=== PATIENT | female | born 1970 | race Caucasian/White ===

== ENCOUNTER → 2018-02-11 09:40 | Outpatient (CLI) | payer MEDICAID, SELFPAY | PROVIDERS: PCP Nurse Practitioner Family; Visit Provider Nurse Practitioner Family | DX: J44.9 Chronic obstructive pulmonary disease, unspecified (principal) | CPT/HCPCS: 94060; 94640 ==

== ENCOUNTER → 2018-02-18 10:41 | Outpatient (CLI) | payer MEDICAID, SELFPAY ==
[2018-02-18 12:19] LABS: Basophils % 0.2 % (0.1-2.0); Eosinophils # 0.1 K/mm3 (0.0-0.4); Eosinophils % 1.6 % (0.1-12.0); Hematocrit 46.5 % (37.0-47.0); Hemoglobin 14.4 g/dL (12.2-16.2); Lymphocytes # 1.7 K/mm3 (0.7-4.5); Mean Corpuscular Hemoglobin 31.1 pg (27.0-31.2); Mean Corpuscular Volume 100.5 fl (81-99); Mean Platelet Volume 8.5 fl (7.4-10.4); Monocytes # 0.3 K/mm3 (0.1-1.0); Neutrophils # 3.6 K/mm3 (1.8-7.8); Platelet Count 234 K/mm3 (142-424); Red Blood Count 4.63 M/mm3 (4.20-5.40); Red Cell Distribution Width 13.6 % (11.5-17.5); White Blood Count 5.8 K/mm3 (4.8-10.8)
[2018-02-18 12:47] LABS: Alanine Aminotransferase 22 U/L (12-78); Albumin Level 3.8 gm/dL (3.4-5.0); Albumin/Globulin Ratio 1.3 (1.1-1.8); Alkaline Phosphatase 54 U/L (46-116); Anion Gap 8.4 mEq/L (5-15); Aspartate Amino Transferase 14 U/L (15-37); Bilirubin,Total 0.2 mg/dL (0.2-1.0); Blood Urea Nitrogen 8 mg/dL (7-18); Calcium 8.8 mg/dL (8.5-10.1); Carbon Dioxide 30 mmol/L (21.0-32.0); Chloride 104 mmol/L (98-107); Chol/HDL Ratio 2.8 (1-3.5); Cholesterol 173 mg/dL (140-200); Creatinine,Serum 0.59 mg/dL (0.55-1.02); Estimated Glomerular Filt Rate 109 ml/min (>60); GFR (African American) 132 ML/MIN (>60); Globulin 2.9 gm/dl (1.3-3.2); Glucose 89 mg/dL (74-106); HDL Cholesterol 61 mg/dL (29-89); LDL Cholesterol 100 mg/dL (0-130); Potassium 4.4 mmoL/L (3.5-5.1); Sodium 138 mmol/L (136-145); T4 (Thyroxine) 7.1 ug/dl (4.7-13.3); Thyroid Stimulating Hormone 1.08 uIU/ml (0.358-3.740); Total Protein,Serum 6.7 gm/dL (6.4-8.2); Triglycerides 60 mg/dL (30-200); VLDL Cholesterol 12 mg/dL (0-40)
[2018-02-19 08:19] LABS: Hep A Ab, IgM Negative (Negative); Hepatitis B Core Antibody IgM Negative (Negative); Hepatitis B Surface Antigen Negative (Negative)
[2018-02-19 14:02] LABS: Hepatitis C Antibody <0.1 s/co ratio (0.0-0.9)
== END ==
PROVIDERS: Nurse Practitioner Family; PCP Emergency Medicine; Visit Provider Internal Medicine
DX: R94.31 Abnormal electrocardiogram [ECG] [EKG] (principal); R06.09 Other forms of dyspnea; F17.200 Nicotine dependence, unspecified, uncomplicated; F41.9 Anxiety disorder, unspecified; I10 Essential (primary) hypertension; I20.9 Angina pectoris, unspecified; I27.20 Pulmonary hypertension, unspecified; J44.9 Chronic obstructive pulmonary disease, unspecified; R53.83 Other fatigue; Z82.49 Family history of ischemic heart disease and other diseases of the circulatory system; E55.9 Vitamin D deficiency, unspecified
CPT/HCPCS: 80053; 80061; 80074; 82652; 84436; 84443; 85025; 93306

== ENCOUNTER → 2018-03-09 15:38 | Outpatient (CLI) | payer MEDICAID, SELFPAY ==
--- NOTE | 2018-03-09 15:43 | XR_ITS ---
XR chest 2V HISTORY: Chest pain, smoker ITS.REASON: dyspnea ORDERING PHYSICIAN: Clemente Collins MD PATIENT AGE: 48 years COMPARISON: None FINDINGS: The cardiomediastinal silhouette and pulmonary vascularity are within normal limits. There is hyperinflation with attenuation of the peripheral pulmonary vessels suggesting small airway disease. There is a healing fracture of the left third rib posteriorly. No lobar consolidation or collapse is evident. There is mild thoracic scoliosis convex right. IMPRESSION: No acute finding. Hyperinflation suggesting small airway disease/COPD
== END ==
PROVIDERS: PCP Emergency Medicine; Visit Provider Internal Medicine
DX: R06.00 Dyspnea, unspecified (principal); I20.9 Angina pectoris, unspecified; I73.9 Peripheral vascular disease, unspecified; R42 Dizziness and giddiness; R55 Syncope and collapse; R94.31 Abnormal electrocardiogram [ECG] [EKG]; F17.200 Nicotine dependence, unspecified, uncomplicated; Z82.49 Family history of ischemic heart disease and other diseases of the circulatory system
CPT/HCPCS: 71046

== ENCOUNTER → 2018-04-08 09:32 | Outpatient (CLI) | payer MEDICAID, SELFPAY ==
--- NOTE | 2018-04-08 09:34 | MM_ITS ---
MM Dig mamm BI DX w/CAD, US breast RT complete INDICATION: Palpable abnormality in the upper outer right breast ORDERING PHYSICIAN: Lisset Tamayo PATIENT AGE: 48 years COMPARISON: None TECHNIQUE: Standard images performed of both breasts along with spot compression views and spot compression mag views the right breast as well as right breast ultrasound FINDINGS: There is very dense fibroglandular tissue which decreases the of mammography. There is a 3.3 x 2.3 cm lobulated mass in the upper outer aspect of the right breast. This corresponds to the palpable abnormality. There is a 3.8 x 3.6 x 1 cm complex cystic mass noted in this area on ultrasound. Numerous small cystic areas are present within this lesion with some blood flow noted peripherally. This does demonstrate enhanced through transmission of sound. In addition, there is a cluster of mildly suspicious calcifications in the upper outer aspect of the right breast at the 10:00 region. Biopsy of both of these these areas is recommended. Asymmetric density is noted in the medial aspect of the right breast. This is only identified on the cc view with no sonographic correlate. Follow-up is suggested. Left breast has an unremarkable appearance. IMPRESSION: Palpable abnormality corresponds to a nearly 4 cm complex cystic lesion. Biopsy is suggested and can be performed with sonographic guidance. Suspicious cluster of calcifications in the upper outer right breast for which stereotactic biopsy is recommended. There is also an asymmetric density in the medial aspect of the right breast which will need follow up mammogram in 6 months BI-RADS Category: 4 Suspicious Abnormality-Biopsy Considered all RECOMMENDED FOLLOW-UP: BIO - BIOPSY RECOMMENDED (A letter has been sent to the patient regarding results of the study.)
== END ==
PROVIDERS: PCP Nurse Practitioner Family; Visit Provider Nurse Practitioner Family
DX: N63.10 Unspecified lump in the right breast, unspecified quadrant (principal); R92.8 Other abnormal and inconclusive findings on diagnostic imaging of breast
CPT/HCPCS: 76641; 77066

== ENCOUNTER → 2018-04-22 12:04 | Outpatient (CLI) | payer MEDICAID, SELFPAY | PROVIDERS: PCP Nurse Practitioner Family; Visit Provider Internal Medicine | DX: J44.9 Chronic obstructive pulmonary disease, unspecified (principal); I10 Essential (primary) hypertension; R53.83 Other fatigue; F17.200 Nicotine dependence, unspecified, uncomplicated | CPT/HCPCS: 94060; 94640; 94726; 94729 ==

== ENCOUNTER → 2018-04-27 11:05 | Outpatient (CLI) | payer MEDICAID, SELFPAY | PROVIDERS: PCP Nurse Practitioner Family; Visit Provider Urology | DX: Z98.890 Other specified postprocedural states (principal); M25.531 Pain in right wrist | CPT/HCPCS: 93931 ==

== ENCOUNTER → 2018-05-04 09:02 | Outpatient (CLI) | payer MEDICAID, SELFPAY ==
--- NOTE | 2018-05-04 09:02 | US_ITS ---
US Biopsy Breast, FNA w and local anesthesia with 1% lidocaine and deeper anesthesia CLINICAL INDICATION: Abnormal right breast ultrasound showed a complex cystic lesion at 10:00 ITS.REASON: complex cysts of left breast ORDERING PHYSICIAN: Lisset Tamayo PATIENT AGE: 48 years COMPARISON: 02/05/2019 TECHNIQUE: Timeout procedure performed. Oral sedation obtained with 1 mg alprazolam and 5 mg Lortab. Following obtaining informed consent under aseptic conditions and sonographic guidance with a 25-gauge needle into this complex cystic lesion at 10:00. Clear fluid was aspirated. Following this, core biopsy was obtained with a 18-gauge Philipp-Cut needle. The cystic lesion was somewhat aspirated during the exam and collapse somewhat. The patient tolerated the procedure well without evidence of immediate complication. Cytology: Benign ductal groups and macro bulges within a mucinous background Pathology: Dense fibrous stroma line by benign ductal epithelium suggestive of cyst wall. Negative for carcinoma IMPRESSION: Successful sonographic guided fine needle aspiration and core biopsy of cystic lesion of the right breast showing benign findings. Please see the stereotactic biopsy report for further recommendation.
--- NOTE | 2018-05-04 09:02 | MM_ITS ---
MM stereotactic loc RT, MM clip placement RT ORDERING PHYSICIAN: Lisset Tamayo PATIENT AGE: 48 years Comparison: 04/08/2018 PROCEDURE: INDICATION: Suspicious calcifications within the upper aspect of the right breast Sedation was utilized with 1 mg of Xanax and 5 mg Lortab. The patient was placed on the stereotactic table and the abnormality in the upper aspect of the right breast was localized in the most appropriate projection. Timeout procedure was performed. The breast was prepped in the routine manner, with sterile prep and the overlying skin anesthetized. A 3 to 4 mm skin incision was performed and the 9 gauge SoftGeneticsus vacuum-assisted core biopsy needle was advanced to the region of the calcification. Pre- and post fire images were obtained. After adequate positioning relative to the calcifications was ensured, multiple biopsies were obtained in the region of the calcifications specifically. The core biopsies obtained were sent for specimen mammography. After the calcifications were indeed identified on the specimen mammogram, the procedure was terminated. SPECIMEN RADIOGRAPH: The mammographically evident calcifications from the prior study are currently evident within the Boom dish and within the specimens obtained during mammotome procedure. This is considered an adequate specimen and the procedure was terminated. The patient tolerated the procedure well without complications. Specimen was sent to the lab for pathology. A tiny titanium nonferromagnetic MicroMark was positioned through the mammotome needle into the biopsy site. Pathology: Specimen is labeled as 10:00 outer quadrant calcifications. Compatible with benign mucocele-like lesion with microcalcifications. Negative for atypia or carcinoma excisional biopsy recommended by the pathologist. IMPRESSION: Successful stereotactic directed biopsy of the calcifications in the deep upper outer right breast without evidence of immediate complication. Pathology is remarkable for mucocele-like lesion with calcifications. EXCISIONAL BIOPSY IS RECOMMENDED. Right BREAST MAMMOGRAM: Compared to the prior study, the previously noted calcification have been removed. A small MicroMark clip was inserted into the region of the calcifications within the upper outer quadrant.. There is evidence of soft tissue changes in the region of the biopsy with soft tissue gas and edema. IMPRESSION: 1. Adequate placement of the MicroMark clip postbiopsy. 2. Postbiopsy changes within the right breast. RECOMMENDATIONS: Excisional Biopsy Of The Right Breast Lesion With The Hookwire Guidance
== END ==
PROVIDERS: PCP Nurse Practitioner Family; Visit Provider Nurse Practitioner Family
DX: N63.11 Unspecified lump in the right breast, upper outer quadrant
CPT/HCPCS: 10005; 19081; 77065

== ENCOUNTER → 2018-05-24 10:29 | Outpatient (CLI) | payer MEDICAID, SELFPAY ==
[2018-05-24 11:15] LABS: Basophils % 0.5 % (0.1-2.0); Eosinophils # 0.2 K/mm3 (0.0-0.4); Eosinophils % 1.8 % (0.1-12.0); Hematocrit 44.8 % (37.0-47.0); Hemoglobin 14.3 g/dL (12.2-16.2); Lymphocytes # 2.4 K/mm3 (0.7-4.5); Lymphocytes % 30.1 % (10-50); Mean Corpuscular Hemoglobin 31.4 pg (27.0-31.2); Mean Corpuscular Volume 98.2 fl (81-99); Mean Platelet Volume 8.4 fl (7.4-10.4); Monocytes # 0.4 K/mm3 (0.1-1.0); Monocytes % 5.4 % (1.7-9.3); Neutrophils # 5.1 K/mm3 (1.8-7.8); Neutrophils % 62.3 % (37.0-80.0); Platelet Count 298 K/mm3 (142-424); Red Blood Count 4.56 M/mm3 (4.20-5.40); Red Cell Distribution Width 13.1 % (11.5-17.5); White Blood Count 8.2 K/mm3 (4.8-10.8)
[2018-05-24 12:46] LABS: Anion Gap 11.7 mEq/L (5-15); Blood Urea Nitrogen 8 mg/dL (7-18); Calcium 9.4 mg/dL (8.5-10.1); Carbon Dioxide 29 mmol/L (21.0-32.0); Chloride 103 mmol/L (98-107); Creatinine,Serum 0.64 mg/dL (0.55-1.02); Estimated Glomerular Filt Rate 99 ml/min (>60); GFR (African American) 120 ML/MIN (>60); Glucose 87 mg/dL (74-106); Potassium 3.7 mmoL/L (3.5-5.1); Sodium 140 mmol/L (136-145)
== END ==
PROVIDERS: Visit Provider Surgery
DX: Z01.818 Encounter for other preprocedural examination (principal); N63.10 Unspecified lump in the right breast, unspecified quadrant
CPT/HCPCS: 36415; 80048; 85025

== ENCOUNTER → 2018-09-20 17:53 | Outpatient (CLI) | payer MEDICAID, SELFPAY | PROVIDERS: Visit Provider Nurse Practitioner Family | DX: R10.9 Unspecified abdominal pain (principal) | CPT/HCPCS: 87086 ==

== ENCOUNTER → 2019-01-10 14:59 | Outpatient (CLI) | payer MEDICAID, SELFPAY ==
--- NOTE | 2019-01-10 15:07 | XR_ITS ---
PROCEDURE: XR CHEST 2V CLINICAL HISTORY: cough Cough, COPD, smoker COMPARISON: CXR2V XR chest 2V from 03/09/2018 FINDINGS: The cardiomediastinal silhouette and pulmonary vascularity are within normal limits. Hyperinflation with attenuation of the peripheral pulmonary vessels consistent with COPD. No lobar consolidation or collapse. There are surgical clips along the right chest wall. There is mild upper thoracic curvature convex right a No acute bony abnormalities. IMPRESSION: COPD. No change with no acute finding Dictated by: Vinayak Jerez MD 01/10/2019 15:48 Electronically signed by Vinayak Jerez MD in [place] 01/10/2019 15:48
[2019-01-10 15:43] LABS: Basophils % 0.6 % (0.1-2.0); Eosinophils # 0.1 K/mm3 (0.0-0.4); Eosinophils % 1.1 % (0.1-12.0); Hematocrit 54.9 % (37.0-47.0); Hemoglobin 16.9 g/dL (12.2-16.2); Lymphocytes # 2.1 K/mm3 (0.7-4.5); Lymphocytes % 28.1 % (10-50); Mean Corpuscular HGB Conc 30.8 g/dL (31.8-35.4); Mean Corpuscular Volume 100.5 fl (81-99); Mean Platelet Volume 8.8 fl (7.4-10.4); Monocytes # 0.4 K/mm3 (0.1-1.0); Monocytes % 4.8 % (1.7-9.3); Neutrophils # 4.8 K/mm3 (1.8-7.8); Neutrophils % 65.4 % (37.0-80.0); Platelet Count 301 K/mm3 (142-424); Red Blood Count 5.46 M/mm3 (4.20-5.40); Red Cell Distribution Width 13.1 % (11.5-17.5); White Blood Count 7.4 K/mm3 (4.8-10.8)
[2019-01-10 16:31] LABS: Erythrocyte Sedimentation Rate 3 mm/hr (0-20)
[2019-01-10 17:21] LABS: Alanine Aminotransferase 29 U/L (12-78); Albumin Level 4.1 gm/dL (3.4-5.0); Albumin/Globulin Ratio 1.4 (1.1-1.8); Alkaline Phosphatase 74 U/L (46-116); Anion Gap 11.7 mEq/L (5-15); Aspartate Amino Transferase 19 U/L (15-37); Bilirubin,Total 0.4 mg/dL (0.2-1.0); Blood Urea Nitrogen 9 mg/dL (7-18); Calcium 9.1 mg/dL (8.5-10.1); Carbon Dioxide 28 mmol/L (21.0-32.0); Chloride 101 mmol/L (98-107); Cholesterol 173 mg/dL (140-200); Creatinine,Serum 0.71 mg/dL (0.55-1.02); Estimated Glomerular Filt Rate 88 ml/min (>60); Free T4 (Free Thyroxine) 1.09 ng/dl (0.76-1.46); GFR (African American) 107 ML/MIN (>60); Glucose 88 mg/dL (74-106); HDL Cholesterol 58 mg/dL (29-89); LDL Cholesterol 103 mg/dL (0-130); Potassium 3.7 mmoL/L (3.5-5.1); Sodium 137 mmol/L (136-145); Thyroid Stimulating Hormone 1.87 uIU/ml (0.358-3.740); Total Protein,Serum 7.1 gm/dL (6.4-8.2); Triglycerides 60 mg/dL (30-200); VLDL Cholesterol 12 mg/dL (0-40)
[2019-01-10 17:24] LABS: C-Reactive Protein < 0.2 mg/dL (0.0-0.9)
== END ==
PROVIDERS: PCP Emergency Medicine; Visit Provider Nurse Practitioner Family
DX: J44.9 Chronic obstructive pulmonary disease, unspecified (principal); R05 Cough; E55.9 Vitamin D deficiency, unspecified; R53.83 Other fatigue
CPT/HCPCS: 36415; 71046; 80053; 80061; 82652; 84439; 84443; 85025; 85651; 86140

== ENCOUNTER → 2019-01-11 10:00 | Outpatient (CLI) | payer MEDICAID, SELFPAY | PROVIDERS: PCP Emergency Medicine; Visit Provider Urology | DX: R55 Syncope and collapse (principal) | CPT/HCPCS: 93270 ==

== ENCOUNTER → 2019-01-23 08:27 | Outpatient (CLI) | payer MEDICAID, SELFPAY ==
[2019-01-23 08:30] LABS: MANUAL DIFFERENTIAL MANUAL DIFFERENTIAL (MANUAL DIFF)
[2019-01-23 08:56] LABS: Basophils % 0.5 % (0.1-2.0); Eosinophils # 0.1 K/mm3 (0.0-0.4); Eosinophils % 1.5 % (0.1-12.0); Hematocrit 51.8 % (37.0-47.0); Hemoglobin 15.9 g/dL (12.2-16.2); Lymphocytes % 27.6 % (10-50); Mean Corpuscular HGB Conc 30.7 g/dL (31.8-35.4); Mean Corpuscular Hemoglobin 31.6 pg (27.0-31.2); Mean Corpuscular Volume 102.9 fl (81-99); Monocytes # 0.5 K/mm3 (0.1-1.0); Monocytes % 6.5 % (1.7-9.3); Neutrophils # 4.6 K/mm3 (1.8-7.8); Neutrophils % 63.9 % (37.0-80.0); Platelet Count 261 K/mm3 (142-424); Red Blood Count 5.03 M/mm3 (4.20-5.40); Red Cell Distribution Width 13.1 % (11.5-17.5); White Blood Count 7.1 K/mm3 (4.8-10.8)
[2019-01-23 14:14] LABS: Eosinophils % 2 % (0-3); Lymphocytes % 29 % (10-50); Monocytes % 5 % (2-9); Neutrophils % 64 % (42-76); Platelet Estimate Normal; RBC Morphology Normal; Total Cells Counted 100
[2019-01-27 17:25] LABS: Folate 5.3 ng/mL (>3.0); Vitamin B12 372 pg/mL (232-1245)
== END ==
PROVIDERS: Physician Assistant; Visit Provider Nurse Practitioner Family
DX: D58.2 Other hemoglobinopathies (principal); R71.8 Other abnormality of red blood cells
CPT/HCPCS: 36415; 82607; 82746; 85007; 85014; 85018; 85048; 85049

== ENCOUNTER → 2019-03-02 14:15 | Outpatient (CLI) | payer MEDICAID, SELFPAY ==
--- NOTE | 2019-03-02 14:15 | CT_ITS ---
PROCEDURE: CT CHEST WO CON CLINICAL INDICATION: chest pain Shortness of air, smoker COMPARISON: ABDPELW CT abdomen pelvis w con from 09/20/2018 TECHNIQUE: Axial images obtained with sagittal and coronal reformats. All CT scans at the facility use one or more dose reduction, viz: automated exposure control, ma/kV adjustment per patient size (including targeted exams where dose is matched to indication, i.e. head), or iterative reconstruction technique. FINDINGS: Changes of COPD. Mild paraseptal emphysema. No mediastinal or hilar mass or adenopathy. Minimal pericardial thickening anteriorly with minimal coronary artery calcifications suspected. 3 mm noncalcified nodule left upper lobe image number 25 mild fibrotic changes in the lung bases. There is some minimal ground-glass opacity in the right upper lobe anteriorly nonspecific. Upper abdominal images show a 1.5 cm cyst in the left hepatic lobe. No acute bony findings. There is mild thoracic scoliosis convex right with degenerative changes of the thoracic spine. IMPRESSION: 1. No acute finding. 2. COPD with 3 mm noncalcified nodule left upper lobe and small ground-glass opacity right upper lobe nonspecific Dictated by: Vinayak Jerez MD 03/03/2019 09:39 Electronically signed by Vinayak Jerez MD in [place] 03/03/2019 09:39
== END ==
PROVIDERS: PCP Emergency Medicine; Visit Provider Nurse Practitioner Family
DX: I20.9 Angina pectoris, unspecified (principal); R06.00 Dyspnea, unspecified; R55 Syncope and collapse; F17.200 Nicotine dependence, unspecified, uncomplicated; I73.9 Peripheral vascular disease, unspecified
CPT/HCPCS: 71250

== ENCOUNTER 2019-03-09 06:28 | Day surgery (SDC) | payer MEDICAID, SELFPAY ==
[2019-03-08 09:23] VITALS: BMI 17.7
[2019-03-09] VITALS (8 sets, daily range): BP systolic 86–144; BP diastolic 55–95; PULSE 66–79; RESP 16–18; TEMP 36.7–37.3; O2SAT 98–99
--- NOTE | 2019-03-09 07:30 | HMH.ANESCL ---
[facility] Anesthesia Checklist - Patient Identification Patient Identification: Arm Band, Verbal (Name & ) - Structural Data Admitted From: Home Planned Operative Procedure/s: Colonoscopy Consent for Planned Operative Procedure(s) Verified: Yes Verified Documents: Surgical Consent, History and Physical - NPO Status Verified Time NPO: 00:00 - Chart Verification Results Verified: CBC, BMP - Additional verifications Anesthesia Reactions: No Hx Blood Transfusions: No Blood Transfusion Reaction: No - Airway Assessment C-Spine Mobility Assessed: Yes TMJ Mobility Assessed: Yes Dentition: Edentulous - Neurological Assessment Level of Consciousness: Awake, Alert, Appropriate, Follows Commands Hx Seizures: No Numbness or tingling in extremities: No - Anesthesia Plan Anesthesia Risk discussed: Yes Anesthesia Plan: Verified ASA Class: III Anesthesia Type: MAC [facility] History I have reviewed the patient's past medical history: Yes Medical History: Reports:: Anxiety, Chronic Obstructive Pulmonary Disease (COPD), Depression, Gastroesophageal Reflux Disease(GERD), Hypertension Denies:: Cancer, Diabetes Mellitus Type 1, Diabetes Mellitus Type 2, Internal Pacemaker, MRSA, Seizures *Have you ever received a pneumonia vaccine?: Yes *Have you received a flu vaccine this season?: No Other Medical History: Denies: Blood Transfusion Reaction, Hypothyroidism Comment:: angina Anesthesia experience/problems:: no complications Laterality Cases: Bilateral: Arthroscopy Knee, Tonsillectomy Other Surgeries: Yes: Cardiac Catheterization, Cholecystectomy, Colonoscopy, Hysterectomy-Total, Other. No: Pacemaker Amputation: No Fractures: Yes - *Social History Educational Level: Completed [employer] Smoking Status: Current every day smoker Tobacco Type: cigarettes # Packs/Day (cigarettes): 2 Alcohol Intake: never Substance Use Type: denies use *Occupational Status:: disabled Housing: house Household Members: significant other *Travel in the last 8 weeks: None - Psychiatric History Pschychiatric History:: Reports:: Anxiety Denies:: Depression Family Hx:: Cancer, Diabetes, Heart Attack, Hyperlipidemia, Hypertension, Stroke, Thyroid Disorder
--- NOTE | 2019-03-09 08:01 | P.PCN_ITS ---
- Procedure: Date: 03/09/19 Procedure Performed:: Colonoscopy with polypectomy Indications:: History of colon polyps Performing Provider:: Pastor Michaels MD Referring Provider:: . Sedation:: Monitored anesthesia care Procedure:: After informed consent was obtained the patient was taken to the endoscopy suite. Sedation ensued after the patient was transferred to the left lateral de cubitus position. Pulse, blood pressure, and oxygen saturation were monitored throughout the procedure. Digital rectal exam revealed no significant abnormality. The colonoscope was placed in position. The entire colon was evaluated. The colonoscope was carefully removed and the patient was transferred to recovery in stable condition. Please see findings and specimens below for detail. Findings:: Bowel preparation moderate Significant spasticity and lack of relaxation Hemorrhoidal cushions with no thrombosis or active bleeding Polyps (see specimens) Specimens:: Periappendiceal polyp Polyp at 60 cm 8 mm sessile polyp at 25 cm (snare) Polyp at 10 cm Recommendations:: Timing of repeat colonoscopy is pending pathology but will likely be between 2-3 years secondary to moderate bowel preparation, spasticity/lack of relaxation, and history of significant polyps. Complications:: No immediate Estimated blood obtained (mL): 1
--- NOTE | 2019-03-09 11:26 | P.PN_ITS ---
[facility] Anesthesia Record Part II Discharge Time: 08:40 Destination: Home PACU nurse assessment reviewed?: Yes Patient Condition:: Good Anesthesia Complications:: None Swallowing reflex intact?: Yes Cyanosis?: No Blood Pressure: 142/89 Pulse Rate: 79 Temperature: 98.0 F Mental Status: Alert & Oriented Pain level:: 0 Nausea and/or vomitting:: None Intake, IV Amount: 0
== END 2019-03-09 08:40 | disposition home or self-care (01) ==
PROVIDERS: PCP Emergency Medicine; Visit Provider Surgery
PROC: 0DJD8ZZ Inspection of Lower Intestinal Tract, Via Natural or Artificial Opening Endoscopic (ICD-10-PCS; CPT 45385; principal; 2019-03-09 07:30)
DX: Z12.11 Encounter for screening for malignant neoplasm of colon (principal); K63.5 Polyp of colon; Z86.010 Personal history of colon polyps
CPT/HCPCS: 45385; 45380; J2704

== ENCOUNTER → 2019-08-23 13:45 | Outpatient (CLI) | payer MEDICAID, SELFPAY ==
--- NOTE | 2019-08-23 13:45 | MM_ITS ---
PROCEDURE: MM DIG MAMM BI DX W/CAD Digital Breast Tomosynthesis Included CLINICAL INDICATION: mass There is no personal or family history of breast cancer. There has been a previous lumpectomy or biopsy right breast with benign findings. COMPARISON: CLIPRT MM clip placement RT from 05/04/2018 STRT MM stereotactic loc RT from 05/04/2018 SURSPRT MM surgical specimen RT from 06/03/2018 NLRT MM needle loc RT from 06/03/2018 US BREAST RT COMPLETE from 08/23/2019 TECHNIQUE: Standard CC and MLO images and 3D Tomosynthesis was obtained. R2 CAD reviewed. FINDINGS: There is a diffusely dense and heterogenic parenchymal pattern bilaterally. Very minimal post biopsy scarring seen upper outer quadrant right breast. Edgar images are most helpful in this type of dense breast parenchyma. There is benign-appearing calcification left breast. There are surgical clips near the biopsy site right breast. Apparently no previous images of the left breast are available for review. There does appear to be some tubular opacities in the subareolar region left breast suggesting possible ductal hyperplasia. There is no definite suspicious lesion in either breast and no suspicious microcalcifications. IMPRESSION: Diffusely dense and heterogenic parenchymal pattern with minimal post lumpectomy scarring outer quadrant right breast BI-RAD Category: 2 Benign Finding(s) FOLLOW-UP: 1YR 1 Year Follow-up (A letter has been sent to the patient regarding results of the study.) Dictated by: Dr. Mauricio Navarro MD 09/01/2019 08:[address] Mauricio Navarro MD in [place] 09/01/2019 08:33
--- NOTE | 2019-08-23 13:45 | US_ITS ---
PROCEDURE: US BREAST RT COMPLETE CLINICAL INDICATION: mass COMPARISON: BXORG US Biopsy Breast from 05/04/2018 MM DIG MAMM BI DX W/CAD from 08/23/2019 FINDINGS: There is somewhat diffuse heterogenic echogenicity. Is a hypoechoic oval lesion at the 4 o'clock position near the nipple measuring 0.4 x 0.3 by 0.6 cm. There are few internal echoes but there is slight acoustic enhancement. This likely represents a complex cyst. There is another small oblong hypoechoic lesion at the 5 o'clock position near the nipple measuring 0.7 x 0.2 by 0.5 cm and this likely is a small cyst. There is a stable somewhat oblong area of decreased echogenicity with suggestion of internal septations and this probably represents normal fat showing through areas of fibrocystic change. There is no suspicious solid lesion. IMPRESSION: Fibrocystic changes, no suspicious cystic or solid lesion identified and recommend the patient continue with yearly screening mammography. Dictated by: Dr. Mauricio Navarro MD 09/01/2019 11:[address] Mauricio Navarro MD in [place] 09/01/2019 11:51
== END ==
PROVIDERS: PCP Emergency Medicine; Visit Provider Surgery
DX: N63.41 Unspecified lump in right breast, subareolar (principal)
CPT/HCPCS: 76641; 77062; 77066; G0279

== ENCOUNTER 2019-11-15 11:35 | Emergency (ER) | payer MEDICAID, SELFPAY ==
[2019-11-15 11:43] VITALS: BP 168/90; PULSE 66; RESP 20; TEMP 36.9; O2SAT 99; BMI 18.1
--- NOTE | 2019-11-15 11:58 | XR_ITS ---
PROCEDURE: XR CHEST 2V CLINICAL HISTORY: SOB Shortness of breath, COPD, emphysema, smoker COMPARISON: CR CXR2V XR chest 2V from 03/09/2018 CR XR CHEST 2V from 01/10/[address] CHEST WO CON from 03/02/2019 CR XR CHEST 2V from 04/24/2019 FINDINGS: The cardiomediastinal silhouette and pulmonary vascularity are within normal limits. COPD. Mild pectus deformity. Surgical clips overlie the right mid chest laterally in the chest wall area. There is an old left 3rd rib fracture. IMPRESSION: COPD. No change with no acute finding Dictated by: Vinayak Jerez MD 11/15/2019 13:40 Vinayak Jerez MD in [place] 11/15/2019 13:40
[2019-11-15 12:07] VITALS: BP 168/90; PULSE 66; RESP 19; TEMP 36.9; O2SAT 99
--- NOTE | 2019-11-15 12:56 | HMH.EDUTC ---
[facility] [place] Clinical Impression: COPD exacerbation, Pleurisy COPD (chronic obstructive pulmonary disease) Qualifiers: COPD type: emphysema Emphysema type: unspecified Qualified Code(s): J43.9 - Emphysema, unspecified Disposition: Home, Self-Care Condition on Discharge: Good Instructions: Chronic Obstructive Pulmonary Disease, How to Quit Tobacco Products Additional Instructions: Drink plenty of fluids. Take tylenol or ibuprofen for pain or fever. Take the medications as directed. Follow up with your regular doctor. GO TO THE ER FOR ANY WORSENING SYMPTOMS Don't start the oral steroids until tomorrow, since you had the shot here today. The cough medication (promethazine dm) will make you drowsy, so don't drive or operate heavy machinery after taking it. Prescriptions: Promethazine/Dextromethorphan [Promethazine-Dm Syrup] 5 ml PO Q6HP PRN #180 syrup PRN Reason: Cough Transmission Status: Received by [id number] methylPREDNISolone [Medrol] 4 mg PO DIRECTED 6 Days #21 tab.ds.pk Transmission Status: Received by [id number] Azithromycin [Z-Yousuf 250mg Tab*] 250 mg PO UD DOSE PK #6 tab Transmission Status: Received by [id number] Referrals: Taz Hunter MD [Primary Care Provider] - Time of Disposition: 13:09 Medical Decision Making - Medical Records Medical records reviewed: No: I reviewed the patient's medical records. - Edd Inquiry Pt receiving controlled substance: No Vital Signs: 11/15/19 11:43 11/15/19 12:07 Temperature 98.4 F 98.4 F Temperature Source Oral Pulse Rate 66 Pulse Rate [Left] 66 Respiratory Rate 20 19 Blood Pressure 168/90 H Blood Pressure [Right Arm] 168/90 H Blood Pressure Mean [Right Arm] 116 Blood Pressure Source [Right Arm] Automatic Cuff Blood Pressure Position [Right Arm] Sitting 02 Sat by Pulse Oximetry 99 Oxygen Delivery Method Room Air Orders (Tests/Meds): ED MEDICATIONS Discontinued Medications Generic Name Dose Route Start Last Admin Trade Name Freq PRN Reason Stop Dose Admin Ceftriaxone Sodium 1 gm 11/15/19 13:05 11/15/19 13:56 Rocephin 1gm Vial IM 11/15/19 13:06 1 gm ONCE ONE Administration Protocol Lidocaine HCl 0 ml 11/15/19 13:05 11/15/19 13:56 Lidocaine 1% 10ml Mdv IM 11/15/19 13:06 2.1 ml ONCE ONE Administration Methylprednisolone Sodium Succinate 125 mg 11/15/19 13:05 11/15/19 13:56 Solu-Medrol 125mg/2ml Vial IM 11/15/19 13:06 125 mg ONCE ONE Administration [facility] [place] - General Stated complaint: WANTS LUNG XRAY Time Seen by Provider: 11/15/19 11:45 Mode of Arrival: Ambulatory Source of Information: Patient Limitations: No Limitations Description of Symptoms (Recalled from Triage Doc. by RN): Pt requesting chest xray HEENT Symptoms (Recalled from RN notes): No Resp Symptoms (Recalled from RN notes): Yes Skin Symptoms (Recalled from RN notes): No MS Symptoms (Recalled from RN notes): No Functional Status (Recalled from RN notes): stable - History of Present Illness Provider Complaint: She states that over the past 4 days, she has began having right lower rib pain with deep breathing. She has a history of copd and she has had pleurisy in the past. She states that she thinks that it is pleurisy, but she wants to make sure she doesn't have pneumonia. She has had a worsening productive cough with yellowish sputum. She has had no fever or chills. She has a long cigarette smoking history. She has been diagnsed with COPD in the past. - Related Data Home Medications Medication Instructions Recorded Confirmed Amlodipine Besylate [Amlodipine 5 mg PO DAILY 03/09/19 09/06/19 5mg tab] Aspirin [Low Dose Aspirin EC] 81 mg PO DAILY 03/09/19 09/06/19 Isosorbide Mononitrate [Imdur 60mg 60 mg PO DAILY 03/09/19 09/06/19 ER tablet] Umeclidinium Brm/Vilanterol Tr 1 inh INHALATION Q24H 03/09/19 09/06/19 [Anoro Ellipta] bisoproloL fu
[2019-11-15 14:31] VITALS: BMI 18.1
== END 2019-11-15 14:35 | disposition home or self-care (01) ==
PROVIDERS: Emergency Provider Nurse Practitioner Family; PCP Emergency Medicine
DX: J44.1 Chronic obstructive pulmonary disease with (acute) exacerbation (principal); R09.1 Pleurisy; J43.9 Emphysema, unspecified; K21.9 Gastro-esophageal reflux disease without esophagitis; I10 Essential (primary) hypertension; E03.9 Hypothyroidism, unspecified; Z90.49 Acquired absence of other specified parts of digestive tract; Z90.710 Acquired absence of both cervix and uterus
CPT/HCPCS: 71046; 96372; 99202

== ENCOUNTER → 2020-05-28 17:35 | Outpatient (CLI) | payer MEDICAID, SELFPAY ==
[2020-05-28 18:07] LABS: Basophils % 0.4 % (0.1-2.0); Eosinophils # 0.1 K/mm3 (0.0-0.4); Eosinophils % 0.8 % (0.1-12.0); Hemoglobin 15.3 g/dL (12.2-16.2); Lymphocytes # 1.9 K/mm3 (0.7-4.5); Lymphocytes % 24.3 % (10-50); Mean Corpuscular HGB Conc 31.8 g/dL (31.8-35.4); Mean Corpuscular Hemoglobin 31.4 pg (27.0-31.2); Mean Corpuscular Volume 98.7 fl (81-99); Mean Platelet Volume 8.7 fl (7.4-10.4); Monocytes # 0.5 K/mm3 (0.1-1.0); Neutrophils # 5.3 K/mm3 (1.8-7.8); Neutrophils % 68.5 % (37.0-80.0); Platelet Count 258 K/mm3 (142-424); Red Blood Count 4.86 M/mm3 (4.20-5.40); Red Cell Distribution Width 13.5 % (11.5-17.5); White Blood Count 7.8 K/mm3 (4.8-10.8)
[2020-05-28 18:19] LABS: Alanine Aminotransferase 18 U/L (12-78); Albumin Level 4.8 g/dl (3.5-5.0); Albumin/Globulin Ratio 1.9 (1.1-1.8); Alkaline Phosphatase 69 U/L (38-126); Anion Gap 10.4 mEq/L (5-15); Aspartate Amino Transferase 36 U/L (14-36); Bilirubin,Total 0.3 mg/dl (0.2-1.3); Blood Urea Nitrogen 9 mg/dl (7-17); Calcium 10.2 mg/dl (8.4-10.2); Carbon Dioxide 30 mmol/L (22.0-30.0); Chloride 102 mmol/L (98-107); Chol/HDL Ratio 3.2 (1-3.5); Cholesterol 194 mg/dl (140-200); Estimated Glomerular Filt Rate 106 ml/min (>60); GFR (African American) 129 ML/MIN (>60); Globulin 2.5 g/dL (1.3-3.2); Glucose 53 mg/dl (74-100); HDL Cholesterol 60 mg/dl (40-60); Potassium 4.4 mmoL/L (3.5-5.1); Sodium 138 mmol/L (136-145); Total Protein,Serum 7.3 g/dl (6.3-8.2); Triglycerides 148 mg/dl (30-150); VLDL Cholesterol 30 mg/dL (0-40)
[2020-05-28 18:35] LABS: Direct LDL Cholesterol 100.67 mg/dL (100-129)
[2020-05-28 18:36] LABS: 25-OH Vitamin D, Total 28.2 ng/mL (30-100); Free T4 (Free Thyroxine) 1.03 ng/dl (0.78-2.19)
[2020-05-28 18:38] LABS: Erythrocyte Sedimentation Rate 5 mm/hr (0-20)
[2020-05-28 18:50] LABS: Thyroid Stimulating Hormone 1.92 uIU/mL (0.465-4.68)
== END ==
PROVIDERS: Visit Provider Emergency Medicine
DX: R06.02 Shortness of breath (principal); R53.83 Other fatigue; E55.9 Vitamin D deficiency, unspecified
CPT/HCPCS: 80053; 80061; 82306; 84439; 84443; 85025; 85651

== ENCOUNTER → 2020-06-11 13:01 | Outpatient (CLI) | payer MEDICAID, SELFPAY ==
--- NOTE | 2020-06-11 13:05 | XR_ITS ---
PROCEDURE: XR CHEST 2V CLINICAL HISTORY: shortness of air COMPARISON: CR XR CHEST 2V from 01/10/[address] CHEST WO CON from 03/02/2019 CR XR CHEST 2V from 04/24/2019 CR XR CHEST 2V from 11/15/2019 FINDINGS: The cardiomediastinal silhouette and pulmonary vascularity are within normal limits. COPD changes. Hyperinflation with mildly prominent anterior clear space. Surgical clips noted overlying the right breast laterally . Mild midthoracic curvature convex right. IMPRESSION: No acute findings. Dictated by: Vinayak Jerez MD 06/11/2020 14:33 Vinayak Jerez MD in [place] 06/11/2020 14:33
== END ==
PROVIDERS: PCP Emergency Medicine; Visit Provider Emergency Medicine
DX: R06.02 Shortness of breath (principal)
CPT/HCPCS: 71046

== ENCOUNTER → 2020-08-26 07:34 | Outpatient (CLI) | payer MEDICAID, SELFPAY ==
--- NOTE | 2020-08-26 07:35 | US_ITS ---
PROCEDURE: US BREAST RT COMPLETE CLINICAL INDICATION: Lump COMPARISON: US US BREAST RT COMPLETE from 08/23/2019 MG MM DIG SCREENING MAMM BI W/CAD from 08/26/2020 FINDINGS: Multiple cystic lesions are once again noted including a 5 x 5 x 2 mm cystic area at 4 o'clock, 6 x 7 x 2 mm cystic area at 4 o'clock near the nipple, 6 x 6 x 2 mm cyst at 6 o'clock near the nipple, complex cluster of cysts or complicated cyst at 10 o'clock outer at 2.5 x 0.4 x 1.5 cm. Small nodes are present in the axilla. IMPRESSION: Benign appearing cystic changes of the right breast which appear stable. Please see mammogram report from the same day for BI-RADS category. Dictated by: Vinayak Jerez MD 09/04/2020 09:48 Vinayak Jerez MD in [place] 09/04/2020 09:48
--- NOTE | 2020-08-26 07:35 | MM_ITS ---
PROCEDURE INFORMATION: Exam: US Right Breast, Complete MG Screening 3D Mammography Exam date and time: 08/26/2020 7:35 AM Age: 50 years old Clinical indication: Encounter for screening mammogram for malignant neoplasm of breast; Positive family history of breast cancer: Aunt. Follow-up for probable cystic change in the right breast TECHNIQUE: Imaging protocol: Complete ultrasound of all four quadrants of the Right breast and the retroareolar regions, including ultrasound of the axillae when performed. Screening tomosynthesis and 2D mammography including computer-aided detection (CAD) when performed. COMPARISON: 1. MG MM DIG MAMM BI DX W/CAD 08/23/2019 2:06 PM 2. MG SURSPRT MM surgical specimen RT 06/03/2018 11:11 AM FINDINGS: MAMMOGRAPHY: Breast composition: The breast tissue is extremely dense, limiting the sensitivity of mammography. Mass: None. Architectural distortion: None. Calcifications: None. Asymmetric density: None. Skin thickening: None. Axillary adenopathy: None. ULTRASOUND: Right solid masses: None. Right cystic masses: Stable subcentimeter cyst in the right 4 o'clock axis measuring 0.5 x 0.2 x 0.6 cm and in the right 6 o'clock axis measuring 0.6 x 0.6 x 0.2 cm . Interval decrease in size a cluster of cysts in the right 10 o'clock axis with a combined dimension of 1.5 cm. Right architectural distortion: None. Right acoustical shadowing: None. Right skin thickening: None. Right axillary adenopathy: None. IMPRESSION: No mammographic evidence of malignancy. Benign cystic change in the right breast. Annual screening is recommended unless otherwise clinically indicated. ASSESSMENT: Screening mammogram BIRADS: BI-RADS Category 1: Negative Overall BIRADS: BI-RADS Category 2: Benign
== END ==
PROVIDERS: PCP Emergency Medicine; Visit Provider Surgery
DX: N60.11 Diffuse cystic mastopathy of right breast (principal); Z12.31 Encounter for screening mammogram for malignant neoplasm of breast
CPT/HCPCS: 76641; 77063; 77067

== ENCOUNTER → 2020-09-11 08:44 | Outpatient (CLI) | payer MEDICAID, SELFPAY ==
[2020-09-11 09:18] LABS: Basophils # 0.1 K/mm3 (0-0.2); Basophils % 0.5 % (0.1-2.0); Eosinophils # 0.2 K/mm3 (0.0-0.4); Eosinophils % 1.7 % (0.1-12.0); Hematocrit 48.3 % (37.0-47.0); Hemoglobin 15.8 g/dL (12.2-16.2); Lymphocytes # 2.7 K/mm3 (0.7-4.5); Lymphocytes % 29.9 % (10-50); Mean Corpuscular HGB Conc 32.6 g/dL (31.8-35.4); Mean Corpuscular Hemoglobin 31.1 pg (27.0-31.2); Mean Corpuscular Volume 95.3 fl (81-99); Mean Platelet Volume 8.1 fl (7.4-10.4); Monocytes # 0.4 K/mm3 (0.1-1.0); Monocytes % 4.8 % (1.7-9.3); Neutrophils # 5.8 K/mm3 (1.8-7.8); Neutrophils % 63.1 % (37.0-80.0); Platelet Count 272 K/mm3 (142-424); Red Blood Count 5.07 M/mm3 (4.20-5.40); Red Cell Distribution Width 13.9 % (11.5-17.5); White Blood Count 9.2 K/mm3 (4.8-10.8)
[2020-09-11 09:34] LABS: Anion Gap 13.1 mEq/L (5-15); Blood Urea Nitrogen 11 mg/dl (7-17); Calcium 9.5 mg/dl (8.4-10.2); Carbon Dioxide 28 mmol/L (22.0-30.0); Chloride 102 mmol/L (98-107); Estimated Glomerular Filt Rate 106 ml/min (>60); GFR (African American) 129 ML/MIN (>60); Glucose 103 mg/dl (74-100); Potassium 4.1 mmoL/L (3.5-5.1); Sodium 139 mmol/L (136-145)
== END ==
PROVIDERS: Visit Provider Surgery
DX: Z01.812 Encounter for preprocedural laboratory examination (principal); Z11.52 Encounter for screening for COVID-19; R59.9 Enlarged lymph nodes, unspecified
CPT/HCPCS: 36415; 80048; 85025; U0003

== ENCOUNTER 2020-09-13 07:28 | Day surgery (SDC) | payer MEDICAID, SELFPAY ==
[2020-09-12 12:44] VITALS: BMI 18.3
[2020-09-13] VITALS (12 sets, daily range): BP systolic 130–185; BP diastolic 64–107; PULSE 60–94; RESP 12–18; TEMP 36.1–36.8; O2SAT 98–100
--- NOTE | 2020-09-13 08:57 | HMH.ANESCL ---
[facility] Anesthesia Checklist - Structural Data Admitted From: Home Planned Operative Procedure/s: excision lymph nodes r axilla Verified Documents: Surgical Consent - Additional verifications Anesthesia Reactions: No Hx Blood Transfusions: No Blood Transfusion Reaction: No - Airway Assessment C-Spine Mobility Assessed: Yes TMJ Mobility Assessed: Yes Dentition: Edentulous - Neurological Assessment Level of Consciousness: Awake, Alert, Appropriate - Anesthesia Plan Anesthesia Risk discussed: Yes Anesthesia Plan: Verified ASA Class: II Anesthesia Type: General [facility] History I have reviewed the patient's past medical history: Yes Medical History: Reports:: Anxiety, Chronic Obstructive Pulmonary Disease (COPD), Depression, Gastroesophageal Reflux Disease(GERD), Hypertension Denies:: Cancer, Diabetes Mellitus Type 1, Diabetes Mellitus Type 2, Internal Pacemaker, MRSA, Seizures *Have you ever received a pneumonia vaccine?: Yes *Have you received a flu vaccine this season?: No Other Medical History: Denies: Blood Transfusion Reaction, Hypothyroidism Anesthesia experience/problems:: none Laterality Cases: Bilateral: Arthroscopy Knee, Tonsillectomy Other Surgeries: Yes: Cardiac Catheterization, Cholecystectomy, Colonoscopy, Hysterectomy-Total, Other. No: Pacemaker Amputation: No Fractures: Yes - *Social History Last grade of school completed: Some college Smoking Status: Current every day smoker Tobacco Type: cigarettes # Packs/Day (cigarettes): 2 Alcohol Intake: never Substance Use Type: denies use *Occupational Status:: disabled Housing: house Household Members: significant other *Travel in the last 8 weeks: None - Psychiatric History Pschychiatric History:: Reports:: Anxiety, Depression Family Hx:: Cancer, Coronary Artery Disease, Hyperlipidemia, Hypertension
--- NOTE | 2020-09-13 09:22 | P.OP_ITS ---
Date of procedure: 09/13/20 Pre-op Diagnosis:: Enlarged right axillary lymph node Bilateral fibrocystic breast disease Post-op Diagnosis:: Same Procedure performed:: Excision of enlarged right axillary lymph node Excisional biopsy of nodular focus in the right upper outer quadrant of the right breast Surgeon:: Pastor Michaels MD BRIDGE CONSTRUCTION INSPECTOR:: Ant Chino Anesthesia: LMA Estimated blood loss (mL): 10 Clinical Note:: Patient was scheduled for excision of enlarged right axillary lymph node. Preoperatively, she palpated an area that was technically in the right upper outer quadrant of the breast. This was a firm area of tenderness and the patient wished to also have this excised. Operative findings:: Enlarged right axillary node excised with a portion placed in RPMI solution and a portion placed in formalin Right upper outer quadrant nodularity excised Operative note:: After informed consent was obtained the patient was taken to the operating room and placed in the supine position. General anesthesia with laryngeal mask airway was achieved. Her right axilla and breast were prepped and draped in a sterile fashion. After infiltration local anesthetic an incision was made over the palpable right axillary nodule. The underlying tissue was excised in toto and passed off for pathologic evaluation. A portion of the enlarged node was placed in RPMI solution and the remaining node and surrounding contents were placed in formalin. The area of nodularity in the right upper outer quadrant was excised in a similar manner. This lesion was marked for margin with the superior and lateral margins marked with dyed suture and the superficial and deep margins marked with nondyed suture. Electrocautery was utilized to achieve hemostasis. The deep subcutaneous tissue was reapproximated with 2-0 Vicryl and skin was closed with 4-0 Monocryl in a running subcuticular manner. Steri-Strips were applied and the patient was transferred to recovery in stable condition after removal of her laryngeal mask airway. Condition: stable Disposition: PACU Specimens:: Enlarged right axillary lymph node sent in both RPMI solution in formalin Right upper outer quadrant breast nodule Complications:: No immediate
--- NOTE | 2020-09-13 09:32 | P.PN_ITS ---
[facility] Anesthesia Record Part I Intake, IV Amount: 1,000 Estimated blood loss (mL): 0 Urine output (mL): 0 Blood Pressure: 130/75 SaO2: 98 Pulse Rate: 79 Respiratory Rate: 12 Temperature: 97 F Patient is:: Drowsy, Stable Stable to PACU at:: 09:30
--- NOTE | 2020-09-13 11:05 | SUR.PHASEII ---
1050-administered 1 tab of Percocet 5/325mg for pain 10/10. Patient stated the pain is at her right breast and under arm area. Denies chest pain or difficulty breathing. 1105-patient stated pain improvement 8/ pain still at right breast and under arm area. just want to go home to my bed Denies chest pain or difficulty breathing
--- NOTE | 2020-09-13 12:45 | PC.NURSE ---
pt states pain/pressure in breast area/right axillary only. Denies chest pain or shortness of breath. no pain reported in mid chest or left chest/arm
--- NOTE | 2020-09-13 17:39 | HMH.ANESII ---
[facility] Anesthesia Record Part II Discharge Time: 10:10 Destination: Surgical Day Care (OP Surgery) PACU nurse assessment reviewed?: Yes Patient Condition:: Good Anesthesia Complications:: None Swallowing reflex intact?: Yes Cyanosis?: No Blood Pressure: 156/96 Pulse Rate: 66 Temperature: 97.5 F Mental Status: Alert & Oriented Pain level:: 5 Nausea and/or vomitting:: None Intake, IV Amount: 0
== END 2020-09-13 11:05 | disposition home or self-care (01) ==
PROVIDERS: PCP Emergency Medicine; Visit Provider Surgery
PROC: (CPT 19101; principal; 2020-09-13 09:30)
DX: C96.9 Malignant neoplasm of lymphoid, hematopoietic and related tissue, unspecified; D05.11 Intraductal carcinoma in situ of right breast; I10 Essential (primary) hypertension; K21.9 Gastro-esophageal reflux disease without esophagitis; J44.9 Chronic obstructive pulmonary disease, unspecified; F41.9 Anxiety disorder, unspecified; F32.9 Major depressive disorder, single episode, unspecified; Z72.0 Tobacco use
CPT/HCPCS: 19101; 38500; 96374; J2405

== ENCOUNTER → 2020-09-24 08:47 | Outpatient (CLI) | payer MEDICAID, SELFPAY | PROVIDERS: Visit Provider Surgery | DX: Z20.822 Contact with and (suspected) exposure to COVID-19 (principal) | CPT/HCPCS: U0003 ==

== ENCOUNTER 2020-09-26 08:52 | Inpatient (IN) | payer MEDICAID, SELFPAY ==
[2020-09-24 12:57] VITALS: BMI 18.3
[2020-09-26] VITALS (21 sets, daily range): BP systolic 146–191; BP diastolic 72–124; PULSE 56–77; RESP 14–18; TEMP 36–37.3; O2SAT 95–99; BMI 17.6
--- NOTE | 2020-09-26 09:38 | HMH.GSHP ---
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 After discussion with the patient concerning risks and benefits the decision was made to proceed with right mastectomy with sentinel axillary node biopsy Forwarded from recent office visit: The patient returns status post excision of lower right axillary nodule and right upper outer quadrant breast lesion. 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 Some DCIS noted. The right upper outer quadrant breast lesion proved to be a DCIS with close but negative margins. [facility] History Medical History: Reports:: Anxiety, Cancer (breast), Chronic Obstructive Pulmonary Disease (COPD), Depression, Gastroesophageal Reflux Disease(GERD), Hypertension Denies:: Diabetes Mellitus Type 1, Diabetes Mellitus Type 2, Internal Pacemaker, MRSA, Seizures *Have you ever received a pneumonia vaccine?: Yes *Have you received a flu vaccine this season?: No Other Medical History: Denies: Blood Transfusion Reaction, Hypothyroidism Laterality Cases: Left: Breast Biopsy, Bilateral: Arthroscopy Knee, Tonsillectomy Other Surgeries: Yes: Cardiac Catheterization, Cholecystectomy, Colonoscopy, Hysterectomy-Total, Other. No: Pacemaker Amputation: No Fractures: Yes - *Social History Last grade of school completed: Some college Smoking Status: Current every day smoker Tobacco Type: cigarettes # Packs/Day (cigarettes): 1 Alcohol Intake: never Substance Use Type: denies use *Occupational Status:: unemployed, disabled Housing: house Household Members: significant other *Travel in the last 8 weeks: None - Psychiatric History Pschychiatric History:: Reports:: Anxiety, Depression Family Hx:: Cancer, Coronary Artery Disease Review of Systems - Constitutional Denies chills - Eyes Denies change in vision - ENT Denies difficulty swallowing - *Cardiovascular Denies chest pain - *Respiratory Denies cough - *Gastrointestinal Denies abdominal pain - *Genitourinary Denies abnormal vaginal bleeding - *Musculoskeletal Denies abnormal walking - Integumentary/Breasts Denies new lesions - *Neurologic Denies dizziness - Psychiatric Reports anxiety - Endocrine Denies cold intolerance - Hematologic/Lymphatic Denies easy bleeding - Allergic/Immunologic Denies wheezing Meds Home Medications Medication Instructions Recorded Confirmed Type amlodipine 5 mg tablet 5 mg PO DAILY #90 tab 05/28/20 09/26/20 Rx aspirin 81 mg tablet,delayed 81 mg PO DAILY #90 tab 05/28/20 09/26/20 Rx release bisoprolol fumarate 5 mg tablet 5 mg PO DAILY #90 tab 05/28/20 09/26/20 Rx isosorbide mononitrate 60 mg 60 mg PO DAILY #90 tab 05/28/20 09/26/20 Rx tablet,extended release 24 hr umeclidinium 62.5 mcg-vilanterol 1 inh INHALATION Q24H #60 each 05/28/20 09/26/20 Rx 25 mcg/actuation powdr for inhalation Cholecalciferol (Vitamin D3) 1,250 mcg PO WEEKLY 09/12/20 09/26/20 History [Vitamin D3 50,000 unit Cap] Lisinopril/Hydrochlorothiazide 2 tab PO BID 09/12/20 09/26/20 History [Lisinopril-Hctz 20-12.5 mg Tab] Allergies Allergy/AdvReac Type Severity Reaction Status Date / Time acetaminophen [From Cotter] Allergy Severe Rash Verified 09/18/20 13:29 hydrocodone [From Cotter] Allergy Severe Rash Verified 09/18/20 13:29 sulfamethoxazole Allergy Severe Blisters/uncontrolled Verified 09/18/20 13:29 [From Bactrim] bladder trimethoprim [From Bactrim] Allergy Severe Blisters/uncontrolled Verified 09/18/20 13:29 bladder Exam Vital signs and Labs for Last 24 Hours: Vital Signs 09/18/20 Height 5 ft 6 in 09/18/20 Weight 115 lb 09/18/20 BMI 18.6 09/18/20 BP 176/88 H 09/18/20 Pulse 66 09/18/20 Temp 97.6 F I & O for Last 24 hours: Intake & Output 09/23/20 09/24/20 09/25/20 09/26/20 11
--- NOTE | 2020-09-26 12:20 | HMH.ANESCL ---
[facility] Anesthesia Checklist - Patient Identification Patient Identification: Arm Band - Structural Data Admitted From: Home Planned Operative Procedure/s: right mastectomy with sentinal node biopsy Consent for Planned Operative Procedure(s) Verified: Yes Verified Documents: Surgical Consent, History and Physical - NPO Status Verified Time NPO: 00:00 - Additional verifications Anesthesia Reactions: No Hx Blood Transfusions: No Blood Transfusion Reaction: No - Airway Assessment C-Spine Mobility Assessed: Yes (mp2) TMJ Mobility Assessed: Yes - Neurological Assessment Level of Consciousness: Awake, Alert - Anesthesia Plan Anesthesia Risk discussed: Yes Anesthesia Plan: Verified ASA Class: III Anesthesia Type: General [facility] History I have reviewed the patient's past medical history: Yes Medical History: Reports:: Anxiety, Cancer (breast), Chronic Obstructive Pulmonary Disease (COPD), Depression, Gastroesophageal Reflux Disease(GERD), Hypertension Denies:: Diabetes Mellitus Type 1, Diabetes Mellitus Type 2, Internal Pacemaker, MRSA, Seizures *Have you ever received a pneumonia vaccine?: Yes *Have you received a flu vaccine this season?: No Other Medical History: Denies: Blood Transfusion Reaction, Hypothyroidism Anesthesia experience/problems:: nac Laterality Cases: Left: Breast Biopsy, Bilateral: Arthroscopy Knee, Tonsillectomy Other Surgeries: Yes: Cardiac Catheterization, Cholecystectomy, Colonoscopy, Hysterectomy-Total, Other. No: Pacemaker Amputation: No Fractures: Yes - *Social History Last grade of school completed: Some college Smoking Status: Current every day smoker Tobacco Type: cigarettes # Packs/Day (cigarettes): 1 Alcohol Intake: never Substance Use Type: denies use *Occupational Status:: unemployed, disabled Housing: house Household Members: significant other *Travel in the last 8 weeks: None - Psychiatric History Pschychiatric History:: Reports:: Anxiety, Depression Family Hx:: Cancer, Coronary Artery Disease
--- NOTE | 2020-09-26 13:27 | NM_ITS ---
PROCEDURE: NM SENTINEL NODE INJECT ONLY CLINICAL INDICATION: Rt breast right breast cancer COMPARISON: No exams were available for comparison FINDINGS: Following obtaining informed consent and after a time-out procedure, under aseptic conditions and local anesthesia with 1 % buffered lidocaine, 1.41 mCi technetium sulfur colloid was injected in the periareolar region of the right breast in 6 divided doses. The patient tolerated the procedure well without evidence of immediate complications and left nuclear medicine suite in stable condition. IMPRESSION: Uneventful right breast sentinel node injection Dictated by: Vinayak Jerez MD 09/26/2020 13:47 Vinayak Jerez MD in [place] 09/26/2020 13:47
--- NOTE | 2020-09-26 13:43 | HMH.OPNOTE ---
Date of procedure: 09/26/20 Pre-op Diagnosis:: Right breast cancer Post-op Diagnosis:: Same Procedure performed:: Right mastectomy Right axillary sentinel lymph node biopsy Excision of additional axillary tissue Surgeon:: Pastor Michaels MD Arabic Professor(s):: Echo BUTTING SAW OPERATOR:: Gerardo Mittal Anesthesia: GETA Estimated blood loss (mL): 50 Operative findings:: Oblique incision (as opposed to transverse) utilized secondary to extreme lateral/axillary nature of known breast cancer (prior biopsy) Right axillary sentinel lymph node with target count 2013 Background uptake on neoprobe essentially 0 after excision of sentinel lymph node Additional non-sentinel axillary tissue excised with sentinel node (palpably thickened) Fairly large percentage of total axillary tissue excised secondary to the known breast cancer being in a very extreme lateral location (essentially in the axilla), as well as, extremely thin body habitus Operative note:: After informed consent was obtained the patient was taken to the operating room and placed in the supine position. General anesthesia was induced and her right chest, axilla, and proximal arm were prepped and draped in a sterile fashion. The neoprobe device was utilized to evaluate the axilla. Uptake within the axilla was difficult to ascertain as the known breast cancer was essentially within the axilla due to the extreme lateral nature of the breast's axillary tail. The decision to proceed with mastectomy was made. An oblique incision was utilized due to the extreme lateral (essentially axillary) location of the known breast cancer from prior biopsy. An ellipse of tissue to include the nipple/areolar complex was completed. The medial/superior and lateral/inferior tissue flaps were carefully elevated with a combination of sharp dissection, electrocautery, and blunt dissection. The dissection was taken to the pectoralis muscle where the breast tissue was then carefully elevated from the fascial margin. The breast was excised and passed off for pathologic evaluation after being marked for margin. A small area of nodularity at the superior/lateral margin of the breast excision was excised separately as it was palpably thickened. Further evaluation of the axilla did reveal uptake utilizing the neoprobe device. The underlying thickened tissue was elevated and excised with electrocautery. A single node was from the thickened tissue. The target count on the neoprobe for this node was 2013. The remaining tissue had minimal uptake. Reevaluation the axilla essentially revealed no uptake. The thickened tissue separate from the sentinel axillary node was passed off as non-sentinel axillary tissue. A fairly large percentage of the patient's total axillary tissue was ultimately excised secondary to the known breast cancer being in a very extreme lateral location (essentially in the axilla), as well as her extremely thin body habitus. A #10 flat Silviano-Wen drain was placed through a separate stab incision in the right flank. The drain was placed along the mid-portion of the mastectomy site with projection toward the axilla. The drain was secured with interrupted nylon. The deep subcutaneous tissue was reapproximated with interrupted Vicryl. Skin was then closed with running 3-0 Stratafix. Dressings were applied. The patient's anesthetic agents were reversed and she was extubated prior to transfer to recovery. Condition: stable Disposition: PACU Specimens:: Right breast Additional superior/lateral margin of breast tissue Right axillary sentinel lymph node (target count 2013) Non-sentinel right axillary tissue Complications:: No immediate
--- NOTE | 2020-09-26 13:57 | HMH.ANESI ---
[facility] Anesthesia Record Part I Intake, IV Amount: 1,000 Estimated blood loss (mL): 50 Urine output (mL): 100 Blood Pressure: 159/98 SaO2: 98 Pulse Rate: 75 Respiratory Rate: 16 Temperature: 99.1 F Patient is:: Drowsy, Stable Stable to PACU at:: 13:55
[2020-09-26 15:13] LABS: Microscopic,Cath URINE MICROSCOPIC (MICROSCOPIC)
[2020-09-26 15:28] LABS: Appearance,Urine/Cath CLEAR (Clear); Bilirubin,Cath Negative (Negative); Blood, Urine/Cath Negative (Negative); Color,Urine/Cath YELLOW (Yellow); Glucose,Urine/Cath (UA) Negative (Negative); Ketones,Urine/Cath Negative (Negative); Leukocyte Esterase,Cath Negative (Negative); Nitrate,Cath Negative (Negative); PH,Urine/Cath 8.5 (5.0-8.5); Protein,Urine/Cath Negative (Negative); Specific Gravity, Urine/Cath 1.015 (1.005-1.030)
[2020-09-26 15:46] LABS: WBC,Urine/Cath Occasional #/hpf (0-3)
[2020-09-27] VITALS: BP 158/76; PULSE 51; RESP 16; TEMP 36.5; O2SAT 96
[2020-09-27 04:00] VITALS: BP 159/84; PULSE 88; RESP 16; TEMP 36.7; O2SAT 93
[2020-09-27 06:32] VITALS: BMI 17.3
--- NOTE | 2020-09-27 06:55 | P.PN_ITS ---
Subjective Patient reports: no new complaints Progress Note: A&P (1) Breast cancer, right Status: Acute Assessment and plan: Overall, doing fairly well status post mastectomy. Follow-up morning labs Silviano-Wen drain teaching Likely discharge home later today Exam Vital signs and Labs for Last 24 Hours: Temp Pulse Resp BP Pulse Ox 98.0 F 88 16 159/84 H 93 L 09/27/20 04:00 09/27/20 04:00 09/27/20 04:00 09/27/20 04:00 09/27/20 04:00 Laboratory Results - last 24 hr 09/26/20 12:10: Urine Color Yellow, Urine Appearance Clear, Urine pH 8.5, Ur Specific [place] 1.015, Urine Protein Negative, Urine Glucose (UA) Negative, Urine Ketones Negative, Urine Blood Negative, Urine Nitrate Negative, Urine Bilirubin Negative, Urine Urobilinogen 1.0, Ur Leukocyte Esterase Negative, Urine RBC None, Urine WBC Occasional, Ur Squamous Epith Cells None, Urine Bacteria None I & O for Last 24 hours: Intake & Output 09/24/20 09/25/20 09/26/20 09/27/20 11:59 11:59 11:59 11:59 Intake Total 1360 / 1360 Output Total 70 / 70 Balance 1290 / 1290 Weight 114 lb 107 lb 12.897 oz - Constitutional no acute distress - Routine Chest/Breast/Axilla Exam Comments: Dressing in place. Serosanguineous drainage from Silviano-Wen drain - *Routine Respiratory Exam Absent: respiratory distress - *Routine Cardiovascular Exam Present: RRR
[2020-09-27 07:39] LABS: Basophils % 0.1 % (0.1-2.0); Hematocrit 39.2 % (37.0-47.0); Lymphocytes % 5.5 % (10-50); Mean Corpuscular HGB Conc 33.1 g/dL (31.8-35.4); Mean Corpuscular Hemoglobin 31.2 pg (27.0-31.2); Mean Corpuscular Volume 94.4 fl (81-99); Mean Platelet Volume 9.4 fl (7.4-10.4); Monocytes # 0.8 K/mm3 (0.1-1.0); Monocytes % 4.4 % (1.7-9.3); Neutrophils # 15.4 K/mm3 (1.8-7.8); Platelet Count 224 K/mm3 (142-424); Red Blood Count 4.15 M/mm3 (4.20-5.40); Red Cell Distribution Width 14.2 % (11.5-17.5); White Blood Count 17.1 K/mm3 (4.8-10.8)
[2020-09-27 07:44] LABS: MANUAL DIFFERENTIAL MANUAL DIFFERENTIAL (MANUAL DIFF)
--- NOTE | 2020-09-27 07:48 | P.PN_ITS ---
[facility] Anesthesia Record Part II Discharge Time: 14:35 Destination: Medical Surgical Department PACU nurse assessment reviewed?: Yes Patient Condition:: Good Anesthesia Complications:: None Swallowing reflex intact?: Yes Cyanosis?: No Blood Pressure: 172/91 Pulse Rate: 64 Temperature: 97.3 F Mental Status: Alert & Oriented Pain level:: 5 Nausea and/or vomitting:: None Intake, IV Amount: 0
[2020-09-27 07:49] VITALS: BP 172/91; PULSE 64; TEMP 36.3
[2020-09-27 07:52] VITALS: BP 156/84; PULSE 58; RESP 18; TEMP 36.8; O2SAT 97
[2020-09-27 07:56] LABS: Anion Gap 9.7 mEq/L (5-15); Blood Urea Nitrogen 4 mg/dl (7-17); Calcium 8.8 mg/dl (8.4-10.2); Carbon Dioxide 27 mmol/L (22.0-30.0); Chloride 102 mmol/L (98-107); Creatinine Clearance Estimated 105 mL/min (50-200); Estimated Glomerular Filt Rate 131 ml/min (>60); GFR (African American) 159 ML/MIN (>60); Glucose 145 mg/dl (74-100); Potassium 3.7 mmoL/L (3.5-5.1); Sodium 135 mmol/L (136-145)
[2020-09-27 08:10] LABS: Lymphocytes % 7 % (10-50); Monocytes % 3 % (2-9); Neutrophils % 90 % (42-76); Platelet Estimate Normal; RBC Morphology Normal; Total Cells Counted 100
--- NOTE | 2020-09-27 10:57 | HMH.DCSUM ---
General - General Admission date:: 09/26/20 Discharge date: 09/27/20 HPI HPI: This is a 50-year-old female recently diagnosed with right-sided breast cancer. She is scheduled to undergo right mastectomy with sentinel node biopsy. Hospital Course Hospital Course: Postoperatively, she progressed well. She remained afebrile with stable vital signs. She was deemed appropriate for discharge on the morning of postoperative day 1. Silviano-Wen drainage moderate. No sign of infection. Moderately-elevated white blood cell count at time of discharge likely secondary to demargination. We will follow up with repeat CBC at time of office appointment. Objective Vital signs: Temp Pulse Resp BP Pulse Ox 98.3 F 58 L 18 156/84 H 97 09/27/20 07:52 09/27/20 07:52 09/27/20 07:52 09/27/20 07:52 09/27/20 07:52 no acute distress - *Routine HEENT Exam Head: Present: normocephalic Eye: Present: EOMI ENT: Present: mucous membranes moist - *Routine Neck Exam Present: full ROM - Routine Chest/Breast/Axilla Exam Breast: Present: right mastectomy - *Routine Respiratory Exam Absent: respiratory distress - *Routine Cardiovascular Exam Present: RRR - *Routine Abdominal Exam Present: soft - *Routine Rectal Exam Patient deferred: visual exam - *Routine Exam Patient deferred: external exam - *Routine Extremities Exam Present: full ROM - Routine Back/Spine/Pelvis Exam Back/Spine: Present: full ROM - *Routine Skin Exam Absent: cyanosis - *Routine Neurological Exam Present: alert - Routine Psychiatric Exam Present: normal affect Results Labs on day of discharge: Labs from last 24 hours 09/27/20 09/27/20 09/26/20 07:22 07:22 12:10 WBC 17.1 H RBC 4.15 L Hgb 13.0 Hct 39.2 MCV 94.4 MCH 31.2 MCHC 33.1 RDW 14.2 Plt Count 224 MPV 9.4 Neut % (Auto) 90.0 H Lymph % (Auto) 5.5 L [place] % (Auto) 4.4 Eos % (Auto) 0.0 L Baso % (Auto) 0.1 Neut # (Auto) 15.4 H Lymph # (Auto) 1.0 [place] # (Auto) 0.8 Eos # (Auto) 0.0 Baso # (Auto) 0.0 Total Counted 100 Neutrophils % (Manual) 90 H Lymphocytes % (Manual) 7 L Monocytes % (Manual) 3 Platelet Estimate Normal RBC Morphology Normal Sodium 135 L Potassium 3.7 Chloride 102 Carbon Dioxide 27 Anion Gap 9.7 BUN 4 L Creatinine 0.50 L Estimated Creat Clear 105 Estimated GFR 131 Est GFR ( Amer) 159 Glucose 145 H Calcium 8.8 Urine Color Yellow Urine Appearance Clear Urine pH 8.5 Ur Specific [place] 1.015 Urine Protein Negative Urine Glucose (UA) Negative Urine Ketones Negative Urine Blood Negative Urine Nitrate Negative Urine Bilirubin Negative Urine Urobilinogen 1.0 Ur Leukocyte Esterase Negative Urine RBC None Urine WBC Occasional Ur Squamous Epith Cells None Urine Bacteria None DS: Diagnosis - Discharge Diagnosis (1) Breast cancer, right Status: Acute Discharge Plan - Patient Discharge Instructions ACTIVITY: Ambulate as tolerated DIET: advance to your usual diet Additional Instructions: Labs to be drawn prior to follow-up appointment Patient Instructions: Breast Cancer in Women - Follow up Plan Follow up with: Pastor Michaels MD [Staff Physician] - (October 01 or October 02) Disposition: Home, Self-Care Condition at discharge:: Stable Home Medications: Home Medications Medication Instructions Recorded Confirmed Type amlodipine 5 mg tablet 5 mg PO DAILY #90 tab 05/28/20 09/26/20 Rx aspirin 81 mg tablet,delayed 81 mg PO DAILY #90 tab 05/28/20 09/26/20 Rx release bisoprolol fumarate 5 mg tablet 5 mg PO DAILY #90 tab 05/28/20 09/26/20 Rx isosorbide mononitrate 60 mg 60 mg PO DAILY #90 tab 05/28/20 09/26/20 Rx tablet,extended release 24 hr umeclidinium 62.5 mcg-vilanterol 1 inh INHALATION Q24H #60 each 05/28/20 09/26/20 Rx 25
[2020-09-27 11:25] VITALS: BP 129/70; PULSE 52; RESP 16; TEMP 36.9; O2SAT 97
== END 2020-09-27 12:36 | disposition home or self-care (01) | DRG 581 ==
LOC: 2ND 08:54
PROVIDERS: Admitting Provider Surgery; PCP Emergency Medicine; Visit Provider Surgery
PROC: (CPT 19303; principal; 2020-09-26 11:15)
DX: C50.211 Malignant neoplasm of upper-inner quadrant of right female breast (principal); I10 Essential (primary) hypertension; J44.9 Chronic obstructive pulmonary disease, unspecified; F17.210 Nicotine dependence, cigarettes, uncomplicated; Z17.0 Estrogen receptor positive status [ER+]; E03.9 Hypothyroidism, unspecified
CPT/HCPCS: 19303; 38525; 38792; 80048; 81001; 85007; 85025; 96374; A9541; G0378; J2405

== ENCOUNTER → 2020-10-07 10:31 | Outpatient (CLI) | payer MEDICAID, SELFPAY ==
[2020-10-07 10:53] LABS: Basophils # 0.1 K/mm3 (0-0.2); Basophils % 1.1 % (0.1-2.0); Eosinophils # 0.2 K/mm3 (0.0-0.4); Eosinophils % 2.9 % (0.1-12.0); Hematocrit 48.2 % (37.0-47.0); Hemoglobin 15.5 g/dL (12.2-16.2); Lymphocytes # 1.9 K/mm3 (0.7-4.5); Lymphocytes % 28.7 % (10-50); Mean Corpuscular HGB Conc 32.2 g/dL (31.8-35.4); Mean Corpuscular Hemoglobin 31.4 pg (27.0-31.2); Mean Corpuscular Volume 97.5 fl (81-99); Mean Platelet Volume 8.6 fl (7.4-10.4); Monocytes # 0.4 K/mm3 (0.1-1.0); Neutrophils % 61.3 % (37.0-80.0); Platelet Count 278 K/mm3 (142-424); Red Blood Count 4.94 M/mm3 (4.20-5.40); Red Cell Distribution Width 14.1 % (11.5-17.5); White Blood Count 6.5 K/mm3 (4.8-10.8)
[2020-10-07 11:08] LABS: Chloride 102 mmol/L (98-107); Potassium 4.2 mmoL/L (3.5-5.1); Sodium 138 mmol/L (136-145)
[2020-10-07 11:11] LABS: Anion Gap 11.2 mEq/L (5-15); Blood Urea Nitrogen 7 mg/dl (7-17); Calcium 9.1 mg/dl (8.4-10.2); Carbon Dioxide 29 mmol/L (22.0-30.0); Estimated Glomerular Filt Rate 106 ml/min (>60); GFR (African American) 129 ML/MIN (>60); Glucose 95 mg/dl (74-100)
== END ==
PROVIDERS: Visit Provider Surgery
DX: C50.911 Malignant neoplasm of unspecified site of right female breast (principal)
CPT/HCPCS: 36415; 80048; 85025

== ENCOUNTER → 2020-11-06 08:57 | Outpatient (CLI) | payer MEDICAID, SELFPAY ==
--- NOTE | 2020-11-06 08:59 | XR_ITS ---
PROCEDURE: XR DEXA AXIAL SKELETON CLINICAL HISTORY: BREAST CANCER, HORMONE THERAPY COMPARISON: No exams were available for comparison FINDINGS: The right hip BMD is 0.775 with a T-score of 0.7. The left hip BMD is 0.832 with a T-score of -0.9. The lumbar spine BMD is 1.081 with a T-score of 0.3. IMPRESSION: This patient is considered normal according to the World Health Organization criteria. Fracture risk is low. Based on these results a follow-up exam is recommended in 2 year. Dictated by: Vinayak Jerez MD 11/06/2020 11:38 Vinayak Jerez MD in [place] 11/06/2020 11:38
== END ==
PROVIDERS: PCP Emergency Medicine; Visit Provider Internal Medicine Medical Oncology
DX: Z79.890 Hormone replacement therapy; Z17.0 Estrogen receptor positive status [ER+]; C50.411 Malignant neoplasm of upper-outer quadrant of right female breast; Z78.0 Asymptomatic menopausal state
CPT/HCPCS: 77080

== ENCOUNTER 2020-12-05 15:20 | Emergency (ER) | payer MEDICAID, SELFPAY ==
[2020-12-05 15:21] VITALS: BP 120/85; PULSE 79; RESP 21; TEMP 37.2; O2SAT 95; BMI 14.6
[2020-12-05 15:55] LABS: UTC Strep Screen (Rapid) Negative (Negative)
--- NOTE | 2020-12-05 16:06 | HMH.EDUTC ---
[facility] [place] Disposition Clinical Impression: URI (upper respiratory infection) Qualifiers: URI type: unspecified URI Qualified Code(s): J06.9 - Acute upper respiratory infection, unspecified Vomiting Qualifiers: Vomiting type: unspecified Vomiting Intractability: unspecified Nausea presence: with nausea Qualified Code(s): R11.2 - Nausea with vomiting, unspecified Disposition: Home, Self-Care Condition on Discharge: Good Instructions: Sore Throat, Sinusitis, DI for Sinusitis Additional Instructions: *Monitor Temp, Over the counter Motrin or Tylenol as directed/as needed Tylenol every 4 hours and Motrin every 6 hours (as long as your family doctor has told you that you can take it) for fever or pain. and straight to ER if unable to lower temp less than 101.0 after medication given *Warm salt water gargles may help to soothe the throat *Throat Lozenges *Warm fluids like tea with honey may help to soothe the throat *Sleep elevated *Humidifier/Vaporizer Your throat swab was sent for culture. Those results are typically sent to your primary care. Be sure to follow up in 2-3 days with your family doctor/primary care physician if no improvement so they can review those result and treat if necessary. If you don?t have a primary care doctor, I recommend you get one but in the mean time, you will have to return to a walk in clinic Follow up IMMEDIATELY for new or worsening symptoms or no Noticeable improvement over the next 48-72 hours. 911 for difficulty breathing or swallowing You were tested for today for COVID19 your test result should be back in the next 24-48 hours, you was given a handout on how to log onto the [facility] portal to get your results if you have trouble logging in you may call You was given a handout with instructions for Self Quarantine and Self isolation for while you wait on test results and what to do if they are positive If you are positive the Health Dept will be contacting you also Make sure to take your Vitamins Vit. C Vit D and Zinc if you can take them Prescriptions: Cefdinir [Omnicef 300mg Capsule] 300 mg PO BID #20 cap Transmission Status: Pending to [facility] Ondansetron [Zofran 4mg ODT] 4 mg PO TIDP PRN #12 tab PRN Reason: Nausea Transmission Status: Pending to [facility] Referrals: Taz Hunter MD [Primary Care Provider] - As needed Time of Disposition: 16:20 Medical Decision Making - Edd Inquiry Pt receiving controlled substance: No Edd was queried for this patient: No Vital Signs: 12/05/20 15:21 Temperature 98.9 F Temperature Source Oral Pulse Rate [Right Radial] 79 Respiratory Rate 21 Blood Pressure [Right Arm] 120/85 Blood Pressure Mean [Right Arm] 96 Blood Pressure Source [Right Arm] Automatic Cuff Blood Pressure Position [Right Arm] Sitting 02 Sat by Pulse Oximetry 95 Oxygen Delivery Method Room Air - Lab Data Lab results reviewed: Yes: I reviewed the patient's lab results. Lab Results 12/05/20 15:42: Strep Scn Rapid Clinic Negative Orders (Tests/Meds): ORDERS Category Date Time Status Covid-19 Nasal PCR ([facility]) Routine Lab 12/05/20 15:36 Received Strep Screen Confirmation Stat Micro 12/05/20 15:42 Received [facility] UTC HPI - General Stated complaint: covid test/strep test Time Seen by Provider: 12/05/20 16:06 Mode of Arrival: Ambulatory Source of Information: Patient Limitations: No Limitations Description of Symptoms (Recalled from Triage Doc. by RN): Pt c/o sore throat, cough, nausea x3 days HEENT Symptoms (Recalled from RN notes): Yes (sore throat) Resp Symptoms (Recalled from RN notes): Yes (cough) Skin Symptoms (Recalled from RN notes): No MS Symptoms (Recalled from RN notes): No Functional Status (Recalled from RN notes): n/a - History of Present Illness Provider Complaint: Patient states that she has been having cough, sore throat, loss of voice, body aches and N/V for about 3 days States that she has been around so
[2020-12-05 16:42] VITALS: BP 120/85; PULSE 79; RESP 21; TEMP 37.2; O2SAT 95
== END 2020-12-05 16:44 | disposition home or self-care (01) ==
PROVIDERS: Emergency Provider Nurse Practitioner; PCP Emergency Medicine
DX: Z20.822 Contact with and (suspected) exposure to COVID-19 (principal); J06.9 Acute upper respiratory infection, unspecified; R11.2 Nausea with vomiting, unspecified; F17.210 Nicotine dependence, cigarettes, uncomplicated; J44.9 Chronic obstructive pulmonary disease, unspecified
CPT/HCPCS: 87880; 99203; C9803; G0463; U0003; U0005

== ENCOUNTER 2020-12-15 08:56 | Inpatient (IN) | payer MEDICAID, SELFPAY ==
[2020-12-15 08:57] VITALS: BP 123/83; PULSE 91; RESP 18; TEMP 36.9; O2SAT 98; BMI 15.5
--- NOTE | 2020-12-15 09:21 | CT_ITS ---
PROCEDURE INFORMATION: Exam: CT Abdomen And Pelvis With Contrast Exam date and time: 12/15/2020 9:21 AM Age: 50 years old Clinical indication: Abdominal pain; Acute; Additional info: Abdominal pain/ vomiting blood-- she is 3 weeks out from breast cancer surgery and taking a chemo pill TECHNIQUE: Imaging protocol: Computed tomography of the abdomen and pelvis with contrast. Radiation optimization: All CT scans at this facility use at least one of these dose optimization techniques: automated exposure control; mA and/or kV adjustment per patient size (includes targeted exams where dose is matched to clinical indication); or iterative reconstruction. Contrast material: ISOVUE; Contrast volume: 75 ml; Contrast route: IV; COMPARISON: ABDPELW CT abdomen pelvis w con 09/20/2018 6:47 PM FINDINGS: Liver: There is a 1.3 cm low-attenuation focus in the left lobe of the liver, likely hepatic cyst. Gallbladder and bile ducts: The gallbladder is surgically absent. Surgical clips are noted in the gallbladder fossa. Pancreas: The pancreas is normal in appearance, without evidence of mass, cyst, peripancreatic inflammatory change, or pancreatic duct dilatation. Spleen: The spleen is normal in appearance. Adrenal glands: Both adrenal glands are normal in appearance, without evidence of mass or focal abnormality. Kidneys and ureters: Both kidneys are normal in appearance, without evidence of nephrolithiasis or hydronephrosis. Stomach and bowel: There is low-attenuation fluid or wall thickening involving the body of the stomach and gastric antrum. The proximal body, just below the fundus is nondistended, and appears to have a more crenulated appearance than was seen on the previous CT examination from 2019. This raises some concern for the possibility of edema within the mcdaniel of the stomach. There is mild distention of the 2nd and 3rd portions of the duodenum. The jejunum appears nondistended. Appendix: No evidence of appendicitis. Intraperitoneal space: Assessment of the mesentery is extremely difficult in the absence of oral contrast and given the patient's relative paucity of peritoneal fat. There may be some hazy stranding of mesenteric fat particularly at the root of the mesentery. Vasculature: Unremarkable. No abdominal aortic aneurysm. Lymph nodes: Unremarkable. No enlarged lymph nodes. Urinary bladder: Unremarkable as visualized. Reproductive: Unremarkable as visualized. Bones/joints: Unremarkable. No acute fracture. Soft tissues: Unremarkable. IMPRESSION: 1. Intermediate attenuation confluent fluid surrounding the gastric body and antrum. It is unclear whether this is within the stomach itself or surrounding the stomach. Edema with within the stomach wall is considered. Given intermediate attenuation common infiltrating process or blood within the stomach wall is also considered. 2. Possible stranding of mesenteric fat as described. This is extremely difficult to assess given the patient body habitus and relative paucity of peritoneal fat. Mesenteric edema, blood products or neoplastic infiltration the mesentery is considered. 3. THIS REPORT CONTAINS FINDINGS THAT MAY BE CRITICAL TO PATIENT CARE. The findings were verbally communicated via telephone conference with Donna Hwang at 11:16 AM EDT on 12/15/2020. The findings were acknowledged and understood.
[2020-12-15 09:30] VITALS: BP 121/77; PULSE 76; RESP 18; O2SAT 97
[2020-12-15 09:30] LABS: Basophils # 0.1 K/mm3 (0-0.2); Basophils % 0.5 % (0.1-2.0); Eosinophils # 0.1 K/mm3 (0.0-0.4); Eosinophils % 0.8 % (0.1-12.0); Hemoglobin 16.6 g/dL (12.2-16.2); Lymphocytes # 2.2 K/mm3 (0.7-4.5); Lymphocytes % 15.9 % (10-50); Mean Corpuscular HGB Conc 32.6 g/dL (31.8-35.4); Mean Corpuscular Hemoglobin 32.2 pg (27.0-31.2); Mean Corpuscular Volume 98.6 fl (81-99); Mean Platelet Volume 8.5 fl (7.4-10.4); Monocytes # 0.9 K/mm3 (0.1-1.0); Monocytes % 6.3 % (1.7-9.3); Neutrophils # 10.5 K/mm3 (1.8-7.8); Neutrophils % 76.4 % (37.0-80.0); Platelet Count 288 K/mm3 (142-424); Red Blood Count 5.17 M/mm3 (4.20-5.40); White Blood Count 13.8 K/mm3 (4.8-10.8)
[2020-12-15 09:35] LABS: Chloride 90 mmol/L (98-107); Potassium 3.5 mmoL/L (3.5-5.1); Sodium 130 mmol/L (136-145)
[2020-12-15 09:37] LABS: Alanine Aminotransferase 16 U/L (12-78); Aspartate Amino Transferase 33 U/L (14-36); Bilirubin,Total 0.7 mg/dl (0.2-1.3); Blood Urea Nitrogen 19 mg/dl (7-17); Creatinine Clearance Estimated 78 mL/min (50-200); Estimated Glomerular Filt Rate 106 ml/min (>60); GFR (African American) 129 ML/MIN (>60)
[2020-12-15 09:38] LABS: Albumin/Globulin Ratio 1.3 (1.1-1.8); Alkaline Phosphatase 68 U/L (38-126); Anion Gap 10.5 mEq/L (5-15); Calcium 9.3 mg/dl (8.4-10.2); Carbon Dioxide 33 mmol/L (22.0-30.0); Glucose 115 mg/dl (74-100); Lipase 177 U/L (23-300)
[2020-12-15 10:30] LABS: Lactic Acid 0.9 mmol/L (0.7-2.1)
[2020-12-15 10:31] VITALS: BP 96/60; PULSE 65; RESP 20; O2SAT 98
[2020-12-15 11:12] LABS: Microscopic, Urine URINE MICROSCOPIC (MICROSCOPIC)
[2020-12-15 11:14] LABS: Appearance,Urine SL CLOUDY (Clear); Bilirubin,Urine Negative (Negative); Blood, Urine TRACE-L (Negative); Color,Urine YELLOW (Yellow); Glucose,Urine (UA) Negative (Negative); Ketones,Urine Negative (Negative); Leukocyte Esterase,Urine TRACE (Negative); Nitrate,Urine Negative (Negative); Protein,Urine Negative (Negative); Specific Gravity, Urine <= 1.005 (1.005-1.030); Urobilinogen,Urine 0.2 EU/dl (0.2)
[2020-12-15 11:20] LABS: Amorphous Sediment,Urine 1+ /lpf
--- NOTE | 2020-12-15 11:42 | PC.NURSE ---
YRN [place] speaking with Dr. Obrien who is special education director for dr. dhillon
[2020-12-15 11:48] LABS: INR 1.01 (0.9-1.1); Prothrombin Time 11.4 seconds (10.1-12.5)
--- NOTE | 2020-12-15 11:49 | PC.NURSE ---
notified house detective of admission
[2020-12-15 12:17] LABS: Coronavirus 19, PCR Not Detected (NotDetected); Influenza A, PCR Not Detected (NotDetected); Influenza B, PCR Not Detected (NotDetected)
--- NOTE | 2020-12-15 14:05 | PC.NURSE ---
Report given to Christina GARCIA
[2020-12-15 14:39] VITALS: BP 96/60; PULSE 65; RESP 20; TEMP 36.9; O2SAT 98
--- NOTE | 2020-12-15 14:39 | PC.NURSE ---
pt arrived to the floor at this time
[2020-12-15 14:49] VITALS: BP 96/49; PULSE 74; RESP 14; TEMP 37; O2SAT 97; BMI 14.4
[2020-12-16] VITALS (17 sets, daily range): BP systolic 82–116; BP diastolic 50–73; PULSE 49–90; RESP 15–18; TEMP 36.6–37.1; O2SAT 94–99; BMI 14.3; BMI 14.5
--- NOTE | 2020-12-16 00:32 | HMH.EDNVD ---
ED Disposition Clinical Impression: GI bleed Qualifiers: GI bleed type/associated pathology: unspecified gastrointestinal hemorrhage type Qualified Code(s): K92.2 - Gastrointestinal hemorrhage, unspecified Disposition: Admitted As Inpatient Condition on Discharge: Good Time of Disposition: 11:00 - Critical Care Critical Care Time: Yes Attestation: On 12/15/20, the high probability of a clinically significant, sudden or life threatening deterioration of the following system(s) required my full and direct attention, intervention and personal management. The time I documented below is in addition to time spent performing reported procedures but includes the following listed in this critical care notation. Total Critical Care Time: 3 Vital system(s) involved:: Circulatory Failure My critical care processes included: Assessment & monitoring of V/S, Initial and Re-exams, Data Review/Interpretation, Coordinating Care, Medication Orders and management, Documentation Medical Decision Making - Medical Records Medical records reviewed: Yes: I reviewed the patient's medical records. - Edd Inquiry Pt receiving controlled substance: No Vital Signs: 12/15/20 08:57 12/15/20 09:30 12/15/20 10:31 Temperature 98.4 F Temperature Source Oral Pulse Rate 76 65 Pulse Rate [Left Radial] 91 H Respiratory Rate 18 18 20 Blood Pressure 121/77 96/60 L Blood Pressure [Right Arm] 123/83 Blood Pressure Mean 91 72 Blood Pressure Mean [Right Arm] 96 Blood Pressure Source Blood Pressure Source [Right Arm] Automatic Cuff Blood Pressure Position Blood Pressure Position [Right Arm] Sitting 02 Sat by Pulse Oximetry 98 97 98 Oxygen Delivery Method Room Air Room Air 12/15/20 14:00 12/15/20 14:39 Temperature 98.4 F Temperature Source Oral Pulse Rate 65 Pulse Rate [Left Radial] Respiratory Rate 20 Blood Pressure 96/60 L Blood Pressure [Right Arm] Blood Pressure Mean Blood Pressure Mean [Right Arm] Blood Pressure Source Automatic Cuff Blood Pressure Source [Right Arm] Blood Pressure Position Sitting Blood Pressure Position [Right Arm] 02 Sat by Pulse Oximetry Oxygen Delivery Method Room Air Room Air - Lab Data Lab results reviewed: Yes: I reviewed the patient's lab results. Lab Results 12/15/20 09:15: WBC 13.8 H, RBC 5.17, Hgb 16.6 H, Hct 51.0 H, MCV 98.6, MCH 32.2 H, MCHC 32.6, RDW 13.0, Plt Count 288, MPV 8.5, Neut % (Auto) 76.4, Lymph % (Auto) 15.9, [place] % (Auto) 6.3, Eos % (Auto) 0.8, Baso % (Auto) 0.5, Neut # (Auto) 10.5 H, Lymph # (Auto) 2.2, [place] # (Auto) 0.9, Eos # (Auto) 0.1, Baso # (Auto) 0.1 12/15/20 09:15: Sodium 130 L, Potassium 3.5, Chloride 90 L, Carbon Dioxide 33 H, Anion Gap 10.5, BUN 19 H, Creatinine 0.60, Estimated Creat Clear 78, Estimated GFR 106, Est GFR ( Amer) 129, Glucose 115 H, Calcium 9.3, Total Bilirubin 0.7, AST 33, ALT 16, Alkaline Phosphatase 68, Total Protein 7.0, Albumin 4.0, Globulin 3.0, Albumin/Globulin Ratio 1.3, Lipase 177 12/15/20 09:15: PT 11.4, INR 1.01 12/15/20 10:13: Lactate 0.9 12/15/20 11:03: Urine Color Yellow, Urine Appearance Sl cloudy, Urine pH 7.0, Ur Specific [place] <= 1.005, Urine Protein Negative, Urine Glucose (UA) Negative, Urine Ketones Negative, Urine Blood Trace-l, Urine Nitrate Negative, Urine Bilirubin Negative, Urine Urobilinogen 0.2, Ur Leukocyte Esterase Trace, Urine RBC 5-10, Urine WBC 5-10, Ur Squamous Epith Cells 10-20, Amorphous Sediment 1+, Urine Bacteria None 12/15/20 11:50: Blood Type A Positive, Antibody Screen Negative 12/15/20 12:07: SARS-CoV-2 (PCR) Not detected, Influenza A Untype (PCR) Not detected, Influenza Type B (PCR) Not detected Result diagrams: 12/15/20 09:15 12/15/20 09:15 Orders (Tests/Meds): ED MEDICATIONS Generic Name Dose Route Start Last Admin Trade Name Freq PRN Reason Stop Dose Admin Amlodipine Besylate 10 mg 12/16/20 09:00 Amlodipine 10mg Tablet PO 01/15/21 08:59 DAILY [place] Bup
--- NOTE | 2020-12-16 05:41 | PC.NURSE ---
SHIFT SUMMARY. PT A+O X4. PT HAS BEEN TEARFUL T/O SHIFT. PT C/O ABDOMINAL PAIN 2X AND NAUSEA 1X T/O SHIFT. TX WITH MORPHINE AND ZOFRAN PER APR WITH FAVORABLE RESULTS. NPO SINCE MIDNIGHT. PT IS VERY UPSET ABOUT BEING NPO. EDUCATION GIVEN ON REASON AND IMPORTANCE OF BEING NPO. ABLE TO AMBULATE TO BATHROOM WITH 1X ASSIST. PT CURRENTLY RESTING IN BED. VSS. CB IN REACH. WILL CONTINUE TO MONITOR.
[2020-12-16 06:49] LABS: Basophils % 0.4 % (0.1-2.0); Eosinophils # 0.2 K/mm3 (0.0-0.4); Eosinophils % 2.3 % (0.1-12.0); Hematocrit 41.4 % (37.0-47.0); Lymphocytes # 1.9 K/mm3 (0.7-4.5); Mean Corpuscular HGB Conc 31.8 g/dL (31.8-35.4); Mean Corpuscular Hemoglobin 31.4 pg (27.0-31.2); Mean Platelet Volume 8.3 fl (7.4-10.4); Monocytes # 0.5 K/mm3 (0.1-1.0); Monocytes % 6.5 % (1.7-9.3); Neutrophils % 65.8 % (37.0-80.0); Platelet Count 180 K/mm3 (142-424); Red Blood Count 4.19 M/mm3 (4.20-5.40); Red Cell Distribution Width 12.5 % (11.5-17.5); White Blood Count 7.6 K/mm3 (4.8-10.8)
[2020-12-16 06:59] LABS: Hemoglobin 13.3 g/dL (12.2-16.2)
--- NOTE | 2020-12-16 07:16 | P.CONPHA_ITS ---
[facility] Pharmacy VTE Monitoring - Patient Demographics Admission date: 12/16/20 Report Date: 12/16/20 Time: 07:16 Allergies/Adverse Reactions: Patient Allergies hydrocodone [From [place]] Allergy (Severe, Verified 12/15/20 12:29) Rash sulfamethoxazole [From Bactrim] Allergy (Severe, Verified 12/15/20 12:29) Blisters/uncontrolled bladder trimethoprim [From Bactrim] Allergy (Severe, Verified 12/15/20 12:29) Blisters/uncontrolled bladder Height: 1.68 m Weight: 40.506 kg Patient Problems: Current Active Problems GI bleed (Acute) - VTE Risk Labs: VTE Related Lab Results Hgb 13.3 g/dL (12.2-16.2) D 12/16/20 05:50 Hct 41.4 % (37.0-47.0) 12/16/20 05:50 Plt Count 180 K/mm3 (142-424) D 12/16/20 05:50 PT 11.4 seconds (10.1-12.5) 12/15/20 09:15 INR 1.01 (0.9-1.1) 12/15/20 09:15 BUN 19 mg/dl (7-17) H 12/15/20 09:15 Creatinine 0.60 mg/dl (0.52-1.04) 12/15/20 09:15 Estimated Creat Clear 78 mL/min (50-200) 12/15/20 09:15 VTE Score: 5 VTE Risk Level: Low Risk - Prophylaxis VTE Prophylaxis Ordered?: Yes Types of VTE Prophylaxis: TEDS Knee High Location of Applied Device: Bilateral Lower Extremeties
[2020-12-16 07:18] LABS: Chloride 98 mmol/L (98-107); Potassium 3.3 mmoL/L (3.5-5.1); Sodium 133 mmol/L (136-145)
[2020-12-16 07:21] LABS: Blood Urea Nitrogen 12 mg/dl (7-17); Creatinine Clearance Estimated 87 mL/min (50-200); Estimated Glomerular Filt Rate 131 ml/min (>60); GFR (African American) 159 ML/MIN (>60)
[2020-12-16 07:22] LABS: Anion Gap 5.3 mEq/L (5-15); Calcium 8.2 mg/dl (8.4-10.2); Carbon Dioxide 33 mmol/L (22.0-30.0); Glucose 89 mg/dl (74-100)
--- NOTE | 2020-12-16 09:33 | HMH.PHAINT ---
MEDICATION RECONCILIATION COMPLETE USING PHARMACY MAR AND TALKING TO PATIENT
--- NOTE | 2020-12-16 09:37 | HMH.GSCON ---
*Admission Date: 12/16/20 *Reason for consult:: GI bleed *History of present illness: Patient is a 50-year-old female with history of breast cancer who underwent recent mastectomy by Dr. Michaels. She is followed by Dr. Cornelius. She is a smoker. She has COPD, anxiety, depression. She states that last on 12/12/2020 she developed vomiting and hematemesis. This was followed by ongoing upper abdominal pain. She presented to the emergency department yesterday evening and had work-up which included blood work and CT scan. CT scan was notable for abnormality of the stomach which was felt to be edema versus even potential neoplasm. She was admitted for inpatient management. Surgical consultation was ordered. Review of Systems - Review of Systems Review of systems:: pertinent systems reviewed and negative unless documented below [facility] History I have reviewed the patient's past medical history: Yes Medical History: Reports:: Anxiety, Cancer, Chronic Obstructive Pulmonary Disease (COPD), Depression, Gastroesophageal Reflux Disease(GERD), Hypertension Denies:: Diabetes Mellitus Type 1, Diabetes Mellitus Type 2, Internal Pacemaker, MRSA, Seizures *Have you ever received a pneumonia vaccine?: No *Have you received a flu vaccine this season?: No Other Medical History: Reports: Chemotherapy (chemo pill'), Hypothyroidism, Thyroid Disease. Denies: Blood Transfusion Reaction Laterality Cases: Left: Breast Biopsy, Right: Mastectomy, Bilateral: Arthroscopy Knee, Tonsillectomy Other Surgeries: Yes: Cardiac Catheterization, Cholecystectomy, Colonoscopy, Hysterectomy-Total, Other. No: Pacemaker Amputation: No Fractures: Yes - *Social History Smoking Status: Current every day smoker Tobacco Type: cigarettes # Packs/Day (cigarettes): 1 Alcohol Intake: never Substance Use Type: denies use *Occupational Status:: unemployed, disabled Housing: house Household Members: significant other *Travel in the last 8 weeks: None - Psychiatric History Pschychiatric History:: Reports:: Anxiety, Depression Family Hx:: Unable to obtain Meds Home Medications Medication Instructions Recorded Confirmed Type Ondansetron [Zofran 4mg ODT] 4 mg PO TIDP PRN #12 tab 12/05/20 12/15/20 Rx Amlodipine Besylate [Amlodipine 10 mg PO DAILY 12/15/20 12/15/20 History 10mg Tab] Oxycodone HCl/Acetaminophen 1 tab PO TID 12/15/20 12/15/20 History [Oxycodone-Acetaminophen 5-325] Trazodone HCl 50 mg PO HS 12/15/20 12/15/20 History buPROPion HCL [Wellbutrin SR 75mg 75 mg PO BID 12/15/20 12/16/20 History Tablet] clonazePAM [Clonazepam] 0.5 mg PO BID 12/15/20 12/15/20 History Anastrozole 1 mg PO DAILY 12/16/20 12/16/20 History Cholecalciferol (Vitamin D3) 50,000 unit PO WEEKLY 12/16/20 12/16/20 History [Vitamin D3 50,000 unit Cap] Lisinopril/Hydrochlorothiazide 2 tab PO DAILY 12/16/20 12/16/20 History [Lisinopril-Hctz 20-12.5 mg Tab] Allergies Allergy/AdvReac Type Severity Reaction Status Date / Time hydrocodone [From [place]] Allergy Severe Rash Verified 12/15/20 12:29 sulfamethoxazole Allergy Severe Blisters/uncontrolled Verified 12/15/20 12:29 [From Bactrim] bladder trimethoprim [From Bactrim] Allergy Severe Blisters/uncontrolled Verified 12/15/20 12:29 bladder Exam Vital signs and Labs for Last 24 Hours: Temp Pulse Resp BP Pulse Ox 98.0 F 52 L 18 85/50 L 96 12/16/20 07:53 12/16/20 07:53 12/16/20 07:53 12/16/20 07:53 12/16/20 07:53 Laboratory Results - last 24 hr 12/15/20 09:15: Carbon Dioxide 33 H, Anion Gap 10.5, BUN 19 H, Creatinine 0.60, Estimated Creat Clear 78, Estimated GFR 106, Est GFR ( Amer) 129, Glucose 115 H, Calcium 9.3, Total Bilirubin 0.7, AST 33, ALT 16, Alkaline Phosphatase 68, Total Protein 7.0, Albumin 4.0, Globulin 3.0, Albumin/Globulin Ratio 1.3, Lipase 177 12/15/20 09:15: PT 11.4, INR 1.01 12/15/20 10:13: Lactate 0.9 12/15/20 11:03: Urine Color Yellow, Urine Appearance Sl cloudy, Urine pH 7
--- NOTE | 2020-12-16 09:42 | PC.NURSE ---
0730-PT WAS HYPOTENSIVE 85/50 DURING INITIAL ASSESSMENT THIS AM. Fei HALL APRN WAS NOTIFIED AND GAVE THIS NURSE ORDER FOR 1 TIME FLUID BOLUS OF 500 ML OVER ONE HOUR. FOLLOWING BOLUS PT BP WAS REASSESSED AND WAS STILL LOW. Timmy HALL NOTIFIED AND ANOTHER BOLUS OF NS WAS ORDERED AND STAT H/H WAS OBTAINED. EGD WAS PLANNED FOR THIS AM THEREFORE PRE-OP WAS ALSO NOTIFIED OF PT CONDITION. PT DOES NOT APPEAR TO BE IN ANY DISTRESS. SHE DENIES PAIN OR LIGHT HEADEDNESS AND OTHER VS ARE WNL.
--- NOTE | 2020-12-16 10:04 | HMH.HP ---
*Admission Date: 12/16/20 *Chief complaint: gi bleed *History of present illness: 50-year-old female presented to ed with c/o vomiting up blood and abd pain. Patient has history of breast cancer who underwent recent mastectomy by Dr. Michaels. She is followed by Dr. Cornelius, takes oral chemo, She is a smoker. She has COPD, anxiety, depression. She states that last on 12/12/2020 she developed vomiting, abd pain and hematemesis. She was admitted for inpatient management of gi bleed and Surgical consultation. h/h stable [facility] History I have reviewed the patient's past medical history: Yes Medical History: Reports:: Anxiety, Cancer, Chronic Obstructive Pulmonary Disease (COPD), Depression, Gastroesophageal Reflux Disease(GERD), Hypertension Denies:: Diabetes Mellitus Type 1, Diabetes Mellitus Type 2, Internal Pacemaker, MRSA, Seizures *Have you ever received a pneumonia vaccine?: No *Have you received a flu vaccine this season?: No Other Medical History: Reports: Chemotherapy (chemo pill'), Hypothyroidism, Thyroid Disease. Denies: Blood Transfusion Reaction Laterality Cases: Left: Breast Biopsy, Right: Mastectomy, Bilateral: Arthroscopy Knee, Tonsillectomy Other Surgeries: Yes: Cardiac Catheterization, Cholecystectomy, Colonoscopy, Hysterectomy-Total, Other. No: Pacemaker Amputation: No Fractures: Yes - *Social History Smoking Status: Current every day smoker Tobacco Type: cigarettes # Packs/Day (cigarettes): 1 Alcohol Intake: never Substance Use Type: denies use *Occupational Status:: unemployed, disabled Housing: house Household Members: significant other *Travel in the last 8 weeks: None - Psychiatric History Pschychiatric History:: Reports:: Anxiety, Depression Family Hx:: Unable to obtain Review of Systems - Review of Systems Review of systems:: pertinent systems reviewed and negative unless documented below - Constitutional Reports weakness, Denies body ache(s) - Eyes Denies blurry vision - ENT Denies bleeding gums - *Cardiovascular Denies chest pain - *Respiratory Denies chest congestion - *Gastrointestinal Reports abdominal pain, Reports vomiting blood, Reports nausea, Reports vomiting, Denies belching - *Genitourinary Denies abnormal periods - *Musculoskeletal Denies abnormal walking - Integumentary/Breasts Denies hair loss - *Neurologic Denies abnormal speech - Psychiatric Denies abnormal sleep pattern - Endocrine Denies rapid, pounding, or irregular heartbeat - Hematologic/Lymphatic Denies easy bruising - Allergic/Immunologic Denies GI upset with certain foods Meds Home Medications Medication Instructions Recorded Confirmed Type Ondansetron [Zofran 4mg ODT] 4 mg PO TIDP PRN #12 tab 12/05/20 12/15/20 Rx Amlodipine Besylate [Amlodipine 10 mg PO DAILY 12/15/20 12/15/20 History 10mg Tab] Oxycodone HCl/Acetaminophen 1 tab PO TID 12/15/20 12/15/20 History [Oxycodone-Acetaminophen 5-325] Trazodone HCl 50 mg PO HS 12/15/20 12/15/20 History buPROPion HCL [Wellbutrin SR 75mg 75 mg PO BID 12/15/20 12/16/20 History Tablet] clonazePAM [Clonazepam] 0.5 mg PO BID 12/15/20 12/15/20 History Anastrozole 1 mg PO DAILY 12/16/20 12/16/20 History Cholecalciferol (Vitamin D3) 50,000 unit PO WEEKLY 12/16/20 12/16/20 History [Vitamin D3 50,000 unit Cap] Lisinopril/Hydrochlorothiazide 2 tab PO DAILY 12/16/20 12/16/20 History [Lisinopril-Hctz 20-12.5 mg Tab] Allergies Allergy/AdvReac Type Severity Reaction Status Date / Time hydrocodone [From [place]] Allergy Severe Rash Verified 12/15/20 12:29 sulfamethoxazole Allergy Severe Blisters/uncontrolled Verified 12/15/20 12:29 [From Bactrim] bladder trimethoprim [From Bactrim] Allergy Severe Blisters/uncontrolled Verified 12/15/20 12:29 bladder Exam Vital signs and Labs for Last 24 Hours: Temp Pulse Resp BP Pulse Ox 98.0 F 52 L 18 85/50 L 96 12/16/20 07:53 12/16/20 07:53 12/16/20 07:53
--- NOTE | 2020-12-16 10:19 | P.PN_ITS ---
[facility] Anesthesia Checklist - Patient Identification Patient Identification: Arm Band - Structural Data Admitted From: Inpatient Planned Operative Procedure/s: EGD Consent for Planned Operative Procedure(s) Verified: Yes - NPO Status Verified Time NPO: 00:00 - Additional verifications Anesthesia Reactions: No Hx Blood Transfusions: No Blood Transfusion Reaction: No - Airway Assessment C-Spine Mobility Assessed: Yes TMJ Mobility Assessed: Yes - Neurological Assessment Level of Consciousness: Awake Hx Seizures: No Numbness or tingling in extremities: No - Anesthesia Plan Anesthesia Risk discussed: Yes Anesthesia Plan: Verified ASA Class: III Anesthesia Type: MAC [facility] History I have reviewed the patient's past medical history: Yes Medical History: Reports:: Anxiety, Cancer, Chronic Obstructive Pulmonary Disease (COPD), Depression, Gastroesophageal Reflux Disease(GERD), Hypertension Denies:: Diabetes Mellitus Type 1, Diabetes Mellitus Type 2, Internal Pacemaker, MRSA, Seizures *Have you ever received a pneumonia vaccine?: No *Have you received a flu vaccine this season?: No Other Medical History: Reports: Chemotherapy (chemo pill'), Hypothyroidism, Thyroid Disease. Denies: Blood Transfusion Reaction Anesthesia experience/problems:: None Laterality Cases: Left: Breast Biopsy, Right: Mastectomy, Bilateral: Arthroscopy Knee, Tonsillectomy Other Surgeries: Yes: Cardiac Catheterization, Cholecystectomy, Colonoscopy, Hysterectomy-Total, Other. No: Pacemaker Amputation: No Fractures: Yes - *Social History Smoking Status: Current every day smoker Tobacco Type: cigarettes # Packs/Day (cigarettes): 1 Alcohol Intake: never Substance Use Type: denies use *Occupational Status:: unemployed, disabled Housing: house Household Members: significant other *Travel in the last 8 weeks: None - Psychiatric History Pschychiatric History:: Reports:: Anxiety, Depression Family Hx:: Unable to obtain
[2020-12-16 10:21] LABS: Hematocrit 40.6 % (37.0-47.0); Hemoglobin 13.2 g/dL (12.2-16.2)
--- NOTE | 2020-12-16 12:34 | P.PCN_ITS ---
- Procedure: Date: 12/16/20 Patient Date of :: 1970 Procedure Performed:: Esophagogastroduodenoscopy with biopsies Indications:: Patient is a 50-year-old female with history of breast cancer who underwent recent mastectomy by Dr. Michaels. She is followed by Dr. Cornelius. She is a smoker. She has COPD, anxiety, depression. She states that last on 12/12/2020 she developed vomiting and hematemesis. This was followed by ongoing upper abdominal pain. She presented to the emergency department yesterday evening and had work-up which included blood work and CT scan. CT scan was notable for abnormality of the stomach which was felt to be edema versus even potential neoplasm. She was admitted for inpatient management. Surgical consultation was ordered. Plan was made to proceed with urgent inpatient endoscopy. Performing Provider:: Jeremiah Burkett MD Referring Provider:: Maxi Hunter MD Sedation:: MAC sedation Procedure:: Patient was taken to endoscopy procedure room. She was positioned in a lateral decubitus position. Adequate intravenous sedation was achieved with anesthesia titration of propofol. Olympus endoscope was inserted via the oropharynx. Esophagus was cannulated. Overall esophagus appeared unremarkable. The gastroesophageal junction was encountered at approximately 42 cm from the incisors. Stomach was cannulated and insufflated. Retroflexion was performed which revealed no evidence of any appreciable hiatal hernia. Initially noted with findings possibly consistent with diffuse moderately severe gastritis. However this was more prominent in the antrum where there is evidence of some superficial tissue necrosis and exudate. This is highly concerning for gastric malignancy. The pylorus was able to be traversed and the endoscope advanced to the distal duodenum which appeared unremarkable. Endoscope was withdrawn into the gastric lumen. Several biopsies were obtained of the gastric body. Num erous biopsies were obtained in the antrum of the area concerning for neoplastic process. This was a very firm and friable with exudate and superficial tissue necrosis. Stomach was desufflated and the endoscope was withdrawn. Findings:: Gastroesophageal junction 42 cm from the incisors Some diffuse moderately severe gastritis Findings concerning for gastric malignancy in the antrum, numerous biopsies obtained Recommendations:: Await pathology. Complications:: None immediately apparent Estimated blood obtained (mL): 3
--- NOTE | 2020-12-16 13:01 | HMH.ANESCL ---
[facility] Anesthesia Checklist - Patient Identification Patient Identification: Arm Band, Verbal (Name & ) - Structural Data Admitted From: Inpatient Planned Operative Procedure/s: EGD Consent for Planned Operative Procedure(s) Verified: Yes Verified Documents: Surgical Consent - NPO Status Verified Time NPO: 00:00 - Chart Verification Results Verified: None - Additional verifications Anesthesia Reactions: No Hx Blood Transfusions: No Blood Transfusion Reaction: No - Airway Assessment C-Spine Mobility Assessed: Yes TMJ Mobility Assessed: Yes Dentition: Edentulous - Neurological Assessment Level of Consciousness: Awake, Alert, Appropriate - Anesthesia Plan Anesthesia Risk discussed: No (Patient very anxious) ASA Class: III Anesthesia Type: General [facility] History I have reviewed the patient's past medical history: Yes Medical History: Reports:: Anxiety, Cancer, Chronic Obstructive Pulmonary Disease (COPD), Depression, Gastroesophageal Reflux Disease(GERD), Hypertension Denies:: Diabetes Mellitus Type 1, Diabetes Mellitus Type 2, Internal Pacemaker, MRSA, Seizures *Have you ever received a pneumonia vaccine?: No *Have you received a flu vaccine this season?: No Other Medical History: Reports: Chemotherapy (chemo pill'), Hypothyroidism, Thyroid Disease. Denies: Blood Transfusion Reaction Anesthesia experience/problems:: None Laterality Cases: Left: Breast Biopsy, Right: Mastectomy, Bilateral: Arthroscopy Knee, Tonsillectomy Other Surgeries: Yes: Cardiac Catheterization, Cholecystectomy, Colonoscopy, Hysterectomy-Total, Other. No: Pacemaker Amputation: No Fractures: Yes - *Social History Smoking Status: Current every day smoker Tobacco Type: cigarettes # Packs/Day (cigarettes): 1 Alcohol Intake: never Substance Use Type: denies use *Occupational Status:: unemployed, disabled Housing: house Household Members: significant other *Travel in the last 8 weeks: None - Psychiatric History Pschychiatric History:: Reports:: Anxiety, Depression Family Hx:: Unable to obtain
--- NOTE | 2020-12-16 14:31 | PC.NURSE ---
1425-NOTIFIED DR VENTURA'S OFFICE THAT PT BP IS SLOWLY DROPPING BACK DOWN. CURRENT BP IS 93/53. SPOKE WITH Bradley RIDLEY RN AT DR VENTURA'S OFFICE AND WAITING FOR CALL BACK
--- NOTE | 2020-12-16 14:50 | PC.NURSE ---
IV BEGAN LEAKING, PROTONIX GTT STOPPED. THIS RN INFORMED PT THAT NEW IV ACCESS WOULD NEED TO BE OBTAINED. PT REFUSED TO ALLOW THIS NURSE TO START A NEW IV BECAUSE SHE AM LEAVING [facility], I WILL COME BACK AN OUTPATIENT AND DO WHATEVER TEST BUT I AM SLEEPING IN MY OWN BED [facility]
== END 2020-12-16 16:40 | disposition left against medical advice (07) | DRG 379 ==
LOC: ER 09:24 → 2ND 15:20
PROVIDERS: Nurse Practitioner Family; Surgery; Admitting Provider Internal Medicine Adolescent Medicine; Emergency Provider Student in an Organized Health Care Education/Training Program; PCP Emergency Medicine; Visit Provider Emergency Medicine
PROC: 0DJ08ZZ Inspection of Upper Intestinal Tract, Via Natural or Artificial Opening Endoscopic (ICD-10-PCS; CPT 43235; principal; 2020-12-16 11:00)
DX: K29.71 Gastritis, unspecified, with bleeding (principal); C50.919 Malignant neoplasm of unspecified site of unspecified female breast; F41.9 Anxiety disorder, unspecified; J43.9 Emphysema, unspecified; F32.A Depression, unspecified; Z20.822 Contact with and (suspected) exposure to COVID-19; E03.9 Hypothyroidism, unspecified; I10 Essential (primary) hypertension; K21.9 Gastro-esophageal reflux disease without esophagitis; F17.200 Nicotine dependence, unspecified, uncomplicated; C50.911 Malignant neoplasm of unspecified site of right female breast; F17.210 Nicotine dependence, cigarettes, uncomplicated
CPT/HCPCS: 43239; 36415; 74177; 80048; 80053; 81001; 83605; 83690; 85014; 85018; 85025; 85610; 86850; 87086; 88305; 96365; 96367; 96375; 99284; C9803; J2405; Q9967; U0003; U0005

== ENCOUNTER → 2020-12-23 13:08 | Outpatient (CLI) | payer MEDICAID, SELFPAY ==
[2020-12-23 13:29] LABS: Basophils % 0.5 % (0.1-2.0); Eosinophils # 0.2 K/mm3 (0.0-0.4); Eosinophils % 2.5 % (0.1-12.0); Hematocrit 43.6 % (37.0-47.0); Hemoglobin 14.2 g/dL (12.2-16.2); Lymphocytes % 22.1 % (10-50); Mean Corpuscular HGB Conc 32.5 g/dL (31.8-35.4); Mean Corpuscular Hemoglobin 32.1 pg (27.0-31.2); Mean Corpuscular Volume 98.8 fl (81-99); Mean Platelet Volume 8.5 fl (7.4-10.4); Monocytes # 0.5 K/mm3 (0.1-1.0); Monocytes % 5.9 % (1.7-9.3); Neutrophils # 6.4 K/mm3 (1.8-7.8); Platelet Count 367 K/mm3 (142-424); Red Blood Count 4.41 M/mm3 (4.20-5.40); Red Cell Distribution Width 13.7 % (11.5-17.5); White Blood Count 9.2 K/mm3 (4.8-10.8)
== END ==
PROVIDERS: Visit Provider Surgery
DX: R13.10 Dysphagia, unspecified (principal)
CPT/HCPCS: 36415; 85025

== ENCOUNTER 2021-01-15 08:58 | Observation (INO) | payer MEDICAID, SELFPAY ==
[2021-01-15] VITALS (16 sets, daily range): BP systolic 80–123; BP diastolic 49–80; PULSE 57–118; RESP 12–21; TEMP 36.5–37.1; O2SAT 95–99; BMI 15.7; BMI 13.1
--- NOTE | 2021-01-15 | CT_ITS ---
PROCEDURE: CT ANGIO CHEST PE PROTOCOL CLINCIAL INDICATION: Elevated D dimer COMPARISON: CT CT CHEST WO CON from 03/02/2019 TECHNIQUE: IV Contrast: 70ML Isovue 370 Axial images obtained with sagittal and coronal reformats. All CT scans at the facility use one or more dose reduction, viz: automated exposure control, ma/kV adjustment per patient size (including targeted exams where dose is matched to indication, i.e. head), or iterative reconstruction technique. FINDINGS: HEART AND MEDIASTINAL STRUCTURES: No evidence of pulmonary embolus, aortic aneurysm, or aortic dissection. LUNGS AND PLEURAL SPACES: There are few small blebs in the lung apices. No lobar consolidation or collapse. No effusions or infiltrates. BONY STRUCTURES: Thoracic scoliosis convex right. Degenerative change thoracic spine UPPER ABDOMEN: Please see abdomen report performed on the same day ADDITIONAL FINDINGS: Prior right mastectomy IMPRESSION: No acute finding. No evidence of pulmonary embolus. Dictated by: Vinayak Jerez MD 01/15/2021 11:45 Vinayak Jerez MD in [facility] 01/15/2021 11:45
--- NOTE | 2021-01-15 09:13 | CT_ITS ---
PROCEDURE INFORMATION: Exam: CT Abdomen And Pelvis With Contrast Exam date and time: 01/15/2021 9:13 AM Age: 50 years old Clinical indication: Abdominal pain; Patient HX: PT is currently going through chemo for breast cancer; Additional info: Abdominal pain, blood in stool TECHNIQUE: Imaging protocol: Computed tomography of the abdomen and pelvis with contrast. Radiation optimization: All CT scans at this facility use at least one of these dose optimization techniques: automated exposure control; mA and/or kV adjustment per patient size (includes targeted exams where dose is matched to clinical indication); or iterative reconstruction. Contrast material: ISOVUE; Contrast volume: 75 ml; Contrast route: IV; COMPARISON: CT ABDOMEN PELVIS W CON 12/15/2020 9:49 AM FINDINGS: Liver: 2 cm cyst lateral segment left lobe of the liver. Gallbladder and bile ducts: Surgical clips are present in the region of the gallbladder fossa. Pancreas: Normal. No ductal dilation. Spleen: Normal. No splenomegaly. Adrenal glands: Normal. No mass. Kidneys and ureters: Small renal cyst right kidney largest 1 cm Stomach and bowel: Air and fluid-filled large bowel. Scattered loops of air and fluid-filled small bowel. No discrete evidence of an obstruction. Findings most pronounced within the pelvis. Consider follow-up if indicated clinically. Appendix: No evidence of appendicitis. Intraperitoneal space: Unremarkable. No free air. No significant fluid collection. Vasculature: Unremarkable. No abdominal aortic aneurysm. Lymph nodes: Unremarkable. No enlarged lymph nodes. Urinary bladder: Unremarkable as visualized. Reproductive: Unremarkable as visualized. Bones/joints: Unremarkable. No acute fracture. Soft tissues: Soft tissue prominence in the vaginal /cervical region. Follow-up suggested. IMPRESSION: 1. Scattered loops of air and fluid-filled small bowel. No discrete evidence of an obstruction. Findings most pronounced within the pelvis. Consider follow-up if indicated clinically. 2. Soft tissue prominence in the vaginal /cervical region. Follow-up suggested. COMMENTS: Consistent with the [employer]'s Incidental Findings Committee white paper (J Am Faustina Radiol 2018): Any incidental renal lesion less than 1 cm or classified as too small to characterize, or any incidental cystic renal lesion characterized as simple-appearing, is likely benign. No follow-up imaging is recommended for these lesions per consensus recommendations based on imaging criteria.
--- NOTE | 2021-01-15 09:13 | XR_ITS ---
PROCEDURE: XR CHEST PORTABLE CLINICAL HISTORY: Cough COMPARISON: CT CT CHEST WO CON from 03/02/2019 CR XR CHEST 2V from 04/24/2019 CR XR CHEST 2V from 11/15/2019 CR XR CHEST 2V from 06/11/2020 FINDINGS: The cardiomediastinal silhouette and pulmonary vascularity are within normal limits. The lungs are clear without infiltrates, suspicious nodules, or pleural effusions. Mild mid upper thoracic scoliosis convex right. IMPRESSION: No acute findings. Dictated by: Vinayak Jerez MD 01/15/2021 14:07 Vinayak Jerez MD in [facility] 01/15/2021 14:07
--- NOTE | 2021-01-15 09:19 | ECG_ITS ---
APPROVED REPORT Exam: Resting ECG HR:81 bpm ECG Measurements Heart Rate 81 AXES LA 118 P 87 QRSd 86 QRS 153 QT 376 T 79 QTc 436 Conclusion Normal sinus rhythm Right atrial enlargement Indeterminate axis Pulmonary disease pattern Abnormal ECG Electronically signed by : Shailesh Villanueva MD 01/16/2021 21:40:37
[2021-01-15 09:30] LABS: Basophils # 0.1 K/mm3 (0-0.2); Basophils % 1.3 % (0.1-2.0); Eosinophils # 0.2 K/mm3 (0.0-0.4); Eosinophils % 2.9 % (0.1-12.0); Hematocrit 43.9 % (37.0-47.0); Hemoglobin 14.7 g/dL (12.2-16.2); Lymphocytes # 1.6 K/mm3 (0.7-4.5); Lymphocytes % 30.3 % (10-50); Mean Corpuscular HGB Conc 33.4 g/dL (31.8-35.4); Mean Corpuscular Hemoglobin 32.3 pg (27.0-31.2); Mean Corpuscular Volume 96.8 fl (81-99); Mean Platelet Volume 8.8 fl (7.4-10.4); Monocytes # 0.3 K/mm3 (0.1-1.0); Monocytes % 6.1 % (1.7-9.3); Neutrophils # 3.1 K/mm3 (1.8-7.8); Neutrophils % 59.4 % (37.0-80.0); Platelet Count 303 K/mm3 (142-424); Red Blood Count 4.54 M/mm3 (4.20-5.40); Red Cell Distribution Width 13.3 % (11.5-17.5); White Blood Count 5.3 K/mm3 (4.8-10.8)
[2021-01-15 09:39] LABS: Activated Partial Thrombo Time 27.6 seconds (22.8-30.6); Prothrombin Time 11.3 seconds (10.1-12.5)
[2021-01-15 09:44] LABS: Alanine Aminotransferase 22 U/L (12-78); Albumin Level 4.2 g/dl (3.5-5.0); Albumin/Globulin Ratio 1.6 (1.1-1.8); Alkaline Phosphatase 72 U/L (38-126); Anion Gap 7.4 mEq/L (5-15); Aspartate Amino Transferase 38 U/L (14-36); Bilirubin,Total 0.6 mg/dl (0.2-1.3); Blood Urea Nitrogen 10 mg/dl (7-17); Calcium 9.4 mg/dl (8.4-10.2); Carbon Dioxide 31 mmol/L (22.0-30.0); Chloride 97 mmol/L (98-107); Creatinine Clearance Estimated 60 mL/min (50-200); Estimated Glomerular Filt Rate 76 ml/min (>60); GFR (African American) 92 ML/MIN (>60); Globulin 2.7 g/dL (1.3-3.2); Glucose 135 mg/dl (74-100); Lipase 106 U/L (23-300); Magnesium 1.5 mg/dl (1.6-2.3); Phosphorous 3.9 mg/dl (2.5-4.5); Potassium 3.4 mmoL/L (3.5-5.1); Sodium 132 mmol/L (136-145); Total Protein,Serum 6.9 g/dl (6.3-8.2)
[2021-01-15 09:55] LABS: D-Dimer 0.69 ug/mL (0.0-0.5)
[2021-01-15 10:06] LABS: Troponin I < 0.01 ng/ml (0.00-0.034)
--- NOTE | 2021-01-15 10:06 | PC.NURSE ---
Going to CT with david.
[2021-01-15 10:26] LABS: Lactic Acid 0.8 mmol/L (0.7-2.1)
--- NOTE | 2021-01-15 12:27 | PC.NURSE ---
Susan Hunter at this time
--- NOTE | 2021-01-15 12:29 | HMH.EDGENADL ---
ED Disposition Clinical Impression: Hypovolemia dehydration Disposition: Admitted As Inpatient Condition on Discharge: Fair Referrals: Taz Hunter MD [Primary Care Provider] - - Critical Care Critical Care Time: Yes Attestation: On 01/15/21, the high probability of a clinically significant, sudden or life threatening deterioration of the following system(s) required my full and direct attention, intervention and personal management. The time I documented below is in addition to time spent performing reported procedures but includes the following listed in this critical care notation. Total Critical Care Time: 35 Vital system(s) involved:: Circulatory Failure My critical care processes included: Assessment & monitoring of V/S, Initial and Re-exams, Data Review/Interpretation, Medication Orders and management Medical Decision Making - Edd Inquiry Pt receiving controlled substance: No Vital Signs: 01/15/21 09:05 01/15/21 09:11 01/15/21 09:30 Temperature 98.7 F Temperature Source Oral Pulse Rate 93 H 87 Pulse Rate [Left Radial] 118 H Respiratory Rate 18 12 17 Blood Pressure 85/61 L 85/49 L Blood Pressure [Left Arm] 113/80 Blood Pressure Mean 69 61 Blood Pressure Mean [Left Arm] 91 Blood Pressure Source [Left Arm] Automatic Cuff Blood Pressure Position [Left Arm] Sitting 02 Sat by Pulse Oximetry 98 98 97 Oxygen Delivery Method Room Air 01/15/21 10:00 01/15/21 10:52 01/15/21 11:30 Temperature Temperature Source Pulse Rate 89 64 65 Pulse Rate [Left Radial] Respiratory Rate 17 21 18 Blood Pressure 82/54 L 84/51 L 80/52 L Blood Pressure [Left Arm] Blood Pressure Mean 58 58 59 Blood Pressure Mean [Left Arm] Blood Pressure Source [Left Arm] Blood Pressure Position [Left Arm] 02 Sat by Pulse Oximetry 98 99 98 Oxygen Delivery Method 01/15/21 11:45 Temperature Temperature Source Pulse Rate 64 Pulse Rate [Left Radial] Respiratory Rate 12 Blood Pressure 80/52 L Blood Pressure [Left Arm] Blood Pressure Mean Blood Pressure Mean [Left Arm] Blood Pressure Source [Left Arm] Blood Pressure Position [Left Arm] 02 Sat by Pulse Oximetry 98 Oxygen Delivery Method - Lab Data Lab Results 01/15/21 09:18: WBC 5.3, RBC 4.54, Hgb 14.7, Hct 43.9, MCV 96.8, MCH 32.3 H, MCHC 33.4, RDW 13.3, Plt Count 303, MPV 8.8, Neut % (Auto) 59.4, Lymph % (Auto) 30.3, [place] % (Auto) 6.1, Eos % (Auto) 2.9, Baso % (Auto) 1.3, Neut # (Auto) 3.1, Lymph # (Auto) 1.6, [place] # (Auto) 0.3, Eos # (Auto) 0.2, Baso # (Auto) 0.1 01/15/21 09:18: PT 11.3, INR 1.00, APTT 27.6 01/15/21 09:18: D-Dimer 0.69 H 01/15/21 09:18: Sodium 132 L, Potassium 3.4 L, Chloride 97 L, Carbon Dioxide 31 H, Anion Gap 7.4, BUN 10, Creatinine 0.80, Estimated Creat Clear 60, Estimated GFR 76, Est GFR ( Amer) 92, Glucose 135 H, Calcium 9.4, Phosphorus 3.9, Magnesium 1.5 L, Total Bilirubin 0.6, AST 38 H, ALT 22, Alkaline Phosphatase 72, Troponin I < 0.01, Total Protein 6.9, Albumin 4.2, Globulin 2.7, Albumin/Globulin Ratio 1.6, Lipase 106 01/15/21 09:30: Lactate 0.8 Result diagrams: 01/15/21 09:18 01/15/21 09:18 Orders (Tests/Meds): ED MEDICATIONS Generic Name Dose Route Start Last Admin Trade Name Freq PRN Reason Stop Dose Admin Lactated Ringer's 1,000 mls @ 999 mls/hr 01/15/21 12:30 01/15/21 12:33 Lactated Ringer's 1000 Ml Bag IV 01/15/21 13:30 999 mls/hr .Q1H1M [place] Administration Morphine Sulfate 4 mg 01/15/21 12:27 01/15/21 12:33 Morphine 4mg/Ml Syringe IV 02/14/21 12:26 4 mg Q4HP PRN Administration Mild to Moderate Pain Discontinued Medications Generic Name Dose Route Start Last Admin Trade Name Freq PRN Reason Stop Dose Admin Lactated Ringer's 1,000 mls @ 999 mls/hr 01/15/21 09:15 01/15/21 09:57 Lactated Ringer's 1000 Ml Bag IV 01/15/21 10:15 999 mls/hr .Q1H1M [place] Administration Magnesium Sulfate 1 gm/ Sodium 52 mls @ 100 mls/hr 01/15/21 11:
[2021-01-15 12:49] LABS: Coronavirus 19, PCR Not Detected (NotDetected); Influenza A, PCR Not Detected (NotDetected); Influenza B, PCR Not Detected (NotDetected)
--- NOTE | 2021-01-15 12:59 | PC.NURSE ---
bending machine operator paging Dr. Hunter again, states no answer had to leave a voicemail
--- NOTE | 2021-01-15 13:52 | PC.NURSE ---
ER talking to Dr Hunter about pt admission
--- NOTE | 2021-01-15 14:45 | PC.NURSE ---
report called to maryannrn on second floor at this time
[2021-01-15 15:05] LABS: Appearance,Urine CLEAR (Clear); Bilirubin,Urine Negative (Negative); Blood, Urine TRACE-I (Negative); Color,Urine YELLOW (Yellow); Glucose,Urine (UA) Negative (Negative); Ketones,Urine Negative (Negative); Leukocyte Esterase,Urine Negative (Negative); Nitrate,Urine Negative (Negative); PH,Urine 6.5 (5.0-8.5); Protein,Urine Negative (Negative); Specific Gravity, Urine <= 1.005 (1.005-1.030); Urobilinogen,Urine 0.2 EU/dl (0.2)
[2021-01-15 15:09] LABS: Bacteria,Urine Trace /lpf
[2021-01-15 15:42] LABS: Microscopic, Urine URINE MICROSCOPIC (MICROSCOPIC)
[2021-01-16 04:00] VITALS: BP 97/49; PULSE 62; RESP 16; TEMP 36.6; O2SAT 94
[2021-01-16 05:42] VITALS: BMI 13.0
[2021-01-16 08:00] VITALS: BP 111/59; PULSE 79; RESP 16; TEMP 36.7; O2SAT 98
--- NOTE | 2021-01-16 10:47 | HMH.HPDC ---
General - General Admission date:: 01/15/21 Discharge date: 01/16/21 *Admission Date: 01/15/21 *Chief complaint: Low Blood Pressure *History of present illness: 50-year-old female patient reported to the [facility] emergency department from Dr. Burkett's office for reports of hypotension, dizziness, and multiple syncopal episodes. She reports she has had several syncopal episodes at home over the past [address] weeks [address] in [address] Burkett's office for a follow-up on an EGD that was unable to be completed. While there blood pressure was seen to be in the 70s systolic and she was reporting dizziness. She states for the past 4 weeks she has felt unwell having increased abdominal pain, loss of appetite, nausea. She has been taking oral chemotherapy for breast cancer and reports she has had bloody loose stools for years that have been increasing now with mucus. She reports she did have polyps removed in the past. [facility] History I have reviewed the patient's past medical history: Yes Medical History: Reports:: Anxiety, Cancer, Chronic Obstructive Pulmonary Disease (COPD), Depression, Gastroesophageal Reflux Disease(GERD), Hypertension Denies:: Diabetes Mellitus Type 1, Diabetes Mellitus Type 2, Internal Pacemaker, MRSA, Seizures *Have you ever received a pneumonia vaccine?: No *Have you received a flu vaccine this season?: No Other Medical History: Reports: Chemotherapy, Hypothyroidism, Thyroid Disease. Denies: Blood Transfusion Reaction Laterality Cases: Left: Breast Biopsy, Right: Mastectomy, Bilateral: Arthroscopy Knee, Tonsillectomy Other Surgeries: Yes: Cardiac Catheterization, Cholecystectomy, Colonoscopy, EGD, Hysterectomy-Total, Other. No: Pacemaker Amputation: No Fractures: Yes - *Social History Smoking Status: Current every day smoker Tobacco Type: cigarettes # Packs/Day (cigarettes): 1 Alcohol Intake: never Substance Use Type: denies use *Occupational Status:: other Housing: house Household Members: significant other *Travel in the last 8 weeks: None - Psychiatric History Pschychiatric History:: Reports:: Anxiety, Depression Family Hx:: Unable to obtain Review of Systems - Review of Systems Review of systems:: pertinent systems reviewed and negative unless documented below - Constitutional Reports fatigue, Reports lack of energy, Reports weakness, Denies fever(s) - Eyes Denies change in vision, Denies sensitivity to light - ENT Denies abnormal hearing, Denies difficulty swallowing - *Cardiovascular Denies chest pain, Denies shortness of breath - *Respiratory Denies chest congestion, Denies cough - *Gastrointestinal Reports abdominal pain, Reports change in stools, Reports bright, red blood in stools, Reports loose stools, Reports nausea, Denies incontinent of stools - *Musculoskeletal Denies abnormal walking, Denies back pain - Integumentary/Breasts Denies bleeding lesions, Denies change in skin color - *Neurologic Reports unsteadiness, Reports dizziness, Reports headache(s), Denies abnormal movements, Denies loss of vision - Psychiatric Denies anxiety, Denies difficulty concentrating - Endocrine Denies cold intolerance, Denies heat intolerance - Hematologic/Lymphatic Reports easy bleeding, Reports easy bruising (COVID-19 CDC guideline data points:The patient presents with PSA aaAea) Exam Vital signs and Labs for Last 24 Hours: Temp Pulse Resp BP Pulse Ox 98.1 F 79 16 111/59 L 98 01/16/21 08:00 01/16/21 08:00 01/16/21 08:00 01/16/21 08:00 01/16/21 08:00 Laboratory Results - last 24 hr 01/15/21 12:38: SARS-CoV-2 (PCR) Not detected, Influenza A Untype (PCR) Not detected, Influenza Type B (PCR) Not detected 01/15/21 14:00: Urine Color Yellow, Urine Appearance Clear, Urine pH 6.5, Ur Specific [place] <= 1.005, Urine Protein Negative, Urine Glucose (UA) Negative, Urine Ketones Negative, Urine Blood Trace-i, Urine Nitrate Negative, Urine Bilirubin Negative, Urine Urob
[2021-01-16 10:52] VITALS: BP 113/60
== END 2021-01-16 11:27 | disposition home or self-care (01) ==
LOC: ER 12:35 → 2ND 16:01
PROVIDERS: Admitting Provider Emergency Medicine; Emergency Provider Emergency Medicine; PCP Emergency Medicine; Visit Provider Emergency Medicine
DX: E86.0 Dehydration (principal); C50.911 Malignant neoplasm of unspecified site of right female breast; Z20.822 Contact with and (suspected) exposure to COVID-19; R55 Syncope and collapse; R64 Cachexia; Z68.1 Body mass index [BMI] 19.9 or less, adult; R42 Dizziness and giddiness; I95.9 Hypotension, unspecified; R11.10 Vomiting, unspecified; F41.9 Anxiety disorder, unspecified; F17.210 Nicotine dependence, cigarettes, uncomplicated; Z79.899 Other long term (current) drug therapy; I10 Essential (primary) hypertension
CPT/HCPCS: 71045; 71275; 74177; 80053; 81001; 83605; 83690; 83735; 84100; 84484; 85025; 85378; 85610; 85730; 87040; 93005; 96365; 96366; 96367; 96375; 99285; C9803; G0378; J2405; Q9967; U0003; U0005

== ENCOUNTER → 2021-01-27 09:36 | Outpatient (CLI) | payer MEDICAID, SELFPAY | PROVIDERS: Visit Provider Surgery | DX: Z01.812 Encounter for preprocedural laboratory examination (principal); Z20.822 Contact with and (suspected) exposure to COVID-19; Z13.810 Encounter for screening for upper gastrointestinal disorder | CPT/HCPCS: C9803; U0003; U0005 ==

== ENCOUNTER 2021-01-29 09:44 | Day surgery (SDC) | payer MEDICAID, SELFPAY ==
[2021-01-22 13:41] VITALS: BMI 15.6
[2021-01-29 10:01] VITALS: BP 107/63; PULSE 78; RESP 18; TEMP 36.5; O2SAT 100
[2021-01-29 10:45] VITALS: O2SAT 97
--- NOTE | 2021-01-29 10:56 | HMH.ANESCL ---
[facility] Anesthesia Checklist - Patient Identification Patient Identification: Arm Band - Structural Data Admitted From: Home Planned Operative Procedure/s: egd Consent for Planned Operative Procedure(s) Verified: Yes Verified Documents: Surgical Consent, History and Physical - NPO Status Verified Time NPO: 00:00 - Additional verifications Anesthesia Reactions: No Hx Blood Transfusions: No Blood Transfusion Reaction: No - Airway Assessment C-Spine Mobility Assessed: Yes (mp2) TMJ Mobility Assessed: Yes - Neurological Assessment Level of Consciousness: Awake, Alert - Anesthesia Plan Anesthesia Risk discussed: Yes Anesthesia Plan: Verified ASA Class: III Anesthesia Type: MAC [facility] History I have reviewed the patient's past medical history: Yes Medical History: Reports:: Anxiety, Cancer (BREAST CANCER), Chronic Obstructive Pulmonary Disease (COPD), Depression, Gastroesophageal Reflux Disease(GERD), Hypertension Denies:: Diabetes Mellitus Type 1, Diabetes Mellitus Type 2, Internal Pacemaker, MRSA, Seizures *Have you ever received a pneumonia vaccine?: No *Have you received a flu vaccine this season?: No Other Medical History: Reports: Chemotherapy, Hypothyroidism, Thyroid Disease. Denies: Blood Transfusion Reaction Anesthesia experience/problems:: nac Laterality Cases: Left: Breast Biopsy, Right: Mastectomy, Bilateral: Arthroscopy Knee, Tonsillectomy Other Surgeries: Yes: Cardiac Catheterization, Cholecystectomy, Colonoscopy, EGD, Hysterectomy-Total, Other. No: Pacemaker Amputation: No Fractures: No - *Social History Last grade of school completed: Advanced degree Smoking Status: Current every day smoker Tobacco Type: cigarettes # Packs/Day (cigarettes): 1 Alcohol Intake: never Substance Use Type: denies use *Occupational Status:: disabled Housing: house Household Members: none *Travel in the last 8 weeks: None - Psychiatric History Pschychiatric History:: Reports:: Anxiety, Depression Family Hx:: Cancer
[2021-01-29 11:00] VITALS: BP 80/33; PULSE 57; RESP 20; TEMP 36.6; O2SAT 97
--- NOTE | 2021-01-29 11:01 | HMH.SCOPE ---
- Procedure: Date: 01/29/21 Patient Date of :: 1970 Procedure Performed:: Esophagogastroduodenoscopy with biopsies Indications:: Patient is a 50-year-old female with history of breast cancer, smoker with COPD, anxiety, depression. She had developed vomiting and hematemesis and presented to the emergency department where she underwent CT scan which was notable for abnormality in the stomach which was felt to be edema versus potential neoplasm. She underwent inpatient upper endoscopy the day of her surgical consultation was found to have significant inflammation and abnormality of the antrum which was concerning for gastric neoplasm. Numerous biopsies were obtained of the gastric body and antrum and this revealed gastropathy with some biopsies showing ulceration and necrosis. She did leave the hospital AGAINST MEDICAL ADVICE that evening and after she had followed up in the office she was started on proton pump inhibitors. She is continued to complain of epigastric pain and nausea. Due to the concerning findings on upper endoscopy and ongoing symptom plan was made for early follow-up for repeat endoscopy. Performing Provider:: Jeremiah Burkett MD Referring Provider:: Adam Wolf Sedation:: MAC sedation Procedure:: Patient was taken to endoscopy procedure. She was positioned in lateral decubitus position. Adequate intravenous sedation was achieved. Olympus endoscope was inserted via the oropharynx. Esophagus was cannulated. Esophagus overall appeared normal. Gastroesophageal junction was encountered at approximately 45 cm from the incisors. Stomach was cannulated and insufflated. Retroflexion revealed no evidence of any appreciable hiatal hernia. Overall gastric lumen and findings of previously noted gastritis had shown marked improvement in healing. There was some minor scarring and induration with findings of gastritis in the prepyloric antrum. Gastric antral mucosal biopsies obtained for CLOtest for H. pylori. Several biopsies were obtained at the prepyloric location of the inflamed indurated mucosa. Pylorus was traversed. Duodenal bulb and duodenal sweep appeared unremarkable. Endoscope was withdrawn into the stomach which was desufflated and the endoscope was withdrawn. Findings:: Gastroesophageal junction at 45 cm from the incisors Prepyloric antral gastritis, major significant improvement from previous endoscopy Recommendations:: Continue proton pump inhibitors and follow-up on biopsies and H. pylori status. Unclear as to the patient's ongoing symptomatology. Complications:: None immediately apparent Estimated blood obtained (mL): 2
[2021-01-29 11:10] VITALS: BP 110/68; PULSE 58; RESP 18; O2SAT 97
[2021-01-29 11:20] VITALS: BP 130/72; PULSE 58; RESP 18; O2SAT 98
[2021-01-29 11:30] VITALS: BP 138/78; PULSE 69; RESP 16; O2SAT 98
== END 2021-01-29 11:35 | disposition home or self-care (01) ==
LOC: OUTP 09:47
PROVIDERS: PCP Emergency Medicine; Visit Provider Surgery
PROC: 0DJ08ZZ Inspection of Upper Intestinal Tract, Via Natural or Artificial Opening Endoscopic (ICD-10-PCS; CPT 43235; principal; 2021-01-29 11:30)
DX: K29.60 Other gastritis without bleeding; F41.9 Anxiety disorder, unspecified; J44.9 Chronic obstructive pulmonary disease, unspecified; K21.9 Gastro-esophageal reflux disease without esophagitis; I10 Essential (primary) hypertension; E03.9 Hypothyroidism, unspecified; Z85.3 Personal history of malignant neoplasm of breast; Z90.10 Acquired absence of unspecified breast and nipple; Z90.49 Acquired absence of other specified parts of digestive tract; Z72.0 Tobacco use; Z80.9 Family history of malignant neoplasm, unspecified; Z88.2 Allergy status to sulfonamides
CPT/HCPCS: 43239; 87339

== ENCOUNTER → 2021-02-26 09:44 | Outpatient (CLI) | payer MEDICAID, SELFPAY | PROVIDERS: PCP Family Medicine; Visit Provider Physician Assistant | DX: R06.00 Dyspnea, unspecified (principal); R07.89 Other chest pain; I10 Essential (primary) hypertension; J43.9 Emphysema, unspecified; R94.31 Abnormal electrocardiogram [ECG] [EKG]; F17.200 Nicotine dependence, unspecified, uncomplicated; F41.9 Anxiety disorder, unspecified; R53.83 Other fatigue; Z82.49 Family history of ischemic heart disease and other diseases of the circulatory system | CPT/HCPCS: 93306 ==

== ENCOUNTER → 2021-03-19 14:23 | Outpatient (CLI) | payer MEDICAID, SELFPAY ==
--- NOTE | 2021-03-19 14:23 | MM_ITS ---
PROCEDURE INFORMATION: Exam: US Left Breast, Complete MG Left Diagnostic Breast Tomosynthesis Exam date and time: 03/19/2021 2:23 PM Age: 51 years old Clinical indication: Abnormal Left axilla palp, has increased in size since noticed, painful, HX of RT breast mastectomy TECHNIQUE: Imaging protocol: Complete ultrasound of all four quadrants of the Left breast and the retroareolar regions, including ultrasound of the axilla when performed. Left Diagnostic tomosynthesis and 2D mammography including computer-aided detection (CAD) when performed. Unilateral or bilateral exam. COMPARISON: 1. MG MM DIG SCREENING MAMM BI W/CAD 08/26/2020 8:12 AM 2. MG MM DIG MAMM BI DX W/CAD 08/23/2019 2:06 PM FINDINGS: MAMMOGRAPHY: The breast tissue is heterogeneously dense, which may obscure small masses. A skin marker was placed over the palpable abnormality in the left axilla. The mass is partially visualized as a lobulated density overlying the inferior aspect the left pectoralis muscle. There is no stellate mass, architectural distortion or suspicious microcalcifications to suggest malignancy. The patient is status post right mastectomy ULTRASOUND: Sonographic images of the left breast including the retroareolar region, all 4 quadrants and the axilla demonstrates a mixed echotexture lobulated somewhat border forming mass in the left axilla where the patient reports a palpable abnormality. The area of interest measures 2.1 x 1.1 cm in dimension. Benign axillary lymph nodes are noted. No axillary adenopathy. IMPRESSION: Palpable abnormality in the left axilla corresponds to an indeterminate hypoechoic solid mass. Ultrasound-guided core biopsy is recommended for further evaluation. ASSESSMENT: BI-RADS Category 4: Suspicious
== END ==
PROVIDERS: PCP Family Medicine; Visit Provider Surgery
DX: N63.20 Unspecified lump in the left breast, unspecified quadrant (principal)
CPT/HCPCS: 76641; 77061; 77065; G0279

== ENCOUNTER 2021-03-20 11:00 | Outpatient (RCR) | payer MEDICAID, SELFPAY ==
--- NOTE | 2021-02-19 15:48 | HMH.PTOPWND ---
Rehab Outpt Wound Evaluation Rehab OP Wound Evaluation Start: 02/19/21 15:25 Freq: Status: Active Protocol: Document 02/19/21 15:28 RALPH (Rec: 02/19/21 15:37 PHORNE [id number]) Electronically Signed By Maxi Duarte, PT 02/19/21 15:28 Subjective/History History History Pt is 51 yowf who presents ~ 5 mos S/P R mastectomy with SLN Biopsy due to R breast cancer . Per operative reports excess tissue was taken from the axilla as well due to extreme laterality of the tumor in the R breast. Pt now reports some minimal R UE edema, more R axillary edema and significant tenderness to palpation or light touch throughout the axilla and R kevin-scapular regions. She reports increased pain with any use of the R UE . She reports taking chemo currently, I'm on a pill, but has no reports of radiation at this time. Subjective Subjective Pt presents with 4/4 tenderness in the R axilla and R per-scapular area. Pain at rest 5/10, at worst 9/10. Incision appears well healed at this time. Possible axillary web syndrome beginning in the R UE. Lymphedema Eval Classification of Lymphedema Secondary Lymphedema Yes Post-Surgical Lymphedema Yes Stemmer's sign Stemmer's Sign no Stage of Lymphedema Lymphedema stages Stage I (Pitting edema, reduces w/ elevation, no fibrosis) Skin Changes Dry Skin Yes Other Changes Yes Pain Scale Pain Scale (0-10) 9 Radiation Therapy Has received radiation therapy no Chemo Therapy Has received chemo therapy yes Affected Extremities Areas Affected by Lymphedema/Edema Right Upper Extremity,Right Breast,Right Axilla Manual Lymphatic Drainage Treatment Area MLD Treatment Area Right Upper Extremity,Right Breast,Right Axilla Wound Problems/Impairments Impairments Problems/Impairmments Palpation Tenderness,Impaired Range of Motion,Impaired
--- NOTE | 2021-03-05 13:33 | PC.NURSE ---
03/05/21 - PT WILL NEED A ROLLATOR WALKER RATHER THAN A CANE OR STANDARD WALKER DUE TO GAIT/MOBILITY ISSUES AND SHORTNESS OF BREATH.
== END 2021-03-20 11:05 | disposition home or self-care (01) ==
LOC: PT 11:00
PROVIDERS: PCP Family Medicine; Visit Provider Internal Medicine Medical Oncology
DX: C50.911 Malignant neoplasm of unspecified site of right female breast (principal); I89.0 Lymphedema, not elsewhere classified
CPT/HCPCS: 97140; 97162

== ENCOUNTER → 2021-03-24 12:33 | Outpatient (CLI) | payer MEDICAID, SELFPAY ==
--- NOTE | 2021-03-24 12:33 | CT_ITS ---
FINAL REPORT TECHNIQUE: Axial images were obtained through the chest without contrast. CLINICAL HISTORY: right sided chest pain / breast cancer FINDINGS: The lungs are clear. The heart size is normal. There is no pericardial or pleural effusion. The ascending aorta measures 3.3 cm. There is mild pectus deformity. The right breast is surgically absent. The limited images of the upper abdomen shows changes of cholecystectomy. On the lung window images there is a small, noncalcified nodule in the left upper lobe measuring 3 mm seen on image 21 of series 3. IMPRESSION: Single small left upper lobe nodule favoring postinflammatory etiology. However with the patient's known history of breast cancer, a follow-up CT is recommended in 6 months. Reviewed, Interpreted and Dictated by Guru Rios MD Transcribed by Kate Renae Authenticated by Guru Rios MD on 03/25/2021 11:19:02 AM [facility]
== END ==
PROVIDERS: PCP Family Medicine; Visit Provider Family Medicine
DX: R07.9 Chest pain, unspecified (principal); C50.911 Malignant neoplasm of unspecified site of right female breast
CPT/HCPCS: 71250

== ENCOUNTER → 2021-03-26 09:16 | Outpatient (CLI) | payer MEDICAID, SELFPAY ==
--- NOTE | 2021-03-26 09:17 | US_ITS ---
FINAL REPORT CLINICAL HISTORY: BX LT AXILLARY MASS fna lt axillary mass per Rossana callahan pt hx of rt mastectomy x 1 yr FINDINGS: ULTRASOUND-GUIDED LEFT CHEST WALL NODULE BIOPSY HISTORY: Left axillary nodule, history of right mastectomy. ATTENDING PHYSICIAN: Dr. Rios PHYSICIAN ATTORNEY RECRUITER: Rossana Jaime PA-C PROCEDURE: Informed consent was obtained from the patient. A timeout procedure was performed prior to beginning. The patient was prepped and draped in the usual sterile fashion over the left axillary region. Left axillary/chest wall nodule was targeted for ultrasound-guided biopsy. Approximately three 25-gauge FNA biopsies were performed. Additionally, a single 21-gauge FNA biopsy was performed. Specimen was placed in CytoLyt and sent to the laboratory for analysis. Patient tolerated the procedure well and left the department in good condition. IMPRESSION: Ultrasound-guided FNA of left axillary/chest wall nodule, as above. Reviewed, Interpreted and Dictated by Guru Rios MD Transcribed by Rossana Jaime PA-C Authenticated by Guru Rios MD on 03/26/2021 11:33:11 AM [facility]
== END ==
PROVIDERS: PCP Family Medicine; Visit Provider Surgery
DX: N63.20 Unspecified lump in the left breast, unspecified quadrant (principal)
CPT/HCPCS: 19083

== ENCOUNTER → 2021-04-15 10:41 | Outpatient (CLI) | payer MEDICAID, SELFPAY ==
[2021-04-15 11:22] LABS: Basophils % 0.5 % (0.1-2.0); Eosinophils # 0.1 K/mm3 (0.0-0.4); Hematocrit 48.1 % (37.0-47.0); Hemoglobin 15.5 g/dL (12.2-16.2); Lymphocytes # 1.3 K/mm3 (0.7-4.5); Lymphocytes % 22.5 % (10-50); Mean Corpuscular HGB Conc 32.2 g/dL (31.8-35.4); Mean Corpuscular Hemoglobin 32.1 pg (27.0-31.2); Mean Corpuscular Volume 99.9 fl (81-99); Mean Platelet Volume 8.4 fl (7.4-10.4); Monocytes # 0.3 K/mm3 (0.1-1.0); Monocytes % 4.6 % (1.7-9.3); Neutrophils # 4.3 K/mm3 (1.8-7.8); Neutrophils % 71.4 % (37.0-80.0); Platelet Count 246 K/mm3 (142-424); Red Blood Count 4.81 M/mm3 (4.20-5.40); Red Cell Distribution Width 13.2 % (11.5-17.5)
[2021-04-15 12:06] LABS: Chloride 104 mmol/L (98-107)
[2021-04-15 12:07] LABS: Potassium 4.2 mmoL/L (3.5-5.1); Sodium 133 mmol/L (136-145)
[2021-04-15 12:09] LABS: Blood Urea Nitrogen 12 mg/dl (7-17); Estimated Glomerular Filt Rate 89 ml/min (>60); GFR (African American) 107 ML/MIN (>60)
[2021-04-15 12:10] LABS: Anion Gap 6.2 mEq/L (5-15); Calcium 8.7 mg/dl (8.4-10.2); Carbon Dioxide 27 mmol/L (22.0-30.0); Glucose 99 mg/dl (74-100)
== END ==
PROVIDERS: PCP Family Medicine; Visit Provider Surgery
DX: Z01.812 Encounter for preprocedural laboratory examination (principal); Z11.52 Encounter for screening for COVID-19; N63.32 Unspecified lump in axillary tail of the left breast; Z85.3 Personal history of malignant neoplasm of breast
CPT/HCPCS: 36415; 80048; 85025; C9803; U0003; U0005

== ENCOUNTER 2021-04-17 06:23 | Observation (INO) | payer MEDICAID, SELFPAY ==
[2021-04-15 11:24] VITALS: BMI 16.2
[2021-04-17] VITALS (20 sets, daily range): BP systolic 118–165; BP diastolic 62–96; PULSE 67–91; RESP 12–20; TEMP 36.4–43; O2SAT 95–99; BMI 25.0
--- NOTE | 2021-04-17 07:02 | HMH.GSHP ---
HPI HPI: This is a 51-year-old female with a history of right-sided breast cancer status post mastectomy. She developed a similar palpable abnormality along the axillary tail of the left breast. Ultrasound-guided biopsy revealed no obvious malignancy. After a long discussion with the patient concerning the risks and benefits of core biopsy and excisional biopsy the patient chose to forego more conservative measures and wished to proceed with mastectomy. Essentially, the patient wished to undergo mastectomy secondary to her history of right-sided breast cancer follow-up and significant global left-sided breast pain. [facility] History Medical History: Reports:: Anxiety, Cancer (R/L breast), Chronic Obstructive Pulmonary Disease (COPD), Depression, Gastroesophageal Reflux Disease(GERD), Hypertension Denies:: Diabetes Mellitus Type 1, Diabetes Mellitus Type 2, Internal Pacemaker, MRSA, Seizures *Have you ever received a pneumonia vaccine?: No *Have you received a flu vaccine this season?: No Other Medical History: Reports: Chemotherapy, Hypothyroidism, Thyroid Disease. Denies: Blood Transfusion Reaction Laterality Cases: Left: Breast Biopsy, Right: Mastectomy, Bilateral: Arthroscopy Knee, Tonsillectomy Other Surgeries: Yes: Cardiac Catheterization, Cholecystectomy, Colonoscopy, EGD, Hysterectomy-Total, Other. No: Pacemaker Amputation: No Fractures: No - *Social History Last grade of school completed: Some college Smoking Status: Current every day smoker Tobacco Type: cigarettes # Packs/Day (cigarettes): 1 Alcohol Intake: never Substance Use Type: denies use *Occupational Status:: unemployed Housing: house Household Members: friend(s) *Travel in the last 8 weeks: None - Psychiatric History Pschychiatric History:: Reports:: Anxiety, Depression Family Hx:: Cancer Review of Systems - Constitutional Denies chills - Eyes Denies change in vision - ENT Denies difficulty swallowing - *Cardiovascular Denies chest pain - *Respiratory Denies cough - *Gastrointestinal Denies abdominal pain - *Genitourinary Denies difficulty urinating - *Musculoskeletal Denies abnormal walking - Integumentary/Breasts Denies lesions - *Neurologic Denies abnormal movements - Psychiatric Reports anxiety - Endocrine Denies cold intolerance - Hematologic/Lymphatic Denies easy bleeding - Allergic/Immunologic Denies GI upset with certain foods Meds Home Medications Medication Instructions Recorded Confirmed Type buPROPion HCL [Wellbutrin SR 75mg 75 mg PO BID 12/15/20 04/17/21 History Tablet] Anastrozole 1 mg PO DAILY 12/16/20 04/17/21 History clonazepam 0.5 mg tablet 0.5 mg PO BID PRN #60 tab 04/11/21 04/17/21 Rx oxycodone-acetaminophen 5 mg-325 1 tab PO TID PRN #90 tab 04/11/21 04/17/21 Rx mg tablet quetiapine 25 mg tablet 25 mg PO TID PRN #90 tab 04/11/21 04/17/21 Rx Pantoprazole Sodium 40 mg PO DAILY 04/15/21 04/17/21 History Allergies Allergy/AdvReac Type Severity Reaction Status Date / Time hydrocodone [From [place]] Allergy Severe Rash Verified 04/15/21 11:31 sulfamethoxazole Allergy Severe Blisters/uncontrolled Verified 04/15/21 11:31 [From Bactrim] bladder trimethoprim [From Bactrim] Allergy Severe Blisters/uncontrolled Verified 04/15/21 11:31 bladder Exam Vital signs and Labs for Last 24 Hours: Temp Pulse Resp BP Pulse Ox 98.4 F 84 18 159/80 H 99 04/17/21 06:19 04/17/21 06:19 04/17/21 06:19 04/17/21 06:19 04/17/21 06:19 I & O for Last 24 hours: Intake & Output 04/14/21 04/15/21 04/16/21 04/17/21 11:59 11:59 11:59 11:59 Weight 101 lb - Constitutional no acute distress - *Routine HEENT Exam Head: Present: normocephalic Eye: Present: EOMI ENT: Present: mucous membranes moist - *Routine Neck Exam Present: full ROM - Routine Chest/Breast/Axilla Exam Chest wall: Absent: tenderness Breast: Present: tenderness, mass (Mobile axillary tail mass) -
--- NOTE | 2021-04-17 07:10 | HMH.ANESCL ---
[facility] Anesthesia Checklist - Patient Identification Patient Identification: Arm Band - Structural Data Admitted From: Home Planned Operative Procedure/s: Left Mastectomy with possible Axillary Dissection Consent for Planned Operative Procedure(s) Verified: Yes Verified Documents: Surgical Consent, History and Physical - NPO Status Verified Time NPO: 00:00 - Additional verifications Anesthesia Reactions: No Hx Blood Transfusions: No Blood Transfusion Reaction: No - Airway Assessment C-Spine Mobility Assessed: Yes (mp2) TMJ Mobility Assessed: Yes Dentition: Good Dentition - Neurological Assessment Level of Consciousness: Awake, Alert - Anesthesia Plan Anesthesia Risk discussed: Yes Anesthesia Plan: Verified ASA Class: III Anesthesia Type: General [facility] History I have reviewed the patient's past medical history: Yes Medical History: Reports:: Anxiety, Cancer (R/L breast), Chronic Obstructive Pulmonary Disease (COPD), Depression, Gastroesophageal Reflux Disease(GERD), Hypertension Denies:: Diabetes Mellitus Type 1, Diabetes Mellitus Type 2, Internal Pacemaker, MRSA, Seizures *Have you ever received a pneumonia vaccine?: No *Have you received a flu vaccine this season?: No Other Medical History: Reports: Chemotherapy, Hypothyroidism, Thyroid Disease. Denies: Blood Transfusion Reaction Anesthesia experience/problems:: nac Laterality Cases: Left: Breast Biopsy, Right: Mastectomy, Bilateral: Arthroscopy Knee, Tonsillectomy Other Surgeries: Yes: Cardiac Catheterization, Cholecystectomy, Colonoscopy, EGD, Hysterectomy-Total, Other. No: Pacemaker Amputation: No Fractures: No - *Social History Last grade of school completed: Some college Smoking Status: Current every day smoker Tobacco Type: cigarettes # Packs/Day (cigarettes): 1 Alcohol Intake: never Substance Use Type: denies use *Occupational Status:: unemployed Housing: house Household Members: friend(s) *Travel in the last 8 weeks: None - Psychiatric History Pschychiatric History:: Reports:: Anxiety, Depression Family Hx:: Cancer
--- NOTE | 2021-04-17 08:49 | P.OP_ITS ---
Date of procedure: 04/17/21 Pre-op Diagnosis:: Left breast (axillary tail) mass History of right breast cancer Post-op Diagnosis:: Same Procedure performed:: Left mastectomy Surgeon:: Pastor Michaels MD Mechatronics Engineer(s):: Echo Anesthesia: LMA Estimated blood loss (mL): 25 Operative findings:: Nodular mass within axillary tail with some slightly-enlarged adjacent axillary lymph nodes Operative note:: After informed consent was obtained the patient was taken to the operating room and placed in the supine position. General anesthesia with laryngeal mask airway was achieved. Her left breast and axilla were prepped and draped in a sterile fashion. An oblique incision was made secondary to location of lesion (similar to prior right mastectomy incision). The elliptical incision was made to include the areolar complex and the axillary tail palpable lesion. Tissue flaps were carefully elevated as the breast tissue was retracted. Utilizing electrocautery the left breast was elevated from the underlying pectoralis fascia as the axillary tail was approached. The nodule axillary tail lesion was carefully elevated. Some surrounding slightly-enlarged axillary lymph nodes were also elevated. The tissue was excised along with the specimen. The specimen was passed off for pathologic evaluation after the axillary tail was marked with suture. Electrocautery was utilized to achieve hemostasis. The wound was irrigated. A #10 flat Silviano-Wen drain was exited through the superior left flank and maneuvered into the lateral/axillary space. The drain was secured with nylon suture. The deep subcutaneous tissue was reapproximated with #2 Vicryl and skin was then closed with 3-0 Stratafix in a running fashion. Dressings were placed and the patient was transferred to recovery in stable condition after removal of her laryngeal mask airway. Condition: stable Disposition: PACU Specimens:: Left breast Complications:: No immediate
--- NOTE | 2021-04-17 09:07 | P.PN_ITS ---
[facility] Anesthesia Record Part I Intake, IV Amount: 400 Estimated blood loss (mL): 25 Urine output (mL): 0 Blood Pressure: 135/74 SaO2: 97 Pulse Rate: 87 Respiratory Rate: 12 Temperature: 97.5 F Patient is:: Drowsy Stable to PACU at:: 09:05
--- NOTE | 2021-04-17 09:41 | HMH.PHAVTE ---
[facility] Pharmacy VTE Monitoring - Patient Demographics Admission date: 04/17/21 Report Date: 04/17/21 Time: 09:41 Allergies/Adverse Reactions: Patient Allergies hydrocodone [From [place]] Allergy (Severe, Verified 04/15/21 11:31) Rash sulfamethoxazole [From Bactrim] Allergy (Severe, Verified 04/15/21 11:31) Blisters/uncontrolled bladder trimethoprim [From Bactrim] Allergy (Severe, Verified 04/15/21 11:31) Blisters/uncontrolled bladder Height: 1.68 m Weight: 45.813 kg Patient Problems: Current Active Problems Left breast mass (Acute) - VTE Risk Clinical Trial Participant: No - Prophylaxis VTE Prophylaxis Ordered?: Yes Types of VTE Prophylaxis: IPCS Knee High
--- NOTE | 2021-04-17 09:53 | SUR.PHASEI ---
0934- detailed report called to jen walker on medsurg floor at this time. 0936- pt left in stable condition with jen walker on med surg floor by jen read and jen al
--- NOTE | 2021-04-17 10:00 | PC.NURSE ---
Called and spoke with Dr. Michaels's office to request order for benadryl, pt just to floor from surgery and states that she is itching all over. Awaiting cb at this time.
--- NOTE | 2021-04-17 11:44 | HMH.ANESII ---
[facility] Anesthesia Record Part II Discharge Time: 09:35 Destination: Medical Surgical Department PACU nurse assessment reviewed?: Yes Patient Condition:: Good Anesthesia Complications:: None Swallowing reflex intact?: Yes Cyanosis?: No Blood Pressure: 124/69 Pulse Rate: 75 Temperature: 97.8 F Mental Status: Alert & Oriented Pain level:: 2 Nausea and/or vomitting:: None Intake, IV Amount: 0
[2021-04-17 13:19] LABS: Microscopic,Cath URINE MICROSCOPIC (MICROSCOPIC)
[2021-04-17 14:06] LABS: Appearance,Urine/Cath SL CLOUDY (Clear); Bilirubin,Cath Negative (Negative); Blood, Urine/Cath Negative (Negative); Color,Urine/Cath STRAW (Yellow); Glucose,Urine/Cath (UA) Negative (Negative); Ketones,Urine/Cath Negative (Negative); Leukocyte Esterase,Cath Negative (Negative); Nitrate,Cath Negative (Negative); PH,Urine/Cath 7.5 (5.0-8.5); Protein,Urine/Cath Negative (Negative); Specific Gravity, Urine/Cath 1.015 (1.005-1.030); Urobilinogen,Cath 0.2 EU/dl (0.2)
[2021-04-17 15:36] LABS: Amorphous Sediment,Ur/Cath Trace /lpf; Bacteria,Urine/Cath 1+ /lpf; Squamous Epithelial Ur./Cath Occasional #/hpf (0-5)
--- NOTE | 2021-04-17 17:25 | PC.NURSE ---
Pt stated that she doesn't want anyone to know that she is here except for boyfriend, sister, and son. She has been taken off the census. She has made a password.
--- NOTE | 2021-04-17 17:27 | PC.NURSE ---
Pt's incision site was slightly leaking some blood. We placed 2x2's and some tape to reinforce the dressing.
--- NOTE | 2021-04-17 18:27 | PC.NURSE ---
Pt continues to be very anxious and tearful. Have given meds per mar, and educated pt. Pt has been up several times and ambulated to .
[2021-04-18 00:06] VITALS: BP 181/90; PULSE 63; RESP 21; TEMP 36.6; O2SAT 97
[2021-04-18 01:12] VITALS: BP 154/81; PULSE 63; RESP 18; TEMP 36.3; O2SAT 96
[2021-04-18 05:00] VITALS: BP 168/92; PULSE 72; RESP 21; TEMP 36.5; O2SAT 95; BMI 25.1
--- NOTE | 2021-04-18 06:22 | PC.NURSE ---
Pt has c/o of pain every hour to 2 hours on left side, admin meds per MAR with some relief. Dressing to ROSS drain on left side was reinforced with 4x4's. Pt has ambulated to bathroom with standby assist and has tolerated well. Pt has been very tearful and anxious t/o shift. Pt has c/o of itching on legs admin meds per MAR with relief. Patient stated it was okay to be on census, only her boyfriend knows her password to release any medical information.
[2021-04-18 06:44] LABS: Hematocrit 40.4 % (37.0-47.0); Hemoglobin 12.8 g/dL (12.2-16.2); Lymphocytes # 0.8 K/mm3 (0.7-4.5); Lymphocytes % 6.3 % (10-50); Mean Corpuscular HGB Conc 31.8 g/dL (31.8-35.4); Mean Corpuscular Hemoglobin 31.8 pg (27.0-31.2); Mean Platelet Volume 8.7 fl (7.4-10.4); Monocytes # 0.4 K/mm3 (0.1-1.0); Monocytes % 2.9 % (1.7-9.3); Neutrophils # 12.1 K/mm3 (1.8-7.8); Neutrophils % 90.8 % (37.0-80.0); Platelet Count 205 K/mm3 (142-424); Red Blood Count 4.04 M/mm3 (4.20-5.40); White Blood Count 13.3 K/mm3 (4.8-10.8)
[2021-04-18 06:51] LABS: MANUAL DIFFERENTIAL MANUAL DIFFERENTIAL (MANUAL DIFF)
[2021-04-18 07:09] LABS: Lymphocytes % 10 % (10-50); Monocytes % 4 % (2-9); Neutrophils % 86 % (42-76); Platelet Estimate Normal; RBC Morphology Normal; Total Cells Counted 100
--- NOTE | 2021-04-18 07:49 | HMH.GSPN ---
Subjective Narrative: The patient wishes to go home so she can sleep better . Her postoperative pain level is slightly improved this morning. Progress Note: A&P (1) Left breast mass Status: Acute Assessment and plan: Overall, doing well status post mastectomy. Discharge home with outpatient follow-up Silviano-Wen drain teaching Exam Vital signs and Labs for Last 24 Hours: Temp Pulse Resp BP Pulse Ox 97.7 F 72 21 168/92 H 95 04/18/21 05:00 04/18/21 05:00 04/18/21 05:00 04/18/21 05:00 04/18/21 05:00 Laboratory Results - last 24 hr 04/17/21 07:30: Urine Color Straw, Urine Appearance Sl cloudy, Urine pH 7.5, Ur Specific [place] 1.015, Urine Protein Negative, Urine Glucose (UA) Negative, Urine Ketones Negative, Urine Blood Negative, Urine Nitrate Negative, Urine Bilirubin Negative, Urine Urobilinogen 0.2, Ur Leukocyte Esterase Negative, Urine RBC None, Urine WBC None, Ur Squamous Epith Cells Occasional, Urine Bacteria 1+ 04/18/21 05:51: WBC 13.3 H D, RBC 4.04 L, Hgb 12.8, Hct 40.4, MCV 100.0 H, MCH 31.8 H, MCHC 31.8, RDW 13.0, Plt Count 205, MPV 8.7, Neut % (Auto) 90.8 H, Lymph % (Auto) 6.3 L, [place] % (Auto) 2.9, Eos % (Auto) 0.0 L, Baso % (Auto) 0.0 L, Neut # (Auto) 12.1 H, Lymph # (Auto) 0.8, [place] # (Auto) 0.4, Eos # (Auto) 0.0, Baso # (Auto) 0.0, Total Counted 100, Neutrophils % (Manual) 86 H, Lymphocytes % (Manual) 10, Monocytes % (Manual) 4, Platelet Estimate Normal, RBC Morphology Normal I & O for Last 24 hours: Intake & Output 04/15/21 04/16/21 04/17/21 04/18/21 11:59 11:59 11:59 11:59 Intake Total 400 / 400 360 / 360 Output Total 200 / 200 120 / 120 Balance 200 / 200 240 / 240 Weight 101 lb 116 lb 9.6 oz - Constitutional no acute distress - Routine Chest/Breast/Axilla Exam Comments: Left mastectomy dressing with small amount of sanguinous ooze inferiorly. No sign of erythema. Silviano-Wen drain site also with some sanguinous ooze. No erythema. No sign of hematoma. Some serosanguineous/sanguinous fluid within Silviano-Wen drain. - *Routine Respiratory Exam Absent: respiratory distress - *Routine Cardiovascular Exam Absent: tachycardia
--- NOTE | 2021-04-18 08:05 | HMH.DCSUM ---
General - General Admission date:: 04/17/21 Discharge date: 04/18/21 HPI HPI: This is a 51-year-old female with a history of right-sided breast cancer status post mastectomy. She developed a similar palpable abnormality along the axillary tail of the left breast. Ultrasound-guided biopsy revealed no obvious malignancy. After a long discussion with the patient concerning the risks and benefits of core biopsy and excisional biopsy the patient chose to forego more conservative measures and wished to proceed with mastectomy. Essentially, the patient wished to undergo mastectomy secondary to her history of right-sided breast cancer follow-up and significant global left-sided breast pain. Hospital Course Hospital Course: The patient underwent left mastectomy. Please see operative report for detail. Postoperatively, she convalesced well. No sign of postoperative hemorrhage/infection. She was deemed appropriate for discharge on the morning of postoperative day 1. Objective Vital signs: Temp Pulse Resp BP Pulse Ox 97.7 F 72 21 168/92 H 95 04/18/21 05:00 04/18/21 05:00 04/18/21 05:00 04/18/21 05:00 04/18/21 05:00 no acute distress - *Routine HEENT Exam Head: Present: normocephalic Eye: Present: EOMI ENT: Present: mucous membranes moist - *Routine Neck Exam Present: full ROM - Routine Chest/Breast/Axilla Exam Comments: No sign of hemorrhage or infection postoperatively - *Routine Respiratory Exam Absent: respiratory distress - *Routine Cardiovascular Exam Absent: tachycardia - *Routine Abdominal Exam Present: soft - *Routine Rectal Exam Patient deferred: visual exam - *Routine Exam Patient deferred: external exam - *Routine Extremities Exam Present: full ROM. Absent: edema - Routine Back/Spine/Pelvis Exam Back/Spine: Present: full ROM - *Routine Skin Exam Absent: erythema - *Routine Neurological Exam Present: alert - Routine Psychiatric Exam Present: normal affect Results Labs on day of discharge: Labs from last 24 hours 04/18/21 04/17/21 05:51 07:30 WBC 13.3 H D RBC 4.04 L Hgb 12.8 Hct 40.4 MCV 100.0 H MCH 31.8 H MCHC 31.8 RDW 13.0 Plt Count 205 MPV 8.7 Neut % (Auto) 90.8 H Lymph % (Auto) 6.3 L [place] % (Auto) 2.9 Eos % (Auto) 0.0 L Baso % (Auto) 0.0 L Neut # (Auto) 12.1 H Lymph # (Auto) 0.8 [place] # (Auto) 0.4 Eos # (Auto) 0.0 Baso # (Auto) 0.0 Total Counted 100 Neutrophils % (Manual) 86 H Lymphocytes % (Manual) 10 Monocytes % (Manual) 4 Platelet Estimate Normal RBC Morphology Normal Urine Color Straw Urine Appearance Sl cloudy Urine pH 7.5 Ur Specific [place] 1.015 Urine Protein Negative Urine Glucose (UA) Negative Urine Ketones Negative Urine Blood Negative Urine Nitrate Negative Urine Bilirubin Negative Urine Urobilinogen 0.2 Ur Leukocyte Esterase Negative Urine RBC None Urine WBC None Ur Squamous Epith Cells Occasional Urine Bacteria 1+ DS: Diagnosis - Discharge Diagnosis (1) Left breast mass Status: Acute Discharge Plan - Patient Discharge Instructions ACTIVITY: Continue current activity, Ambulate as tolerated, No heavy lifting DIET: advance to your usual diet Additional Instructions: ROSS drain teaching: Maintain Silviano-Wen drain on suction at all times Empty at least once per day and document output Empty as frequently as needed to maintain suction Patient Instructions: DI for Mastectomy, DI for Silviano-Wen Drains, How to Use and Care for Your Silviano-Wen Drain, DI for Surgical Site Infection, DI for Breast Mass -- Uncertain Cause, DI for Mastectomy with Lymph Node Removal - Follow up Plan Follow up with: Pastor Michaels MD [Staff Physician] - 04/25/21 Disposition: Home, Self-Care Condition at discharge:: Stable Home Medications: Home Medications Medication Instructions Recorded Confirmed Type buPROPion H
[2021-04-18 08:16] VITALS: BP 91/74; PULSE 71; RESP 22; TEMP 36.7; O2SAT 97
--- NOTE | 2021-04-18 08:20 | HMH.PHAINT ---
Discharge counseling complete. Informed pt of new medication, purpose, how to take, and possible side effects. Pt understood and had no questions but was very visibly upset and stated she just wanted to go home
== END 2021-04-18 08:50 | disposition home or self-care (01) ==
LOC: 2ND 06:24
PROVIDERS: Admitting Provider Surgery; PCP Family Medicine; Visit Provider Surgery
PROC: (CPT 19303; principal; 2021-04-17 07:30)
DX: N63.32 Unspecified lump in axillary tail of the left breast (principal); J44.9 Chronic obstructive pulmonary disease, unspecified; I10 Essential (primary) hypertension; K21.9 Gastro-esophageal reflux disease without esophagitis; E03.9 Hypothyroidism, unspecified; F17.210 Nicotine dependence, cigarettes, uncomplicated; Z88.2 Allergy status to sulfonamides; Z88.5 Allergy status to narcotic agent; Z79.899 Other long term (current) drug therapy
CPT/HCPCS: 19303; 81001; 85007; 85025; 96374; G0378; J2405

== ENCOUNTER 2021-09-02 14:00 | Outpatient (RCR) | payer MEDICAID, SELFPAY ==
--- NOTE | 2021-08-21 14:30 | HMH.PTOPWND ---
Rehab Outpt Wound Evaluation Rehab OP Wound Evaluation Start: 08/21/21 13:58 Freq: Status: Active Protocol: Document 08/21/21 14:20 PHOELISABETH (Rec: 08/21/21 14:30 PHORNE [id number]) Electronically Signed By Maxi Duarte, PT 08/21/21 14:20 Subjective/History History History Pt is 51 yowf who presents with c/o B UE and axillary edema S/P B mastectomy due to R breast cancer. She initially had R mastectomy performed due to invasive breast cancer and then had a suspicious nodule in her L breast requiring L mastectomy performed 04/22. She reports pain with reaching on B UE, especially on the L side now. She hasmost of her edema and discomfort in B axilla and chest wall anteriorly. She has PMH of COPD, HTN, anxiety, and depression. Subjective Subjective Pain currenltly 8/10 on L axilla. She reports edema fluctuates intermittently and increases her pain in other arease. Palpation Tenderness 3 /4 to B axilla, B chest. Lymphedema Eval Classification of Lymphedema Secondary Lymphedema Yes Post-Surgical Lymphedema Yes Stemmer's sign Stemmer's Sign no Stage of Lymphedema Lymphedema stages Stage I (Pitting edema, reduces w/ elevation, no fibrosis) Skin Changes Dry Skin Yes Discoloration of Skin Yes Other Changes Yes Pain Scale Pain Scale (0-10) 8 Chemo Therapy Has received chemo therapy yes Affected Extremities Areas Affected by Lymphedema/Edema Head/Neck,Right Upper Extremity,Left Upper Extremity ,Abdomen,Right Breast,Left Breast,Right Axilla,Left Axilla Manual Lymphatic Drainage Treatment Area MLD Treatment Area Head/Neck,Right Upper Extremity,Left Upper Extremity ,Abdomen,Right Breast,Left Breast,Right Axilla,Left Axilla Wound Problems/Impairments Impairments Problems/Impairmments Palpation Tenderness,Impaired
== END 2021-09-02 14:05 | disposition home or self-care (01) ==
LOC: PT 14:00
PROVIDERS: PCP Family Medicine; Visit Provider Internal Medicine Medical Oncology
DX: I89.0 Lymphedema, not elsewhere classified (principal); C50.912 Malignant neoplasm of unspecified site of left female breast
CPT/HCPCS: 97140; 97163; 97760

== ENCOUNTER 2021-09-22 15:45 | Emergency (ER) | payer MEDICAID, SELFPAY ==
[2021-09-22 16:05] VITALS: BP 149/91; PULSE 102; RESP 20; TEMP 37.4; O2SAT 94; BMI 16.1
--- NOTE | 2021-09-22 16:30 | HMH.EDUTC ---
[facility] [place] Dis[place]: Fair Time of Disposition: 16:38 <WinstonLexi - Last Filed: 09/22/21 20:30> <Eloy Valladares - Last Filed: 09/22/21 23:23> Clinical Impression: Vision changes Headache Qualifiers: Headache type: cluster Headache chronicity pattern: unspecified pattern Intractability: intractable Qualified Code(s): G44.001 - Cluster headache syndrome, unspecified, intractable Disposition: Left Against Medical Advice Referrals: Oren Epps MD [Primary Care Provider] - Medical Decision Making - Edd Inquiry Pt receiving controlled substance: No Edd was queried for this patient: No - Lab Data Result diagrams: 09/22/21 16:50 09/22/21 16:50 <Tesha Montero - Last Filed: 09/22/21 20:30> - Lab Data Result diagrams: 09/22/21 16:50 09/22/21 16:50 <Eloy Valladares - Last Filed: 09/22/21 23:23> Vital Signs: 09/22/21 16:05 09/22/21 16:50 09/22/21 17:03 Temperature 99.3 F Temperature Source Oral Pulse Rate 76 Pulse Rate [Left Brachial] 102 H 88 Respiratory Rate 20 18 16 Blood Pressure 154/115 H Blood Pressure [Left Arm] 149/91 H 169/113 H Blood Pressure Mean 131 Blood Pressure Mean [Left Arm] 110 131 Blood Pressure Source [Left Arm] Automatic Cuff Blood Pressure Position [Left Arm] Sitting 02 Sat by Pulse Oximetry 94 L 98 100 Oxygen Delivery Method Room Air Room Air Non-Rebreather Oxygen Flow Rate (LPM) 15 09/22/21 18:00 09/22/21 19:15 Temperature 99.3 F Temperature Source Pulse Rate 56 L 56 L Pulse Rate [Left Brachial] Respiratory Rate 16 Blood Pressure 169/107 H 169/107 H Blood Pressure [Left Arm] Blood Pressure Mean 131 Blood Pressure Mean [Left Arm] Blood Pressure Source [Left Arm] Blood Pressure Position [Left Arm] 02 Sat by Pulse Oximetry 100 Oxygen Delivery Method Room Air Oxygen Flow Rate (LPM) - Lab Data Lab Results 09/22/21 16:50: WBC 8.2, RBC 4.40, Hgb 13.8, Hct 41.1, MCV 93.4, MCH 31.5 H, MCHC 33.7, RDW 13.5, Plt Count 224, MPV 8.3, Neut % (Auto) 75.2, Lymph % (Auto) 17.9, Spencer % (Auto) 5.3, Eos % (Auto) 1.4, Baso % (Auto) 0.2, Neut # (Auto) 6.2, Lymph # (Auto) 1.5, [place] # (Auto) 0.4, Eos # (Auto) 0.1, Baso # (Auto) 0.0, ESR 11 09/22/21 16:50: Sodium 139, Potassium 3.7, Chloride 107, Carbon Dioxide 27, Anion Gap 8.7, BUN 9, Creatinine 0.70, Estimated Creat Clear 69, Estimated GFR 89, Est GFR ( Amer) 107, Glucose 91, Calcium 9.4, Magnesium 1.6, Total Bilirubin 0.5, AST 37 H, ALT 18, Alkaline Phosphatase 75, C-Reactive Protein 0.7, Total Protein 6.9, Albumin 4.2, Globulin 2.7, Albumin/Globulin Ratio 1.6 Orders (Tests/Meds): ED MEDICATIONS Discontinued Medications Generic Name Dose Route Start Last Admin Trade Name Freq PRN Reason Stop Dose Admin Diphenhydramine HCl 25 mg 09/22/21 19:03 09/22/21 19:18 Diphenhydramine 50mg/Ml Vial IV 09/22/21 19:04 Not Given ONCE ONE Iopamidol 70 ml 09/22/21 17:29 09/22/21 17:30 Iopamidol-370 (76%);100ml Bottle IV 09/22/21 17:30 70 ml ONCE ONE Administration Ketorolac Tromethamine 15 mg 09/22/21 19:03 09/22/21 19:18 Ketorolac 30mg/Ml Vial IV 09/22/21 19:04 Not Given ONCE ONE Lidocaine HCl 1 ml 09/22/21 19:04 09/22/21 19:18 Lidocaine 4% Topical Soln 1ml IH 09/22/21 19:05 1 ml ONCE ONE Administration Prochlorperazine Edisylate 5 mg 09/22/21 19:03 09/22/21 19:18 Prochlorperazine 10mg/2ml Vial IV 09/22/21 19:04 Not Given ONCE ONE Sodium Chloride 50 ml 09/22/21 17:29 09/22/21 17:30 0.9 % Sodium Chloride 50 Ml Vial IV 09/22/21 17:30 50 ml ONCE ONE Administration Sodium Chloride 10 ml 09/22/21 17:29 09/22/21 17:30 Sodium Chloride 0.9% 10ml Syr (Rad Only) IV 09/22/21 17:30 10 ml ONCE ONE Administration Medical Decision Narrative: Due to sudden onset headache on left side of head that patient reports not like other headaches she has ever had with blurry vision and dupree
--- NOTE | 2021-09-22 16:34 | PC.NURSE ---
PATIENT SENT TO ER PER Dotty TOVAR APRN FOR FURTHER EVALUATION. REPORT GIVEN TO Jv BUTLER RN BY Dotty TOVAR APRN
--- NOTE | 2021-09-22 16:48 | CT_ITS ---
PROCEDURE INFORMATION: Exam: CTA Head With Contrast, Arteries Exam date and time: 09/22/2021 5:16 PM Age: 51 years old Clinical indication: Pain; Headache; Additional info: Unilateral headache TECHNIQUE: Imaging protocol: Computed tomographic angiography of the head with contrast. 3D rendering (Not supervised by radiologist): MIP and/or 3D reconstructed images were created by the technologist. Radiation optimization: All CT scans at this facility use at least one of these dose optimization techniques: automated exposure control; mA and/or kV adjustment per patient size (includes targeted exams where dose is matched to clinical indication); or iterative reconstruction. Contrast material: ISOVUE 370; Contrast volume: 70 ml; Contrast route: INTRAVENOUS (IV); COMPARISON: No relevant prior studies available. FINDINGS: ANTERIOR CIRCULATION: Right internal carotid artery: The right ICA petrous segment is unremarkable. Right ICA cavernous segment is unremarkable. The right ICA supraclinoid segment is unremarkable. Right middle cerebral artery: Unremarkable. No occlusion or significant stenosis. No aneurysm. Right anterior cerebral artery: Unremarkable. No occlusion or significant stenosis. No aneurysm. The anterior communicating artery is unremarkable. Left internal carotid artery: The left ICA petrous segment is unremarkable. Mild calcific plaque in the cavernous segment without associated stenosis. The left ICA supraclinoid segment is unremarkable. Left middle cerebral artery: Unremarkable. No occlusion or significant stenosis. No aneurysm. Left anterior cerebral artery: Unremarkable. No occlusion or significant stenosis. No aneurysm. POSTERIOR CIRCULATION: Right vertebral artery: Unremarkable. No occlusion or significant stenosis. No aneurysm. Left vertebral artery: Dominant left vertebral artery. No occlusion or significant stenosis. No aneurysm. 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 No evidence of rupture. No occlusion or significant stenosis. Right posterior cerebral artery: Unremarkable. No occlusion or significant stenosis. No aneurysm. Left posterior cerebral artery: Unremarkable. No occlusion or significant stenosis. No aneurysm. Dural venous sinuses: The dural venous sinuses and major cortical veins enhance appropriately without evidence of thrombosis. Brain: No enhancing brain lesions or vascular malformations are identified. Cerebral ventricles: No ventriculomegaly. Bones/joints: Unremarkable. No acute fracture. Soft tissues: Unremarkable. IMPRESSION: 1. No evidence of large vessel occlusion. No evidence of arterial dissection or significant stenosis. 2. There is a lobulated saccular aneurysm at the basilar tip measuring up to 5 mm. There is no subarachnoid hemorrhage to suggest rupture. 3. THIS REPORT CONTAINS FINDINGS THAT MAY BE CRITICAL TO PATIENT CARE. The findings were verbally communicated via telephone conference with Eloy Valladares at 6:23 PM EDT on 09/22/2021. The findings were acknowledged and understood.
--- NOTE | 2021-09-22 16:48 | CT_ITS ---
PROCEDURE INFORMATION: Exam: CT Head Without Contrast Exam date and time: 09/22/2021 5:16 PM Age: 51 years old Clinical indication: Pain; Headache; Additional info: Unilateral headache TECHNIQUE: Imaging protocol: Computed tomography of the head without contrast. Radiation optimization: All CT scans at this facility use at least one of these dose optimization techniques: automated exposure control; mA and/or kV adjustment per patient size (includes targeted exams where dose is matched to clinical indication); or iterative reconstruction. COMPARISON: No relevant prior studies available. FINDINGS: Brain: The IACs are grossly normal. No extra-axial fluid collections. No evidence of acute intracranial hemorrhage. No CT evidence of large territory acute or subacute intracranial ischemia/infarct. No intracranial mass lesions. No midline shift or herniation. Cerebral ventricles: Ventricles normal. Pituitary gland and sella: The sella is grossly normal. Paranasal sinuses: Minimal fluid layering dependently in the right sphenoid sinus, suggesting mild acute sinusitis. Mastoid air cells: Visualized mastoid air cells are clear. Bones/joints: The calvarium and visualized facial bones are intact. Soft tissues: The scalp and visualized soft tissues demonstrate no acute abnormality. Vasculature: Mild calcific atherosclerosis. No asymmetric vascular hyperdensities suggestive of thrombosis are identified. Other findings: Mild generalized atrophy. Visualized orbital contents demonstrate no acute abnormality. Bonds-white differentiation is well maintained. IMPRESSION: 1. No acute intracranial process. No intracranial hemorrhage or mass effect. 2. Small amount of fluid in the right sphenoid sinus suggesting mild acute sinusitis.
--- NOTE | 2021-09-22 16:48 | CT_ITS ---
PROCEDURE INFORMATION: Exam: CTA Neck With Contrast Exam date and time: 09/22/2021 5:16 PM Age: 51 years old Clinical indication: Pain; Headache; Additional info: Unilateral headache TECHNIQUE: Imaging protocol: Computed tomographic angiography of the neck with contrast. 3D rendering (Not supervised by radiologist): MIP and/or 3D reconstructed images were created by the technologist. Radiation optimization: All CT scans at this facility use at least one of these dose optimization techniques: automated exposure control; mA and/or kV adjustment per patient size (includes targeted exams where dose is matched to clinical indication); or iterative reconstruction. Contrast material: ISO 370; Contrast volume: 70 ml; Contrast route: INTRAVENOUS (IV); COMPARISON: CT ANGIO CHEST PE PROTOCOL 01/15/2021 10:20 AM FINDINGS: Right common carotid artery: Normal. No stenosis. No dissection or occlusion. Right internal carotid artery: Mild tortuosity. No stenosis. No dissection or occlusion. Right external carotid artery: Mild calcific plaque. No stenosis. No dissection or occlusion. Left common carotid artery: Normal. No stenosis. No dissection or occlusion. Left internal carotid artery: Moderate mixed plaque in the left carotid bulb and proximal most left ICA cervical segment, producing mild stenosis of less than 50%. Mild tortuosity. No dissection or occlusion. Left external carotid artery: Normal. No stenosis. No dissection or occlusion. Right vertebral artery: Mild proximal calcific plaque. No stenosis. No dissection or occlusion. Left vertebral artery: Dominant left vertebral artery. No stenosis. No dissection or occlusion. Brachiocephalic artery: The brachiocephalic artery demonstrates mild calcific plaque without stenosis. Right subclavian artery: The right subclavian artery demonstrates mild calcific plaque without stenosis. Left subclavian artery: The left subclavian artery demonstrates mild calcific plaque without stenosis. Aorta: The visualized aortic arch demonstrates mild ectasia/tortuosity without evidence of dissection or gross aneurysm. Thyroid: The thyroid gland is unremarkable. Soft tissues: No significant soft tissue swelling or hematoma. Bones/joints: No acute osseous abnormalities are identified. Moderate-severe disc degenerative changes C4-C5 through C6-C7, with moderate-severe canal stenosis at C4-C5 and C5-C6, and mild-moderate canal stenosis at C2-C3 , C3-C4, and C6-C7. There is right foraminal stenosis which is moderate-severe at C4-C5, C5-C6, and C6-C7. There is left foraminal stenosis which is mild-moderate at C4-C5 and mild at C5-C6 and C6-C7. Pleural spaces: Mild bilateral apical pleural/parenchymal scarring with multiple small juxtapleural blebs. IMPRESSION: 1. No evidence of arterial occlusion, significant stenosis, dissection, or aneurysm/pseudoaneurysm. 2. There is mild stenosis of less than 50% in the proximal most left ICA cervical segment due to moderate mixed plaque. 3. Cervical spine degenerative changes which are most pronounced at C4-C5 through C6-C7 with multilevel canal and foraminal stenoses detailed above. REFERENCES: NASCET CRITERIA. The degree of internal carotid artery stenosis is based on NASCET criteria. Normal is no stenosis. Mild is less than 50% stenosis. Moderate is 50-69% stenosis. Severe is 70% to 99% stenosis. Total occlusion is no detectable patent lumen.
[2021-09-22 16:50] VITALS: BP 169/113; PULSE 88; RESP 18; O2SAT 98; BMI 16.1
[2021-09-22 17:03] VITALS: BP 154/115; PULSE 76; RESP 16; O2SAT 100
--- NOTE | 2021-09-22 17:04 | PC.NURSE ---
pt placed on 100% NRB at this time per ER MD order to help with possible cluster headache pt given cool wash cloth to place on forehead for comfort
[2021-09-22 17:08] LABS: Basophils % 0.2 % (0.1-2.0); Eosinophils # 0.1 K/mm3 (0.0-0.4); Eosinophils % 1.4 % (0.1-12.0); Hematocrit 41.1 % (37.0-47.0); Hemoglobin 13.8 g/dL (12.2-16.2); Lymphocytes # 1.5 K/mm3 (0.7-4.5); Lymphocytes % 17.9 % (10-50); Mean Corpuscular HGB Conc 33.7 g/dL (31.8-35.4); Mean Corpuscular Hemoglobin 31.5 pg (27.0-31.2); Mean Corpuscular Volume 93.4 fl (81-99); Mean Platelet Volume 8.3 fl (7.4-10.4); Monocytes # 0.4 K/mm3 (0.1-1.0); Monocytes % 5.3 % (1.7-9.3); Neutrophils # 6.2 K/mm3 (1.8-7.8); Neutrophils % 75.2 % (37.0-80.0); Platelet Count 224 K/mm3 (142-424); Red Cell Distribution Width 13.5 % (11.5-17.5); White Blood Count 8.2 K/mm3 (4.8-10.8)
[2021-09-22 17:09] LABS: Chloride 107 mmol/L (98-107); Sodium 139 mmol/L (136-145)
[2021-09-22 17:10] LABS: Potassium 3.7 mmoL/L (3.5-5.1)
[2021-09-22 17:12] LABS: Alanine Aminotransferase 18 U/L (12-78); Alkaline Phosphatase 75 U/L (38-126); Anion Gap 8.7 mEq/L (5-15); Aspartate Amino Transferase 37 U/L (14-36); Bilirubin,Total 0.5 mg/dl (0.2-1.3); Blood Urea Nitrogen 9 mg/dl (7-17); Carbon Dioxide 27 mmol/L (22.0-30.0); Creatinine Clearance Estimated 69 mL/min (50-200); Estimated Glomerular Filt Rate 89 ml/min (>60); GFR (African American) 107 ML/MIN (>60)
[2021-09-22 17:13] LABS: Albumin Level 4.2 g/dl (3.5-5.0); Albumin/Globulin Ratio 1.6 (1.1-1.8); Calcium 9.4 mg/dl (8.4-10.2); Globulin 2.7 g/dL (1.3-3.2); Glucose 91 mg/dl (74-100); Magnesium 1.6 mg/dl (1.6-2.3); Total Protein,Serum 6.9 g/dl (6.3-8.2)
[2021-09-22 17:18] LABS: C-Reactive Protein 0.7 mg/L (0-4)
--- NOTE | 2021-09-22 17:28 | PC.NURSE ---
pt in Ct at this time
--- NOTE | 2021-09-22 17:39 | PC.NURSE ---
ED MD AT BEDSIDE FOR REEVALUATION
[2021-09-22 17:51] LABS: Erythrocyte Sedimentation Rate 11 mm/hr (0-20)
[2021-09-22 18:00] VITALS: BP 169/107; PULSE 56; O2SAT 100
--- NOTE | 2021-09-22 18:07 | ECG_ITS ---
APPROVED REPORT Exam: Resting ECG HR:54 bpm ECG Measurements Heart Rate 54 AXES MI 157 P 73 QRSd 97 QRS 82 QT 459 T 75 QTc 444 Conclusion SINUS BRADYCARDIA WITH SINUS ARRHYTHMIA INCOMPLETE RIGHT BUNDLE BRANCH BLOCK [90+ ms QRS DURATION, TERMINAL R IN V1/V2, 40+ ms S IN I/aVL/V4/V5/V6] POSSIBLE ANTERIOR MYOCARDIAL INFARCTION , OF INDETERMINATE AGE [30 ms Q WAVE IN V3/V4, OR R < 0.2 mV IN V4] ABNORMAL ECG UNCONFIRMED REPORT Electronically signed by : Shailesh Villanueva MD 09/23/2021 14:14:39
--- NOTE | 2021-09-22 18:21 | PC.NURSE ---
ED SPEAKING WITH CHARU AT THIS TIME
--- NOTE | 2021-09-22 18:32 | PC.NURSE ---
pt states she is having increased pain, aware
[2021-09-22 19:15] VITALS: BP 169/107; PULSE 56; RESP 16; TEMP 37.4; O2SAT 100
--- NOTE | 2021-09-22 19:15 | PC.NURSE ---
pt left AMA due to her wanting to go home before DC to take her cancer medicine. Pt states that she does not want to wait until MD releases her. Boyfriend and pt understand to fu with [facility] and information given for fu.
== END 2021-09-22 19:19 | disposition left against medical advice (07) ==
LOC: UTC 15:49 → ER 16:35
PROVIDERS: Emergency Provider Student in an Organized Health Care Education/Training Program; PCP Family Medicine
DX: G44.001 Cluster headache syndrome, unspecified, intractable (principal); Z79.899 Other long term (current) drug therapy; C50.919 Malignant neoplasm of unspecified site of unspecified female breast; J44.9 Chronic obstructive pulmonary disease, unspecified; F32.A Depression, unspecified; F41.9 Anxiety disorder, unspecified; K21.9 Gastro-esophageal reflux disease without esophagitis; I10 Essential (primary) hypertension; Z72.0 Tobacco use
CPT/HCPCS: 70450; 70496; 70498; 80053; 83735; 85025; 85651; 86140; 93005; 99284; Q9967

== ENCOUNTER 2021-09-25 17:46 | Emergency (ER) | payer MEDICAID, SELFPAY ==
[2021-09-25] VITALS (11 sets, daily range): BP systolic 105–177; BP diastolic 56–119; PULSE 43–66; RESP 16–18; TEMP 36.7; O2SAT 96–99; BMI 16.2; BMI 16.6
--- NOTE | 2021-09-25 17:56 | CT_ITS ---
PROCEDURE INFORMATION: Exam: CT Head Without Contrast Exam date and time: 09/25/2021 6:03 PM Age: 51 years old Clinical indication: Other: Possible head bleed per er staff; Additional info: Poss. Head bleed TECHNIQUE: Imaging protocol: Computed tomography of the head without contrast. Radiation optimization: All CT scans at this facility use at least one of these dose optimization techniques: automated exposure control; mA and/or kV adjustment per patient size (includes targeted exams where dose is matched to clinical indication); or iterative reconstruction. COMPARISON: CT HEAD/BRAIN WO CON 09/22/2021 5:16 PM FINDINGS: Brain: Normal. No hemorrhage. Unremarkable white matter. No mass effect. Cerebral ventricles: No ventriculomegaly. Paranasal sinuses: Visualized sinuses are unremarkable. No fluid levels. Mastoid air cells: Visualized mastoid air cells are well aerated. Bones/joints: Unremarkable. No acute fracture. Soft tissues: Unremarkable. IMPRESSION: No acute intracranial findings.
--- NOTE | 2021-09-25 17:59 | HMH.EDGENADL ---
ED Disposition Condition on Discharge: Good - Critical Care Critical Care Time: No <Candido Foster - Last Filed: 09/25/21 20:10> <Yue Joseph - Last Filed: 09/26/21 04:27> Clinical Impression: Migraine Headache Qualifiers: Headache type: unspecified Headache chronicity pattern: unspecified pattern Intractability: intractable Qualified Code(s): R51.9 - Headache, unspecified Nausea & vomiting Qualifiers: Vomiting type: unspecified Qualified Code(s): R11.2 - Nausea with vomiting, unspecified Disposition: Home, Self-Care Instructions: Migraine -- Adult, DI for Lumbar Puncture Additional Instructions: Please follow-up outpatient with neurosurgery and neurology. You have an appointment with neurosurgery next week. Follow-up with your primary care provider over the next 48 hours. Continue taking your medications at home as prescribed. Return to the emergency department for any new or worsening symptoms. Referrals: Oren Epps MD [Primary Care Provider] - Attestation: On 09/25/21, the high probability of a clinically significant, sudden or life threatening deterioration of the following system(s) required my full and direct attention, intervention and personal management. The time I documented below is in addition to time spent performing reported procedures but includes the following listed in this critical care notation. Medical Decision Making - Medical Records Medical records reviewed: Yes: I reviewed the patient's medical records. - Edd Inquiry Pt receiving controlled substance: No - Lab Data Result diagrams: 09/25/21 18:20 09/25/21 18:20 - Physician Consults Time: 19:43 (discussed with neurosurg at [facility] for LP and call back for dispo) - Reevaluation(s) Time: 19:42 (reeval, now with neck pain and dec rom , also c/o uncontrolled bain pain and nausea) <Candido Foster - Last Filed: 09/25/21 20:10> - Lab Data Result diagrams: 09/25/21 18:20 09/25/21 18:20 <Yue Joseph - Last Filed: 09/26/21 04:27> Vital Signs: 09/25/21 18:00 09/25/21 18:05 09/25/21 18:30 Temperature 98.1 F Temperature Source Oral Pulse Rate 66 61 Pulse Rate [Left Radial] 59 L Respiratory Rate 18 Blood Pressure 157/98 H 147/90 H Blood Pressure [Right Arm] 157/98 H Blood Pressure Mean 107 117 Blood Pressure Mean [Right Arm] 117 Blood Pressure Position 02 Sat by Pulse Oximetry 96 97 98 Oxygen Delivery Method Room Air 09/25/21 18:54 09/25/21 19:00 09/25/21 19:30 Temperature Temperature Source Pulse Rate 57 L 54 L Pulse Rate [Left Radial] Respiratory Rate Blood Pressure 149/95 H 147/96 H 177/119 H Blood Pressure [Right Arm] Blood Pressure Mean 113 117 137 Blood Pressure Mean [Right Arm] Blood Pressure Position 02 Sat by Pulse Oximetry 99 98 Oxygen Delivery Method Room Air Room Air 09/25/21 20:01 09/25/21 20:31 09/25/21 21:01 Temperature Temperature Source Pulse Rate 51 L 51 L 43 L Pulse Rate [Left Radial] Respiratory Rate Blood Pressure 145/92 H 105/62 L 108/65 L Blood Pressure [Right Arm] Blood Pressure Mean 114 76 77 Blood Pressure Mean [Right Arm] Blood Pressure Position 02 Sat by Pulse Oximetry Oxygen Delivery Method 09/25/21 21:30 09/25/21 22:24 Temperature 98.1 F Temperature Source Oral Pulse Rate 60 64 Pulse Rate [Left Radial] Respiratory Rate 16 Blood Pressure 152/96 H 134/56 L Blood Pressure [Right Arm] Blood Pressure Mean 114 Blood Pressure Mean [Right Arm] Blood Pressure Position Sitting 02 Sat by Pulse Oximetry Oxygen Delivery Method Room Air - Lab Data Lab Results 09/25/21 18:20: WBC 11.0 H, RBC 4.20, Hgb 13.1, Hct 42.4, MCV 100.9 H, MCH 31.3 H, MCHC 31.0 L, RDW 13.9, Plt Count 246, MPV 9.3, Neut % (Auto) 77.7, Lymph % (Auto) 16.6, [place] % (Auto) 5.2, Eos % (Auto) 0.1, Baso % (Auto) 0.4, Neut # (Auto) 8.6 H, Lymph # (Auto) 1.8, [place] # (Auto) 0.6, Eos # (Auto) 0.0, Bas
--- NOTE | 2021-09-25 18:41 | PC.NURSE ---
Dr. Foster speaking with [facility] at this time
[2021-09-25 19:00] LABS: Basophils % 0.4 % (0.1-2.0); Eosinophils % 0.1 % (0.1-12.0); Hematocrit 42.4 % (37.0-47.0); Hemoglobin 13.1 g/dL (12.2-16.2); Lymphocytes # 1.8 K/mm3 (0.7-4.5); Lymphocytes % 16.6 % (10-50); Mean Corpuscular Hemoglobin 31.3 pg (27.0-31.2); Mean Corpuscular Volume 100.9 fl (81-99); Mean Platelet Volume 9.3 fl (7.4-10.4); Monocytes # 0.6 K/mm3 (0.1-1.0); Monocytes % 5.2 % (1.7-9.3); Neutrophils # 8.6 K/mm3 (1.8-7.8); Neutrophils % 77.7 % (37.0-80.0); Platelet Count 246 K/mm3 (142-424); Red Cell Distribution Width 13.9 % (11.5-17.5)
[2021-09-25 19:07] LABS: Chloride 106 mmol/L (98-107)
[2021-09-25 19:08] LABS: Potassium 3.8 mmoL/L (3.5-5.1); Sodium 139 mmol/L (136-145)
[2021-09-25 19:10] LABS: Alanine Aminotransferase 26 U/L (12-78); Aspartate Amino Transferase 43 U/L (14-36); Blood Urea Nitrogen 11 mg/dl (7-17); Creatinine Clearance Estimated 69 mL/min (50-200); Estimated Glomerular Filt Rate 89 ml/min (>60); GFR (African American) 107 ML/MIN (>60)
[2021-09-25 19:11] LABS: Activated Partial Thrombo Time 26.9 seconds (22.8-30.6); Albumin Level 4.2 g/dl (3.5-5.0); Albumin/Globulin Ratio 1.7 (1.1-1.8); Alkaline Phosphatase 69 U/L (38-126); Anion Gap 6.8 mEq/L (5-15); Bilirubin,Total 0.4 mg/dl (0.2-1.3); Calcium 9.6 mg/dl (8.4-10.2); Carbon Dioxide 30 mmol/L (22.0-30.0); Globulin 2.5 g/dL (1.3-3.2); Glucose 100 mg/dl (74-100); INR 1.03 (0.9-1.1); Prothrombin Time 11.6 seconds (10.1-12.5); Total Protein,Serum 6.7 g/dl (6.3-8.2)
[2021-09-25 21:14] LABS: Appearance,CSF Clear (Clear); Volume,CSF 5 mL
[2021-09-25 21:15] LABS: Red Blood Cell,CSF 0 cells/uL (0); White Blood Cell,CSF 1 cells/uL (0-5)
[2021-09-25 21:31] LABS: Glucose,CSF 68 mg/dl (40-70)
--- NOTE | 2021-09-25 21:54 | PC.NURSE ---
PT UPDATED WITH EXPECTED WAIT TIMES AND THAT ONCE EVAL LAB RESULTS WE WOULD LET HER KNOW THE PLAN. WARM BLANKETS PROVIDED.
--- NOTE | 2021-09-25 22:06 | PC.NURSE ---
[facility] on phone with md at this time regarding results of patient csf results.
[2021-09-25 22:21] LABS: Mononuclear WBCs,CSF 0 %; Polynuclear WBCs,CSF 0 %
[2021-09-30 23:09] LABS: Epstein-Barr Virus CSF/WB PCR Negative (Negative)
[2021-10-01 23:09] LABS: Enterovirus,CSF PCR Negative (Negative)
== END 2021-09-25 22:36 | disposition home or self-care (01) ==
PROVIDERS: Emergency Medicine; Emergency Provider Emergency Medicine; PCP Family Medicine
DX: R51.9 Headache, unspecified (principal); R11.2 Nausea with vomiting, unspecified; Z79.899 Other long term (current) drug therapy; Z88.1 Allergy status to other antibiotic agents; Z88.6 Allergy status to analgesic agent; J44.9 Chronic obstructive pulmonary disease, unspecified; E10.9 Type 1 diabetes mellitus without complications; I10 Essential (primary) hypertension; K21.9 Gastro-esophageal reflux disease without esophagitis; F41.9 Anxiety disorder, unspecified; F32.A Depression, unspecified; E03.9 Hypothyroidism, unspecified
CPT/HCPCS: 62270; 70450; 80053; 82945; 84155; 85025; 85610; 85730; 87070; 87205; 87498; 87798; 89051; 96374; 96375; 96376; 99284; J2405

== ENCOUNTER → 2022-02-16 22:31 | Outpatient (CLI) | payer MEDICAID, SELFPAY ==
[2022-02-16 17:07] LABS: Adenovirus,PCR Not Detected (NotDetected); Bordetella Pertussis Not Detected (NotDetected); Chlamydophila Pneumoniae, PCR Not Detected (NotDetected); Coronavirus 19, PCR Not Detected (NotDetected); Coronavirus 229E Not Detected (NotDetected); Coronavirus NL63 Not Detected (NotDetected); Coronavirus OC43 Not Detected (NotDetected); Coronovirus HKU1,PCR Not Detected (NotDetected); Human Metapneumovirus Not Detected (NotDetected); Influenza A, PCR Not Detected (NotDetected); Influenza AH1, 2009 Not Detected (NotDetected); Influenza AH1, PCR Not Detected (NotDetected); Influenza AH3,PCR Not Detected (NotDetected); Influenza B, PCR Not Detected (NotDetected); Mycoplasma Pneumoniae, PCR Not Detected (NotDetected); Parainfluenza 1, PCR Not Detected (NotDetected); Parainfluenza 2, PCR Not Detected (NotDetected); Parainfluenza 3, PCR Not Detected (NotDetected); Parainfluenza 4, PCR Not Detected (NotDetected); Respiratory Syncytial Virus Not Detected (NotDetected); Rhinovirus/Enterovirus Not Detected (NotDetected)
== END ==
PROVIDERS: Visit Provider Family Medicine
DX: R06.02 Shortness of breath (principal); R05.9 Cough, unspecified; R06.2 Wheezing
CPT/HCPCS: 87581; 87632; 87798; C9803; U0003; U0005

== ENCOUNTER 2022-02-19 11:58 | Emergency (ER) | payer MEDICAID, SELFPAY ==
[2022-02-19 12:00] VITALS: BP 148/113; PULSE 82; RESP 20; TEMP 36.6; O2SAT 95; BMI 26.6
--- NOTE | 2022-02-19 12:17 | XR_ITS ---
FINAL REPORT TECHNIQUE: Chest PA & Lateral CLINICAL HISTORY: chest pain in middle of chest. cough, shortness of breath, previously had breast cancer, sx for brain aneurysm x2 months ago. COMPARISON: December 2020 FINDINGS: 2 views of the chest were performed. The heart size is normal. The mediastinum is within normal limits. There is no acute cardiopulmonary process. There are no pleural effusions. There is no pneumothorax. There is mild rightward curvature of the thoracic spine. IMPRESSION: No acute cardiopulmonary process. Reviewed, Interpreted and Dictated by Jeremiah Colon III, MD Transcribed by Anton Bertrand Authenticated and [facility]
--- NOTE | 2022-02-19 12:29 | ECG_ITS ---
APPROVED REPORT Exam: Resting ECG HR:65 bpm ECG Measurements Heart Rate 65 AXES SD 125 P 72 QRSd 78 QRS 98 QT 407 T 60 QTc 418 Conclusion SINUS RHYTHM BORDERLINE RIGHT AXIS DEVIATION [QRS AXIS > 90] BORDERLINE ECG UNCONFIRMED REPORT Electronically signed by : Shailesh Villanueva MD 02/19/2022 20:16:59
--- NOTE | 2022-02-19 12:44 | PC.NURSE ---
YRN [place] at
[2022-02-19 12:48] LABS: Coronavirus 19, PCR Not Detected (NotDetected); Influenza A, PCR Not Detected (NotDetected); Influenza B, PCR Not Detected (NotDetected)
--- NOTE | 2022-02-19 12:52 | PC.NURSE ---
pt to radiology via [facility] with wood technologist
[2022-02-19 12:54] LABS: Basophils # 0.2 K/mm3 (0-0.2); Basophils % 1.9 % (0.1-2.0); Eosinophils % 0.2 % (0.1-12.0); Hematocrit 47.1 % (37.0-47.0); Hemoglobin 14.7 g/dL (12.2-16.2); Lymphocytes % 8.8 % (10-50); Mean Corpuscular HGB Conc 31.2 g/dL (31.8-35.4); Mean Corpuscular Hemoglobin 31.1 pg (27.0-31.2); Mean Corpuscular Volume 99.7 fl (81-99); Mean Platelet Volume 8.3 fl (7.4-10.4); Monocytes # 0.7 K/mm3 (0.1-1.0); Monocytes % 5.8 % (1.7-9.3); Neutrophils # 9.7 K/mm3 (1.8-7.8); Neutrophils % 83.4 % (37.0-80.0); Platelet Count 414 K/mm3 (142-424); Red Blood Count 4.72 M/mm3 (4.20-5.40); White Blood Count 11.7 K/mm3 (4.8-10.8)
--- NOTE | 2022-02-19 12:56 | CT_ITS ---
FINAL REPORT TECHNIQUE: Thin section axial CT images were obtained from the lung apices to the upper abdomen. IV contrast was administered. MIP 3-D reformats were obtained. This study was performed with techniques to keep radiation doses as low as reasonably achievable (ALARA). Individualized dose reduction techniques using automated exposure control or adjustment of mA and/or kV according to the patient's size were employed. CLINICAL HISTORY: history of cancer, acute on chronic CP and sob COMPARISON: March 2021 FINDINGS: The heart size is normal. There is no adenopathy. There is no filling defect to suggest PE. There is no aortic dissection. There is no pericardial effusion. There are mild changes of emphysema with mild scarring. There is a calcified granuloma in the left upper lobe. There is no suspicious infiltrate or nodule. There is postoperative change in the anterior chest wall. No pleural effusion. Limited images of the upper abdomen demonstrate no acute abnormality. There are several sclerotic foci in the spine that are nonspecific but stable. These could represent bone islands. There is diffuse mild esophageal wall thickening favored to be inflammatory. IMPRESSION: No pulmonary embolism or aortic dissection. Diffuse, mild esophageal wall thickening is favored to be inflammatory. Consider correlation with upper endoscopy. Reviewed, Interpreted and Dictated by Jeremiah Colon III, MD Transcribed by Anton Bertrand Authenticated and . [facility]
[2022-02-19 13:00] LABS: Chloride 105 mmol/L (98-107); Potassium 4.4 mmoL/L (3.5-5.1); Sodium 139 mmol/L (136-145)
[2022-02-19 13:01] VITALS: BP 140/103; PULSE 69; O2SAT 96
[2022-02-19 13:02] LABS: Blood Urea Nitrogen 14 mg/dl (7-17); Creatinine Clearance Estimated 139 mL/min (50-200); Estimated Glomerular Filt Rate 105 ml/min (>60); GFR (African American) 128 ML/MIN (>60)
[2022-02-19 13:03] LABS: Alanine Aminotransferase 28 U/L (12-78); Albumin Level 3.9 g/dl (3.5-5.0); Albumin/Globulin Ratio 1.5 (1.1-1.8); Alkaline Phosphatase 78 U/L (38-126); Anion Gap 11.4 mEq/L (5-15); Aspartate Amino Transferase 28 U/L (14-36); Calcium 9.5 mg/dl (8.4-10.2); Carbon Dioxide 27 mmol/L (22.0-30.0); Globulin 2.6 g/dL (1.3-3.2); Glucose 91 mg/dl (74-100); Total Protein,Serum 6.5 g/dl (6.3-8.2)
--- NOTE | 2022-02-19 13:03 | HMH.EDGENADL ---
Discharge Plan Disposition Patient Disposition: Home, Self-Care Condition: Good Prescriptions Prescriptions: New dextromethorphan HBr 15 mg capsule 30 mg PO Q8H 3 Days Qty: 18 0RF ondansetron 4 mg tablet,disintegrating 4 mg PO .q6p Qty: 10 0RF No Action quetiapine 25 mg tablet See Rx Instructions .ROUTE .COMPLEX Qty: 90 1RF Dose Instruction: TAKE 1 TABLET BY MOUTH THREE TIMES DAILY NEEDED FOR ANXIETY AND SLEEP Rx Instructions: TAKE 1 TABLET BY MOUTH THREE TIMES DAILY NEEDED FOR ANXIETY AND SLEEP lisinopril 20 mg tablet 20 mg PO DAILY Qty: 90 3RF oxycodone-acetaminophen 5-325 mg tablet 1 tab PO TIDP PRN (Reason: Pain) Qty: 90 0RF Rx Instructions: 5/325mg clonazepam 0.5 mg tablet 0.5 mg PO BIDP PRN (Reason: Anxiety) Qty: 60 3RF azithromycin 500 mg tablet 500 mg PO DAILY 3 Days Qty: 3 0RF cefdinir 300 mg capsule 300 mg PO BID 10 Days Qty: 20 0RF methylprednisolone [Medrol (Yousuf)] 4 mg tablets,dose pack See Rx Instructions PO PER PKG DIR Qty: 21 0RF Rx Instructions: PO PER PKG DIR ondansetron 4 mg tablet,disintegrating See Rx Instructions .ROUTE .COMPLEX Qty: 20 0RF Dose Instruction: DISSOLVE 1 TABLET BY MOUTH 3 TIMES A DAY NEEDED FOR NAUSEA AND VOMITING Rx Instructions: DISSOLVE 1 TABLET BY MOUTH 3 TIMES A DAY NEEDED FOR NAUSEA AND VOMITING pantoprazole 40 mg tablet,delayed release (DR/EC) See Rx Instructions .ROUTE .COMPLEX Qty: 30 1RF Dose Instruction: TAKE ONE TABLET BY MOUTH EVERY DAY Rx Instructions: TAKE ONE TABLET BY MOUTH EVERY DAY benzonatate 200 mg capsule 200 mg PO BID PRN (Reason: cough) Qty: 20 0RF bupropion HCl 75 MG tablet 75 mg PO BID Referrals Follow up/Referrals: Oren Butts MD [Primary Care Provider] - See instructions Activity Restrictions/Add. Instructions Additional Instructions/Restrictions: Follow-up with your primary care provider guarding this visit to the emergency department and chronic cough. Talk to him about discontinuing lisinopril and changing medications out of concern for this causing your underlying cough disorder. If you have any other concerning signs or symptoms, return to the ED or your primary care physician for further evaluation. Clinical Impressions Clinical Impression: Cough Discharge ED Provider: Edvin Abbott General Adult HPI General Chief complaint: Shortness of Breath/Dyspnea Stated complaint: cough, syncope, sob, sent by Dr. Butts Time Seen by Provider: 02/19/22 12:10 Mode of Arrival: Ambulatory Source of Information: Patient Limitations: No Limitations Description of Symptoms (Recalled from ER Triage Doc. by RN): Pt reports sent over by dr. butts from office today. Pt reports not feeling well for approx a month, worsening. Pt reports cough (no longer productive), SOA, weakness, vomiting PO intake up r/t cough, also reports headache. History of Present Illness HPI narrative: This is a 52-year-old female with history of breast cancer status post bilateral mastectomy, not currently on chemo or radiation, multiple arterial aneurysms who is presenting with cough. Patient states that she has had cough for the past month. It has gotten worse over the past couple of days. She states that she is sought care numerous times, has been on steroids, antibiotics, but there has been no resolution of her symptoms. Denies hemoptysis, cough has been productive of white sputum. Denies chest pain, abdominal pain, fevers, chills, nausea, vomiting, back pain, neurologic deficits, recent travel, known sick contacts. Nothing particular makes the cough better, although she has tried a cough medication at home. Related Data Home Medications Medication Instructions Recorded Confirmed bupropion HCl 75 mg tablet 75 mg PO BID Depression 12/15/20 02/19/22 Previous Rx's Medication Instructions Recorded ondansetron 4 mg disintegrating See
[2022-02-19 13:08] LABS: Bilirubin,Total 0.1 mg/dl (0.2-1.3); Lactic Acid 2.1 mmol/L (0.7-2.1)
[2022-02-19 13:30] VITALS: BP 152/104; PULSE 64; RESP 18; O2SAT 99
[2022-02-19 14:00] VITALS: BP 160/86; PULSE 52; RESP 18; O2SAT 96
--- NOTE | 2022-02-19 14:14 | PC.NURSE ---
back from ct
[2022-02-19 14:30] VITALS: BP 157/92; PULSE 66; RESP 17; O2SAT 95
--- NOTE | 2022-02-19 15:25 | PC.NURSE ---
DR. BERNAL AT BEDSIDE TO UPDATE PT ON POC
[2022-02-19 15:45] VITALS: BP 153/96; PULSE 60; RESP 18; TEMP 36.8; O2SAT 97
== END 2022-02-19 15:45 | disposition home or self-care (01) ==
PROVIDERS: Emergency Provider Emergency Medicine; PCP Family Medicine
DX: R55 Syncope and collapse (principal); R06.02 Shortness of breath; R53.1 Weakness; Z20.822 Contact with and (suspected) exposure to COVID-19; R05.9 Cough, unspecified; D72.829 Elevated white blood cell count, unspecified; R11.2 Nausea with vomiting, unspecified; I72.5 Aneurysm of other precerebral arteries; J43.9 Emphysema, unspecified; F41.9 Anxiety disorder, unspecified; F17.210 Nicotine dependence, cigarettes, uncomplicated; Z79.52 Long term (current) use of systemic steroids; Z79.899 Other long term (current) drug therapy; Z88.2 Allergy status to sulfonamides; Z88.6 Allergy status to analgesic agent; Z88.8 Allergy status to other drugs, medicaments and biological substances; Z85.3 Personal history of malignant neoplasm of breast
CPT/HCPCS: 71046; 71275; 80053; 83605; 85025; 87040; 93005; 96361; 96374; 96375; 99285; C9803; J2405; Q9967; U0003; U0005

== ENCOUNTER 2022-07-10 11:18 | Outpatient (CLI) | payer MEDICAID, SELFPAY ==
[2022-07-10 11:31] VITALS: BP 126/84; PULSE 61; RESP 18; O2SAT 98
--- NOTE | 2022-07-10 12:40 | PC.NURSE ---
1240-notified that pt states that she doesn't feel any better after her liter bolus; md states to send pt to er; pt states that she is going to see if she feels better in a few hours and if not she would go to the er.
[2022-07-10 14:30] VITALS: BP 139/98; PULSE 88; RESP 18; O2SAT 97
== END 2022-07-10 12:45 | disposition home or self-care (01) ==
LOC: INF 11:18
PROVIDERS: PCP Family Medicine; Visit Provider Family Medicine
DX: E86.0 Dehydration (principal); R11.2 Nausea with vomiting, unspecified
CPT/HCPCS: 96360

== ENCOUNTER 2022-07-11 20:19 | Emergency (ER) | payer MEDICAID, SELFPAY ==
[2022-07-11 20:22] VITALS: BP 157/114; PULSE 85; RESP 18; TEMP 36.7; O2SAT 97; BMI 15.1
--- NOTE | 2022-07-11 21:02 | HMH.EDNVD ---
Discharge Plan Disposition Patient Disposition: Home, Self-Care Chief Complaint: Nausea/Vomiting/Diarrhea Prescriptions Prescriptions: No Action aspirin [Adult Aspirin Regimen] 81 mg tablet,delayed release (DR/EC) 81 mg PO DAILY dronabinol [Marinol] 2.5 mg capsule 2.5 mg PO BID Qty: 60 2RF Rx Instructions: administer before lunch and evening meal/dinner clonazepam 0.5 mg tablet See Rx Instructions .ROUTE .COMPLEX PRN (Reason: Anxiety) Qty: 90 3RF Rx Instructions: one during the day as needed, two at bedtime as needed for sleep PRN; ondansetron 4 mg tablet,disintegrating See Rx Instructions .ROUTE .COMPLEX Qty: 60 3RF Dose Instruction: DISSOLVE 1 TABLET BY MOUTH 3 TIMES A DAY NEEDED FOR NAUSEA AND VOMITING Rx Instructions: DISSOLVE 1 TABLET BY MOUTH 3 TIMES A DAY NEEDED FOR NAUSEA AND VOMITING oxycodone-acetaminophen 5-325 mg tablet 1 tab PO TIDP PRN (Reason: Pain) Qty: 90 0RF Rx Instructions: 5/325mg prochlorperazine maleate [Compazine] 10 mg tablet 10 mg PO Q8H PRN (Reason: nausea and vomiting) Qty: 60 3RF pantoprazole 40 mg tablet,delayed release (DR/EC) See Rx Instructions .ROUTE .COMPLEX Qty: 180 3RF Dose Instruction: TAKE ONE TABLET BY MOUTH EVERY DAY Rx Instructions: TAKE ONE TABLET BY MOUTH twice a day quetiapine 25 mg tablet See Rx Instructions .ROUTE .COMPLEX Qty: 90 0RF Dose Instruction: TAKE 1 TABLET BY MOUTH THREE TIMES DAILY NEEDED FOR ANXIETY AND SLEEP Rx Instructions: TAKE 1 TABLET BY MOUTH THREE TIMES DAILY NEEDED FOR ANXIETY AND SLEEP bupropion HCl 75 MG tablet 75 mg PO BID Referrals Follow up/Referrals: Oren Epps MD [Primary Care Provider] - See instructions Clinical Impressions Clinical Impression: Vomiting, Esophageal dysfunction Instructions Patient Instructions: DI for Vomiting -- Adult Discharge ED Provider: Elsa (ED)Taz Nausea/Vomiting/Diarrhea HPI General Chief complaint: Nausea/Vomiting/Diarrhea Stated complaint: Low B/P,weakness Time Seen by Provider: 07/11/22 21:02 Mode of Arrival: Ambulatory Source of Information: Patient and Medical Record Limitations: No Limitations Description of Symptoms (Recalled from ER Triage Doc. by RN): pt reports that she has been having vomiting and low blood pressure. the pt states that she was seen yesterday by her primary and sent for fluids at infusion. the pt stated that she was told to come back if symptoms continued History of Present Illness HPI Narrative: pt reports had egd at last week and has had vomiting and dec po intake - saw pcp wednesday and obtained op ivf - no fever or diarrhea and no specific abd pain MD complaint: vomiting Onset (ago): day(s) Associated Abdominal Pain: No Severity: moderate Associated symptoms: weakness Related Data Home Medications Medication Instructions Recorded Confirmed bupropion HCl 75 mg tablet 75 mg PO BID Depression 12/15/20 07/10/22 aspirin 81 mg tablet,delayed 81 mg PO DAILY 06/16/22 07/10/22 release (Adult Aspirin Regimen) Previous Rx's Medication Instructions Recorded clonazepam 0.5 mg tablet See Rx Instructions .Route 06/16/22 .COMPLEX PRN Anxiety #90 tabs dronabinol 2.5 mg capsule (Marinol) 2.5 mg PO BID #60 caps 06/16/22 ondansetron 4 mg disintegrating See Rx Instructions .Route 06/16/22 tablet .COMPLEX #60 tabs quetiapine 25 mg tablet See Rx Instructions .Route 07/06/22 .COMPLEX #90 tabs oxycodone-acetaminophen 5 mg-325 1 tab PO TIDP PRN Pain #90 tabs 07/10/22 mg tablet pantoprazole 40 mg tablet,delayed See Rx Instructions .Route 07/10/22 release .COMPLEX #180 tabs prochlorperazine maleate 10 mg 10 mg PO Q8H PRN nausea and 07/10/22 tablet (Compazine) vomiting #60 tabs Allergies Allergy/AdvReac Type Severity Reaction Status Date / Time hydrocodone [From [place]] Allergy Severe Rash Verified 07/10/22 09:56 sulfamethoxazole Allergy Severe
[2022-07-11 21:08] LABS: Microscopic, Urine URINE MICROSCOPIC (MICROSCOPIC)
[2022-07-11 21:10] LABS: Appearance,Urine CLEAR (Clear); Bilirubin,Urine Negative (Negative); Blood, Urine TRACE-I (Negative); Color,Urine YELLOW (Yellow); Glucose,Urine (UA) Negative (Negative); Ketones,Urine Negative (Negative); Leukocyte Esterase,Urine TRACE (Negative); Nitrate,Urine Negative (Negative); PH,Urine 6.5 (5.0-8.5); Protein,Urine Negative (Negative); Urobilinogen,Urine 0.2 EU/dl (0.2)
[2022-07-11 21:11] LABS: Basophils % 0.4 % (0.1-2.0); Eosinophils # 0.2 K/mm3 (0.0-0.4); Eosinophils % 2.5 % (0.1-12.0); Hematocrit 46.5 % (37.0-47.0); Hemoglobin 14.7 g/dL (12.2-16.2); Lymphocytes # 2.2 K/mm3 (0.7-4.5); Lymphocytes % 34.3 % (10-50); Mean Corpuscular HGB Conc 31.6 g/dL (31.8-35.4); Mean Corpuscular Hemoglobin 31.2 pg (27.0-31.2); Mean Corpuscular Volume 98.8 fl (81-99); Mean Platelet Volume 8.8 fl (7.4-10.4); Monocytes # 0.3 K/mm3 (0.1-1.0); Monocytes % 5.2 % (1.7-9.3); Neutrophils # 3.6 K/mm3 (1.8-7.8); Neutrophils % 57.6 % (37.0-80.0); Platelet Count 238 K/mm3 (142-424); Red Blood Count 4.71 M/mm3 (4.20-5.40); Red Cell Distribution Width 13.4 % (11.5-17.5); White Blood Count 6.3 K/mm3 (4.8-10.8)
[2022-07-11 21:27] LABS: Alanine Aminotransferase 31 U/L (12-78); Albumin Level 4.7 g/dl (3.5-5.0); Albumin/Globulin Ratio 1.7 (1.1-1.8); Alkaline Phosphatase 77 U/L (38-126); Anion Gap 15.8 mEq/L (5-15); Aspartate Amino Transferase 40 U/L (14-36); Bilirubin,Total 0.3 mg/dl (0.2-1.3); Blood Urea Nitrogen 7 mg/dl (7-17); Calcium 9.4 mg/dl (8.4-10.2); Carbon Dioxide 30 mmol/L (22.0-30.0); Chloride 99 mmol/L (98-107); Creatine Kinase 92 U/L (30-135); Creatinine Clearance Estimated 64 mL/min (50-200); Estimated Glomerular Filt Rate 88 ml/min (>60); GFR (African American) 107 ML/MIN (>60); Globulin 2.7 g/dL (1.3-3.2); Glucose 86 mg/dl (74-100); Potassium 3.8 mmoL/L (3.5-5.1); Sodium 141 mmol/L (136-145); Total Protein,Serum 7.4 g/dl (6.3-8.2)
[2022-07-11 21:40] LABS: Troponin I < 0.01 ng/ml (0.00-0.034)
[2022-07-11 21:55] LABS: Bacteria,Urine Trace /lpf
[2022-07-11 22:39] VITALS: BP 169/121; BP 196/128; BP 204/135
[2022-07-11 23:39] VITALS: BP 167/78; PULSE 84; RESP 18; TEMP 36.7; O2SAT 97
== END 2022-07-11 23:41 | disposition home or self-care (01) ==
PROVIDERS: Emergency Provider Emergency Medicine; PCP Family Medicine
DX: R11.2 Nausea with vomiting, unspecified (principal); R19.7 Diarrhea, unspecified; R53.1 Weakness; F17.210 Nicotine dependence, cigarettes, uncomplicated
CPT/HCPCS: 80053; 81001; 82550; 84484; 85025; 96361; 96374; 99284; 99285; J2405

== ENCOUNTER 2022-11-03 13:32 | Outpatient (RCR) | payer MEDICAID, SELFPAY | END 2022-11-03 13:35 | disposition home or self-care (01) | LOC: PT 13:32 | PROVIDERS: PCP Family Medicine; Visit Provider Physician Assistant Medical | DX: M51.37 Other intervertebral disc degeneration, lumbosacral region (principal) | CPT/HCPCS: 97163 ==

== ENCOUNTER 2023-02-02 08:00 | Outpatient (RCR) | payer MEDICAID, SELFPAY ==
--- NOTE | 2023-01-14 17:12 | HMH.PTOPEV ---
PT Outpatient Evaluation Rehab PT Outpatient Evaluation Start: 01/14/23 16:41 Freq: Status: Active Protocol: Document 01/14/23 16:42 ERICK (Rec: 01/14/23 17:02 ERICK [id number]) E-signed By Gm Pa, PT Outpatient Therapy Subjective History Subjective History Patient is a 52 year old female presenting to outpatient PT with reports of chronic cervical and lumbar spine pain of insidious onset. No recent imaging to report. Patient is currently being treated for breast and lung cancer. She has had bilateral mastectomy and axillary lymphnode removal. Other comorbidities include hx of recent brain anyeurysm sx, HTN and asthma. New diagnosis of cancer in past 12 No months? Chief Complaint Pain,Stiff,Gives out/Unstable, Paresthesia,Weakness Symptom Type Ache,Throb,Sharp,Dull,Stabbing ,Burning,Numbness,Tingling, Shooting Symptoms Relieved By Rest/Positioning,Heat,Ice, Prescription Meds Symptoms Aggravated By Standing,Bending/Stooping, Physical Activity,Lifting Prior Functional Limitations None Current Functional Limitations Lifting,Housework,Sleeping, Standing,Squatting,Walking, Stairs,Balance,Bending/ Stooping Symptom Description Constant but Variable Level of pain today (0-10) 7 Pain scale - at its best (0-10) 5 Pain scale - at its worst (0-10) 10 Cervical Eval Palpation Cervical Muscles R Upper Trapezius Posture Head/C-Spine Posture Sitting Position C-Spine Flattened Head/C-Spine Posture Standing Position C-Spine Flattened Flexibility Deficits Upper Trapezius Muscle Length (R) Moderate Tightness,(L) Moderate Tightness Levaetor Scapulae Muscle Length (R) Moderate Tightness,(L) Moderate Tightness Scalene Group Muscle Length (R) Moderate Tightness,(L) Moderate Tightness Pectoralis Minor Muscle Length (R) Moderate Tightness,(L) Moderate Tightness Passive Joint Mobility Cervical PIVM Dec: R C2/3 L C2/3 R C3/4 L C3/4 R C4/5 L C4/5 R C5/6 L C5/6 R C6/7 L C6/7 R C7/T1 L C7/T1 WNL: R OA L OA R AA L AA AROM Cervical Spine Extension Active Range of 52 Motion (degrees) Cervical Spine Flexion Active Range of 37 Motion (degrees) Cervical Spine Right Lateral Flexion 28 Active Range of Motion (degrees) Cervical Spine Left Lateral Flexion 31 Active Range of Motion (degrees) Cervical Spine Right Rotation Active 48 Range of Motion (degrees) Cervical Spine Left Rotation Active 50 Range of Motion (degrees) MMT Bilateral Deltoid (C5) 3+ Fair+ Biceps Brachii Strength Grade 3+ Fair+ Wrist Extension Strength Grade 3+ Fair+ Triceps Brachii Strength Grade 3+ Fair+ Wrist Flexion Strength Grade 3+ Fair+ Extensor Pollicis Longus Strength Grade 3+ Fair+ Finger Abduction Strength Grade 3+ Fair+ Special Test C-Spine Foraminal Compression ([place]) Positive Left,Positive Right Test C-Spine Foraminal Distraction Test Positive Lumbopelvic Eval Posture Thoracic Spine Posture Standing Position Increased Kyphosis Lumbar Spine Posture Standing Position Decreased Lordosis Assistive device Assistive Devices None / NA Palapation tenderness bilateral lumbar spinal tenderness Yes Lumbar/Sacral Palpation Findings Tenderness Lumbar/Sacral Palpation Overall Comment B L1-S1; B SIJ, R upper gluteal mm Accessory Movement L2 bilateral L3 bilateral L4 bilateral L5 bilateral S1 bilateral Range of Motion Lumbar Spine Active Flexion Range of 36 Motion (degrees) Lumbar Spine Active Extension Range of 10 Motion (degrees) Left Lumbar Spine Lateral Flexion Active 7 Range of Motion (degrees) Right Lumbar Spine Lateral Flexion 10 Active Range of Motion (degrees) Lumbar Spine ROM Limitations Soft Tissue Tightness,Bony Restriction Manual Muscle Test Bilateral Knee Extension Strength Grade 3+ Fair+ Knee Flexion Strength Grade 3+ Fair+ Hip Flexion Strength Grade 3+ Fair+ Extensor Hallucis Longus Strength Grade 3+ Fair+ Ankle Dorsiflexion Strength Grade 3+ Fair+ Gastronemius/Soleus Strength Grade 3+ Fair+ Altered Sensation LE Dermatome Level L4,L5,S1 Comment NT Special Tests Lumbar Spine Screen Positive Hip Sreekanth (BENITEZ) Test Positive Left,Positive Right Hip Alexandra Test Positive Left,Positive Right Hip Piriformis Test Positive Left,Positive Right Reverse Sciatic Nerve Tension Test Positive Left,Positive Right Remington Test Positive Sacroiliac Joint Compression Test Negative Left,Negative Right Sacroiliac Joint Distraction Test Negative Left,Negative Right Lumbar Long [place] Distraction Test/Manual Positive Traction Neck Disability Index Neck Disability Index Section 1: Pain Intensity The pain is fairly severe at the moment Section 2: Personal Care (washing, I need some help but can dressing, etc.) manage most of my personal care Section 3: Lifting I can only lift very light weights Section 4: Reading I can't read as much as I want because of moderate pain in my neck Section 5: Headaches I have severe headaches, which come frequently Section 6: Concentration I have a lot of difficulty in concentrating when I want to Section 7: Work I can hardly do any work at all Section 8: Driving I can't drive my car at all Section 9: Sleeping My sleep is greatly disturbed (3-5 hrs sleepless) Section 10: Recreation I can hardly do any recreation activities because of pain in my neck NDI Score 37 Outpatient Therapy Assessment Impairments Problems/Impairmments Palpation Tenderness,Impaired Range of Motion,Impaired Strength,Impaired Endurance, Impaired Transfers,Impaired Gait Pattern,Impaired Walking, Impaired Standing,Impaired Sitting,Impaired Lifting, Impaired Shower/Bathing, Impaired Household Care, Impaired Stair Climbing, Impaired Incline Stepping, Impaired Stepping on Uneven Surface,Impaired Squatting, Impaired Bending,Impaired Balance,Subjective C/O Pain Prognosis Rehab Potential Fair Clinical Impression Consistent with Diagnosis Yes Short Term Goals Number of Weeks 2 Decrease Subjective C/O Pain Yes: 07/08 at worst Patient to be Ind w/ HEP Yes Manager Agricultural Goals Number of Weeks 4-6 Decreased Palpation Tenderness Yes: 1/ Increase Range of Motion Yes: WNL Increase Strength Yes: / Increase Ability to Walk Yes: 30 min without difficulty Increase Ability to Stand Yes: Improve Ability For Household Care Yes Improve Ability to Climb Stairs Yes: 1 flight without difficulty Improve Oswestry Score Yes: minimal disbility Improve Neck Disability Index Score Yes Decrease Subjective C/O Pain Yes: 10 at worst Outpatient Therapy Plan of Care Treatment Plan May Include Therapeutic Exercise Including Home Yes Exercise Program Manual Therapy Techniques Yes Neuromuscular Re-education Yes Therapeutic Activities to Return to Yes Previous Functional/Work Level Gait Training Yes ADL/Self Care Education Yes Mechanical Traction Yes Thermal Modalities Yes Electrical Stimulation Yes Ultrasound/Phonophoresis Yes Iontophoresis Yes Orthotics/Bracing/Splinting Yes Vasopneumatic Compression Pump Yes Massage Yes Eval/Re-Eval Yes Aquatic Therapy Yes Frequency Times per week 2 Duration Number of Weeks 4-6 Addendums This patient is a candidate for social No or vocational rehab? Patient/Guardian verbally acknowledges Yes understanding of treatment program and consents to further treatment? Patient/Guardian verbally acknowledges Yes understanding of diagnosis, prognosis and goals for treatment? Eval Complexity PT Charges 03051 - Moderate Complexity Shoulder/Elbow Eval Shoulder Objective Measurements Elbow Objective Measurements PHYSICIAN CERTIFICATION: I certify the specified therapy services for Lisa Grady are required, authorized, and reviewed every 30 days.
== END 2023-02-02 09:00 | disposition home or self-care (01) ==
LOC: PT 08:00
PROVIDERS: PCP Family Medicine; Visit Provider Family Medicine
DX: M54.2 Cervicalgia (principal); M54.9 Dorsalgia, unspecified; M54.50 Low back pain, unspecified
CPT/HCPCS: 97010; 97110; 97140; 97163; 97530

== ENCOUNTER 2023-03-05 09:28 | Outpatient (CLI) | payer MEDICAID, SELFPAY ==
[2023-03-05 23:56] LABS: Amphetamine/Metha Screen,Urine Negative ng/ml (<1000); Barbiturates Screen,Urine Negative ng/ml (<200); Benzodiazepines Screen,Urine Negative ng/ml (<200); Cannabinoid Screen,Urine Positive ng/ml (<50); Cocaine Screen,Urine Negative ng/ml (<300); Methadone Screen,Urine Negative ng/ml (<300); Opiate Screen,Urine Negative ng/ml (<300); Phencyclidine Screen,Urine Negative ng/ml (<25)
== END 2023-03-05 23:59 ==
LOC: LAB.DROPOF 03-06 09:29
PROVIDERS: PCP Family Medicine; Visit Provider Family Medicine
DX: Z79.899 Other long term (current) drug therapy (principal)
CPT/HCPCS: 80307

== ENCOUNTER 2023-03-11 15:08 | Outpatient (CLI) | payer MEDICAID, SELFPAY | END 2023-03-11 23:59 | LOC: RT 15:09 | PROVIDERS: PCP Family Medicine; Visit Provider Nurse Practitioner | DX: R00.2 Palpitations (principal); R01.1 Cardiac murmur, unspecified; R06.02 Shortness of breath; R07.9 Chest pain, unspecified | CPT/HCPCS: 93270 ==

== ENCOUNTER 2023-03-23 06:18 | Outpatient (CLI) | payer MEDICAID, SELFPAY ==
--- NOTE | 2023-03-23 | CA_ITS ---
APPROVED REPORT Exam: Pharmacologic Technologist: Nelly Andres, Ht: 5 ft 6 in Wt: 112 lbs BSA: 1.56 m2 HR: 65 bpm BP: 153/86 mmHg Rhythm: NSR Medical History Medications: Aspirin,,,,, Losartan,,,,, Pantoprazole,,,,, PERCOCET,,,,, ClonAZEPAM,,,,, Quetiapine,,,,, LeTROZOLE,,,,, Zofran,,,,, CompAZINE,,,,, MarinOL,,,,, Remeron,,,,, BuPROPION HCI,,,,, Stress Test Details Test: LEXISCAN Reason for pharmacologic stress test: physical limitation. HR Resting HR: 57 bpm Max Heart Rate (APMHR): 168 bpm Max HR Achieved: 115 bpm Target HR (85% APMHR): 143 bpm % of APMHR: 68 Recovery HR: 104 bpm BP Resting BP: 153/86 mmHg Max BP: 153/86 mmHg Recovery BP: 135.0/100.0 mmHg ECG Resting ECG: Normal sinus rhythm Stress ECG: No significant ST changes Arrhythmia: PVCs Clinical Exercise duration: 04:00 min Highest Stage Achieved: Exercise capacity: 1.0 METs Stress ECG Conclusion Symptoms: dizziness, CP, pressure, thightness, numbness in arm. Arrhythmias/Ectopy: PVC ST-T Changes: No significant ST changes Conclusion: Unremarkable Lexiscan stress test. Myoview images are reported separately. Test Summary REST . . . . . . . Resting REST 07:46 . . 57 . 153/ 86 . . Stage 1 . . . . . . . Myoview Injected Stage 1 01:00 . . 106 . . . . Stage 2 01:00 . . 108 . 137/ 95 . . Stage 3 01:00 . . 97 . 128/ 93 . . Stage 4 01:00 . . 92 . 133/ 89 . Stop exercise at 04:00 RECOVERY 01:00 . . 104 . 135/100 . . RECOVERY 02:00 . . 91 . 140/ 99 . . RECOVERY 02:10 . . 96 . 140/ 99 . . Electronically signed by : Glenna El MD 03/23/2023 12:32:44
--- NOTE | 2023-03-23 06:24 | NM_ITS ---
APPROVED REPORT Exam: Nuclear Stress Test Indication: Chest pain, SOB, Palpitations, Syncope, Fatigue, HTN, Tobacco use, Family history Patient Location: Outpatient Stress Tech: Nelly Ugalde [place] Tech:Connie Koroma, ARRT, RT (R)(N) Ht: 5 ft 6 in Wt: 112 lbs Bra Size: bilat. mastectomy HR: 57 bpm BP: 153/86 mmHg BSA: 1.56 m2 TID: 1.16 BMI: 18.0 History: Chest pain, SOB, Palpitations, Syncope, Fatigue, HTN, Tobacco use, Family history Procedure: Patient received 0.4 mg of intravenous Lexiscan, resting heart rate 57 bpm, resting blood pressure 153/86 mmHg, with Lexiscan maximum heart rate achieved was 115 bpm which is % of the maximum predicted heart rate and blood pressure was 153/86 mmHg. With Lexiscan, patient denied any complaint of chest pain. Cardiac Stress and Resting SPECT Images: Cardiac Stress and Resting SPECT images were obtained using technetium 99m Myoview 29.9 mCi stress and 10.40 mCi at rest. Resting and stress imaging in supine and prone positions demonstrate no evidence of fixed or reversible perfusion defects. Gated imaging demonstrates normal global and regional LV systolic function. LVEF is calculated at 59%. Conclusion: No evidence of fixed or reversible perfusion defects. Gated imaging demonstrates normal global and regional LV systolic function. LVEF is calculated at 59%. Electronically signed by : Glenna El MD 03/23/2023 12:35:23
--- NOTE | 2023-03-23 07:09 | CA_ITS ---
APPROVED REPORT EXAM: Comprehensive 2D, Doppler, and color-flow Echocardiogram Night Clerk: Deirdre Reyes RT(R) Ht: 5 ft 6 in Wt: 112lbs BSA: 1.56 BP: 128/83 mmHg Indications: SOB, CP, COPD, murmur, smoker, palpitations, fatigue, edema, breast cancer bilateral mastectomy. Technically difficult study secondary to body habitus and lung interference. M-Mode Dimensions RVDd 1.83 cm (0.9-2.6) LVDd 3.54 cm (3.5-5.7) LVDs 2.67 cm (3.5-5.7) IVSd 0.87 cm (0.6-1.1) PWd 0.75 cm (0.6-1.1) EF (Teich) 49.70% FS 24.60% EDV (Teich) 52.30 mL ESV (Teich) 26.30 mL LV Diastology E Decel Time 150 (160-240 msec) E/A Ratio 0.9 Mitral Valve MV E Max Jose. 76.0 (40-130 cm/s) MV A Velocity 86.0 (40-130 cm/s) E/A Ratio 0.87 MV PHT 44.0 ms Left Ventricle The left ventricle is normal size. The left ventricular systolic function is normal. The left ventricular ejection fraction is within the normal range. There is normal left ventricular wall thickness. Regional wall motion cannot be estimated due to technically difficult study. Diastolic function is indeterminate. LVEF is 55%. Right Ventricle The right ventricle is not well-visualized, but is grossly normal in size and function. Atria The left atrium size is normal. The right atrium is not well-visualized. The interatrial septum is not well-visualized. Aortic Valve The aortic valve opens well. There is no aortic valvular stenosis. No aortic regurgitation is present. Mitral Valve The mitral valve is normal in structure. No evidence of mitral valve stenosis. Mild mitral regurgitation. Tricuspid Valve The tricuspid valve leaflets are thin and pliable. Trace tricuspid regurgitation. There is insufficient TR jet to estimate RVSP. Pulmonic Valve The pulmonic valve is not well-visualized. Great Vessels The aortic root is not well-visualized. The ascending aorta is not well-visualized. The IVC is not well-visualized. Pericardium Trivial pericardial effusion is present. No echo indications of tamponade. Other Information Study Quality: Technically Difficult. Technically limited study due to Lung interference. Conclusion Technically difficult and technically limited study due to poor acoustic windows. Normal biventricular systolic function. Mild MR. Trivial pericardial effusion. Electronically signed by : Glenna El MD 03/24/2023 11:42:52
[2023-03-23] MEDS: ISOTOPE MYOVIEW (PER STUDY) 1 DOSE IV (08:17)
[2023-03-23] MEDS: SODIUM CHLORIDE 0.9% 10ML SYR (RAD ONLY) 10 ML IV ×2 (08:17)
[2023-03-23] MEDS: REGADENOSON 0.4MG/5ML SYRINGE 0.400000000000000022 MG IV (08:17)
== END 2023-03-23 23:59 ==
PROVIDERS: PCP Family Medicine; Visit Provider Nurse Practitioner
DX: R07.9 Chest pain, unspecified (principal); R00.2 Palpitations; R06.02 Shortness of breath; R94.31 Abnormal electrocardiogram [ECG] [EKG]
CPT/HCPCS: 78452; 93017; 93018; 93306; A9502; J2785

== ENCOUNTER 2023-05-07 12:42 | Emergency (ER) | payer MEDICAID, SELFPAY ==
[2023-05-07 13:30] VITALS: BP 130/97; PULSE 85; RESP 18; TEMP 36.8; O2SAT 95; BMI 18.1
--- NOTE | 2023-05-07 13:39 | EXP.UTC ---
Discharge Plan Disposition Patient Disposition: Home, Self-Care Condition: Good Prescriptions Prescriptions: New prednisone 10 mg tablet 10 mg PO DIRECTED 9 Days Qty: 21 0RF Rx Instructions: Take 4 tablets daily for 3 days, then take 2 tablets daily for 3 days, then take 1 tablet daily for 3 days, then stop. benzonatate 100 mg capsule 100 mg PO TIDP PRN (Reason: Cough) Qty: 30 0RF amoxicillin-pot clavulanate 875-125 mg Tablet 1 tab PO Q12H Qty: 20 0RF guaifenesin [Mucinex] 600 mg tablet extended release 12hr 600 - 1,200 mg PO BIDP PRN (Reason: Congestion) Qty: 30 0RF No Action aspirin [Adult Aspirin Regimen] 81 mg tablet,delayed release (DR/EC) 81 mg PO DAILY letrozole 2.5 mg tablet 2.5 mg PO DAILY alum-mag hydroxide-simeth [Maalox Maximum Strength] 400-400-40 mg/5 mL suspension 5 ml PO QID PRN (Reason: indigestion) Qty: 355 0RF bupropion HCl 75 mg tablet 75 mg PO BID Qty: 60 10RF losartan 100 mg tablet 100 mg PO DAILY Qty: 90 3RF pantoprazole 40 mg tablet,delayed release (DR/EC) See Rx Instructions .ROUTE .COMPLEX Qty: 180 3RF Dose Instruction: TAKE ONE TABLET BY MOUTH EVERY DAY Rx Instructions: TAKE ONE TABLET BY MOUTH twice a day prochlorperazine maleate [Compazine] 10 mg tablet 10 mg PO Q8H PRN (Reason: nausea and vomiting) Qty: 60 3RF mirtazapine [Remeron] 15 mg tablet 15 mg PO HS Qty: 30 3RF clonazepam 0.5 mg tablet See Rx Instructions .ROUTE .COMPLEX PRN (Reason: Anxiety) Qty: 90 3RF Rx Instructions: one during the day as needed, two at bedtime as needed for sleep PRN; oxycodone-acetaminophen [Percocet] 7.5-325 mg tablet 1 tab PO Q8H PRN (Reason: pain) Qty: 90 0RF Rx Instructions: pain associated with cancer treatment quetiapine 25 mg tablet See Rx Instructions .ROUTE .COMPLEX Qty: 90 0RF Dose Instruction: TAKE 1 TABLET BY MOUTH THREE TIMES DAILY NEEDED FOR ANXIETY AND SLEEP Rx Instructions: TAKE 1 TABLET BY MOUTH THREE TIMES DAILY NEEDED FOR ANXIETY AND SLEEP divalproex 250 mg tablet,delayed release (DR/EC) 250 mg PO BID Ubrelvy 50 mg tablet 50 mg PO DAILY Referrals Follow up/Referrals: Oren Epps MD [Primary Care Provider] - See instructions Activity Restrictions/Add. Instructions Additional Instructions/Restrictions: Drink plenty of fluids. Take tylenol or ibuprofen for pain or fever. Take the medications as directed. Follow up with your regular doctor. GO TO THE ER FOR ANY WORSENING SYMPTOMS Don't start the oral steroids until tomorrow since you had the steroid shot here today. Clinical Impressions Clinical Impression: COPD exacerbation Instructions Patient Instructions: Chronic Obstructive Pulmonary Disease, DI for Chronic Obstructive Pulmonary Disease, Ceftriaxone Injection, Dexamethasone Injection Discharge ED Provider: Jeff Hughes [facility] General Stated complaint: cough,vomitting, fever, sore throat Time Seen by Provider: 05/07/23 13:39 Related Data Home Medications Medication Instructions Recorded Confirmed aspirin 81 mg tablet,delayed 81 mg PO DAILY 06/16/22 05/07/23 release (Adult Aspirin Regimen) letrozole 2.5 mg tablet 2.5 mg PO DAILY 07/14/22 05/07/23 divalproex 250 mg tablet,delayed 250 mg PO BID 05/07/23 05/07/23 release ubrogepant 50 mg tablet (Ubrelvy) 50 mg PO DAILY 05/07/23 05/07/23 Previous Rx's Medication Instructions Recorded aluminum-mag hydroxide-simethicone 5 ml PO QID PRN indigestion #355 mL 07/14/22 400 mg-400 mg-40 mg/5 mL oral susp (Maalox Maximum Strength) bupropion HCl 75 mg tablet 75 mg PO BID Depression #60 tabs 03/05/23 losartan 100 mg tablet 100 mg PO DAILY #90 tabs 03/05/23 pantoprazole 40 mg tablet,delayed See Rx Instructions .Route 03/05/23 release .COMPLEX #180 tabs prochlorperazine maleate 10 mg 10 mg PO Q8H PRN nausea and 03/05/23 tablet (Compazine) vomiting #60 tabs mirtazapine 15 mg tablet (Remeron) 15 mg PO HS #30 tabs 04/02/23 clonazepam 0.5 mg tablet See Rx Instructions .Route 04/29/23 .COMPLEX PRN Anxiety #90 tabs oxycodone-acetaminophen 7.5 mg-325 1 tab PO Q8H PRN pain #90 tabs 04/29/23 mg tablet (Percocet) quetiapine 25 mg tablet See Rx Instructions .Route 04/29/23 .COMPLEX #90 tabs amoxicillin 875 mg-potassium 1 tab PO Q12H #20 tabs 05/07/23 clavulanate 125 mg tablet benzonatate 100 mg capsule 100 mg PO TIDP PRN Cough #30 caps 05/07/23 guaifenesin 600 mg tablet, 600 - 1,200 mg (1 - 2 x 600 mg) PO 05/07/23 extended release 12 hr (Mucinex) BIDP PRN Congestion #30 tabs prednisone 10 mg tablet 10 mg PO DIRECTED 9 days #21 05/07/23 tabs Allergies Allergy/AdvReac Type Severity Reaction Status Date / Time hydrocodone [From Burney] Allergy Severe Rash Verified 05/07/23 13:46 sulfamethoxazole Allergy Severe Blisters/uncontrolled Verified 05/07/23 13:46 [From Bactrim] bladder trimethoprim [From Bactrim] Allergy Severe Blisters/uncontrolled Verified 05/07/23 13:46 bladder PFSH PFSH Disclaimer: The information contained in this section may have been updated after the patient was seen, as this information can be updated by other users. Medical History Aneurysm Basilar artery aneurysm Breast cancer COPD (chronic obstructive pulmonary disease) Dorsalgia Dyspnea Emphysema lung Surgical History History of left mastectomy Social History Smoking Status: Current every day smoker tobacco type: cigarettes packs per day: 1 second hand exposure: Yes alcohol intake: never substance use type: denies use current occupational status: other Travel in the last 8 weeks: None household members: friend(s) housing: house current occupational exposures/hazards: No caffeine: Yes ROS Obtained: Yes All systems reviewed & no additional complaints except as documented Constitutional Constitutional: Reports poor appetite Eyes Eyes: Reports system reviewed and no additional complaints, except as documented ENT Ears, Nose, Mouth, and Throat: Reports as per HPI Cardiovascular Cardiovascular: Reports system reviewed and no additional complaints, except as documented and Denies chest pain Respiratory Respiratory: Denies shortness of breath, Reports chest congestion, Reports cough, Denies stridor and Reports wheezing Gastrointestinal Gastrointestingal: Reports system reviewed and no additional complaints, except as documented; Denies abdominal pain, diarrhea or vomiting Musculoskeletal Musculoskeletal: Reports system reviewed and no additional complaints, except as documented and Denies arthralgias Integumentary/Breasts Skin/Breast: Reports system reviewed and no additional complaints, except as documented and Denies rash Neurologic Neurologic: Denies paresthesias Allergic/Immunologic Allergic/Immunologic: Reports wheezing Physical Exam General General appearance: alert and in no apparent distress Eye Eye exam: Present normal appearance, PERRL and EOMI ENT ENT exam: Present mucous membranes moist and normal external ear exam Expanded ENT Exam External ear exam: Present normal external inspection TM/Canal exam: Bilateral TM: erythema and bulging Nose exam: Absent sinus tenderness Nasal speculum exam: Bilateral: normal Mouth exam: Present normal external inspection; Absent drooling Teeth exam: Present normal inspection Throat exam: Present tonsillar erythema and tonsillomegaly Neck Neck exam: Present normal inspection, full ROM and trachea midline; Absent tenderness, lymphadenopathy or thyromegaly Chest Chest inspection: Present normal inspection and symmetric chest wall rise; Absent tenderness or rash Respiratory Respiratory exam: Present normal lung sounds bilaterally; Absent respiratory distress, wheezes, stridor or accessory muscle use Cardiovascular Cardiovascular exam: Present regular rate, normal rhythm and normal heart sounds Abdominal Exam Abdominal exam: Present soft; Absent distention, tenderness, guarding, rebound or rigidity Extremities Exam Extremities exam: Present normal inspection, full ROM and normal capillary refill; Absent tenderness or calf tenderness Back Exam Back exam: Present normal inspection and full ROM; Absent tenderness Neurological Exam Neurological exam: Present alert and oriented X3 Psychiatric Psychiatric exam: Present normal affect and normal mood Skin Skin exam: Present warm, dry, intact and normal color Lymphatic Lymphatic Findings: no adenopathy Medical Decision Making Medical Records Medical records reviewed: No I reviewed the patient's medical records. Edd Inquiry Pt receiving controlled substance: No Lab Data Lab results reviewed: Yes I reviewed the patient's lab results. Radiology Data #1: Image(s): Chest Image Reviewed: Yes I reviewed the patient's radiology image and Yes I have reviewed radiologist's interpretation Preliminary Findings: Normal/NAD and No Infiltrates Seen FINAL REPORT CLINICAL HISTORY: cough, congestion COMPARISON: 02/20/2020 FINDINGS: Two views of the chest were obtained. The heart size and pulmonary vascularity are within normal limits. Pectus excavatum deformity is noted. The lungs are hyperinflated consistent with COPD. No acute pulmonary abnormality is identified. There is no pneumothorax. The bony thorax is intact. IMPRESSION: No active cardiopulmonary disease. Reviewed, Interpreted and Dictated by Jeremiah Colon III, MD Transcribed by Bernie Winchester Authenticated and . [facility]
[2023-05-07 13:56] LABS: UTC Influenza A Antigen Negative (Negative); UTC Influenza B Antigen Negative (Negative); UTC Strep Screen (Rapid) Negative (Negative)
--- NOTE | 2023-05-07 14:21 | XR_ITS ---
FINAL REPORT CLINICAL HISTORY: cough, congestion COMPARISON: 02/20/2020 FINDINGS: Two views of the chest were obtained. The heart size and pulmonary vascularity are within normal limits. Pectus excavatum deformity is noted. The lungs are hyperinflated consistent with COPD. No acute pulmonary abnormality is identified. There is no pneumothorax. The bony thorax is intact. IMPRESSION: No active cardiopulmonary disease. Reviewed, Interpreted and Dictated by Jeremiah Colon III, MD Transcribed by Bernie Winchester Authenticated and [facility]
[2023-05-07] MEDS: DEXAMETHASONE 4MG/ML 1ML VIAL 8 MG IM (14:23)
[2023-05-07] MEDS: cefTRIAXone 1GM VIAL 1 GM IM (14:23)
[2023-05-07] MEDS: LIDOCAINE 1% 5ML PF VIAL IM (14:23)
[2023-05-07 14:57] VITALS: BP 130/97; PULSE 85; RESP 18; TEMP 36.8; O2SAT 96
[2023-05-07 16:05] LABS: Adenovirus,PCR Not Detected (NotDetected); Coronavirus 229E Not Detected (NotDetected); Coronavirus NL63 Not Detected (NotDetected); Coronavirus OC43 Not Detected (NotDetected); Human Metapneumovirus Not Detected (NotDetected); Influenza A, PCR Not Detected (NotDetected); Influenza AH1, 2009 Not Detected (NotDetected); Influenza AH1, PCR Not Detected (NotDetected); Influenza AH3,PCR Not Detected (NotDetected); Influenza B, PCR Not Detected (NotDetected); Parainfluenza 1, PCR Not Detected (NotDetected); Parainfluenza 2, PCR Not Detected (NotDetected); Parainfluenza 3, PCR Not Detected (NotDetected); Rhinovirus/Enterovirus Not Detected (NotDetected)
[2023-05-07 16:06] LABS: Coronavirus 19, PCR Not Detected (NotDetected); Parainfluenza 4, PCR Not Detected (NotDetected); Respiratory Syncytial Virus Not Detected (NotDetected)
[2023-05-07 18:06] LABS: Coronovirus HKU1,PCR Detected (NotDetected)
== END 2023-05-07 14:56 | disposition home or self-care (01) ==
PROVIDERS: Emergency Provider Nurse Practitioner Family; PCP Family Medicine
DX: J44.1 Chronic obstructive pulmonary disease with (acute) exacerbation (principal); B34.2 Coronavirus infection, unspecified; R11.2 Nausea with vomiting, unspecified; R07.0 Pain in throat; R05.9 Cough, unspecified; F17.210 Nicotine dependence, cigarettes, uncomplicated
CPT/HCPCS: 71046; 87632; 87635; 87804; 87880; 96372; 99212; 99214; G0463; J0696

== ENCOUNTER 2024-04-07 11:15 | Outpatient (CLI) | payer MEDICAID, SELFPAY ==
[2024-04-07 19:18] LABS: Coronavirus 19, PCR Not Detected (NotDetected); Human Rhinovirus Not Detected (NotDetected); Influenza A, PCR Not Detected (NotDetected); Influenza B, PCR Not Detected (NotDetected); Respiratory Syncytial Virus Not Detected (NotDetected)
== END 2024-04-07 23:59 | disposition home or self-care (01) ==
LOC: LAB.DROPOF 04-08 11:04
PROVIDERS: PCP Family Medicine; Visit Provider Family Medicine
DX: R05.9 Cough, unspecified (principal); R53.83 Other fatigue
CPT/HCPCS: 87631

== ENCOUNTER 2024-12-14 12:37 | Emergency (ER) | payer MEDICAID, SELFPAY ==
--- OUTSIDE RECORDS SUMMARY | 2024-11-13 06:52 | XMS_ITS | Encounter Summary ---
Author Organization [facility] Address [address] [place] [address] Care Team Providers Care Housekeeping Aide Name Role Phone Jovany Jorge MD Unavailable [phone] Oren Epps MD Primary Care Provider [phone] Reason for Referral * Imaging (Urgent) - Closed Specialty Diagnoses / Procedures Referred By Contac t Referred To Contact Radiology Diagnoses Chest pain on breathing Procedures CT Chest wo IV Contrast Kristopher Jackson MD [address] [place] [address] Phone: tel: fax: Referral ID Status Reason Start Date Expiration Date Visits Re quested Visits Authorized [id number] Closed 11/09/2024 05/11/2026 1 1 Reason for Visit * Imaging (Urgent) - Closed Specialty Diagnoses / Procedures Referred By Contac t Referred To Contact Radiology Diagnoses Chest pain on breathing Procedures CT Chest wo IV Contrast Kristopher Jackson MD [address] [place] [address] Phone: tel: fax: Referral ID Status Reason Start Date Expiration Date Visits Re quested Visits Authorized [id number] Closed 11/09/2024 05/11/2026 1 1 Encounter Details Date Type Department Care Team (Latest Contact Info) Description 11/13/2024 6:52 AM EDT - 11/13/2024 11:59 PM EDT Hospital Encounter [facility] [address] [place] [address] Chest pain on breathing Discharge Disposition: Home or Self Care Social History Tobacco Use Types Packs/Day Years Used Date Smoking Tobacco: Every Day Cigarettes 0.5 42.8 Started: 1982 Passive Smoke Exposure: Current Smokeless Tobacco: Never Alcohol Use Standard Drinks/Week Comments Never 0 (1 standard drink = 0.6 oz pure alcohol) Alcoholic Drinks/day: Denies alcohol consumption PHQ-2 Answer Date Recorded Patient Health Questionnaire-2 Score 2 04/21/2024 PHQ-9 Answer Date Recorded Patient Health Questionnaire-9 Score 6 04/21/2024 AUDIT-C Answer Date Recorded Q1: How often do you have a drink containing alcohol? Never 08/10/2024 Q2: How many drinks containi ng alcohol do you have on a typical day when you are drinking? Patient does not drink Q3: How often do you have si x or more drinks on one occasion? Never 08/10/2024 Comments No Sex and Gender Information Value Date Recorded Sex Assigned at Not on file Legal Sex Female 7:59 PM EDT Gender Identity Not on file Sexual Orientation Not on file documented as of this encounter Medications at Time of Discharge ASPIRIN 81 MG chewable tabletIndications :Atypical chest pain Chew 1 tablet (81 mg) daily. 90 tablet 3 04/21/2024 buPROPion (Wellbutrin) 75 MG tablet 12/10/2022 clonazePAM (KlonoPIN) 0.5 MG tablet Take 1 tablet by mouth 2 times a day as needed. 09/22/2021 dronabinol (Marinol) 5 MG capsule 12/06/2023 letrozole (Femara) 2.5 MG chemo tabletIndications :Malignant neoplasm of upper-outer quadrant of right breast in female, estrogen receptor positive Take 1 tablet (2.5 mg total) by mouth 1 (one) time each day. Take with or without food. 90 tablet 3 12/09/2023 losartan (Cozaar) 100 MG tablet 04/03/2022 metoprolol tartrate (Lopressor) 25 MG tabletIndications :Prior to CT Coronary Angiogram Take 1 tablet by mouth As Directed (FOR CT ONLY) for up to 4 doses. Dosing instructions for the night prior to the exam and the morning of the exam - Take 2 tablets if your heart rate (HR) is > 70 BPM - Take 1 tablet if you heart rate (HR) is 60-70 BPM 4 tablet 07/28/2024 mirtazapine (Remeron) 15 MG tablet 01/08/2023 nicotine (Nicoderm CQ) 21 MG/24HR patch Place 1 patch on the skin 1 (one) time each day at the same time. oxyCODONE-acetami nophen (Percocet) 5-325 MG tablet Take 1 tablet by mouth every 8 hours as needed. 09/23/2021 prochlorperazine (Compazine) 10 MG tablet 1 tablet. 07/10/2022 QUEtiapine (SEROquel) 25 MG tablet Take 1 tablet by mouth 3 times a day. 09/11/2021 rosuvastatin (Crestor) 20 MG tabletIndications :Atypical chest pain Take 1 tablet (20 mg) by mouth nightly. 90 tablet 3 04/21/2024 tiotropium (Spiriva HandiHaler) 18 MCG inhalation capsuleIndication s:Chronic obstructive pulmonary disease, unspecified COPD type (CMS/HCC) Place 1 capsule (18 mcg) into inhaler and inhale 1 (one) time each day. 30 capsule 01/24/2024 documented as of this encounter Plan of Treatment Upcoming Encounters Date Type Department Care Team (Late st Contact Info) Description 02/15/2025 8:00 AM EST Ancillary Procedure [facility] [address] [place] [address] 02/15/2025 9:20 AM EST Appointment [facility] [address] [place] [address] 02/15/2025 10:15 AM EST Office Visit [facility] [address] [facility] [place] [id number] Mike Epperson MD [address] [place] [address] [phone] (work) documented as of this encounter Procedures Procedure Name Priority Date/Time Associated Diagnosis Comments CT CHEST WO IV CONTRAST STAT 11/13/2024 7:03 AM EDT Chest pain on breathing documented in this encounter Results * CT Chest wo IV Contrast (11/13/2024 7:03 AM EDT) Anatomical Region Laterality Modality Chest Computed Tomogra phy Impressions 11/13/2024 8:41 AM EDT Right upper lobe 15 mm part solid nodule with 6 mm solid component measures very similar to recent June [address] but has increased in size and density since 2022 imaging. Nodule will need continued attention on follow-up with repeat CT in 6- 12 months. Mild emphysema with respiratory bronchiolitis/smoking related lung disease. CRITICAL RESULT: No. COMMUNICATION: Per this written report. By electronically signing this report, I, the attending physician, attest that I have personally reviewed the images/data for the above examination(s) and agree with the final edited report. Drafted by Clemente Torre MD on 11/13/2024 7:41 AM Final report signed by Shailesh Mansfield MD on 11/13/2024 8:41 AM Narrative 11/13/2024 8:41 AM EDT CLINICAL INDICATION: Post right upper lobe bronchoscopy July 2024 with negative right upper lobe lung nodule biopsy. TECHNIQUE: Multiple CT helical images were obtained from thoracic inlet through upper abdomen without administration of IV contrast. The imaging protocol used in this examination was optimized to achieve diagnostic quality with the lowest possible radiation dose in accordance with the principles of ALARA (As Low As Reasonably Achievable). COMPARISON: CT chest 07/13/2024 and 07/28/2022. FINDINGS: Mediastinum and Pleura: No mediastinal or hilar adenopathy. No pleural or pericardial effusion. Mild coronary artery calcifications. Lungs: Trachea and main bronchi are patent. No bronchiectasis or bronchial wall thickening. Mild paraseptal emphysema. Right upper lobe 15 mm part solid nodule with 6 mm solid component (series 4/images 120 and 122). Nodule measures very similar to recent June [address] but has increased in size and density since June [address] when it measured approximately 6 mm and was groundglass. Very similar subtle ill-defined diffuse upper lobe predominant centrilobular groundglass nodules. Few unchanged bilateral sub-5 mm solid nodules. Reference right middle lobe (series 4/image 289). Bibasilar linear atelectasis/scarring. Respiratory motion limits evaluation of the lung bases. Upper Abdomen: Left hepatic cyst. Cholecystectomy. Musculoskeletal: Dense sclerotic L3 bone island. Mild pectus excavatum. Procedure Note Shailesh Mansfield MD - 11/13/2024 CLINICAL INDICATION: Post right upper lobe bronchoscopy July 2024 with negative right upperlobe lung nodule biopsy. TECHNIQUE: Multiple CT helical images were obtained from thoracic inlet through upperabdomen without administration of IV contrast. The imaging protocol used in this examination was optimized to achievediagnostic quality with the lowest possible radiation dose in accordancewith the principles of ALARA (As Low As Reasonably Achievable). COMPARISON: CT chest 07/13/2024 and 07/28/2022. FINDINGS: Mediastinum and Pleura: No mediastinal or hilar adenopathy. No pleural orpericardial effusion. Mild coronary artery calcifications. Lungs: Trachea and main bronchi are patent. No bronchiectasis or bronchialwall thickening. Mild paraseptal emphysema. Right upper lobe 15 mm part solid nodule with 6mm solid component (series 4/images 120 and 122). Nodule measures verysimilar to recent June [address] but has increased in size and densitysince June [address] when it measured approximately 6 mm and wasgroundglass. Very similar subtle ill-defined diffuse upper lobepredominant centrilobular groundglass nodules. Few unchanged bilateralsub-5 mm solid nodules. Reference right middle lobe (series 4/image 289).Bibasilar linear atelectasis/scarring. Respiratory motion limitsevaluation of the lung bases. Upper Abdomen: Left hepatic cyst. Cholecystectomy. Musculoskeletal: Dense sclerotic L3 bone island. Mild pectus excavatum. IMPRESSION: Right upper lobe 15 mm part solid nodule with 6 mm solid componentmeasures very similar to recent June [address] but has increased insize and density since 2022 imaging. Nodule will need continued attentionon follow-up with repeat CT in 6-12 months. Mild emphysema with respiratory bronchiolitis/smoking related lungdisease. CRITICAL RESULT: No. COMMUNICATION: Per this written report. By electronically signing this report, I, the attending physician, attestthat I have personally reviewed the images/data for the aboveexamination(s) and agree with the final edited report. Drafted by Clemente Torre MD on 11/13/2024 7:41 AM Final report signed by Shailesh Mansfield MD on 11/13/2024 8:41 AM Kristopher Jackson MD IMG CT PROCEDURES Final Result documented in this encounter Visit Diagnoses Diagnosis Chest pain on breathing Painful respiration documented in this encounter Additional Health Concerns Infection Onset Date Last Indicated Resolved Time Tuberculosis Rule-Out 08/01/2024 08/01/2024 Assessment Noted Time PHQ-9 Depression Total Score: 6 04/21/19 25 1:54 PM EST A fall risk assessment has been complete d for the patient 08/10/2024 8:00 AM EDT A Body Mass Index follow-up plan has been documented for the patient 07/28/2024 1:45 PM EDT documented as of this encounter Care Teams Housekeeping Aide Relationship Specialty Start Date End Date Oren Epps MD [address] [place] [address] PCP - General 08/01/24 Jovany Jorge MD [address] [facility] [address] [place] [address] Consulting Physician Neurosurgery 10/15/21 documented as of this encounter
--- OUTSIDE RECORDS SUMMARY | 2024-11-27 06:38 | XMS_ITS | Encounter Summary ---
Author Organization [facility] Address [address] [place] [address] Care Team Providers Care Nurses Supervisor Name Role Phone Jovany Jorge MD Unavailable [phone] Oren Epps MD Primary Care Provider [phone] Reason for Referral * Imaging (Routine) - Closed Specialty Diagnoses / Procedures Referred By Contac t Referred To Contact Radiology Diagnoses Atypical chest pain Procedures CT Angio Cardiac Coronary Arteries Romulo Grubbs DO [address] [place] [address] Phone: tel: fax: Referral ID Status Reason Start Date Expiration Date Visits Re quested Visits Authorized [id number] Closed 07/28/2024 01/27/2026 1 1 Reason for Visit * Imaging (Routine) - Closed Specialty Diagnoses / Procedures Referred By Joel kwong Referred To Contact Radiology Diagnoses Atypical chest pain Procedures CT Angio Cardiac Coronary Arteries Romulo Grubbs DO [address] [place] [address] Phone: tel: fax: Referral ID Status Reason Start Date Expiration Date Visits Re quested Visits Authorized [id number] Closed 07/28/2024 01/27/2026 1 1 Encounter Details Date Type Department Care Team (Latest Contact Info) Description 11/27/2024 6:38 AM EDT - 11/27/2024 8:36 AM EDT Hospital Encounter [facility] [address] [place] [address] Atypical chest pain Discharge Disposition: Home or Self Care Social [...] on file documented as of this encounter Last Filed Vital Signs Vital Sign Reading Time Taken Comments Blood Pressure 164/93 11/27/2024 8:27 AM EDT Pulse 69 11/27/2024 8:27 AM EDT Temperature - - Respiratory Rate 20 11/27/2024 8:27 AM EDT Oxygen Saturation - - Inhaled Oxygen Concentration - - Weight 60.3 kg (132 lb 15 oz) 11/27/2024 7:20 A M EDT Height 167.6 cm (5' 6 ) 11/27/2024 7:20 AM EDT Body Mass Index 21.46 11/27/2024 7:20 AM EDT documented in this encounter Discharge Instructions * Discharge Instructions* Tanvir Dias - 11/27/2024 8:07 AM EDT Images from the original note were not included. Caring for Yourself after Contrast Imaging If you had ORAL contrast: You can go back to your normal diet and activities as tolerated. Drink plenty of fluids, unless told otherwise. If you had IV contrast: You can go back to your normal diet and activities as tolerated. Drink plenty of fluids, unless told otherwise. Leave a bandage on the site for 30 minutes (where the IV was inserted or blood was drawn). If you had Intravesical (bladder) contrast: Return to normal diet and activity. What you need to know about delayed reaction to IV contrast What is IV Contrast? Contrast is a dye that is put into your body through an IV. It is used for imaging scans such as CT scans and MRIs. The contrast makes blood vessels, organs and other parts of your body show up better on the scan. What do I need to do after IV contrast? Drink lots of fluids. This will help flush the contrast out of your system. Drink 2-3 extra glasses or bottles of water within 4 hours of your scan. What is a contrast reaction? A contrast reaction is a bad side effect from the contrast dye. It is rare but it does happen. They can be mild - such as sneezing, itching, or hives. They can be severe - such as trouble breathing, throat swelling, and irregular heart beat. When do these reactions happen? They often happen right after the contrast is injected. Some happen hours after going home. Go to the nearest Emergency Department right away if you have any of these symptoms after you leavethe clinic or hospital. Sneezing Itching in your mouth, throat, eyes, ears, or skin Rash or hives Throwing up or stomach sickness High heart rate or ???racing?? of your heart Feeling dizzy or woozy Feeling short of breath or like you can???t take a deep breath Feeling very anxious for no other reason It is very important that these reactions be treated. Tell the doctor or nurse that you are having a reaction to IV contrast dye. Do not ignore any sign of a reaction! All reactions must be assessed by a doctor. Call 911 if you are alone and your reaction is more than mild sneezing or itching. If you have a mild reaction, call to speak with a Radiologist, explain that you havehad a contrast reaction, as this needs to be added to your medical record. documented in this encounter Medications at Time of Discharge ASPIRIN 81 MG chewable tabletIndications :Atypical chest pain Chew 1 tablet (81 mg) daily. 90 tablet 3 04/21/2024 6 buPROPion (Wellbutrin) 75 MG tablet 12/10/2022 clonazePAM [...] s:Chronic obstructive pulmonary disease, unspecified COPD type (CMS/[facility]) Place 1 capsule (18 mcg) into inhaler and inhale 1 (one) time each day. 30 capsule 01/24/2024 documented as of this encounter Plan of Treatment Upcoming Encounters Date Type Department Care Team (Late st Contact Info) Description 02/15/2025 8:00 AM EST Ancillary Procedure [facility] [address] [place] [address] 02/15/2025 9:20 AM EST Appointment [facility] [address] [place] [address] 02/15/2025 10:15 AM EST Office Visit [facility] [address] [place] [address] Mike Epperson MD [address] [place] [address] documented as of this encounter Procedures Procedure Name Priority Date/Time Associated Diagnosis Comments CT ANGIO CARDIAC CORONARY ARTERIES Routine 11/27/2024 8:29 AM EDT Atypical chest pain documented in this encounter Results * CT Angio Cardiac Coronary Arteries (11/27/2024 8:29 AM EDT) Anatomical Region Laterality Modality Heart Computed Tomogra phy Impressions 11/27/2024 10:03 AM EDT 1. Multi-vessel non-obstructive atherosclerotic coronary artery disease. ---- Mild (25-49%) stenosis in the left circumflex coronary artery and obtuse marginal branch ----Minimal (less than 25%) stenosis in the left main coronary artery, left anterior descending coronary artery, first and second diagonal branches. 2. Overall, there is (P1) mild amount of total coronary plaque present (which includes both calcified and non-calcified plaques). Mild coronary calcification with an Agatston score = 137 using the AJ-130 method. Recommendation: CAD-RADS 2 / P1: Consider non-atherosclerotic causes of symptoms. Consider risk factor modification (e.g. diet/exercise/smoking cessation) and preventive pharmacotherapy (e.g consider LDL goal of <100). 3. No significant non coronary cardiac findings in particular normal cardiac chambers, non-coronary vessels in the field of view and unremarkable pericardium. 4. Extracardiac structures in the field of view are unremarkable. Critical Result: No. Communication: Per this written report. By electronically signing this report, I, the attending physician, attest that I have personally reviewed the images/data for the above examination(s) and agree with the final edited report. Drafted by Jone Orozco on 11/27/2024 8:41 AM Final report signed by Taz Joseph MD on 11/27/2024 10:03 AM Narrative 11/27/2024 10:03 AM EDT CLINICAL INFORMATION: 54 years old Female with a past medical history of asthma, breast cancer, cerebral aneurysm, COPD, former tobacco use, GERD, hypertension who presents for coronary CTA for workup of chest pain with clinical concern for myocardial ischemia. Height: 168 cm Weight: 60 kg Baseline Heart Rate on Arrival: 70 beats/min Relevant Cardiac Diagnostic Tests: Exercise stress test - 07/25/2024 Comparison Imaging: CT chest - 11/13/2024 SCAN TECHNIQUE: Pre-Medication: The patient received the following medications prior to the Cardiac CT: 100mg of po metoprolol and 0.8mg sublingual nitroglycerin. The average heart rate at the time of acquisition was 51 bpm (60 bpm to 61 bpm) and regular. Image Acquisition and Reconstruction: A Dual source 192 MDCT scanner ([employer], [employer]) was used for data acquisition. A non-contrast coronary calcium scan was initially performed. Bolus tracking in the ascending aorta with a threshold of 180 HU was performed. Immediately afterwards, ECG synchronized Cardiac CT was then performed from cardiac base to apex using prospective gating. A total of 80 mL Omnipaque 350mgI/mL contrast media was administered followed by a saline flush using a biphasic injection protocol. Transaxial images were reconstructed at 0.75 mm slice thickness. Data was reviewed interactively on an advanced workstation capable of 2 and 3 dimensional displays in all conventional reconstruction formats including multiplanar reformations, maximum intensity projections, curved multiplanar reformations, and volume rendered reconstructions. Selected routine images displaying relevant coronary anatomy and pathology were saved and sent to PACS. Total DLP (Dose-Length Product): 260.25 mGy.cm. Please note: The reported value represents the total of one or more individual components during the CT acquisition on this date and at this time, and as such, the same value may appear in more than one CT report depending on the interpreting/reporting physicians. Technical Quality: Overall image quality is Good, with minor artifacts that do not significantly impact diagnostic quality. Coronary artery opacification is Adequate. FINDINGS: --- Coronary Calcium Scoring --- Left Main= 19 Left Anterior Descending= 113 Left Circumflex= 6 Right Coronary Artery= 0 Total calcium score = 137 using the AJ-130 method (total volume score is 111). This calcium score is in the 97 percentile rank for age and gender, meaning that 3% of patients of the same age and gender will have a higher score. The calculated vascular age for this patient is 76 years. --- Coronary Plaque Analysis: There is mild amount of total coronary plaque with total plaque volume of 101mm3. The Total Plaque Volume for this patient is 78 percentile for age and sex as compared to their peer population (Henrik, et al. J Am Faustina Cardiol Img 2022). --- Coronary CT Angiography --- The coronaries have normal origin and proximal course. The coronary arterial system is right dominant. Left Main: CAD-RADS 1. The left main originates from the left sinus of Valsalva and bifurcates into the left anterior descending and left circumflex arteries. Minimal stenosis in the distal segment secondary to calcified plaque. Left Anterior Descending: CAD-RADS 1. The LAD arises from the left main, courses down the anterior interventricular groove, gives off 2 notable diagonal branches, and terminates as a recurrent apical branch. Minimal stenosis in the proximal and mid segments secondary to calcified plaque. Minimal stenoses at the ostium of both the first and second diagonal branches secondary to calcified plaque. Left Circumflex: CAD-RADS 2. The LCx arises from the left main, gives off 1 notable obtuse marginal branches and 1 notable posterolateral branches, and terminates in the left AV groove. Mild stenosis in the mid segment secondary to mixed plaque. Mild stenosis at the ostium of the obtuse marginal branch secondary to mixed plaque. Right Coronary Artery: CAD-RADS 0. The RCA originates from the right sinus of Valsalva and is dominant for posterior circulation, gives off acute marginal branches, and distally bifurcates into the posterior descending artery and a branching posterolateral vessel. No visible plaque or stenosis. --- Non Coronary Cardiac Findings --- Normal cardiac chamber size. No significant pericardial effusion, thickening, or calcification. Normal interatrial and interventricular septum. Grossly normal aortic valve and mitral valve. --- Extra Cardiac Structures --- Thoracic aorta and imaged thoracic aortic branches in the field of view are unremarkable. Central and branch pulmonary arteries in the field of view are unremarkable. 3 mm noncalcified pulmonary nodule in the right lung. No suspicious lesion in the visualized portion of the upper abdomen. Degenerative changes of the thoracic spine. 3 mm calcified nodule in the right breast. Procedure Note Taz Joseph MD - 11/27/2024 CLINICAL INFORMATION: 54 years old Female with a past medical history of asthma, breast cancer,cerebral aneurysm, COPD, former tobacco use, GERD, hypertension whopresents for coronary CTA for workup of chest pain with clinical concernfor myocardial ischemia. Height: 168 cm Weight: 60 kg Baseline Heart Rate on Arrival: 70 beats/min Relevant Cardiac Diagnostic Tests: Exercise stress test - 07/25/2024 Comparison Imaging: CT chest - 11/13/2024 SCAN TECHNIQUE: Pre-Medication: The patient received the following medications prior to the Cardiac CT:100mg of po metoprolol and 0.8mg sublingual nitroglycerin. The average heart rate at the time of acquisition was 51 bpm (60 bpm to 61bpm) and regular. Image Acquisition and Reconstruction: A Dual source 192 MDCT scanner ([employer], [employer])was used for data acquisition. A non-contrast coronary calcium scan wasinitially performed. Bolus tracking in the ascending aorta with athreshold of 180 HU was performed. Immediately afterwards, ECGsynchronized Cardiac CT was then performed from cardiac base to apex usingprospective gating. A total of 80 mL Omnipaque 350mgI/mL contrast mediawas administered followed by a saline flush using a biphasic injectionprotocol. Transaxial images were reconstructed at 0.75 mm slice thickness.Data was reviewed interactively on an advanced workstation capable of 2and 3 dimensional displays in all conventional reconstruction formatsincluding multiplanar reformations, maximum intensity projections, curvedmultiplanar reformations, and volume rendered reconstructions. Selectedroutine images displaying relevant coronary anatomy and pathology weresaved and sent to PACS. Total DLP (Dose-Length Product): 260.25 mGy.cm. Please note: The reportedvalue represents the total of one or more individual components during theCT acquisition on this date and at this time, and as such, the same valuemay appear in more than one CT report depending on theinterpreting/reporting physicians. Technical Quality: Overall image quality is Good, with minor artifacts that do notsignificantly impact diagnostic quality. Coronary artery opacification is Adequate. FINDINGS: --- Coronary Calcium Scoring --- Left Main= 19 Left Anterior Descending= 113 Left Circumflex= 6 Right Coronary Artery= 0 Total calcium score = 137 using the AJ-130 method (total volume score is111). This calcium score is in the 97 percentile rank for age and gender,meaning that 3% of patients of the same age and gender will have a higherscore. The calculated vascular age for this patient is 76 years. --- Coronary Plaque Analysis: There is mild amount of total coronary plaque with total plaque volume [id number]. The Total Plaque Volume for this patient is 78 percentile for ageand sex as compared to their peer population (Henrik et al. J Am CollCardiol Img 2022). --- Coronary CT Angiography --- The coronaries have normal origin and proximal course. The coronaryarterial system is right dominant. Left Main: CAD-RADS 1. The left main originates from the left sinus ofValsalva and bifurcates into the left anterior descending and leftcircumflex arteries. Minimal stenosis in the distal segment secondary tocalcified plaque. Left Anterior Descending: CAD-RADS 1. The LAD arises from the left main,courses down the anterior interventricular groove, gives off 2 notablediagonal branches, and terminates as a recurrent apical branch. Minimalstenosis in the proximal and mid segments secondary to calcified plaque.Minimal stenoses at the ostium of both the first and second diagonalbranches secondary to calcified plaque. Left Circumflex: CAD-RADS 2. The LCx arises from the left main, gives off1 notable obtuse marginal branches and 1 notable posterolateral branches,and terminates in the left AV groove. Mild stenosis in the mid segmentsecondary to mixed plaque. Mild stenosis at the ostium of the obtusemarginal branch secondary to mixed plaque. Right Coronary Artery: CAD-RADS 0. The RCA originates from the right sinusof Valsalva and is dominant for posterior circulation, gives off acutemarginal branches, and distally bifurcates into the posterior descendingartery and a branching posterolateral vessel. No visible plaque orstenosis. --- Non Coronary Cardiac Findings --- Normal cardiac chamber size. No significant pericardial effusion,thickening, or calcification. Normal interatrial and interventricularseptum. Grossly normal aortic valve and mitral valve. --- Extra Cardiac Structures --- Thoracic aorta and imaged thoracic aortic branches in the field of vieware unremarkable. Central and branch pulmonary arteries in the field ofview are unremarkable. 3 mm noncalcified pulmonary nodule in the rightlung. No suspicious lesion in the visualized portion of the upper abdomen.Degenerative changes of the thoracic spine. 3 mm calcified nodule in theright breast. IMPRESSION: 1. Multi-vessel non-obstructive atherosclerotic coronary artery disease. ---- Mild (25-49%) stenosis in the left circumflex coronary artery andobtuse marginal branch ----Minimal (less than 25%) stenosis in the left main coronary artery,left anterior descending coronary artery, first and second diagonalbranches. 2. Overall, there is (P1) mild amount of total coronary plaque present(which includes both calcified and non-calcified plaques). Mild coronarycalcification with an Agatston score = 137 using the AJ-130 method. Recommendation: CAD-RADS 2 / P1: Consider non-atherosclerotic causes ofsymptoms. Consider risk factor modification (e.g. diet/exercise/smokingcessation) and preventive pharmacotherapy (e.g consider LDL goal of<100). 3. No significant non coronary cardiac findings in particular normalcardiac chambers, non-coronary vessels in the field of view andunremarkable pericardium. 4. Extracardiac structures in the field of view are unremarkable. Critical Result: No. Communication: Per this written report. By electronically signing this report, I, the attending physician, attestthat I have personally reviewed the images/data for the aboveexamination(s) and agree with the final edited report. Drafted by Jone Orozco on 11/27/2024 8:41 AM Final report signed by Taz Joseph MD on 11/27/2024 10:03 AM Romulo Grubbs DO IMG CT PROCEDURES Final Res ult documented in this encounter Visit Diagnoses Diagnosis Atypical chest pain Other chest pain documented in this encounter Administered Medications Inactive Administered Medications - up to 3 most recent administrations Medication Order MAR Action Action Date Dose Rate Site iohexol (OMNIPaque) 350 MG/ML injection 100 mL 100 mL, Intravenous, Once in imaging, 1 dose, Starting on Wed11/27/24 at 0807, Until Wed11/27/24 at 0827, Routine, Imaging Protocol Orders Given 11/27/2024 8:27 AM EDT 80 mL metoprolol tartrate (Lopressor) tablet 100 mg 100 mg, Oral, Once in imaging, 1 dose, Starting on Wed11/27/24 at 0715, Until Wed11/27/24 at 0735, Routine, Intraprocedure Given 11/27/2024 7:35 AM EDT 100 mg nitroglycerin (Nitrostat) SL tablet 0.8 mg 0.8 mg, Sublingual, Once PRN Procedure, 1 dose, Starting on Wed11/27/24 at 0716, Until Wed11/27/24 at 0814, Routine, Intraprocedure, oo Given 11/27/2024 8:14 AM EDT 0.8 mg documented in this encounter Additional Health Concerns [...] documented as of this encounter Care Teams Nurses Supervisor Relationship Specialty Start Date End Date Oren Epps MD [address] [place] [address] PCP - General 08/01/24 Jovany Jorge MD [address] [place] [address] Consulting Physician Neurosurgery 10/15/21 documented as of this encounter
--- OUTSIDE RECORDS SUMMARY | 2024-11-27 08:37 | XMS_ITS | Encounter Summary ---
Author Organization [facility] Address [address] [place] [address] Care Team Providers Care Refined Syrup Operator Name Role Phone Jovany Jorge MD Unavailable [phone] Oren Epps MD Primary Care Provider [phone] Reason for Referral * Imaging (Routine) - Closed Specialty Diagnoses / Procedures Referred By Contac t Referred To Contact Radiology Diagnoses Atypical chest pain Procedures CT Angio Cardiac Plaque Analysis Romulo Grubbs DO [address] [place] [address] Phone: tel: fax: Referral ID Status Reason Start Date Expiration Date Visits Re quested Visits Authorized [id number] Closed 11/27/2024 05/29/2026 1 1 Reason for Visit * Imaging (Routine) - Closed Specialty Diagnoses / Procedures Referred By Controsaura kwong Referred To Contact Radiology Diagnoses Atypical chest pain Procedures CT Angio Cardiac Plaque Analysis Romulo Grubbs DO [address] [place] [address] Phone: tel: fax: Referral ID Status Reason Start Date Expiration Date Visits Re quested Visits Authorized [id number] Closed 11/27/2024 05/29/2026 1 1 Encounter Details Date Type Department Care Team (Latest Contact Info) Description 11/27/2024 8:37 AM EDT - 11/27/2024 11:59 PM EDT Hospital Encounter [facility] [address] [place] [address] Atypical chest pain Discharge Disposition: Home or [...] Encounters Date Type Department Care Team (Late Contact Info) Description 02/15/2025 8:00 AM EST Ancillary Procedure [facility] [address] [place] [address] 02/15/2025 9:20 AM EST Appointment [facility] [address] [place] [address] 02/15/2025 10:15 AM EST Office Visit [facility] [address] [facility], [address]nd [place] [id number] Mike Epperson MD [address] [place] [address] documented as of this encounter Procedures Procedure Name Priority Date/Time Associated Diagnosis Comments CT ANGIO CARDIAC PLAQUE ANALYSIS Routine 11/27/2024 8:37 AM EDT Atypical chest pain documented in this encounter Results * CT Angio Cardiac Plaque Analysis (11/27/2024 8:37 AM EDT) Anatomical Region Laterality Modality Heart [...] peer population (Henrik et al. J Am Faustina Cardiol Img [...] total coronary plaque with total plaque volume [id number]. The Total Plaque Volume for this patient is 78 percentile for ageand sex as compared to their peer population (Henrik, et al. J Am CollCardiol Img 2022). [...] Other chest pain documented in this encounter Additional Health Concerns [...] documented as of this encounter Care Teams Refined Syrup Operator Relationship Specialty Start Date End Date Oren Epps MD [facility] [place] [address] PCP - General 08/01/24 Jovany Jorge MD [address] [address] Consulting Physician Neurosurgery 10/15/21 documented as of this encounter
--- OUTSIDE RECORDS SUMMARY | 2024-11-28 07:02 | XMS_ITS | Encounter Summary ---
Author Organization [facility] Address [address] [place] [address] Care Team Providers Care Group Insurance Special Agent Name Role Phone Jovany Jorge MD Unavailable [phone] Oren Epps MD Primary Care Provider [phone] Reason for Referral * Imaging (Routine) - Closed Specialty Diagnoses / Procedures Referred By Contac t Referred To Contact Cardiology Diagnoses Atypical chest pain Procedures Echo, Adult Transthoracic Complete Romulo Grubbs DO [address] [place] [address] Phone: tel: fax: Referral ID Status Reason Start Date Expiration Date V isits Requested Visits Authorized [id number] Closed Perform Procedure 07/28/2024 01/27/2026 1 1 Reason for Visit * Imaging (Routine) - Closed Specialty Diagnoses / Procedures Referred By Contac varghese Referred To Contact Cardiology Diagnoses Atypical chest pain Procedures Echo, Adult Transthoracic Complete Romulo Grubbs DO [address] [place] [address] Phone: tel: fax: Referral ID Status Reason Start Date Expiration Date V isits Requested Visits Authorized [id number] Closed Perform Procedure 07/28/2024 01/27/2026 1 1 Encounter Details Date Type Department Care Team (Latest Contact Info) Description 11/28/2024 7:02 AM EDT - 11/28/2024 11:59 PM EDT Hospital Encounter Medical Office Building Cardiac Diagnostic Testing Medical Office Building Echo Lab [address] [facility], [address] [place] [address] Atypical chest pain Discharge Disposition: Home or [...] Sign Reading Time Taken Comments Blood Pressure 128/84 11/28/2024 7:20 AM EDT Pulse 52 11/28/2024 7:20 AM EDT Temperature - - Respiratory Rate - - Oxygen Saturation - - Inhaled Oxygen Concentration - - Weight - - Height - - Body Mass Index - - documented in this encounter Medications at Time [...] Description 02/15/2025 8:00 AM EST Ancillary Procedure [facility] [address] [place] [address] 02/15/2025 9:20 AM EST Appointment [facility] Radiology [address] [place] [address] 02/15/2025 10:15 AM EST Office Visit [facility] [address] [place] [address] Mike Epperson MD [address] [place] [address] documented as of this encounter Procedures Procedure Name Priority Date/Time Associated Diagnosis Comments ECHO, ADULT TRANSTHORACIC COMPLETE W/ STRAIN Routine 11/28/2024 7:56 AM EDT Atypical chest pain documented in this encounter Results * ECHO, ADULT TRANSTHORACIC COMPLETE W/ STRAIN (11/28/2024 7:56 AM EDT) Height 167.6 IVANA ISCV Weight 59.9 IVANA ISCV BSA 1.68 m2 IVANA ISCV LVIDd 40 mm IVANA ISCV LVIDs 22 mm IVANA ISCV IVSd 7 mm IVANA ISCV LVPWd 8 mm IVANA ISCV LV MASS(C)D 85 g IVANA ISCV [facility] CV ECHO LV MASS INDEX 51 g/m2 IVANA ISCV LV RWT 0.38 mm IVANA ISCV TR Vmax 123.0 cm/s IVANA ISCV TR Max PG 6 mmHG IVANA ISCV LVOT diam 19 mm IVANA ISCV LVOT AREA 2.8 cm2 IVANA ISCV Ao Root Diam 33 mm IVANA ISCV Asc Ao Diam 23 mm IVANA ISCV LAV(MOD-4ch) 29 mL IVANA ISCV MV E Vmax 80.1 cm/s IVANA ISCV MV A Vmax 82.7 cm/s IVANA ISCV MV E/A 1.0 cm/s IVANA ISCV LV Lat e' Velocity 9.2 cm/s IVANA ISCV Lat E/e' 8.7 IVANA ISCV LV Sept e' Jose 8.4 cm/s IVANA ISCV Sep E/e' 9.5 IVANA ISCV Avg E/e' 9.1 IVANA ISCV LV EDV(MOD-4ch) 70 mL IVANA ISCV LV ESV(MOD4ch) 27 mL IVANA ISCV EF(MOD-sp4) 61 % IVANA ISCV RA MOD 4Ch 31 mL IVANA ISCV VIKTORIA 18 mL/m2 IVANA ISCV RV base 30 mm IVANA ISCV RV Mid 21 mm IVANA ISCV RV s' Jose 13.7 cm/s IVANA ISCV TAPSE 24 mm IVANA ISCV LAV(MOD-bp) Indexed 16 mL/m2 IVANA ISCV LAV(MOD-2ch) 26 mL IVANA ISCV RVSP 9 mmHg IVANA ISCV RAP systole 3 mmHg IVANA ISCV LV EDV(MOD-2ch) 68 mL IVANA ISCV EDV(MOD-bp) 69 mL IVANA ISCV LV ESV(MOD2ch) 24 mL IVANA ISCV EF(MOD-sp2) 65 % IVANA ISCV ESV(MOD-bp) 26 mL IVANA ISCV EF(MOD-bp) 63 % IVANA ISCV LVLs ap2 5.7 mm IVANA ISCV Anatomical Region Laterality Modality Echocardiography Narrative 11/28/2024 9:43 AM EDT The left ventricle is normal size. There is normal left ventricular myocardial thickness and mass. The left ventricular systolic function is normal. The LVEF as measured by biplane volume is 63%. The global longitudinal strain is normal (<-18%). The diastolic function is normal. The left ventricular filling pressure is normal. The right ventricle is normal in size. The right ventricular systolic function is normal. No pericardial effusion. All cardiac valves were reasonably well interrogated with 2D imaging and/or Doppler assessment and no significant valve regurgitation or stenosis is seen. There is no recent study available for direct hhuz-zy-awhl comparison. Left Ventricle The left ventricle is normal size. There is normal left ventricular myocardial thickness and mass. The left ventricular systolic function is normal. The LVEF as measured by biplane volume is 63%. The global longitudinal strain is normal (<- 18%). The diastolic function is normal. The left ventricular filling pressure is normal. The left ventricular wall motion is normal. Right Ventricle The right ventricle is normal in size. The right ventricular systolic function is normal. The estimated global right ventricular systolic function based upon the tricuspid annular plane of systolic excursion (TAPSE) is normal (>=17 mm). The estimated global right ventricular systolic function based upon the TDI maximal systolic velocity is normal (>=9.5 cm/s). The spectral Doppler envelope of TR is not adequate for calculating the right ventricular systolic pressure (RVSP). Based upon other 2D and Doppler features, the RVSP is probably normal or at most mildly elevated. Left Atrium The left atrial size is normal with an indexed volume of 16-34 mL/m2. The interatrial septum is intact with no evidence for an atrial septal defect. Right Atrium The right atrial volume index is normal (<30mL/m2). IVC/SVC Based on the IVC size and respiratory variation, the estimated right atrial pressure is 3mmHg. Mitral Valve There is mild mitral annular calcification. There is trace mitral regurgitation. There is no mitral stenosis. Tricuspid Valve The tricuspid valve is normal in appearance. There is mild tricuspid regurgitation. There is no tricuspid stenosis. Aortic Valve The aortic valve appears to be trileaflet. The cusp(s) are thickened. There is aortic annular calcification present. There is no valvular regurgitation. There is no hemodynamically significant valvular aortic stenosis. Pulmonic Valve The pulmonic valve is normal in appearance. There is no pulmonic regurgitation. There is no pulmonic stenosis. Pericardium No pericardial effusion. Great Vessels The aortic root is normal in size. The sinus of Valsalva (aortic root) diameter is 33 mm by leading edge to leading edge method. In the maximally visualized portion, the ascending aorta appears normal in size. The main pulmonary artery is not well visualized. Study Details A complete transthoracic echocardiogram using two-dimensional (2D), m-mode, color and spectral flow Doppler and strain imaging was performed. During the study the apical, parasternal, subcostal and suprasternal view was captured. Overall the study quality was adequate. The study was technically difficult due to patient's body habitus. Height: 167.6 cm. Weight: 59.9 kg. BSA: 1.68 m2. Study Recommendation All cardiac valves were reasonably well interrogated with 2D imaging and/or Doppler assessment and no significant valve regurgitation or stenosis is seen. There is no recent study available for direct mjqo-eo-zwyt comparison. Romulo Grubbs DO CV ECHO PROCEDURES Final Re sult documented in this encounter Visit Diagnoses Diagnosis [...] documented as of this encounter Care Teams Group Insurance Special Agent Relationship Specialty Start Date End Date Oren Epps MD [facility] [place] [address] PCP - General 08/01/24 Jovany Jorge MD [address] [facility] [address] [place] [address] Consulting Physician Neurosurgery 10/15/21 documented as of this encounter
[2024-12-14] VITALS (11 sets, daily range): BP systolic 147–196; BP diastolic 85–100; PULSE 60–84; RESP 14–19; TEMP 36.6–36.9; O2SAT 97–100; BMI 18.8
--- NOTE | 2024-12-14 12:47 | ECG_ITS ---
APPROVED REPORT Exam: Resting ECG HR:74 bpm ECG Measurements Heart Rate 74 AXES DC 132 P 43 QRSd 81 QRS 102 QT 362 T 53 QTc 390 Conclusion SINUS RHYTHM RIGHT AXIS DEVIATION [QRS AXIS > 100] POSSIBLE RIGHT VENTRICULAR CONDUCTION DELAY [RSR (QR) IN V1/V2] ABNORMAL ECG UNCONFIRMED REPORT Electronically signed by : Jeff Mason, 12/16/2024 15:07:32
--- NOTE | 2024-12-14 13:03 | CT_ITS ---
FINAL REPORT TECHNIQUE: Thin section axial images are obtained through the abdomen and pelvis after intravenous contrast. Reconstruction images were obtained from the axial data. Exam was performed using dose reduction techniques. CLINICAL HISTORY: abdominal distention COMPARISON: 01/15/2021 FINDINGS: LIVER: Cyst in the lower lobe of the liver is unchanged. The remainder of the liver is homogeneous. GALLBLADDER/BILIARY SYSTEM: Gallbladder is absent. No biliary dilatation. SPLEEN: Unremarkable. PANCREAS: Unremarkable. ADRENALS: Unremarkable. KIDNEYS/URETERS/BLADDER: No hydronephrosis, renal mass, or renal stone. Unremarkable urinary bladder. GI TRACT: Few mildly dilated fluid-filled small bowel loops in the pelvis. Terminal ileum is decompressed. Findings could be related to focal ileus. Less likely would be partial small bowel obstruction. Normal appendix. Remainder of the GI tract is without acute abnormality. PELVIC ORGANS: Uterus absent. LYMPH NODES/RETROPERITONEUM/MESENTERY: No lymphadenopathy. No abdominal aortic aneurysm. ABDOMINAL WALL: The abdominal wall is intact. FREE FLUID: No ascites. BONES: No acute osseous abnormality. IMPRESSION: Mildly prominent fluid-filled small bowel loops in the pelvis. Favor focal enteritis, less likely low-grade partial small bowel obstruction. Reviewed, Interpreted and Dictated by Mirtha Aguilera MD Transcribed by Bernie Winchester Authenticated and [facility]
--- NOTE | 2024-12-14 13:04 | CT_ITS ---
FINAL REPORT TECHNIQUE: Axial imaging of the chest is obtained after the administration of contrast. 3-D MIP reformatted images were also obtained and reviewed per PE protocol. CLINICAL HISTORY: Shortness of breath, h/o breast ca, right sided pleuritic cp DONE COMPARISON: 02/19/2022 FINDINGS: The pulmonary arteries are well filled. There is no evidence of pulmonary embolus. There is no aortic dissection. Heart size is normal. There is no mediastinal, hilar, or axillary lymphadenopathy. There is a 17 mm ground-glass nodule in the right upper lobe not seen on the previous exam. Lungs are otherwise clear.. There is no pleural or pericardial effusion. Limited evaluation of the upper abdomen is without acute abnormality. No acute osseous abnormality. IMPRESSION: No evidence of pulmonary embolism or aortic dissection. New ground-glass nodular opacity right upper lobe, favor infectious or inflammatory. Neoplasm is not excluded. Recommend three-month follow-up chest CT. Reviewed, Interpreted and Dictated by Mirtha Aguilera MD Transcribed by Bernie Winchester Authenticated and [facility]
--- OUTSIDE RECORDS SUMMARY | 2024-12-14 13:05 | XMS_ITS | Encounter Summary ---
Author Organization Healthcare Address [address] [place] [address] Care Team Providers Care Solid Waste Facility Supervisor Name Role Phone Lisset Tamayo MICHAELLE Primary Care Provider [phone] Jovany Jorge MD Unavailable Oren Epps MD Primary Care Provider [phone] Oren Epps MD Primary Care Provider [phone] Encounter Details Date Type Department Care Team (Late st Contact Info) Description 09/22/2021 Orders Only External Location [address] [place] [address] Provider, External Social History Tobacco Use Types Packs/Day Years Used Date Smoking Tobacco: Every Day Alcohol Use Standard Drinks/Week Comments No 0 (1 standard drink = 0.6 oz pure alcohol) Alcoholic Drinks/day: Denies alcohol consumption Comments Unknown Sex and Gender Information Value Date Recorded Sex Assigned at Not on file Legal Sex Female 7:59 PM EDT Gender Identity Not on file Sexual Orientation Not on file COVID-19 Exposure Response Date Recorded In the last 10 days, have yo u been in contact with someone who was confirmed or suspected to have Coronavirus/COVID-19? No / Unsure 09/23/2021 8:26 PM EDT documented as of this encounter Functional Status * Calculated C-SSRS Risk Score (Lifetime/Recent) Answer Date of Assessment Author No Risk Indicated 09/24/2021 12:00 AM EDT Ela Rebollar RN * Question Answer Date of Assessment Author 1. Wish to be (Past 1 Month) No 09/24/2021 12:00 AM EDT Ela Nicole RN 2. Non-Specific Active Suici dariana Thoughts (Past 1 Month) No 09/24/2021 12:00 AM EDT Mag hussein Nicole RN 6. Suicidal Behavior (Lifetime) No 12:00 AM EDT Ela Nicole RN documented as of this encounter Plan of Treatment Upcoming Encounters Date Type Department Care Team (Late st Contact Info) Description 02/15/2025 8:00 AM EST Ancillary Procedure [facility] [address], [address] [place] [address] 02/15/2025 9:20 AM EST Appointment [facility] Radiology [address] [place] [address] 02/15/2025 10:15 AM EST Office Visit [facility] [address] [place] [address] Mike Epperson MD [address] [place] [address] documented as of this encounter Procedures Procedure Name Priority Date/Time Associated Diagnosis Comments CT ANGIO NECK 09/22/2021 5:16 PM EDT documented in this encounter Results * CT Angio Neck (09/22/2021 5:16 PM EDT) Anatomical Region Laterality Modality Carotid Artery Computed Tomogra phy 09/22/2021 5:16 PM EDT us External Provider IMG CT PROCEDURES Final Result documented in this encounter Visit Diagnoses Not on filedocumented in this encounter Additional Health Concerns Infection Onset Date Last Indicated Resolved Time Meningitis Rule-Out 09/24/2021 09/24/2021 09/25/19 22 5:15 AM EDT COVID-19 Rule-Out 09/26/2021 09/26/2021 09/26/2021 8:45 PM EDT Tuberculosis Rule-Out 08/01/2024 08/01/2024 documented as of this encounter Care Teams Solid Waste Facility Supervisor Relationship Specialty Start Date End Date Lisset Tamayo APRN [address] [place], [place] [id number] PCP - General 07/12/20 10/14/21 Oren Epps MD [address] [address] PCP - General 10/15/21 07/31/24 Oren Epps MD [address] [place] [address] PCP - General 08/01/24 Jovany Jorge MD [address] [address] Consulting Physician Neurosurgery 10/15/21 documented as of this encounter
--- OUTSIDE RECORDS SUMMARY | 2024-12-14 13:05 | XMS_ITS | Encounter Summary ---
Author Organization Healthcare Address [address] [place] [address] Care Team Providers Care Patient Service Associate Name Role Phone Lisset Tamayo MICHAELLE Primary Care Provider [phone] Jovany Jorge MD Unavailable [phone] Oren Epps MD Primary Care Provider [phone] Oren Epps MD Primary Care Provider [phone] Encounter Details Date Type Department Care Team (Late st Contact Info) Description 09/25/2021 Lab Requisition [facility] [address] [place] [address] Korin Leon MD [address] [facility] [address] [place] [address] Unspecified lump in unspecified breast Social History Tobacco Use Types Packs/Day Years [...] suspected to have Coronavirus/COVID-19? No / Unsure 09/26/2021 3:27 PM EDT documented as of this encounter Functional Status * Calculated C-SSRS Risk Score (Lifetime/Recent) Answer Date of Assessment Author No Risk Indicated 09/26/2021 4:41 PM EDT Andreea Watson * Question Answer Date of Assessment Author 1. Wish to be (Past 1 Month) No 022 4:41 PM EDT Andreea Lyons 2. Non-Specific Active Suici dariana Thoughts (Past 1 Month) No 09/26/2021 4:41 PM EDT Carlos Lyons 6. Suicidal Behavior (Lifetime) No 4:41 PM EDT Andreea Lyons documented as of this encounter Plan of Treatment Upcoming Encounters Date Type Department Care Team (Late st Contact Info) Description 02/15/2025 8:00 AM EST Ancillary Procedure [facility] [address] [place] [address] 02/15/2025 9:20 AM EST Appointment [facility] Radiology [address] [place] [address] 02/15/2025 10:15 AM EST Office Visit [facility] [address] [place] [address] Mike Epperson MD [address] [place] [address] documented as of this encounter Procedures Procedure Name Priority Date/Time Associated Diagnosis Comments SURGICAL PATHOLOGY CONSULT Routine 09/25/2021 3:14 PM EDT Unspecified lump in unspecified breast documented in this encounter Results * Surgical Pathology Consult (09/25/2021 3:14 PM EDT) Case Report Sugical Pathology Consult Case: [id number] Authorizing Provider: Korin Leon MD Collected: 09/25/2021 1514 Ordering Location: [facility] Lab Received: 09/25/20211513 Pathologist: Eric Clark DO Specimens: A) - Breast, Right, [id number] B) - Breast, Right, [id number] 10/01/2021 11:56 AM EDT [facility] Final Diagnosis A. 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 RIGHT BREAST AND AXILLARY LYMPH NODES, SIMPLE MASTECTOMY WITH RE-EXCISION OF SUPERIOR LATERAL MARGIN (OSC# [id number]; COLLECTED 09/26/20): - DUCTAL CARCINOMA IN SITU, LOW NUCLEAR GRADE, CRIBRIFORM AND MICROPAPILLARY TYPES - PRIOR SURGICAL SITE CHANGES PRESENT - SURGICAL MARGINS NEGATIVE - NEGATIVE FOR INVASIVE CARCINOMA 10/01/2021 11:56 AM EDT [facility] at 1156 EDT Comment Staging based on both procedures. Invasive carcinoma is only identified in the right axillary excision from the first procedure. As stated in the outside report, the invasive component is up to 4.5 mm in linear dimension. Given the presence of invasive carcinoma in 3 tissue fragments, the tumor may measure up to 9 mm. Biomarkers, provided for review, show the tumor ER positive (91-100%, strong), CA positive (91-100%, strong), and HER2 negative (0). 10/01/2021 11:56 AM EDT [facility] Clinical Information N63.0 - Unspecified lump in unspecified breast [ICD-10-CM] 10/01/2021 11:56 AM EDT [facility] Gross Description A. [id number] Received along with a corresponding pathology report from [facility] are 16 slide(s) labeled outside case: [id number] collected on 09/13/2020. B. [id number] Received along with a corresponding pathology report from [facility] are 18 slide(s) labeled outside case: [id number] collected on 09/26/2020. 10/01/2021 11:56 AM EDT [facility] Note: A resident was involved in the service. I attest I examined the relevant preparations for the specimens and confirmed the diagnosis or interpretation. 10/01/2021 11:56 AM EDT [facility] Tissue Right breast structure / Unknown 09/25/2021 3:14 PM EDT 09/25/2021 3:14 PM EDT Tissue specimen (specimen) Right breast structure / Unknown 09/25/2021 3:14 PM EDT 09/29/2021 10:59 AM EDT us Korin Leon MD LAB PATHOLOGY ORDERABLES Final Result [facility] [address] [place] [address] documented in this encounter Visit Diagnoses Diagnosis Unspecified lump in unspecified breast documented in this encounter Additional Health Concerns Infection Onset Date Last Indicated Resolved Time COVID-19 Rule-Out 09/26/2021 09/26/2021 09/26/2021 8:45 PM EDT Tuberculosis Rule-Out 08/01/2024 08/01/2024 documented as of this encounter Care Teams Patient Service Associate Relationship Specialty Start Date End Date Lisset Tamayo APRN [address] [id number] PCP - General 07/12/20 10/14/21 Oren Epps MD [address] [address] PCP - General 10/15/21 07/31/24 Oren Epsp MD [address] [place] [address] PCP - General 08/01/24 Jovany Jorge MD [address] [address] Consulting Physician Neurosurgery 10/15/21 documented as of this encounter
--- OUTSIDE RECORDS SUMMARY | 2024-12-14 13:05 | XMS_ITS | Encounter Summary ---
Author Organization [facility] Address [address] [place] [address] Care Team Providers Care Population Health Manager Name Role Phone Lisset Tamayo MICHAELLE Primary Care Provider [phone] Jovany Jorge MD Unavailable [phone] Oren Epps MD Primary Care Provider [phone] Oren Epps MD Primary Care Provider [phone] Encounter Details Date Type Department Care Team (Late st Contact Info) Description 03/26/2021 Orders Only External Location [address] [place] [address] Provider, External Social History Tobacco Use Types [...] on file documented as of this encounter Plan of Treatment Upcoming Encounters Date Type Department Care Team (Late Contact Info) Description 02/15/2025 8:00 AM EST Ancillary Procedure [facility] [address] [place] [address] 02/15/2025 9:20 AM EST Appointment [facility] Radiology [address] [place] [address] 02/15/2025 10:15 AM EST Office Visit [facility] [address] [place] [address] Mike Epperson MD [address] [place] [address] documented as of this encounter Procedures Procedure Name Priority Date/Time Associated Diagnosis Comments US BREAST OUTSIDE IMAGES 03/26/2021 9:24 AM EST documented in this encounter Results * US BREAST OUTSIDE IMAGES (03/26/2021 9:24 AM EST) Anatomical Region Laterality Modality Breast Mammography 03/26/2021 9:24 AM EST us External Provider IMG BI PROCEDURES Final Result documented in this encounter Visit Diagnoses Not on filedocumented in this encounter Additional Health Concerns Infection Onset Date Last Indicated Resolved Time Meningitis Rule-Out 09/24/2021 09/24/2021 09/25/19 5:15 AM EDT COVID-19 Rule-Out 09/26/2021 09/26/2021 09/26/2021 8:45 PM EDT Tuberculosis Rule-Out 08/01/2024 08/01/2024 documented as of this encounter Care Teams Population Health Manager Relationship Specialty Start Date End Date Lisset Tamayo APRN [address] [place] [address] PCP - General 07/12/20 10/14/21 Oren Epps MD [address] [place] [address] PCP - General 10/15/21 07/31/24 Oren Epps MD [address] [place] [address] PCP - General 08/01/24 Jovany Jorge MD [address] [facility] [address] [place] [address] Consulting Physician Neurosurgery 10/15/21 documented as of this encounter
--- OUTSIDE RECORDS SUMMARY | 2024-12-14 13:05 | XMS_ITS | Encounter Summary ---
Author Organization Healthcare Address [address] [place] [address] Care Team Providers Care Quality Engineering Manager Name Role Phone Lisset Tamayo MICHAELLE Primary Care Provider +1- [phone] Jovany Jorge MD Unavailable Oren Epps MD Primary Care Provider [phone] Oren Epps MD Primary Care Provider [phone] Encounter Details Date Type Department Care Team (Late st Contact Info) Description 09/22/2021 Orders Only External Location [address] [place] [address] Provider, External Social History Tobacco Use Types [...] Description 02/15/2025 8:00 AM EST Ancillary Procedure [facility] [address], [address] [place] [address] 02/15/2025 9:20 AM EST Appointment [facility] Radiology [address] [place] [address] 02/15/2025 10:15 AM EST Office Visit [facility] [address] , [address] [place] [address] Mike Epperson MD [address] [place] [address] documented as of this encounter Procedures Procedure Name Priority Date/Time Associated Diagnosis Comments CT ANGIO HEAD 09/22/2021 5:16 PM EDT documented in this encounter Results * CT Angio Head (09/22/2021 5:16 PM EDT) Anatomical Region Laterality Modality [place] of [place] Computed Tomogr aphy 09/22/2021 5:16 PM EDT us External Provider IMG CT PROCEDURES Final Result documented in this encounter Visit Diagnoses Not on filedocumented in this encounter Additional Health Concerns Infection Onset Date Last Indicated Resolved Time Meningitis Rule-Out 09/24/2021 09/24/2021 09/25/19 22 5:15 AM EDT COVID-19 Rule-Out 09/26/2021 09/26/2021 09/26/2021 8:45 PM EDT Tuberculosis Rule-Out 08/01/2024 08/01/2024 documented as of this encounter Care Teams Quality Engineering Manager Relationship Specialty Start Date End Date Lisset Tamayo APRN [address] [place], [place] [id number] PCP - General 07/12/20 10/14/21 Oren Epps MD [address] [address] PCP - General 10/15/21 07/31/24 Oren Epps MD [address] [place] [address] PCP - General 08/01/24 Jovany Jorge MD [address] [address] Consulting Physician Neurosurgery 10/15/21 documented as of this encounter
--- OUTSIDE RECORDS SUMMARY | 2024-12-14 13:05 | XMS_ITS | Encounter Summary ---
Author Organization [facility] Address [address] [place] [address] Care Team Providers Care Baling Press Operator Name Role Phone Lisset Tamayo MICHAELLE Primary Care Provider +[phone]- [phone] Jovany Jorge MD Unavailable [phone] Oren Epps MD Primary Care Provider [phone] Oren Epps MD Primary Care Provider [phone] Encounter Details Date Type Department Care Team (Late st Contact Info) Description 09/20/2018 Orders Only External Location [address] [place] [address] Provider, External Social History Tobacco Use Types Packs/Day Years Used Date Smoking Tobacco: Never Assessed Comments Unknown Sex and Gender Information Value Date Recorded Sex Assigned at Not on file Legal Sex Female 7:59 PM EDT Gender Identity Not on file Sexual Orientation Not on file documented as of this encounter Plan of Treatment Upcoming Encounters Date Type Department Care Team (Late st Contact Info) Description 02/15/2025 8:00 AM EST Ancillary Procedure [facility] [address], [address] [place] [address] 02/15/2025 9:20 AM EST Appointment P[facility] A Radiology [address] [place] [address] 02/15/2025 10:15 AM EST Office Visit Pav [facility] Res[facility] [address], [address] [place] [address] Mike Epperson MD [address] [place] [address] documented as of this encounter Procedures Procedure Name Priority Date/Time Associated Diagnosis Comments CT ABDOMEN OUTSIDE IMAGES 09/20/2018 6:47 PM EDT documented in this encounter Results * CT ABDOMEN OUTSIDE IMAGES (09/20/2018 6:47 PM EDT) Anatomical Region Laterality Modality Computed Tomogra phy 09/20/2018 6:47 PM EDT External Provider IMG CT PROCEDURES Final Result documented in this encounter Visit Diagnoses Not on filedocumented in this encounter Additional Health Concerns Infection Onset Date Last Indicated Resolved Time Meningitis Rule-Out 09/24/2021 09/24/2021 09/25/19 5:15 AM EDT COVID-19 Rule-Out 09/26/2021 09/26/2021 09/26/2021 8:45 PM EDT Tuberculosis Rule-Out 08/01/2024 08/01/2024 documented as of this encounter Care Teams Baling Press Operator Relationship Specialty Start Date End Date Lisset Tamayo APRN [address] [place] [address] PCP - General 07/12/20 10/14/21 Oren Epps MD [address] [place] [address] PCP - General 10/15/21 07/31/24 Oren Epps MD [address] [place] [address] PCP - General 08/01/24 Jovany Jorge MD [address] [place] [address] Consulting Physician Neurosurgery 10/15/21 documented as of this encounter
--- OUTSIDE RECORDS SUMMARY | 2024-12-14 13:05 | XMS_ITS | Encounter Summary ---
Author Organization [facility] Address [address] [place] [address] Care Team Providers Care Casting Director Name Role Phone Lisset Tamayo MICHAELLE Primary Care Provider [phone]- [phone] Jovany Jorge MD Unavailable [phone] Oren Epps MD Primary Care Provider [phone] Oren Epps MD Primary Care Provider [phone] Encounter Details Date Type Department Care Team (Late st Contact Info) Description 12/15/2020 Orders Only External Location [address] [place] [address] Provider, External Social History Tobacco Use Types [...] Procedure [place] [facility] [address], [address] [place] [address] 02/15/2025 9:20 AM EST Appointment P[facility] A Radiology [address] [place] [address] 02/15/2025 10:15 AM EST Office Visit [facility] Res[facility] [address], [address] [place] [address] Mike Epperson MD [address] [place] [address] documented as of this encounter Procedures Procedure Name Priority Date/Time Associated Diagnosis Comments CT ABDOMEN OUTSIDE IMAGES 12/15/2020 9:49 AM EDT documented in this encounter Results * CT ABDOMEN OUTSIDE IMAGES (12/15/2020 9:49 AM EDT) Anatomical Region Laterality Modality Computed Tomogra phy 12/15/2020 9:49 AM EDT us External Provider IMG CT PROCEDURES Final Result documented in this encounter Visit Diagnoses Not on filedocumented in this encounter Additional Health Concerns Infection Onset Date Last Indicated Resolved Time Meningitis Rule-Out 09/24/2021 09/24/2021 09/25/19 5:15 AM EDT COVID-19 Rule-Out 09/26/2021 09/26/2021 09/26/2021 8:45 PM EDT Tuberculosis Rule-Out 08/01/2024 08/01/2024 documented as of this encounter Care Teams Casting Director Relationship Specialty Start Date End Date Lisset Tamayo APRN [address] [place] [address] PCP - General 07/12/20 10/14/21 Oren Epps MD [address] [place] [address] PCP - General 10/15/21 07/31/24 Oren Epps MD [address] [place] [address] PCP - General 08/01/24 Jovany Jorge MD [address] [address] Consulting Physician Neurosurgery 10/15/21 documented as of this encounter
--- OUTSIDE RECORDS SUMMARY | 2024-12-14 13:05 | XMS_ITS | Encounter Summary ---
Author Organization [facility] Address [address] [place] [address] Care Team Providers Care News Camera Operator Name Role Phone Lisset Tamayo MICHAELLE Primary Care Provider [phone]- [phone] Jovany Jorge MD Unavailable [phone] Oren Epps MD Primary Care Provider [phone] Oren Epps MD Primary Care Provider [phone] Encounter Details Date Type Department Care Team (Late st Contact Info) Description 08/23/2019 Orders Only External Location [address] [place] [address] Provider, External Social History Tobacco Use Types [...] Description 02/15/2025 8:00 AM EST Ancillary Procedure [place] [facility] [address], [address] [place] [address] 02/15/2025 9:20 AM EST Appointment P[facility] A Radiology [address] [place] [address] 02/15/2025 10:15 AM EST Office Visit Pav [facility] Head[facility] Ne[facility] Respiratory [address], [address] [place] [address] Mike Epperson MD [address] [place] [address] documented as of this encounter Procedures Procedure Name Priority Date/Time Associated Diagnosis Comments US BREAST OUTSIDE IMAGES 08/23/2019 2:04 PM EDT documented in this encounter Results * US BREAST OUTSIDE IMAGES (08/23/2019 2:04 PM EDT) Anatomical Region Laterality Modality Breast Mammography 08/23/2019 2:04 PM EDT us External Provider IMG BI PROCEDURES Final Result documented in this encounter Visit Diagnoses Not on filedocumented in this encounter Additional Health Concerns Infection Onset Date Last Indicated Resolved Time Meningitis Rule-Out 09/24/2021 09/24/2021 09/25/19 5:15 AM EDT COVID-19 Rule-Out 09/26/2021 09/26/2021 09/26/2021 8:45 PM EDT Tuberculosis Rule-Out 08/01/2024 08/01/2024 documented as of this encounter Care Teams News Camera Operator Relationship Specialty Start Date End Date Lisset Tamayo APRN [address] [address] PCP - General 07/12/20 10/14/21 Oren Epps MD [address] [place] [address] PCP - General 10/15/21 07/31/24 Oren Epps MD [facility] [place] [address] PCP - General 08/01/24 Jovany Jorge MD [address] [place] [address] Consulting Physician Neurosurgery 10/15/21 documented as of this encounter
--- OUTSIDE RECORDS SUMMARY | 2024-12-14 13:05 | XMS_ITS | Encounter Summary ---
Author Organization [facility] Address [address] [place] [address] Care Team Providers Care Technical Aide Name Role Phone Lisset Tamayo MICHAELLE Primary Care Provider [phone]- [phone] Jovany Jorge MD Unavailable [phone] Oren Epps MD Primary Care Provider [phone] Oren Epps MD Primary Care Provider [phone] Encounter Details Date Type Department Care Team (Late st Contact Info) Description 08/26/2020 Orders Only External Location [address] [place] [address] Provider, External Social History Tobacco Use Types [...] Procedure [place] [facility] [address], [address] [place] [address] 02/15/2025 9:20 AM EST Appointment P[facility] A Radiology [address] [place] [address] 02/15/2025 10:15 AM EST Office Visit Pav [facility] Res[facility] [address], [address]nd [place] [address] Mike Epperson MD [address] [place] [address] documented as of this encounter Procedures Procedure Name Priority Date/Time Associated Diagnosis Comments MAMMOGRAPHY OUTSIDE IMAGES UPLOAD 08/26/2020 8:12 AM EDT documented in this encounter Results * Mammography Outside Images Upload (08/26/2020 8:12 AM EDT) Anatomical Region Laterality Modality Mammography 08/26/2020 8:12 AM EDT us External Provider IMG BI PROCEDURES Final Result documented in this encounter Visit Diagnoses Not on filedocumented in this encounter Additional Health Concerns Infection Onset Date Last Indicated Resolved Time Meningitis Rule-Out 09/24/2021 09/24/2021 09/25/19 5:15 AM EDT COVID-19 Rule-Out 09/26/2021 09/26/2021 09/26/2021 8:45 PM EDT Tuberculosis Rule-Out 08/01/2024 08/01/2024 documented as of this encounter Care Teams Technical Aide Relationship Specialty Start Date End Date Lisset Tamayo APRN [address] [place] [address] PCP - General 07/12/20 10/14/21 Oren Epps MD [address] [place] [address] PCP - General 10/15/21 07/31/24 Oren Epps MD [facility] [place] [address] PCP - General 08/01/24 Jovany Jorge MD [address] [facility] [address] [place] [address] Consulting Physician Neurosurgery 10/15/21 documented as of this encounter
--- OUTSIDE RECORDS SUMMARY | 2024-12-14 13:05 | XMS_ITS | Encounter Summary ---
Author Organization [facility] Address [address] [place] [address] Care Team Providers Care Life Sciences Teacher Name Role Phone Lisset Tamayo IMCHAELLE Primary Care Provider [phone]- [phone] Jovany Jorge MD Unavailable [phone] Oren Epps MD Primary Care Provider [phone] Oren Epps MD Primary Care Provider [phone] Encounter Details Date Type Department Care Team (Late st Contact Info) Description 03/19/2021 Orders Only External Location [address] [place] [address] Provider, External Social History Tobacco Use Types [...] Procedure [place] [facility] [address], [address] [place] [address] 02/15/2025 9:20 AM EST Appointment [facility] A Radiology [address] [place] [address] 02/15/2025 10:15 AM EST Office Visit Pav [facility] Head[facility] Neck [facility] Respiratory [address], 2nd [place] [address] Mike Epperson MD [address] [facility] [address] [place] [address] documented as of this encounter Procedures Procedure Name Priority Date/Time Associated Diagnosis Comments MAMMOGRAPHY OUTSIDE IMAGES 03/19/2021 2:23 PM EST documented in this encounter Results * MAMMOGRAPHY OUTSIDE IMAGES (03/19/2021 2:23 PM EST) Anatomical Region Laterality Modality Breast Mammography 03/19/2021 2:23 PM EST us External Provider IMG BI PROCEDURES Final Result documented in this encounter Visit Diagnoses Not on filedocumented in this encounter Additional Health Concerns Infection Onset Date Last Indicated Resolved Time Meningitis Rule-Out 09/24/2021 09/24/2021 09/25/19 5:15 AM EDT COVID-19 Rule-Out 09/26/2021 09/26/2021 09/26/2021 8:45 PM EDT Tuberculosis Rule-Out 08/01/2024 08/01/2024 documented as of this encounter Care Teams Life Sciences Teacher Relationship Specialty Start Date End Date Lisset Tamayo APRN [address] [place] [id number] PCP - General 07/12/20 10/14/21 Oren Epps MD [address] [facility] [address] [place] [address] PCP - General 10/15/21 07/31/24 Oren Epps MD [address] [place] [address] PCP - General 08/01/24 Jovany Jorge MD [address] [facility] [address] [place] [address] Consulting Physician Neurosurgery 10/15/21 documented as of this encounter
--- OUTSIDE RECORDS SUMMARY | 2024-12-14 13:05 | XMS_ITS | Encounter Summary ---
Author Organization [facility] Address [address] [place] [address] Care Team Providers Care Heavy Forger Name Role Phone Lisset Tamayo MICHAELLE Primary Care Provider [phone]- [phone] Jovany Jorge MD Unavailable [phone] Oren Epps MD Primary Care Provider [phone] Oren Epps MD Primary Care Provider [phone] Encounter Details Date Type Department Care Team (Late st Contact Info) Description 08/23/2019 Orders Only External Location [address] [place] [address] Provider, External Social History Tobacco Use Types [...] Description 02/15/2025 8:00 AM EST Ancillary Procedure [place] [facility] [address], [address] [place] [address] 02/15/2025 9:20 AM EST Appointment P[facility] A Radiology [address] [place] [address] 02/15/2025 10:15 AM EST Office Visit [facility] Ne[facility] Respiratory [address], [address]nd [place] [address] Mike Epperson MD [address] [place] [address] documented as of this encounter Procedures Procedure Name Priority Date/Time Associated Diagnosis Comments MAMMOGRAPHY OUTSIDE IMAGES 08/23/2019 2:06 PM EDT documented in this encounter Results * MAMMOGRAPHY OUTSIDE IMAGES (08/23/2019 2:06 PM EDT) Anatomical Region Laterality Modality Breast Mammography 08/23/2019 2:06 PM EDT us External Provider IMG BI PROCEDURES Final Result documented in this encounter Visit Diagnoses Not on filedocumented in this encounter Additional Health Concerns Infection Onset Date Last Indicated Resolved Time Meningitis Rule-Out 09/24/2021 09/24/2021 09/25/19 5:15 AM EDT COVID-19 Rule-Out 09/26/2021 09/26/2021 09/26/2021 8:45 PM EDT Tuberculosis Rule-Out 08/01/2024 08/01/2024 documented as of this encounter Care Teams Heavy Forger Relationship Specialty Start Date End Date Lisset Tamayo APRN [address] [place] [address] PCP - General 07/12/20 10/14/21 Oren Epps MD [address] [place] [address] PCP - General 10/15/21 07/31/24 Oren Epps MD [facility] [place] [address] PCP - General 08/01/24 Jovany Jorge MD [address] [place] [address] Consulting Physician Neurosurgery 10/15/21 documented as of this encounter
--- OUTSIDE RECORDS SUMMARY | 2024-12-14 13:05 | XMS_ITS | Encounter Summary ---
Author Organization [facility] Address [address] [place] [address] Care Team Providers Care Flooring Salesperson Name Role Phone Jovany Jorge MD Unavailable [phone] Oren Epps MD Primary Care Provider [phone] Reason for Referral * Imaging (Urgent) - Closed Specialty Diagnoses / Procedures Referred By Contac t Referred To Contact Radiology Diagnoses Chest pain on breathing Procedures CT Chest wo IV Contrast Kristopher Jackson MD [address] [place] [address] Phone: tel: fax: Referral ID Status Reason Start Date Expiration Date Visits Re quested Visits Authorized [id number] Closed 11/09/2024 05/11/2026 1 1 Encounter Details Date Type Department Care Team (Late st Contact Info) Description 11/09/2024 Orders Only Pav CC Head, Neck & Respiratory [address] [facility], 2nd [place] [address] Alba Licea RN Chest pain on breathing (Primary Dx) Social History Tobacco Use Types Packs/Day Years [...] Upcoming Encounters Date Type Department Care Team ([facility] st Contact Info) Description 02/15/2025 8:00 AM EST Ancillary Procedure [place] [facility] [address], [address] [place] [address] 02/15/2025 9:20 AM EST Appointment PAV A Radiology [address] [place] [address] 02/15/2025 10:15 AM EST Office Visit [facility] Head[facility] Neck [facility] Respiratory [address], [address]nd [place] [address] Mike Epperson MD [address] [place] [address] documented as of this encounter Results * CT Chest wo [...] Shailesh Mansfield MD on 11/13/2024 8:41 AM us Kristopher Jackson MD IMG CT PROCEDURES Final Result documented in this encounter Visit Diagnoses Diagnosis Chest pain on breathing- Primary Painful respiration Chest pain on breathing Painful respiration documented [...] documented as of this encounter Care Teams Flooring Salesperson Relationship Specialty Start Date End Date Oren Epps MD [address] [place] [address] PCP - General 08/01/24 Jovany Jorge MD [address] [facility] [address] [place] [address] Consulting Physician Neurosurgery 10/15/21 documented as of this encounter
--- OUTSIDE RECORDS SUMMARY | 2024-12-14 13:05 | XMS_ITS | Encounter Summary ---
Author Organization Healthcare Address [address] [place] [address] Care Team Providers Care Roofing Machine Operator Name Role Phone Lisset Tamayo MICHAELLE Primary Care Provider [phone]- [phone] Jovany Jorge MD Unavailable Oren Epps MD Primary Care Provider [phone] Oren Epps MD Primary Care Provider [phone] Encounter Details Date Type Department Care Team (Late st Contact Info) Description 09/22/2021 Orders Only External Location [address] [place] [address] Provider, External Social History Tobacco Use Types [...] Description 02/15/2025 8:00 AM EST Ancillary Procedure [place] [facility] [address], [address] [place] [address] 02/15/2025 9:20 AM EST Appointment P[facility] A Radiology [address] [place] [address] 02/15/2025 10:15 AM EST Office Visit [facility] Head[facility] Neck & Respiratory [address] [place] [address] Mike Epperson MD [address] [place] [address] documented as of this encounter Procedures Procedure Name Priority Date/Time Associated Diagnosis Comments CT NEURO OUTSIDE IMAGES 09/22/2021 5:16 PM EDT documented in this encounter Results * CT NEURO OUTSIDE IMAGES (09/22/2021 5:16 PM EDT) Anatomical Region Laterality Modality Computed Tomogra phy 09/22/2021 5:16 PM EDT [...] documented as of this encounter Care Teams Roofing Machine Operator Relationship Specialty Start Date End Date Lisset Tamayo APRN [address] [place], [place] [id number] PCP - General 07/12/20 10/14/21 Oren Epps MD [address] [address] PCP - General 10/15/21 07/31/24 Oren Epps MD [address] [place] [address] PCP - General 08/01/24 Jovany Jorge MD [address] [address] Consulting Physician Neurosurgery 10/15/21 documented as of this encounter
--- OUTSIDE RECORDS SUMMARY | 2024-12-14 13:05 | XMS_ITS | Encounter Summary ---
Author Organization [facility] Address [address] [place] [address] Care Team Providers Care Research Nurse Practitioner Name Role Phone Jovany Jorge MD Unavailable Oren Epps MD Primary Care Provider [phone] Encounter Details Date Type Department Care Team ([facility] Contact Info) Description 11/14/2024 Telephone Pav CC Head, Neck & Respiratory [address] [place] [address] Kristopher Jackson MD [address] [place] [address] Social History Tobacco Use Types Packs/Day Years [...] on file documented as of this encounter Miscellaneous Notes * Telephone Encounter - Kristopher Jackson MD - 11/14/2024 11:17 AM EDT Called patient pertaining to her chest pain upon breathing after the procedure. CT of the chest wasobtained and it did not show any anatomical defects that would cause the patient chest pain from the bronchoscopy. Discussed the results of the scan with the patient. She states she is going to have some tests to evaluate her heart. She will have a follow up ct scan with Dr. Epperson 6 months from08/10/2024. documented in this encounter Plan of Treatment Upcoming Encounters Date Type Department Care Team ([facility] Contact Info) Description 02/15/2025 8:00 AM EST Ancillary Procedure [place] [facility] [address], [address] [place] [address] 02/15/2025 9:20 AM EST Appointment PAV A Radiology [address] [place] [address] 02/15/2025 10:15 AM EST Office Visit Pav [facility] Head, Neck & Respiratory [address] [facility], 2nd [place] [address] Mike Epperson MD [address] [place] [address] documented as of this encounter Visit Diagnoses Not on filedocumented [...] documented as of this encounter Care Teams Research Nurse Practitioner Relationship Specialty Start Date End Date Oren Epps MD [address] [place] [address] PCP - General 08/01/24 Jovany Jorge MD [address] [address] Consulting Physician Neurosurgery 10/15/21 documented as of this encounter
--- OUTSIDE RECORDS SUMMARY | 2024-12-14 13:05 | XMS_ITS | Encounter Summary ---
Author Organization [facility] Address [address] [place] [address] Care Team Providers Care Bobbin Presser Name Role Phone Lisset Tamayo MICHAELLE Primary Care Provider [phone] Jovany Jorge MD Unavailable [phone] Oren Epps MD Primary Care Provider [phone] Oren Epps MD Primary Care Provider [phone] Encounter Details Date Type Department Care Team (Late st Contact Info) Description 03/19/2021 Orders Only External Location [address] [place] [address] Provider, External Social History Tobacco Use Types [...] Procedure [place] [facility] [address], [address] [place] [address] 02/15/2025 9:20 AM EST Appointment [facility] [address] [place] [address] 02/15/2025 10:15 AM EST Office Visit [facility] [address], [address] [place] [address] Mike Epperson MD [address] [facility] [address] [place] [address] documented as of this encounter Procedures Procedure Name Priority Date/Time Associated Diagnosis Comments US BREAST OUTSIDE IMAGES 03/19/2021 2:48 PM EST documented in this encounter Results * US BREAST OUTSIDE IMAGES (03/19/2021 2:48 PM EST) Anatomical Region Laterality Modality Breast Mammography 03/19/2021 2:48 PM EST us External Provider IMG BI PROCEDURES Final Result documented in this encounter Visit Diagnoses Not on filedocumented in this encounter Additional Health Concerns Infection Onset Date Last Indicated Resolved Time Meningitis Rule-Out 09/24/2021 09/24/2021 09/25/19 5:15 AM EDT COVID-19 Rule-Out 09/26/2021 09/26/2021 09/26/2021 8:45 PM EDT Tuberculosis Rule-Out 08/01/2024 08/01/2024 documented as of this encounter Care Teams Bobbin Presser Relationship Specialty Start Date End Date Lisset Tamayo APRN [address] [place] [address] PCP - General 07/12/20 10/14/21 Oren Epps MD [address] [place] [address] PCP - General 10/15/21 07/31/24 Oren Epps MD [address] [place] [address] PCP - General 08/01/24 Jovany Jorge MD [address] [facility] [address] [place] [address] Consulting Physician Neurosurgery 10/15/21 documented as of this encounter
--- OUTSIDE RECORDS SUMMARY | 2024-12-14 13:05 | XMS_ITS | Encounter Summary ---
Author Organization [facility] Address [address] [place] [address] Care Team Providers Care Truck Farmer Name Role Phone Jovany Jorge MD Unavailable Oren Epps MD Primary Care Provider [phone] Oren Epps MD Primary Care Provider [phone] Reason for Visit * Reason Comments Med Refill Encounter Details Date Type Department Care Team (Late st Contact Info) Description 05/11/2023 Refill [facility] [address] [facility]nd [place] [address] Korin Leon MD [address] [facility] [address] [place] [address] Malignant neoplasm of upper-outer quadrant of right breast in female, estrogen receptor positive (CMS/HCC) (Primary Dx) Social History Tobacco Use Types Packs/Day Years Used Date Smoking Tobacco: Every Day Cigarettes 0.5 42.8 Started: 1982 Passive Smoke Exposure: Current Smokeless Tobacco: Never Alcohol Use Standard Drinks/Week Comments No 0 (1 standard drink = 0.6 oz pure alcohol) Alcoholic Drinks/day: Denies alcohol consumption PHQ-2 Answer Date Recorded Patient Health Questionnaire-2 Score 0 03/22/2023 Comments No Sex and Gender Information Value Date Recorded Sex Assigned at Not on file Legal Sex Female 7:59 PM EDT Gender Identity Not on file Sexual Orientation Not on file documented as of this encounter Plan of Treatment Upcoming Encounters Date Type Department Care Team (Late st Contact Info) Description 02/15/2025 8:00 AM EST Ancillary Procedure [place] [facility] [address] [place] [address] 02/15/2025 9:20 AM EST Appointment [facility] Radiology [address] [place] [address] 02/15/2025 10:15 AM EST Office Visit [facility] [address] [place] [address] Mike Epperson MD [address] [facility] [address] [place] [address] documented as of this encounter Visit Diagnoses Diagnosis Malignant neoplasm of upper-outer quadrant of right breast in female, estrogen receptor positive- Primary documented in this encounter Additional Health Concerns Infection Onset Date Last Indicated Resolved Time Tuberculosis Rule-Out 08/01/2024 08/01/2024 Assessment Noted Time A fall risk assessment has been complete d for the patient 03/30/2023 3:06 PM EST A Body Mass Index follow-up plan has been documented for the patient 03/30/2023 6:38 PM EST documented as of this encounter Care Teams Truck Farmer Relationship Specialty Start Date End Date Oren Epps MD [address] [facility] [address] [place] [address] PCP - General 10/15/21 07/31/24 Oren Epps MD [facility] [place] [address] PCP - General 08/01/24 Jovany Jorge MD [address] [place] [address] Consulting Physician Neurosurgery 10/15/21 documented as of this encounter
--- OUTSIDE RECORDS SUMMARY | 2024-12-14 13:05 | XMS_ITS | Encounter Summary ---
Author Organization [facility] Address [address] [place] [address] Care Team Providers Care Correction Officer Penitentiary Name Role Phone Jovany Jorge MD Unavailable Oren Epps MD Primary Care Provider Encounter Details Date Type Department Care Team (Latest Contact Info) Description 11/13/2024 Travel Social History Tobacco Use Types Packs/Day Years [...] Upcoming Encounters Date Type Department Care Team ( st Contact Info) Description 02/15/2025 8:00 AM EST Ancillary Procedure [place] [facility] [address] [place] [address] 02/15/2025 9:20 AM EST Appointment [facility] [address] [place] [address] 02/15/2025 10:15 AM EST Office Visit [facility] [address] [place] [address] Mike Epperson MD [address] [place] [address] documented as of this encounter Visit Diagnoses [...] documented as of this encounter Care Teams Correction Officer Penitentiary Relationship Specialty Start Date End Date Oren Epps MD [facility] [place] [id number] PCP - General 08/01/24 Jovany Jorge MD [address] [place] [address] Consulting Physician Neurosurgery 10/15/21 documented as of this encounter
--- OUTSIDE RECORDS SUMMARY | 2024-12-14 13:05 | XMS_ITS | Encounter Summary ---
Author Organization [facility] Address [address] [place] [address] Care Team Providers Care Natural Gas Basis Trader Name Role Phone Lisset Tamayo MICHAELLE Primary Care Provider [phone] Jovany Jorge MD Unavailable [phone] Oren Epps MD Primary Care Provider [phone] Oren Epps MD Primary Care Provider [phone] Encounter Details Date Type Department Care Team (Late st Contact Info) Description 08/26/2020 Orders Only External Location [address] [place] [address] Provider, External Social History Tobacco Use Types [...] Procedure [place] [facility] [address], [address] [place] [address] 02/15/2025 9:20 AM EST Appointment [facility] [address] [place] [address] 02/15/2025 10:15 AM EST Office Visit [facility] [address] [place] [address] Mike Epperson MD [address] [place] [address] documented as of this encounter Procedures Procedure Name Priority Date/Time Associated Diagnosis Comments US BREAST OUTSIDE IMAGES 08/26/2020 8:40 AM EDT documented in this encounter Results * US BREAST OUTSIDE IMAGES (08/26/2020 8:40 AM EDT) Anatomical Region Laterality Modality Breast Mammography 08/26/2020 8:40 AM EDT us External Provider IMG BI PROCEDURES Final Result documented in this encounter Visit Diagnoses Not on filedocumented in this encounter Additional Health Concerns Infection Onset Date Last Indicated Resolved Time Meningitis Rule-Out 09/24/2021 09/24/2021 09/25/19 5:15 AM EDT COVID-19 Rule-Out 09/26/2021 09/26/2021 09/26/2021 8:45 PM EDT Tuberculosis Rule-Out 08/01/2024 08/01/2024 documented as of this encounter Care Teams Natural Gas Basis Trader Relationship Specialty Start Date End Date Lisset Tamayo APRN [address] [place] [address] PCP - General 07/12/20 10/14/21 Oren Epps MD [address] [place] [address] PCP - General 10/15/21 07/31/24 Oren Epps MD [facility] [place] [address] PCP - General 08/01/24 Jovany Jorge MD [address] [facility] [address] [place] [address] Consulting Physician Neurosurgery 10/15/21 documented as of this encounter
--- OUTSIDE RECORDS SUMMARY | 2024-12-14 13:05 | XMS_ITS | Encounter Summary ---
Author Organization [facility] Address [address] [place] [address] Care Team Providers Care Pig Casting Machine Operator Name Role Phone Lisset Tamayo MICHAELLE Primary Care Provider [phone] Jovany Jorge MD Unavailable [phone] Oren Epps MD Primary Care Provider [phone] Oren Epps MD Primary Care Provider [phone] Encounter Details Date Type Department Care Team (Late st Contact Info) Description 03/09/2018 Orders Only External Location [address] [place] [address] Provider, External Social History Tobacco Use Types [...] Procedure [place] [facility] [address], [address] [place] [address] 02/15/2025 9:20 AM EST Appointment [facility] [address] [place] [address] 02/15/2025 10:15 AM EST Office Visit [facility] [address] [place] [address] Mike Epperson MD [address] [place] [address] documented as of this encounter Procedures Procedure Name Priority Date/Time Associated Diagnosis Comments XR THORACIC OUTSIDE IMAGES 03/09/2018 3:48 PM EST documented in this encounter Results * XR THORACIC OUTSIDE IMAGES (03/09/2018 3:48 PM EST) Anatomical Region Laterality Modality Radiographic Samara ging 03/09/2018 3:48 PM EST us External Provider IMG XR PROCEDURES Final Result documented in this encounter Visit Diagnoses Not on filedocumented in this encounter Additional Health Concerns Infection Onset Date Last Indicated Resolved Time Meningitis Rule-Out 09/24/2021 09/24/2021 09/25/19 5:15 AM EDT COVID-19 Rule-Out 09/26/2021 09/26/2021 09/26/2021 8:45 PM EDT Tuberculosis Rule-Out 08/01/2024 08/01/2024 documented as of this encounter Care Teams Pig Casting Machine Operator Relationship Specialty Start Date End Date Lisset Tamayo APRN [address] [place] [address] PCP - General 07/12/20 10/14/21 Oren Epps MD [address] [place] [address] PCP - General 10/15/21 07/31/24 Oren Epps MD [facility] [place] [address] PCP - General 08/01/24 Jovany Jorge MD [address] [place] [address] Consulting Physician Neurosurgery 10/15/21 documented as of this encounter
--- OUTSIDE RECORDS SUMMARY | 2024-12-14 13:05 | XMS_ITS | Encounter Summary ---
Author Organization [facility] Address [address] [place] [address] Care Team Providers Care Acquisition Editor Name Role Phone Lisset Tamayo MICHAELLE Primary Care Provider [phone] Jovany Jorge MD Unavailable [phone] Oren Epps MD Primary Care Provider [phone] Oren Epps MD Primary Care Provider [phone] Encounter Details Date Type Department Care Team (Late st Contact Info) Description 09/26/2020 Orders Only External Location [address] [place] [address] Provider, External Social History Tobacco Use Types [...] Procedure [place] [facility] [address], [address] [place] [address] 02/15/2025 9:20 AM EST Appointment [facility] [address] [place] [address] 02/15/2025 10:15 AM EST Office Visit [facility] [address] [place] [address] Mike Epperson MD [address] [place] [address] documented as of this encounter Procedures Procedure Name Priority Date/Time Associated Diagnosis Comments NM OUTSIDE IMAGES 09/26/2020 1:15 PM EDT documented in this encounter Results * NM OUTSIDE IMAGES (09/26/2020 1:15 PM EDT) Anatomical Region Laterality Modality Nuclear Medicine 09/26/2020 1:15 PM EDT External Provider IMG NM PROCEDURES Final Result documented in this encounter Visit Diagnoses Not on filedocumented in this encounter Additional Health Concerns Infection Onset Date Last Indicated Resolved Time Meningitis Rule-Out 09/24/2021 09/24/2021 09/25/19 5:15 AM EDT COVID-19 Rule-Out 09/26/2021 09/26/2021 09/26/2021 8:45 PM EDT Tuberculosis Rule-Out 08/01/2024 08/01/2024 documented as of this encounter Care Teams Acquisition Editor Relationship Specialty Start Date End Date Lisset Tamayo APRN [address] [place] [address] PCP - General 07/12/20 10/14/21 Oren Epps MD [address] [place] [address] PCP - General 10/15/21 07/31/24 Oren Epps MD [facility] [place], [place] [id number] PCP - General 08/01/24 Jovany Jorge MD [address] [facility] [address] [place] [address] Consulting Physician Neurosurgery 10/15/21 documented as of this encounter
--- OUTSIDE RECORDS SUMMARY | 2024-12-14 13:06 | XMS_ITS | Clinical Summary ---
Author Organization [facility] Address [address] [place] [address] Care Team Providers Care Head Turning Machine Operator Name Role Phone Jovany Jorge MD Unavailable [phone] Oren Epps MD Primary Care Provider [phone] Allergies Active Allergy Reactions Criticality Noted Date Comments Sulfamethoxazole-Trimethoprim Hives Medium 2021 Hydrocodone Hives,Rash High 09/23/2021 Lidocaine-Benzalkonium Unknown - Patient states they do not know rxn details Low 02/06/2019 Sulfamethoxazole Other - please docum ent in the comment field High 07/10/2022 Trimethoprim Unknown - Patient states they do not know rxn details High 07/10/2022 Medications clonazePAM (KlonoPIN) 0.5 MG tablet Take 1 tablet by mouth 2 times a day as needed. 2 Active oxyCODONE-aceta minophen (Percocet) 5-325 MG tablet Take 1 tablet by mouth every 8 hours as needed. 2 Active QUEtiapine (SEROquel) 25 MG tablet Take 1 tablet by mouth 3 times a day. 2 Active losartan (Cozaar) 100 MG tablet 3 Active buPROPion (Wellbutrin) 75 MG tablet 3 Active mirtazapine (Remeron) 15 MG tablet 3 Active prochlorperazin e (Compazine) 10 MG tablet 1 tablet. 3 Active levalbuterol (Xopenex) 1.25 MG/3ML nebulizer solution Take 1 ampule by nebulization 4 (four) times a day if needed for wheezing or shortness of breath. 72 mL 5 4 Active divalproex (Depakote) [address] tablet Take 1 tablet (250 mg) by mouth every night for 7 days, THEN 1 tablet (250 mg) 2 (two) times a day. Do not crush, chew, or split.. 120 tablet 5 4 Active letrozole (Femara) 2.5 MG chemo tabletIndicatio ns:Malignant neoplasm of upper-outer quadrant of right breast in female, estrogen receptor positive Take 1 tablet (2.5 mg total) by mouth 1 (one) time each day. Take with or without food. 90 tablet 3 4 Active dronabinol (Marinol) 5 MG capsule 4 Active tiotropium (Spiriva HandiHaler) 18 MCG inhalation capsuleIndicati ons:Chronic obstructive pulmonary disease, unspecified COPD type (CMS/HCC) Place 1 capsule (18 mcg) into inhaler and inhale 1 (one) time each day. 30 capsule 4 Active ASPIRIN 81 MG chewable tabletIndicatio ns:Atypical chest pain Chew 1 tablet (81 mg) daily. 90 tablet 3 5 04/21/19 26 Active rosuvastatin (Crestor) 20 MG tabletIndicatio ns:Atypical chest pain Take 1 tablet (20 mg) by mouth nightly. 90 tablet 3 5 04/21/19 26 Active nicotine (Nicoderm CQ) 21 MG/24HR patch Place 1 patch on the skin 1 (one) time each day at the same time. Active metoprolol tartrate (Lopressor) 25 MG tabletIndicatio ns:Prior to CT Coronary Angiogram Take 1 tablet by mouth As Directed (FOR CT ONLY) for up to 4 doses. Dosing instructions for the night prior to the exam and the morning of the exam - Take 2 tablets if your heart rate (HR) is > 70 BPM - Take 1 tablet if you heart rate (HR) is 60-70 BPM 4 tablet 5 Active Active Problems Problem Noted Date Diagnosed Date Mixed dyslipidemia 04/21/2024 Assessment & Plan (07/28/2024 1:42 PM EDT): - Recommend moderate intensity statin for goal LDL-C reduction of 30-50% (Atherosclerotic cardiovascular disease (ASCVD) risk </= 7.5% (low risk) with LDL-C > 70 mg/dL) - Continue therapy with Rosuvastatin (Crestor) 20 mg by mouth daily - Goal LDL-C < 70 mg/dL - repeat lipid panel today Assessment & Plan (04/21/2024 2:45 PM EST): - Lipid panel today - Given significant smoking history, the patient will be preemptively started on a statin therapy - Crestor ordered Migraine 01/12/2024 Cachectic 01/12/2024 Cough 01/12/2024 Fatigue 01/12/2024 Hypovolemia dehydration 01/12/2024 Impetigo 01/12/2024 GI bleed 01/12/2024 Right lower quadrant abdominal pain 01/12/2024 Syncope 01/12/2024 Tobacco dependence syndrome 01/12/2024 Assessment & Plan (04/21/2024 2:46 PM EST): - Strongly encouraged smoking cessation - Provided educational materials and resources to assist with quitting - Offered nicotine replacement therapy which the patient politely declined Vision changes 01/12/2024 Vitamin D deficiency 01/12/2024 Headache 01/12/2024 Cancer associated pain 01/12/2024 COPD exacerbation 01/12/2024 Pleurisy 01/12/2024 Esophageal dysfunction 01/12/2024 Malignant neoplasm of breast 01/12/2024 FDC (current) use of aromatase inhibitors 12/20/2023 Cachexia 09/30/2023 Dorsalgia 09/30/2023 Neoplasm related pain (acute) (chronic) 09/30/19 Malignant neoplasm of unspec ified site of unspecified female breast 09/30/2023 Emphysema, unspecified 08/27/2023 Essential hypertension, benign 07/30/2023 Assessment & Plan (07/28/2024 1:42 PM EDT): - Goal blood pressure < 130/80 mmHg - Medication titration to goal as tolerated - Home blood pressure log discussed - I recommended that the patient check their blood pressure multiple times per week for PCP/my review in an effort to optimize medication titration to goal - Orthostatic precautions were discussed in detail Assessment & Plan (04/21/2024 2:44 PM EST): - Goal blood pressure < 130/80 mmHg - Medication titration to goal as tolerated - Home blood pressure log discussed - I recommended that the patient check their blood pressure multiple times per week for PCP/my review in an effort to optimize medication titration to goal - Orthostatic precautions were discussed in detail. Patient does report intermittent orthostatic episodes. Will monitor for now. Malignant neoplasm of upper- outer quadrant of right female breast 07/02/2023 Coronavirus infection, unspecified 05/07/2023 Pain in throat 05/07/2023 Chronic obstructive pulmonar y disease with (acute) exacerbation 05/07/2023 Unspecified convulsions 04/21/2023 Chronic nonintractable headache 03/30/2023 Acquired absence of bilateral breasts and nipple s 03/25/2023 Cerebral aneurysm, nonruptured 03/25/2023 Mastodynia 03/25/2023 Scar conditions and fibrosis of skin 03/25/2023 Atypical chest pain 03/23/2023 Assessment & Plan (07/28/2024 1:41 PM EDT): - The patient has possibly cardiac chest pain - Coronary artery disease risk classification: High - Risk factors/High Risk Conditions: Family history of coronary artery disease, Hypertension, Dyslipidemia, and Current Tobacco Use - Exercise capacity: reduced - Treadmill candidate: No - Ischemic/CAD evaluation is indicated : Anatomic Testing: Computed Tomography Coronary Angiography (CTCA) - Primary prevention aspirin 81 mg daily: Yes - Primary prevention statin: Yes - the patient was unable to exercise for a duration long enough to reach the ischemic threshold. We will pursue anatomic testing at this time - computed tomography coronary angiography has been reordered - computed tomography coronary angiography beta alisha protocol discussed - transthoracic echocardiogram has been ordered - plan for completion of the CT and echo on same day to limit transportation difficulties Assessment & Plan (04/21/2024 4:03 PM EST): - The patient has possibly cardiac chest pain. Risk factors for coronary artery disease include extensive smoking history, family history of early-onset coronary artery disease, breast cancer with chemotherapy - Ischemic evaluation is indicated. We will proceed with anatomic assessment - Primary prevention aspirin 81 mg daily: Yes - Primary prevention statin: Yes - Anti-anginal therapy is not indicated - Anatomic assessment with CTCA - Beta alisha protocol discussed - Echo ordered - Patient may have a component of Letrozole associated chest pain as well SOB (shortness of breath) 03/23/2023 Palpitation 03/23/2023 Dyspnea 03/22/2023 Unspecified chronic bronchitis 03/22/2023 Dizziness 03/11/2023 Polyp of colon 05/15/2022 Rectal bleeding 05/15/2022 Tobacco use disorder 04/17/2022 Assessment & Plan (07/28/2024 1:42 PM EDT): - patient is currently in the process of quitting - importance of smoking cessation was discussed Esophageal dysphagia 04/17/2022 Electrolyte abnormality 11/24/2021 Overview (11/24/2021): Replace per ICU sliding scale protocol Continue to monitor closely Chronic pain 11/24/2021 Overview (11/24/2021): Resume home percocet and robaxin Anxiety 11/24/2021 Overview (11/24/2021): Resume home seroquel and klonopin Asthma 10/22/2021 Malignant neoplasm of upper- outer quadrant of right breast in female, estrogen receptor positive 10/03/2021 Cancer Staging:Pathologic stage from 10/03/2021:Stage IA(pT1a, pN0, cM0, G2, ER+, SC+, HER2-) - Signed by Korin Leon MD on 10/03/2021 Mucopurulent chronic bronchitis 02/06/2019 COPD (chronic obstructive pulmonary disease) 01/2019 Overview (11/24/2021): Continue home PRN bronchodilator therapy Gastroesophageal reflux disease 05/10/2018 Overview (11/24/2021): Continue home pantoprazole Resolved Problems Problem Noted Date Diagnosed Date Resolved Date Right axis deviation 01/12/2024 025 Left breast mass 01/12/2024 04/18/2024 Murmur, cardiac 01/12/2024 04/18/2024 Vomiting 01/12/2024 11/19/2024 URI (upper respiratory infection) 01/12/2024 11/19/2024 Bronchitis 01/12/2024 11/19/2024 Hypotension (arterial) 01/12/202404/18 Nausea & vomiting 05/07/2023 11/19/2024 Abnormal EKG 03/23/2023 04/18/2024 Aneurysm 03/05/2023 04/18/2024 Second hand smoke exposure 04/17/2022 0 11/19/2024 Acute postoperative pain of right groin 12/15/2021 11/19/2024 Cerebral aneurysm 11/24/2021 04/18/2024 Overview (11/24/2021): 11/21: 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 Close neuro and neurovascular checks as per ICU protocol SBP <140 Hold home plavix, start asa 81mg tomorrow 11/25 Hypertension 05/10/2018 04/18/2024 Overview (11/24/2021): SBP <140 Hold home lisinopril for now Continue PRN hydralazine and labetalol Encounters Date Type Department Care Team Description 11/28/2024 7:02 AM EDT - 11/28/2024 11:59 PM EDT Hospital Encounter Medical Office Building Cardiac Diagnostic Testing Medical Office Building Echo Lab [address] [facility], [address] [place] [address] Atypical chest pain Discharge Disposition: Home or Self Care 11/28/2024 Telephone [facility] [address] [place] [phone] Tran Bailey RN 11/28/2024 Travel 11/27/2024 8:37 AM EDT - 11/27/2024 11:59 PM EDT Hospital Encounter [facility] [address] [place] [address] Atypical chest pain Discharge Disposition: Home or Self Care 11/27/2024 6:38 AM EDT - 11/27/2024 8:36 AM EDT Hospital Encounter [facility] [address] [place] [address] Atypical chest pain Discharge Disposition: Home or Self Care 11/27/2024 Travel 11/20/2024 Travel 11/20/2024 Telephone [facility] [address] [place] [address] Priya Milian RN 11/14/2024 Telephone [facility] [address] [place] [address] Kristopher Jackson MD 11/13/2024 6:52 AM EDT - 11/13/2024 11:59 PM EDT Hospital Encounter [facility] [address] [place] [address] Chest pain on breathing Discharge Disposition: Home or Self Care 11/13/2024 Travel 11/09/2024 Orders Only [facility] [address] [place] [address] Alba Licea RN Chest pain on breathing (Primary Dx) from Last 3 Months Immunizations Immunization Administration Dates Next Due Influenza, seasonal, injectable, preservative fr ee 01/07/2016 Pneumococcal Polysaccharide PPV23 01/07/2016 Tdap 02/14/2014 Family History Medical History Relation Name Comments Stroke Other 1 Diabetes Other 2 Hyperlipidemia Other 3 Hypertension Other 4 Other cancer Other 5 Heart attack Other 6 Anesthesia problems Neg Hx Malig Hyperthermia Neg Hx Relation Name Status Comments Other 1 Other 2 Other 3 Other 4 Other 5 Other 6 Social History Tobacco Use Types Packs/Day Years Used Date Smoking Tobacco: Every Day Cigarettes 0.5 42.8 Started: 1982 Passive Smoke Exposure: Current Smokeless Tobacco: Never Tobacco Cessation:Ready to Q uit: Not Asked; Counseling Given: Not Answered Alcohol Use Standard Drinks/Week Comments Never 0 [...] on file Sexual Orientation Not on file Last Filed Vital Signs Vital Sign Reading Time Taken Comments Blood Pressure 128/84 11/28/2024 7:20 AM EDT Pulse 52 11/28/2024 7:20 AM EDT Temperature 36.7 C (98 F) 08/10/2024 8:01 AM EDT Respiratory Rate 20 11/27/2024 8:27 AM EDT Oxygen Saturation 98% 08/10/2024 8:01 AM EDT Inhaled Oxygen Concentration - - Weight 60.3 kg (132 lb 15 oz) 11/27/2024 7:20 AM EDT Height 167.6 cm (5' 6 ) 11/27/2024 7:20 AM EDT Body Mass Index 21.46 11/27/2024 7:20 AM EDT Plan of Treatment Upcoming Encounters Date Type Department Care Team (Late st Contact Info) Description 02/15/2025 8:00 AM EST Ancillary Procedure [facility] [address] [place] [address] 02/15/2025 9:20 AM EST Appointment [facility] [address] [place] [address] 02/15/2025 10:15 AM EST Office Visit [facility] [address] [place] [phone] Mike Epperson MD [address] [place] [address] Health Maintenance Due Date Last Done Comments [facility]Infant/Child/Adol SDOH Screenings 1971 [facility]- SDOH Screenings 1989 [facility]-Adult SDOH Screenings 1989 [facility]-Hepatitis A Vaccines (1 of 2 - Risk 2-dose series) 1990 [facility]-Hepatitis B Vaccines (1 of 3 - 19+ 3-dose series) 1990 [facility]-Zoster Vaccines (1 of 2) 1990 CT Colonography 02/08/2016 FIT-DNA 02/08/2016 FIT 02/08/2016 FOBT 02/08/2016 Sigmoidoscopy 02/08/2016 [facility]-Pneumococcal Vaccine: 50+ Years (2 of 2 - PCV) 01/06/2017 01/07/2016 [id number] Vaccine (3 - Moderna risk series) 2021 01/10/2021, 12/09/2020 [facility]-DTaP,Tdap,and Td Vaccines (2 - Td or Tdap) 02/15/2024 02/14/2014 [facility]-Influenza Vaccine (#1) 2024 01/07/2016 [facility]-Depression Screening 04/21/2025 04/21/2024, 04/02 [facility]-Lung Cancer Screening 11/13/20252024, 07/13/2024, 05/12/2024, Additional history exists Colonoscopy 06/01/2032 06/01/2022 [facility]-Colorectal Cancer Screening 06/01/2032 [facility]-HIV Screening Completed 09/23/2021 [facility]-Hepatitis C Screening Completed 09/23/2021 HPV Vaccines Aged Out No longer eligi ble based on patient's age to complete this topic [facility]-HIB Vaccines Aged Out No longer e ligible based on patient's age to complete this topic [facility]-IPV Vaccines Aged Out No longer e ligible based on patient's age to complete this topic [facility]-Rotavirus Vaccines Aged Out No lo nger eligible based on patient's age to complete this topic Medical Devices Implanted Type Area Silviculture Professor Device Identifier Shelf Expiration Date Model / Serial / Lot 4.5mm X 2mm Web Sl Aneurysm Embolization System, Size Via 17 Implanted:Qty: 1 on 11/24/2021 at [facility] Implant 02/29/2024 [id number] / / [id number] Coil Detacment Web Detachment Controller - [id number] Implanted:Qty: 1 on 11/24/2021 at [facility] [employer]-[id number] 04/28/2022 WD-2 / / [id number] Vip Vascular Closure Device 6 Fr - [id number] Implanted:Qty: 1 on 11/24/2021 by Mateo Nguyen RN at [facility] [id number] 08/28/2022 [id number] / / [id number] Procedures Procedure Name Priority Date/Time Associated Diagnosis Comments ECHO, ADULT TRANSTHORACIC COMPLETE W/ STRAIN Routine 11/28/2024 7:56 AM EDT Atypical chest pain CT ANGIO CARDIAC PLAQUE ANALYSIS Routine 11/27/2024 8:37 AM EDT Atypical chest pain CT ANGIO CARDIAC CORONARY ARTERIES Routine 11/27/2024 8:29 AM EDT Atypical chest pain CT CHEST WO IV CONTRAST STAT 11/14/19 7:03 AM EDT Chest pain on breathing COLONOSCOPY Routine 06/01/2022 12:54 PM EDT Polyp of colon, unspecified part of colon, unspecified type Rectal bleeding HEPATITIS C ANTIBODY - ED W/REFLEX TO HCV QUANT PCR STAT 09/23/2021 8:59 PM EDT HIV 1/2 ANTIBODY/ANTIGEN SCREEN WITH REFLEX TO HIV I/II DIFFERENTIATION STAT 09/23/2021 8:59 PM EDT from Last 3 Months or Most Recently Relevant to Health Maintenance Results * ECHO, ADULT TRANSTHORACIC COMPLETE W/ [...] is no recent study available for direct [id number] comparison. Left Ventricle The left ventricle is [...] is no recent study available for direct yusm-qs-naek comparison. us Romulo Grubbs DO CV ECHO PROCEDURES Final Re sult * CT Angio Cardiac Plaque Analysis (11/27/2024 [...] source 192 MDCT scanner (Somatom Force, [employer]) was used for data acquisition. A [...] source 192 MDCT scanner (Somatom Force, [employer])was used for data acquisition. A non-contrast [...] total coronary plaque with total plaque volume [id number]. The Total Plaque Volume for this patient is 78 percentile for ageand sex as compared to their peer population (Henrik et al. J Am CollCardiol Im 2022). --- Coronary CT Angiography --- The [...] DO IMG CT PROCEDURES Final Res ult * CT Angio Cardiac Coronary Arteries (11/27/2024 [...] total coronary plaque with total plaque volume [id number]. The Total Plaque Volume for this patient [...] Taz Joseph MD on 11/27/2024 10:03 AM us Romulo Grubbs DO IMG CT PROCEDURES Final Res ult * CT Chest wo IV Contrast (11/13/2024 [...] signing this report, I, the attending physician, tasha I have personally reviewed the images/data for the aboveexamination(s) and agree with the final edited report. Drafted by Clemente Torre MD on 11/13/2024 7:41 AM Final report signed by Shailesh Mansfield MD on 11/13/2024 8:41 AM Kristopher Jackson MD IMG CT PROCEDURES Final Result * Colonoscopy (06/01/2022 12:54 PM EDT) Anatomical Region Laterality Modality Endoscopy Narrative 06/01/2022 4:14 PM EDT Table formatting from the original result was not included. Impression - one small rectal polyp seen. Removed. - otherwise entire exam including examined terminal ileum is normal Recommendation - Return home once discharge criteria met. - May resume previous diet. - Await pathology results. - Repeat colonoscopy interval to be determined based on her prior colonoscopy and pathology results - Return to referring provider. - Discussed results with patient/family. Indication Rectal bleeding, Polyp of colon, unspecified part of colon, unspecified type Medications See anesthesia record for anesthesia administered medications. Staff Staff Role Haley Sher RN Endo Nurse Antonia Powers Endo Nurse Lindsey Lee CRNA PROFESSOR OF ANTHROPOLOGY Marjorie Gregorio MD Proceduralist Marquis Green MD Proceduralist Clemente Seals MD Anesthesiologist Unknown Endo Nurse 1 Endo Nurse DG Esquivel Proceduralist Preprocedure A history and physical has been performed, and patient medication allergies have been reviewed. The patient's tolerance of previous anesthesia has been reviewed. The risks and benefits of the procedure and the sedation options and risks were discussed with the patient. All questions were answered and informed consent obtained. Details of the Procedure The patient underwent monitored anesthesia care, which was administered by an anesthesia professional. The patient's blood pressure, heart rate, level of consciousness, respirations and oxygen were monitored throughout the procedure. A digital rectal exam was performed. A perianal exam was performed. The scope was introduced through the anus and advanced to the terminal ileum. Retroflexion was performed in the rectum. The quality of bowel preparation was evaluated using the [place] Bowel Preparation Scale with scores of: right colon = 2, transverse colon = 2, left colon = 2. The total BBPS score was 6. Bowel prep was adequate. The patient experienced no blood loss. The procedure was not difficult. The patient tolerated the procedure well. There were no apparent complications. Attestation I was present for the entire procedure Events Procedure Events Event Event Time ENDO SCOPE IN TIME 06/01/2022 12:12 PM ENDO SCOPE OUT TIME 06/01/2022 12:21 PM ENDO SCOPE IN TIME 06/01/2022 12:26 PM ENDO CECUM REACHED 06/01/2022 12:31 PM ENDO SCOPE OUT TIME 06/01/2022 12:52 PM Specimens ID Type Source Tests Collected by Time A : DISTAL Esophageal Biopsy Tissue Esophagus SURGICAL PATHOLOGY EXAM Marquis Green MD 06/01/2022 1217 B : PROXIMAL esophageal Biopsy Tissue Esophagus SURGICAL PATHOLOGY EXAM Marquis Green MD 06/01/2022 1218 C : RIGHT BX Tissue Colon SURGICAL PATHOLOGY EXAM Marquis Green MD 06/01/2022 1242 D : random left colon bx Tissue Colon SURGICAL PATHOLOGY EXAM Marquis Green MD 06/01/2022 1244 E : polyp Tissue Rectum SURGICAL PATHOLOGY EXAM Marquis Green MD 06/01/2022 1250 Findings The ileocecal valve, cecum, ascending colon, hepatic flexure, transverse colon, splenic flexure, descending colon, sigmoid colon and rectosigmoid appeared normal. One 2 mm sessile polyp in the rectum; performed complete en bloc removal by cold forceps biopsy The terminal ileum appeared normal. us Korin Leon MD GI PROCEDURE ORDERABLES Final Result * HIV 1 & 2 Antibody/Antigen Screen (09/23/2021 8:59 PM EDT) HIV 1 & 2 Antibody/Anti gen Screen Nonreactive Nonreactive 09/23/2021 10:18 PM EDT [facility] Blood Venous blood specimen / Unknown Venipuncture / Unknown 09/23/2021 8:59 PM EDT 09/23/2021 9:29 PM EDT Rafael Brown MD LAB BLOOD ORDERABLES Final Resu lt [facility] [address] [place] [address] * Hepatitis C Antibody - ED (09/23/2021 8:59 PM EDT) Hepatitis C Antibody Negative Negative 09/23/2021 10:21 PM EDT [facility] Blood Venous blood specimen / Unknown Venipuncture / Unknown 09/23/2021 8:59 PM EDT 09/23/2021 9:29 PM EDT Rafael Brown MD LAB BLOOD ORDERABLES Final Resu lt Performing Organization Address City/[facility] Co de Phone Number [facility] [address] [place] [address] from Last 3 Months or Most Recently Relevant to Health Maintenance Additional Health Concerns Infection Onset Date Last Indicated Tuberculosis Rule-Out 08/01/2024 08/01/2024 Insurance [employer] Advance Directives * Full Code (Latest Code Status on File) Date Activated Date Inactivated Comments 12/30/2023 10:45 AM 12/31/2023 2:43 AM Question Answer Comments Patient has decision-making capacity? Yes Care Teams Head Turning Machine Operator Relationship Specialty Start Date End Date Oren Epps MD [facility] [place] [address] PCP - General 08/01/24 Jovany Jorge MD [address] [facility] [address] [place] [address] Consulting Physician Neurosurgery 10/15/21
--- OUTSIDE RECORDS SUMMARY | 2024-12-14 13:06 | XMS_ITS | Encounter Summary ---
Author Organization [facility] Address [address] [place] [address] Care Team Providers Care Manager Hospital Name Role Phone Jovany Jorge MD Unavailable Oren Epps MD Primary Care Provider Encounter Details Date Type Department Care Team (Late Contact Info) Description 11/28/2024 Telephone [facility] [address] [place] [address] Tran Bailey, RN [facility] Social History Tobacco Use Types Packs/Day Years [...] Procedure [facility] [address] [place] [address] 02/15/2025 9:20 AM EST Appointment [facility] [address] [place] [address] 02/15/2025 10:15 AM EST Office Visit [facility] [address] [place] [phone] Mike Epperson MD [address] [facility] [address] [place] [phone] documented as of this encounter Visit Diagnoses [...] documented as of this encounter Care Teams Manager Hospital Relationship Specialty Start Date End Date Oren Epps MD [facility] [place] [address] PCP - General 08/01/24 Jovany Jorge MD [address] [place] [address] Consulting Physician Neurosurgery 10/15/21 documented as of this encounter
--- OUTSIDE RECORDS SUMMARY | 2024-12-14 13:06 | XMS_ITS | Encounter Summary ---
Author Organization [facility] Address [address] [place] [address] Care Team Providers Care Otolaryngology Physician Name Role Phone Jovany Jorge MD Unavailable [phone] Oren Epps MD Primary Care Provider [phone] Oren Epps MD Primary Care Provider [phone] Encounter Details Date Type Department Care Team (Late st Contact Info) Description 08/02/2023 Community [facility] [address] [place] [address] Oren Epps MD [address] [place], [place] [id number] Social History Tobacco Use Types Packs/Day Years [...] Description 02/15/2025 8:00 AM EST Ancillary Procedure [place] [facility] [address], [address] [place] [address] 02/15/2025 9:20 AM EST Appointment [facility] [address] [place] [address] 02/15/2025 10:15 AM EST Office Visit [facility] [address], [address]nd [place] [address] Mike Epperson MD [address] [place] [address] documented as of this encounter [...] documented as of this encounter Care Teams Otolaryngology Physician Relationship Specialty Start Date End Date Oren Epps MD [address] [place] [address] PCP - General 10/15/21 07/31/24 Oren Epps MD [facility]2 [place] [address] PCP - General 08/01/24 Jovany Jorge MD [address] [place] [address] Consulting Physician Neurosurgery 10/15/21 documented as of this encounter
--- OUTSIDE RECORDS SUMMARY | 2024-12-14 13:06 | XMS_ITS | Encounter Summary ---
Author Organization [facility] Address [address] [place] [address] Care Team Providers Care Bpm Architect Name Role Phone Lisset Tamayo MICHAELLE Primary Care Provider [phone] Jovany Jorge MD Unavailable [phone] Oren Epps MD Primary Care Provider [phone] Oren Epps MD Primary Care Provider [phone] Encounter Details Date Type Department Care Team (Late st Contact Info) Description 10/03/2021 Lab Requisition [facility] [address] [place] [address] Korin Leon MD [address] [facility] [address] [place] [address] Unspecified lump in unspecified breast Social History [...] suspected to have Coronavirus/COVID-19? No / Unsure 10/03/2021 2:02 PM EDT documented as of this encounter Plan of Treatment Upcoming Encounters Date Type Department Care Team (Late st Contact Info) Description 02/15/2025 8:00 AM EST Ancillary Procedure [place] [facility] [address], [address] [place] [address] 02/15/2025 9:20 AM EST Appointment [facility] [address] [place] [address] 02/15/2025 10:15 AM EST Office Visit [facility] [address], 2nd [place] [address] Mike Epperson MD [address] [place] [address] documented as of this encounter Procedures Procedure Name Priority Date/Time Associated Diagnosis Comments SURGICAL PATHOLOGY CONSULT Routine 10/03/2021 11:08 AM EDT Unspecified lump in unspecified breast documented in this encounter Results * Surgical Pathology Consult (10/03/2021 11:08 AM EDT) Case Report Sugical Pathology Consult Case: [id number] Authorizing Provider: Korin Leon MD Collected: 10/03/2021 1108 Ordering Location: [facility] Lab Received: 10/03/2021 1108 Pathologist: Edmund Lott MD Specimen: Breast, Right, [id number] 10/05/2021 11:27 AM EDT [facility] Final Diagnosis OUTSIDE , COLLECTED ON 05/04/2018: A. RIGHT BREAST, OUTER QUADRANT AT 10 O'CLOCK POSITION, STEREOTACTIC CORE BIOPSY: - FIBROADIPOSE TISSUE WITH LINING OF CYST WALL. - negative FOR ATYPIA OR MALIGNANCY. B. RIGHT BREAST, OUTER QUADRANT AT 10 O'CLOCK POSITION, CALCIFICATION, STEREOTACTIC CORE BIOPSY: - MUCOCELE-LIKE LESIONS WITH ASSOCIATED MICROCALCIFICATION AND FOCAL ATYPICAL DUCTAL HYPERPLASIA, SEE COMMENT. - Pseudoangiomatous stromal hyperplasia (PASH). 10/05/2021 11:27 AM EDT [facility] at 1127 EDT Comment Surgical excision is required to exclude possibility of a mucinous carcinoma. 10/05/2021 11:27 AM EDT [facility] Clinical Information N63.0 - Unspecified lump in unspecified breast [ICD-10-CM] 10/05/2021 11:27 AM EDT [facility] Gross Description A. [id number] Received along with a corresponding pathology report from [facility] are 12 slide(s) labeled outside case: [id number] collected on 05/04/2018. 10/05/2021 11:27 AM EDT [facility] Note: A resident was involved in the service. I attest I examined the relevant preparations for the specimens and confirmed the diagnosis or interpretation. 10/05/2021 11:27 AM EDT [facility] Tissue Right breast structure / Unknown 10/03/2021 11:08 AM EDT 10/03/2021 11:08 AM EDT us Korin Leon MD LAB PATHOLOGY ORDERABLES Final Result [facility] [address] [place] [address] documented in this encounter Visit Diagnoses Diagnosis Unspecified lump in unspecified breast documented in this encounter Additional Health Concerns Infection Onset Date Last Indicated Resolved Time Tuberculosis Rule-Out 08/01/2024 08/01/2024 documented as of this encounter Care Teams Bpm Architect Relationship Specialty Start Date End Date Lisset Tamayo APRN [address] [place] [address] PCP - General 07/12/20 10/14/21 Oren Epps MD [address] [facility] [address] [place] [address] PCP - General 10/15/21 07/31/24 Oren Epps MD [address] [place] [address] PCP - General 08/01/24 Jovany Jorge MD [address] [facility] [address] [place] [address] Consulting Physician Neurosurgery 10/15/21 documented as of this encounter
--- OUTSIDE RECORDS SUMMARY | 2024-12-14 13:06 | XMS_ITS | Encounter Summary ---
Author Organization [facility] Address [address] [place] [address] Care Team Providers Care Players Assistant Name Role Phone Jovany Jorge MD Unavailable [phone] Oren Epps MD Primary Care Provider [phone] Encounter Details Date Type Department Care Team (Latest Contact Info) Description 11/28/2024 Travel Social History Tobacco Use Types Packs/Day [...] [address], [address] [place] [address] 02/15/2025 9:20 AM EST Appointment [facility] [address] [place] [address] 02/15/2025 10:15 AM EST Office Visit [facility] [address], [address] [place] [address] Mike Epperson MD [address] [place] [address] documented as of this encounter Visit Diagnoses [...] documented as of this encounter Care Teams Players Assistant Relationship Specialty Start Date End Date Oren Epps MD [facility]2 [place] [id number] PCP - General 08/01/24 Jovany Jorge MD [address] [place] [address] Consulting Physician Neurosurgery 10/15/21 documented as of this encounter
--- OUTSIDE RECORDS SUMMARY | 2024-12-14 13:06 | XMS_ITS | Encounter Summary ---
Author Organization [facility] Address [address] [place] [address] Care Team Providers Care Link Fabric Machine Operator Name Role Phone Jovany Jorge MD Unavailable [phone] Oren Epps MD Primary Care Provider [phone] Oren Epps MD Primary Care Provider [phone] Encounter Details Date Type Department Care Team (Late st Contact Info) Description 08/02/2023 Community [facility] [address] [place] [address] Adam Wolf, [employer] [address] [place], [place] [id number] Other chest pain (Primary Dx) Social History Tobacco Use Types [...] Description 02/15/2025 8:00 AM EST Ancillary Procedure [place] [facility] [address], [address] [place] [address] 02/15/2025 9:20 AM EST Appointment [facility] [address] [place] [address] 02/15/2025 10:15 AM EST Office Visit [facility] [address] [place] [address] Mike Epperson MD [address] [place] [address] documented as of this encounter Visit Diagnoses Diagnosis Other chest pain- Primary documented in this encounter Additional Health Concerns Infection Onset Date Last Indicated Resolved Time Tuberculosis Rule-Out 08/01/2024 08/01/2024 Assessment Noted Time A fall risk assessment has been complete d for the patient 03/30/2023 3:06 PM EST A Body Mass Index follow-up plan has been documented for the patient 03/30/2023 6:38 PM EST documented as of this encounter Care Teams Link Fabric Machine Operator Relationship Specialty Start Date End Date Oren Epps MD [address] [place] [address] PCP - General 10/15/21 07/31/24 Oren Epps MD [facility]2 [place] [address] PCP - General 08/01/24 Jovany Jorge MD [address] [place] [address] Consulting Physician Neurosurgery 10/15/21 documented as of this encounter
--- OUTSIDE RECORDS SUMMARY | 2024-12-14 13:06 | XMS_ITS ---
Author Organization [facility] Address [address] [place] [address] Care Team Providers Care Signalling And Communications Engineer Name Role Phone Jovany Jorge MD Unavailable [phone] Oren Epps MD Primary Care Provider [phone] Active Problems Problem Noted Date Diagnosed Date [...] dysfunction 01/12/2024 Malignant neoplasm of breast 01/12/2024 salvage determiner (current) use of aromatase inhibitors 12/20/2023 Cachexia [...] from 10/03/2021:Stage IA(pT1a, pN0, cM0, G2, ER+, WA+, HER2-) - Signed by Korin Leon MD on 10/03/2021 Mucopurulent chronic bronchitis 02/06/2019 COPD (chronic obstructive pulmonary disease) 01/2019 Overview (11/24/2021): Continue home PRN bronchodilator therapy Gastroesophageal reflux disease 05/10/2018 Overview (11/24/2021): Continue home pantoprazole Current Treatment and Therapy Plans No current plan information found. Past Treatment and Therapy Plans No past plan information found. Lifetime Dose Tracking * Chemical Lifetime Dose Automatic Entry Manual Entr y Fluoro Time 71.18 minutes 71.18 minutes 0 minutes Air Kerma 2,317.3 mGy 2,317.3 mGy 0 mGy Air Kerma Area Product 22,520.95 Gym 22,520.95 Gym 0 Gym Resolved Problems Problem Noted Date Diagnosed Date [...]
--- OUTSIDE RECORDS SUMMARY | 2024-12-14 13:06 | XMS_ITS | Encounter Summary ---
Author Organization [facility] Address [address] [place] [address] Care Team Providers Care Household Appliances Salesperson Name Role Phone Jovany Jorge MD Unavailable Oren Epps MD Primary Care Provider [phone] Encounter Details Date Type Department Care Team (Late Contact Info) Description 11/20/2024 Telephone [facility] Radiology [address] [place] [address] Priya Milian RN [facility] Social History Tobacco Use [...] Procedure [place] [facility] [address], [address] [place] [address] 02/15/2025 9:20 AM EST Appointment [facility] [address] [place] [address] 02/15/2025 10:15 AM EST Office Visit [facility] [address] [place] [address] Mike Epperson MD [address] [place] [address] documented as of this encounter [...] documented as of this encounter Care Teams Household Appliances Salesperson Relationship Specialty Start Date End Date Oren Epps MD [facility]2 [place] [address] PCP - General 08/01/24 Jovany Jorge MD [address] [place] [address] Consulting Physician Neurosurgery 10/15/21 documented as of this encounter
--- OUTSIDE RECORDS SUMMARY | 2024-12-14 13:06 | XMS_ITS | Encounter Summary ---
Author Organization [facility] Address [address] [place] [address] Care Team Providers Care Router Operator Radial Name Role Phone Jovany Jorge MD Unavailable [phone] Oren Epps MD Primary Care Provider [phone] Encounter Details Date Type Department Care Team (Latest Contact Info) Description 11/20/2024 Travel Social History Tobacco Use Types Packs/Day [...] [address], [address] [place] [address] 02/15/2025 9:20 AM EST Appointment [facility] [address] [place] [address] 02/15/2025 10:15 AM EST Office Visit [facility] [address], [address] [place] [address] Mike Epperson MD [address] [place] [address] documented as of this encounter Visit Diagnoses [...] documented as of this encounter Care Teams Router Operator Radial Relationship Specialty Start Date End Date Oren Epps MD [facility]2 [place] [id number] PCP - General 08/01/24 Jovany Jorge MD [address] [place] [address] Consulting Physician Neurosurgery 10/15/21 documented as of this encounter
--- OUTSIDE RECORDS SUMMARY | 2024-12-14 13:06 | XMS_ITS | Encounter Summary ---
Author Organization [facility] Address [address] [place] [address] Care Team Providers Care Molding Room Supervisor Name Role Phone Lisset Tamayo MICHAELLE Primary Care Provider [phone] Jovany Jorge MD Unavailable [phone] Oren Epps MD Primary Care Provider [phone] Oren Epps MD Primary Care Provider [phone] Encounter Details Date Type Department Care Team (Late st Contact Info) Description 08/12/2014 Orders Only External Location [address] [place] [address] Provider, External Social History Tobacco Use Types [...] Procedure [place] [facility] [address], [address] [place] [address] 02/15/2025 9:20 AM EST Appointment [facility] [address] [place] [address] 02/15/2025 10:15 AM EST Office Visit [facility] [address], [address] [place] [address] Mike Epperson MD [address] [place] [address] documented as of this encounter Procedures Procedure Name Priority Date/Time Associated Diagnosis Comments CT NEURO OUTSIDE IMAGES 08/12/2014 1:57 PM EDT documented in this encounter Results * CT NEURO OUTSIDE IMAGES (08/12/2014 1:57 PM EDT) Anatomical Region Laterality Modality Computed Tomogra phy 08/12/2014 1:57 PM EDT External Provider IMG CT PROCEDURES Final Result documented in this encounter Visit Diagnoses Not on filedocumented in this encounter Additional Health Concerns Infection Onset Date Last Indicated Resolved Time Meningitis Rule-Out 09/24/2021 09/24/2021 09/25/19 5:15 AM EDT COVID-19 Rule-Out 09/26/2021 09/26/2021 09/26/2021 8:45 PM EDT Tuberculosis Rule-Out 08/01/2024 08/01/2024 documented as of this encounter Care Teams Molding Room Supervisor Relationship Specialty Start Date End Date Lisset Tamayo APRN [address] [place] [address] PCP - General 07/12/20 10/14/21 Oren Epps MD [address] [place] [address] PCP - General 10/15/21 07/31/24 Oren Epps MD [address] [place] [address] PCP - General 08/01/24 Jovany Jorge MD [address] [place] [address] Consulting Physician Neurosurgery 10/15/21 documented as of this encounter
--- OUTSIDE RECORDS SUMMARY | 2024-12-14 13:06 | XMS_ITS | Encounter Summary ---
Author Organization [facility] Address [address] [place] [address] Care Team Providers Care Mechanical Unit Repairer Name Role Phone Lisset Tamayo MICHAELLE Primary Care Provider [phone] Jovany Jorge MD Unavailable [phone] Oren Epps MD Primary Care Provider [phone] Oren Epps MD Primary Care Provider [phone] Encounter Details Date Type Department Care Team (Late st Contact Info) Description 01/10/2019 Orders Only External Location [address] [place] [address] Provider, External Social History Tobacco Use Types [...] Description 02/15/2025 8:00 AM EST Ancillary Procedure [place] [facility] [address], [address] [place] [address] 02/15/2025 9:20 AM EST Appointment [facility] [address] [place] [address] 02/15/2025 10:15 AM EST Office Visit [facility] [address], [address] [place] [address] Mike Epperson MD [address] [place] [address] documented as of this encounter Procedures Procedure Name Priority Date/Time Associated Diagnosis Comments XR THORACIC OUTSIDE IMAGES 01/10/2019 3:14 PM EST documented in this encounter Results * XR THORACIC OUTSIDE IMAGES (01/10/2019 3:14 PM EST) Anatomical Region Laterality Modality Radiographic Samara ging 01/10/2019 3:14 PM EST us External Provider IMG XR PROCEDURES Final Result documented in this encounter Visit Diagnoses Not on filedocumented in this encounter Additional Health Concerns Infection Onset Date Last Indicated Resolved Time Meningitis Rule-Out 09/24/2021 09/24/2021 09/25/19 5:15 AM EDT COVID-19 Rule-Out 09/26/2021 09/26/2021 09/26/2021 8:45 PM EDT Tuberculosis Rule-Out 08/01/2024 08/01/2024 documented as of this encounter Care Teams Mechanical Unit Repairer Relationship Specialty Start Date End Date Lisset Tamayo APRN [address] [place] [address] PCP - General 07/12/20 10/14/21 Oren Epps MD [address] [place] [address] PCP - General 10/15/21 07/31/24 Oren Epps MD [facility]2 [place] [address] PCP - General 08/01/24 Jovany Jorge MD [address] [place] [address] Consulting Physician Neurosurgery 10/15/21 documented as of this encounter
--- OUTSIDE RECORDS SUMMARY | 2024-12-14 13:06 | XMS_ITS | Encounter Summary ---
Author Organization [facility] Address [address] [place] [address] Care Team Providers Care Account Executive Sales Representative Name Role Phone Jovany Jorge MD Unavailable [phone] Oren Epps MD Primary Care Provider [phone] Encounter Details Date Type Department Care Team (Latest Contact Info) Description 11/27/2024 Travel Social History Tobacco Use Types Packs/Day [...] [address], [address] [place] [address] 02/15/2025 9:20 AM EST Appointment [facility] [address] [place] [address] 02/15/2025 10:15 AM EST Office Visit [facility] [address] [place] [address] Mike Epperson MD [address] [place] [address] documented as of this encounter Visit Diagnoses [...] documented as of this encounter Care Teams Account Executive Sales Representative Relationship Specialty Start Date End Date Oren Epps MD [facility]2 [place] [phone] PCP - General 08/01/24 Jovany Jorge MD [address] [place] [address] Consulting Physician Neurosurgery 10/15/21 documented as of this encounter
--- OUTSIDE RECORDS SUMMARY | 2024-12-14 13:06 | XMS_ITS | Encounter Summary ---
Author Organization [facility] Address [address] [place] [address] Care Team Providers Care Manager Strategy & Account Name Role Phone Jovany Jorge MD Unavailable [phone] Oren Epps MD Primary Care Provider [phone] Oren Epps MD Primary Care Provider [phone] Reason for Referral * Consultation (Routine) - Authorized Specialty Diagnoses / Procedures Referred By Joel t Referred To Contact Cardiology Diagnoses Family history of ischemic heart disease Other chest pain Adam Wolf APRN [address] [place] [address] Phone: tel: fax: Referral ID Status Reason Start Date Expiration Date Visits Requested Visits Authorized [id number] Authorized Specialty Services Required 08/09/2023 2025 1 1 Encounter Details Date Type Department Care Team (Late st Contact Info) Description 08/09/2023 Community [facility] [address] [place] [address] Adam Wolf APRN [address] [place] [id number] Family history of ischemic heart disease (Primary Dx); Other chest pain Social History Tobacco Use Types Packs/Day Years [...] Description 02/15/2025 8:00 AM EST Ancillary Procedure [place] [facility] [address], [address] [place] [address] 02/15/2025 9:20 AM EST Appointment [facility] [address] [place] [address] 02/15/2025 10:15 AM EST Office Visit [facility] [address] [place] [address] Mike Epperson MD [address] [facility] [address] [place] [address] Scheduled Referrals Name Type Priority Associated Diagnoses Order Schedule Ambulatory referral to Cardiology Outpatient Referral Routine Family history of ischemic heart disease Other chest pain Expected: 08/09/2023 (Approximate), Expires: 2025 documented as of this encounter Visit Diagnoses Diagnosis Family history of ischemic heart disease- Primary Other chest pain documented in this encounter Additional Health Concerns Infection Onset Date Last Indicated Resolved Time Tuberculosis Rule-Out 08/01/2024 08/01/2024 Assessment Noted Time A fall risk assessment has been complete d for the patient 03/30/2023 3:06 PM EST A Body Mass Index follow-up plan has been documented for the patient 03/30/2023 6:38 PM EST documented as of this encounter Care Teams Manager Strategy & Account Relationship Specialty Start Date End Date Oren Epps MD [address] [place] [address] PCP - General 10/15/21 07/31/24 Oren Epps MD [facility]2 [place] [address] PCP - General 08/01/24 Jovany Jorge MD [address] [place] [address] Consulting Physician Neurosurgery 10/15/21 documented as of this encounter
--- NOTE | 2024-12-14 13:07 | ED_ITS ---
Discharge Plan Disposition Patient Disposition: Home, Self-Care Condition: Good Prescriptions Prescriptions: New prochlorperazine maleate [Compazine] 5 mg tablet 5 mg PO DAILY Qty: 10 0RF No Action aspirin [Adult Aspirin Regimen] 81 mg tablet,delayed release (DR/EC) 81 mg PO DAILY letrozole 2.5 mg tablet 2.5 mg PO DAILY mirtazapine [Remeron] 30 mg tablet 30 mg PO DAILY Qty: 90 3RF levofloxacin 500 mg tablet 500 mg PO DAILY 10 Days Qty: 10 0RF rosuvastatin [Crestor] 20 mg tablet 20 mg PO DAILY bupropion HCl 75 mg tablet See Rx Instructions .ROUTE .COMPLEX Qty: 60 9RF Dose Instruction: TAKE 1 TABLET BY MOUTH TWICE A DAY FOR DEPRESSION Rx Instructions: TAKE 1 TABLET BY MOUTH TWICE A DAY FOR DEPRESSION mirtazapine [Remeron] 15 mg tablet 15 mg PO HS Qty: 30 3RF nicotine 21 mg/24 hr patch 24 hour 1 patch transdermal DAILY Qty: 28 5RF losartan 100 mg tablet 100 mg PO DAILY Qty: 90 3RF clonazepam 0.5 mg tablet See Rx Instructions .ROUTE .COMPLEX PRN (Reason: Anxiety) Qty: 90 3RF Rx Instructions: one during the day as needed, two at bedtime as needed for sleep PRN; dronabinol [Marinol] 5 mg capsule 5 mg PO TID Qty: 90 3RF Rx Instructions: administer before lunch and evening meal/dinner divalproex 250 mg tablet,delayed release (DR/EC) 250 mg PO BID Qty: 60 2RF prochlorperazine maleate [Compazine] 10 mg tablet 10 mg PO Q8H PRN (Reason: nausea and vomiting) Qty: 60 0RF oxycodone-acetaminophen [Percocet] 7.5-325 mg tablet 1 tab PO Q8H PRN (Reason: pain) Qty: 90 0RF Rx Instructions: pain associated with cancer treatment megestrol 40 mg tablet 200 mg PO BID 30 Days Qty: 300 1RF ondansetron HCl 4 mg tablet 4 mg PO TID PRN (Reason: nausea and vomiting) Qty: 90 0RF quetiapine 25 mg tablet See Rx Instructions .ROUTE .COMPLEX Qty: 90 0RF Dose Instruction: TAKE 1 TABLET BY MOUTH THREE TIMES DAILY NEEDED FOR ANXIETY AND SLEEP Rx Instructions: TAKE 1 TABLET BY MOUTH THREE TIMES DAILY NEEDED FOR ANXIETY AND SLEEP Referrals Follow up/Referrals: Oren Epps MD [Primary Care Provider, Family Practice] - See instructions Activity Restrictions/Add. Instructions Additional Instructions/Restrictions: Because of your vomiting and diarrhea, your bowels may be moving slower than usual. Stallings your diet slowly over the next few days. Return to the emergency department if you are unable to keep food down or if you have any other acute concerns. You can take the Compazine as needed to help with your nausea and vomiting. Clinical Impressions Clinical Impression: Chest pain, pleuritic, Abdominal distension, Enteritis Print Language Print Language: Citizen Of [place] Discharge ED Provider: Dayday Mason General Adult HPI <Dayday Mason MD - Last Filed: 12/14/24 15:18> General Chief complaint: Chest Pain Stated complaint: SOA Time Seen by Provider: 12/14/24 12:49 Mode of Arrival: Ambulatory Source of Information: Patient Description of Symptoms (Recalled from ER Triage Doc. by RN): matt presents for 8/10 stabbing chest pain in the mid chest, matt denies radiation anywhere else. patient also complaining of Lung pain . kvng endorses that she isna cancer patinet currently on chemo for breast cancer with possible mets to the lungs. patient also endorsing shortness of breath. History of Present Illness HPI narrative: Patient is a 54-year-old female presenting today with multiple complaints. Primary complaints of right-sided pleuritic chest pain and abdominal discomfort and abdominal distention. States that these things happen about the same time about a week ago. States that she has right sided pleuritic chest discomfort radiating through to her back associated with smothering. She also states that she had a fever of greater than 102 2 days ago. Around the same time 7 days ago when all this began her abdomen began to become distended. She does have a history of breast cancer and she is currently on oral chemo chronically she has status post bilateral mastectomy. Has never had radiation therapy. Additionally in August of this year she had a nodule that was 5 mm she states that was biopsied in her right lung which did not show cancer and she is being followed for this at the moment. Seems that she gets her cancer care at [facility] at this point. Related Data Home Medications ?Medication ?Instructions ?Recorded ?Confirmed aspirin 81 mg tablet,delayed 81 mg PO DAILY 06/16/22 0 11/17/24 release (Adult Aspirin Regimen) letrozole 2.5 mg tablet 2.5 mg PO DAILY 07/14/22 rosuvastatin 20 mg tablet (Crestor) 20 mg PO DAILY 11/17/24 Previous Rx's ?Medication ?Instructions ?Recorded bupropion HCl 75 mg tablet See Rx Instructions .Route 03/07/24 .COMPLEX #60 tabs mirtazapine 15 mg tablet (Remeron) 15 mg PO HS #30 tab s 07/06/24 nicotine 21 mg/24 hr daily 1 patch transdermal DAILY # 28 ea 07/20/24 transdermal patch levofloxacin 500 mg tablet 500 mg PO DAILY 10 days #10 tabs 08/21/24 mirtazapine 30 mg tablet (Remeron) 30 mg PO DAILY #90 tabs 08/21/24 clonazepam 0.5 mg tablet See Rx Instructions .Route 0 09/06/24 .COMPLEX PRN Anxiety #90 tabs losartan 100 mg tablet 100 mg PO DAILY #90 tabs 11/23 dronabinol 5 mg capsule (Marinol) 5 mg PO TID #90 caps 09/15/24 divalproex 250 mg tablet,delayed 250 mg PO BID #60 tab s 10/02/24 release prochlorperazine maleate 10 mg 10 mg PO Q8H PRN nausea and 11/06/24 tablet (Compazine) vomiting #60 tabs oxycodone-acetaminophen 7.5 mg-325 1 tab PO Q8H PRN pa in #90 tabs 11/16/24 mg tablet (Percocet) megestrol 40 mg tablet 200 mg (5 x 40 mg) PO BID 30 days 11/23/24 #300 tabs ondansetron HCl 4 mg tablet 4 mg PO TID PRN nausea and 11/24/24 vomiting #90 tabs quetiapine 25 mg tablet See Rx Instructions .Route 1 .COMPLEX #90 tabs prochlorperazine maleate 5 mg 5 mg PO DAILY #10 tabs 1 tablet (Compazine) Allergies Allergy/AdvReac Type Severity Reaction Status Date / Time hydrocodone (From [place]) Allergy Severe Rash Verified 11/17/24 09:27 sulfamethoxazole (From Allergy Severe Blisters/uncontrolled Verified 11/17/24 09:27 Bactrim) bladder trimethoprim (From Bactrim) Allergy Severe Blisters/uncontrolled Verified 11/17/24 09:27 bladder azithromycin Allergy Intermediate Hives Verified 11/17/24 09:27 [facility] <Dayday Mason MD - Last Filed: 12/14/24 15:18> [facility] Disclaimer: The information contained in this section may have been updated after the patient was seen, as this information can be updated by other users. Medical History Dorsalgia Breast cancer Emphysema lung COPD (chronic obstructive pulmonary disease) Basilar artery aneurysm Aneurysm Dyspnea Surgical History Hx of total knee replacement Hx of cholecystectomy Hx of tonsillectomy Hx of hysterectomy History of left mastectomy Family History Other Cancer Heart attack Hyperlipidemia Hypertension Stroke Social History Smoking Status: Current every day smoker tobacco type: cigarettes packs per day: 1 second hand exposure: Yes alcohol intake: never substance use type: denies use current occupational status: other Travel in the last 8 weeks?: None household members: friend(s) housing: house current occupational exposures/hazards: No caffeine: Yes Have you lived/traveled outside [place] in past 30 days?: No Contact w/someone who lives/traveled outside US past 30 days?: No Exposure to someone with infectious disease in past 14 days?: No Do you have a fever (greater than 100.4 F or 38 C)?: No Have you tested positive for COVID-19?: No Exposed to someone with COVID-19 in past 14 days?: No Do you have a sore throat?: No Do you have a cough?: No Do you have any weakness?: No Do you have any diarrhea?: No Are you experiencing any unusual bleeding?: No Do you have any muscle aches/pain?: No Do you have any abdominal pain?: No Are you experiencing loss of taste or smell?: No Other Medical History Have you received the Flu Vaccine for this season: No Have you received the Pneumonia Vaccine: No <Dayday Mason MD - Last Filed: 12/14/24 15:18> ROS Obtained: Yes All systems reviewed & no additional complaints except as documented Physical Exam <Dayday Mason MD - Last Filed: 12/14/24 15:18> General General appearance: alert Chest Chest inspection: Present normal inspection and symmetric chest wall rise Respiratory Respiratory exam: Present normal lung sounds bilaterally; Absent respiratory distress Cardiovascular Cardiovascular exam: Present regular rate and normal rhythm; Absent bradycardia Abdominal Exam Abdominal exam: Present soft and distention; Absent tenderness Neurological Exam Neurological exam: Present alert and oriented X3 Medical Decision Making <Dayday Mason MD - Last Filed: 12/14/24 15:18> Medical Records Screening: Per USPSTF and CDC recommendations, given the prevalence of disease in our region, it is our hospital?s policy to screen for HIV and viral Hepatitis for all patients aged 18 and over and those with ongoing risk factors. Edd Inquiry Pt receiving controlled substance: No Vital Signs: 12/14/24 12:38 12/14/24 13:00 12/14/24 13:41 Temperature 98.5 F Temperature Source Oral Pulse Rate 84 81 Pulse Rate [Right Radial] 82 Respiratory Rate 15 19 19 Blood Pressure Blood Pressure [Right Arm] 196/100 H Blood Pressure Mean [Right Arm] 132 Blood Pressure Source [Right Arm] Automatic Cuff Blood Pressure Position [Right Arm] Sitting 02 Sat by Pulse Oximetry 100 98 98 Oxygen Delivery Method Room Air 12/14/24 14:00 12/14/24 14:15 12/14/24 14:30 Temperature Temperature Source Pulse Rate 64 84 71 Pulse Rate [Right Radial] Respiratory Rate Blood Pressure 148/89 H Blood Pressure [Right Arm] Blood Pressure Mean [Right Arm] Blood Pressure Source [Right Arm] Blood Pressure Position [Right Arm] 02 Sat by Pulse Oximetry 97 97 98 Oxygen Delivery Method 12/14/24 15:00 12/14/24 15:30 12/14/24 16:00 Temperature Temperature Source Pulse Rate 72 68 64 Pulse Rate [Right Radial] Respiratory Rate 15 14 16 Blood Pressure Blood Pressure [Right Arm] Blood Pressure Mean [Right Arm] Blood Pressure Source [Right Arm] Blood Pressure Position [Right Arm] 02 Sat by Pulse Oximetry 98 99 98 Oxygen Delivery Method 12/14/24 16:45 Temperature Temperature Source Pulse Rate 60 Pulse Rate [Right Radial] Respiratory Rate 15 Blood Pressure 156/90 H Blood Pressure [Right Arm] Blood Pressure Mean [Right Arm] Blood Pressure Source [Right Arm] Blood Pressure Position [Right Arm] 02 Sat by Pulse Oximetry 97 Oxygen Delivery Method Lab Data Lab Results 12/14/24 12:52: WBC 9.1, RBC 4.68, Hgb 14.7, Hct 44.1, MCV 94.2, MCH 31.4 H, MCHC 33.3, RDW 15.5, Plt Count 314, MPV 9.9, Neut % (Auto) 60.6, Lymph % (Auto) 30.7, [place] % (Auto) 5.7, Eos % (Auto) 2.3, Baso % (Auto) 0.4, Neut # (Auto) 5.5, Lymph # (Auto) 2.8, [place] # (Auto) 0.5, Eos # (Auto) 0.2, Baso # (Auto) 0.0, Sodium 141, Potassium 4.1, Chloride 104, Carbon Dioxide 24, Anion Gap 17.1 H, BUN 8, Creatinine 0.80, Estimated Creat Clear 70, Estimated GFR 75, Est GFR ( Amer) 91, Glucose 120 H, Calcium 9.7, Total Bilirubin 0.7, AST 36, ALT 22, Alkaline Phosphatase 91, Troponin I < 0.01, NT-Pro-B Natriuret Pep 128 H, Total Protein 8.1, Albumin 5.0, Globulin 3.1, Albumin/Globulin Ratio 1.6, Lipase 183 12/14/24 13:05: VBG pH 7.29 L, VBG pCO2 49.3, VBG pO2 24.8 L, VBG HCO3 23.2, VBG Total CO2 24.7, VBG O2 Saturation 51.3, VBG Base Excess -3.4 L, VBG Lactic Acid 2.4 H 12/14/24 13:09: SARS-CoV-2 (PCR) Not detected, Influenza A Untype (PCR) Not detected, Influenza Type B (PCR) Not detected 12/14/24 15:57: Troponin I < 0.01 12/14/24 16:51: Urine Color Yellow, Urine Appearance Clear, Urine pH 6.5, Ur Specific [place] <= 1.005, Urine Protein Negative, Urine Glucose (UA) Negative, Urine Ketones Negative, Urine Blood Trace-i, Urine Nitrate Negative, Urine Bilirubin Negative, Urine Urobilinogen 0.2, Ur Leukocyte Esterase Negative 12/14/24 12:52 12/14/24 12:52 Orders (Tests/Meds): ED MEDICATIONS Discontinued Medications Generic Name Dose Route Start Last Admin Trade Name Freq PRN Reason Stop Dose Admin Acetaminophen 1,000 mg 12/14/24 13:03 12/14/24 13:13 Acetaminophen 1,000mg/100ml Vial IV 12/14/24 13:04 1,000 mg ONCE ONE Administration Lactated Ringer's 1,000 mls @ 999 mls/hr 12/14/24 13:15 12/14/24 16:07 Lactated Ringer's 1000 Ml Bag IV 12/14/24 14:15 Infused .Q1H1M [place] Infusion Iopamidol 80 ml 12/14/24 13:31 12/14/24 13:33 Iopamidol-370 (76%);100ml Bottle IV 12/14/24 13:32 80 ml ONCE ONE Administration Ondansetron HCl 4 mg 12/14/24 13:03 12/14/24 13:13 Ondansetron 4mg/2ml Vial IV 12/14/24 13:04 4 mg ONCE ONE Administration Prochlorperazine Edisylate 5 mg 12/14/24 16:08 12/14/24 16:14 Prochlorperazine 10mg/2ml Vial IV 12/14/24 16:09 5 mg ONCE ONE Administration Sodium Chloride 50 ml 12/14/24 13:31 12/14/24 13:32 0.9 % Sodium Chloride 50 Ml Vial IV 12/14/24 13:32 50 ml ONCE ONE Administration Sodium Chloride 10 ml 12/14/24 13:31 12/14/24 13:32 Sodium Chloride 0.9% 10ml Syr (Rad Only) IV 12/14/24 13:32 10 ml ONCE ONE Administration ORDERS Category Date Time Status CT abdomen pelvis w con Stat Cat Scan 12/14/24 13:[address] angio chest PE protocol Stat Cat Scan 12/14/24 13:04 Completed BNP [NT Pro Brain Natriuretic Pep.] Stat Lab 12/14/24 12:52 Completed CBC w/Auto Diff [Complete Blood Count Auto Diff] Stat Lab 12/14/24 12:52 Completed CMP [Comprehensive Metabolic Panel] Stat Lab 12/14/24 12:52 Completed Lactate Venous Stat Lab 12/14/24 13:03 Ordered Lactic Acid Follow Up (RFLX 1) Stat Lab 12/14/24 17:14 Ordered Lipase Stat Lab 12/14/24 12:52 Completed Rapid PCR Covid and Flu A/B Stat Lab 12/14/24 13:09 Completed Trop I [Troponin I] Stat Lab 12/14/24 12:52 Completed Troponin I Q3H Lab 12/14/24 15:57 Completed Troponin I Q3H Lab 12/14/24 19:15 Ordered UA [Urinalysis and Microscopic] Stat Lab 12/14/24 16:51 Results Blood Culture Stat Micro 12/14/24 13:22 Received Venous Blood Gas Stat RT 12/14/24 13:05 Completed ECG Data Tracing #1: I reviewed this ECG and interpreted as documented below: Ventricular to 74 normal sinus rhythm no acute ischemic changes noted normal axis no significant conduction abnormalities noted HEART Score History (anamnesis): Slightly suspicious ECG: Normal Age: 45-65 years Risk factors: 1-2 risk factors Troponin: </= normal limit HEART Score: 2 Medical Decision Narrative: Patient is a 54-year-old female with multiple complaints primarily right-sided pleuritic chest pain in addition to abdominal distention. Her abdomen is impressively distended differential includes ileus bowel obstruction metastatic cancer etc. With regards to her right sided chest discomfort with her feelings of being smothered differential occludes pneumonia pleural effusion malignant pleural effusion heart failure pulmonary embolism etc. Will get a contrasted CT scan of her abdomen pelvis as well as a CT PE. She also complains of a headache and complained of a fever at home viral etiology such as COVID certainly could be the presenting factor as well today. IV fluids IV nausea medicine and Tylenol have been administered and will reassess shortly. CT scan of the patient's chest abdomen pelvis performed I personally interpreted which on my personal interpretation did not yield any obvious cause of the patient's right-sided chest or right upper quadrant abdominal discomfort. Radiology reads pending care transition to Dr. Ricci at 3:15 PM labs otherwise unremarkable. No evidence of sepsis or any other emergent medical condition identified. <Aicha Ricci, DO - Last Filed: 12/14/24 17:29> Vital Signs: 12/14/24 12:38 12/14/24 13:00 12/14/24 13:41 Temperature 98.5 F Temperature Source Oral Pulse Rate 84 81 Pulse Rate [Right Radial] 82 Respiratory Rate 15 19 19 Blood Pressure Blood Pressure [Right Arm] 196/100 H Blood Pressure Mean [Right Arm] 132 Blood Pressure Source [Right Arm] Automatic Cuff Blood Pressure Position [Right Arm] Sitting 02 Sat by Pulse Oximetry 100 98 98 Oxygen Delivery Method Room Air 12/14/24 14:00 12/14/24 14:15 12/14/24 14:30 Temperature Temperature Source Pulse Rate 64 84 71 Pulse Rate [Right Radial] Respiratory Rate Blood Pressure 148/89 H Blood Pressure [Right Arm] Blood Pressure Mean [Right Arm] Blood Pressure Source [Right Arm] Blood Pressure Position [Right Arm] 02 Sat by Pulse Oximetry 97 97 98 Oxygen Delivery Method 12/14/24 15:00 12/14/24 15:30 12/14/24 16:00 Temperature Temperature Source Pulse Rate 72 68 64 Pulse Rate [Right Radial] Respiratory Rate 15 14 16 Blood Pressure Blood Pressure [Right Arm] Blood Pressure Mean [Right Arm] Blood Pressure Source [Right Arm] Blood Pressure Position [Right Arm] 02 Sat by Pulse Oximetry 98 99 98 Oxygen Delivery Method 12/14/24 16:45 Temperature Temperature Source Pulse Rate 60 Pulse Rate [Right Radial] Respiratory Rate 15 Blood Pressure 156/90 H Blood Pressure [Right Arm] Blood Pressure Mean [Right Arm] Blood Pressure Source [Right Arm] Blood Pressure Position [Right Arm] 02 Sat by Pulse Oximetry 97 Oxygen Delivery Method Lab Data Lab results reviewed: Yes I reviewed the patient's lab results. Lab Results 12/14/24 12:52: WBC 9.1, RBC 4.68, Hgb 14.7, Hct 44.1, MCV 94.2, MCH 31.4 H, MCHC 33.3, RDW 15.5, Plt Count 314, MPV 9.9, Neut % (Auto) 60.6, Lymph % (Auto) 30.7, [place] % (Auto) 5.7, Eos % (Auto) 2.3, Baso % (Auto) 0.4, Neut # (Auto) 5.5, Lymph # (Auto) 2.8, [place] # (Auto) 0.5, Eos # (Auto) 0.2, Baso # (Auto) 0.0, Sodium 141, Potassium 4.1, Chloride 104, Carbon Dioxide 24, Anion Gap 17.1 H, BUN 8, Creatinine 0.80, Estimated Creat Clear 70, Estimated GFR 75, Est GFR ( Amer) 91, Glucose 120 H, Calcium 9.7, Total Bilirubin 0.7, AST 36, ALT 22, Alkaline Phosphatase 91, Troponin I < 0.01, NT-Pro-B Natriuret Pep 128 H, Total Protein 8.1, Albumin 5.0, Globulin 3.1, Albumin/Globulin Ratio 1.6, Lipase 183 12/14/24 13:05: VBG pH 7.29 L, VBG pCO2 49.3, VBG pO2 24.8 L, VBG HCO3 23.2, VBG Total CO2 24.7, VBG O2 Saturation 51.3, VBG Base Excess -3.4 L, VBG Lactic Acid 2.4 H 12/14/24 13:09: SARS-CoV-2 (PCR) Not detected, Influenza A Untype (PCR) Not detected, Influenza Type B (PCR) Not detected 12/14/24 15:57: Troponin I < 0.01 12/14/24 16:51: Urine Color Yellow, Urine Appearance Clear, Urine pH 6.5, Ur Specific [place] <= 1.005, Urine Protein Negative, Urine Glucose (UA) Negative, Urine Ketones Negative, Urine Blood Trace-i, Urine Nitrate Negative, Urine Bilirubin Negative, Urine Urobilinogen 0.2, Ur Leukocyte Esterase Negative Orders (Tests/Meds): ED MEDICATIONS Discontinued Medications Generic Name Dose Route Start Last Admin Trade Name Freq PRN Reason Stop Dose Admin Acetaminophen 1,000 mg 12/14/24 13:03 12/14/24 13:13 Acetaminophen 1,000mg/100ml Vial IV 12/14/24 13:04 1,000 mg ONCE ONE Administration Lactated Ringer's 1,000 mls @ 999 mls/hr 12/14/24 13:15 12/14/24 16:07 Lactated Ringer's 1000 Ml Bag IV 12/14/24 14:15 Infused .Q1H1M [place] Infusion Iopamidol 80 ml 12/14/24 13:31 12/14/24 13:33 Iopamidol-370 (76%);100ml Bottle IV 12/14/24 13:32 80 ml ONCE ONE Administration Ondansetron HCl 4 mg 12/14/24 13:03 12/14/24 13:13 Ondansetron 4mg/2ml Vial IV 12/14/24 13:04 4 mg ONCE ONE Administration Prochlorperazine Edisylate 5 mg 12/14/24 16:08 12/14/24 16:14 Prochlorperazine 10mg/2ml Vial IV 12/14/24 16:09 5 mg ONCE ONE Administration Sodium Chloride 50 ml 12/14/24 13:31 12/14/24 13:32 0.9 % Sodium Chloride 50 Ml Vial IV 12/14/24 13:32 50 ml ONCE ONE Administration Sodium Chloride 10 ml 12/14/24 13:31 12/14/24 13:32 Sodium Chloride 0.9% 10ml Syr (Rad Only) IV 12/14/24 13:32 10 ml ONCE ONE Administration ORDERS Category Date Time Status CT abdomen pelvis w con Stat Cat Scan 12/14/24 13:[address] angio chest PE protocol Stat Cat Scan 12/14/24 13:04 Completed BNP [NT Pro Brain Natriuretic Pep.] Stat Lab 12/14/24 12:52 Completed CBC w/Auto Diff [Complete Blood Count Auto Diff] Stat Lab 12/14/24 12:52 Completed CMP [Comprehensive Metabolic Panel] Stat Lab 12/14/24 12:52 Completed Lactate Venous Stat Lab 12/14/24 13:03 Ordered Lactic Acid Follow Up (RFLX 1) Stat Lab 12/14/24 17:14 Ordered Lipase Stat Lab 12/14/24 12:52 Completed Rapid PCR Covid and Flu A/B Stat Lab 12/14/24 13:09 Completed Trop I [Troponin I] Stat Lab 12/14/24 12:52 Completed Troponin I Q3H Lab 12/14/24 15:57 Completed Troponin I Q3H Lab 12/14/24 19:15 Ordered UA [Urinalysis and Microscopic] Stat Lab 12/14/24 16:51 Results Blood Culture Stat Micro 12/14/24 13:22 Received Venous Blood Gas Stat RT 12/14/24 13:05 Completed HEART Score HEART Score: 2 Medical Decision Narrative: Patient is a 54-year-old female with multiple complaints primarily right-sided pleuritic chest pain in addition to abdominal distention. Her abdomen is impressively distended differential includes ileus bowel obstruction metastatic cancer etc. With regards to her right sided chest discomfort with her feelings of being smothered differential occludes pneumonia pleural effusion malignant pleural effusion heart failure pulmonary embolism etc. Will get a contrasted CT scan of her abdomen pelvis as well as a CT PE. She also complains of a headache and complained of a fever at home viral etiology such as COVID certainly could be the presenting factor as well today. IV fluids IV nausea medicine and Tylenol have been administered and will reassess shortly. CT scan of the patient's chest abdomen pelvis performed I personally interpreted which on my personal interpretation did not yield any obvious cause of the patient's right-sided chest or right upper quadrant abdominal discomfort. Radiology reads pending care transition to Dr. Ricci at 3:15 PM labs otherwise unremarkable. No evidence of sepsis or any other emergent medical condition identified. Aicha Ricci, DO I assumed care of the patient at 1500. Patient's labs were reviewed and interpreted by myself: CBC showed no leukocytosis, hemoglobin was stable. ABG with mild elevated lactate of 2.4. CMP was unremarkable. Troponin was less than 0.01. BNP was unremarkable. Lipase normal. UA showed no evidence of infection. CT chest and CT abdomen reviewed and interpreted by myself: CT chest showed a small nodular opacity in the right upper lobe that I discussed with the patient and notified her that she will likely need to follow-up outpatient for repeat imaging. No other acute pathology. CT abdomen showed some fluid-filled loops of bowel. Patient reports that she has been having vomiting and diarrhea. Likely enteritis in nature. Patient was given a dose of Compazine in the emergency department. Patient was able to keep liquids and food down without difficulties. At this time, I recommended that patient advance her diet as tolerated over the next few days. Patient was given a short course of Compazine to help as patient states that her Zofran as prescribed has not been helping her. Patient was otherwise discharged home in stable condition, return precautions were discussed. Critical Care <Dayday Mason MD - Last Filed: 12/14/24 15:18> Critical Care Time Critical Care Time: No
[2024-12-14 13:10] LABS: Hematocrit 44.1 % (37.0-47.0); Hemoglobin 14.7 g/dL (12.2-16.2); Immature Granulocytes % 0.3 %; Mean Corpuscular HGB Conc 33.3 g/dL (31.8-35.4); Mean Corpuscular Hemoglobin 31.4 pg (27.0-31.2); Mean Corpuscular Volume 94.2 fl (81-99); Nucleated Red Blood Cells % 0 %; Platelet Count 314 K/mm3 (142-424); Red Blood Count 4.68 M/mm3 (4.20-5.40); Red Cell Distribution Width-SD 53.0 fL; White Blood Count 9.1 K/mm3 (4.8-10.8)
[2024-12-14 13:11] LABS: VBG HCO3 23.2 mmol/L (23-30); VBG PCO2 49.3 mmol/L (35-51); VBG PH 7.29 mmol/L (7.31-7.41); VBG PO2 24.8 mmol/L (28-40)
[2024-12-14 13:13] LABS: Lactate Venous 2.4 mmol/L (0.4-2.0)
[2024-12-14] MEDS: LACTATED RINGERS 1000ML 1,000 ML 999 ML IV (13:13)
[2024-12-14] MEDS: ACETAMINOPHEN 1,000MG/100ML VIAL 1000 MG IV (13:13)
[2024-12-14] MEDS: ONDANSETRON 4MG/2ML VIAL 4 MG IV (13:13)
[2024-12-14 13:17] LABS: Alanine Aminotransferase 22 U/L (12-78); Albumin Level 5.0 g/dl (3.5-5.0); Albumin/Globulin Ratio 1.6 (1.1-1.8); Alkaline Phosphatase 91 U/L (38-126); Anion Gap 17.1 mEq/L (5-15); Aspartate Amino Transferase 36 U/L (14-36); Bilirubin,Total 0.7 mg/dl (0.2-1.3); Blood Urea Nitrogen 8 mg/dl (7-17); Calcium 9.7 mg/dl (8.4-10.2); Carbon Dioxide 24 mmol/L (22.0-30.0); Chloride 104 mmol/L (98-107); Creatinine Clearance Estimated 70 mL/min (50-200); Creatinine,Serum 0.80 mg/dl (0.52-1.04); Estimated Glomerular Filt Rate 75 ml/min (>60); GFR (African American) 91 ML/MIN (>60); Globulin 3.1 g/dL (1.3-3.2); Glucose 120 mg/dl (74-100); Lipase 183 U/L (23-300); Potassium 4.1 mmoL/L (3.5-5.1); Sodium 141 mmol/L (136-145); Total Protein,Serum 8.1 g/dl (6.3-8.2)
[2024-12-14 13:28] LABS: Coronavirus 19, PCR Not Detected (NotDetected); Influenza A, PCR Not Detected (NotDetected); Influenza B, PCR Not Detected (NotDetected)
[2024-12-14 13:29] LABS: NT Pro Brain Natriuretic Pep. 128 pg/mL (0-125)
[2024-12-14] MEDS: 0.9 % SODIUM CHLORIDE 50 ML VIAL IV (13:32)
[2024-12-14] MEDS: SODIUM CHLORIDE 0.9% 10ML SYR (RAD ONLY) 10 ML IV (13:32)
[2024-12-14] MEDS: IOPAMIDOL-370 (76%);100ML BOTTLE 80 ML IV (13:33)
[2024-12-14 13:41] LABS: Troponin I < 0.01 ng/ml (0.00-0.034)
[2024-12-14] MEDS: PROCHLORPERAZINE 10MG/2ML VIAL 5 MG IV (16:14)
[2024-12-14 16:36] LABS: Troponin I < 0.01 ng/ml (0.00-0.034)
[2024-12-14 17:02] LABS: Microscopic, Urine URINE MICROSCOPIC (MICROSCOPIC)
[2024-12-14 17:14] LABS: Reflex Lactic Add Lactic Reflex
[2024-12-14 17:15] LABS: Bilirubin,Urine Negative (Negative); Color,Urine YELLOW (Yellow); Glucose,Urine (UA) Negative (Negative); Ketones,Urine Negative (Negative); Leukocyte Esterase,Urine Negative (Negative); PH,Urine 6.5 (5.0-8.5); Protein,Urine Negative (Negative); Specific Gravity, Urine <= 1.005 (1.005-1.030); Urobilinogen,Urine 0.2 EU/dl (0.2)
[2024-12-14 17:28] LABS: WBC,Urine Occasional #/hpf (0-3)
[2024-12-14 17:29] LABS: Bacteria,Urine Trace /lpf
== END 2024-12-14 17:28 | disposition home or self-care (01) ==
PROVIDERS: Emergency Provider Student in an Organized Health Care Education/Training Program; PCP Family Medicine
DX: R09.1 Pleurisy (principal); R06.02 Shortness of breath; K52.9 Noninfective gastroenteritis and colitis, unspecified; R50.9 Fever, unspecified; R14.0 Abdominal distension (gaseous); F17.210 Nicotine dependence, cigarettes, uncomplicated
CPT/HCPCS: 71275; 74177; 80053; 81001; 82803; 83690; 83880; 84484; 85025; 87040; 87636; 93005; 96361; 96374; 96375; 99285; J0131; J0780; J2405; J7120; Q9967

== ENCOUNTER 2024-12-28 13:23 | Emergency (ER) | payer MEDICAID, SELFPAY ==
[2024-12-28 13:28] VITALS: BP 156/87; PULSE 85; RESP 20; TEMP 37.1; O2SAT 97; BMI 22.2
--- NOTE | 2024-12-28 13:56 | ED_ITS ---
<Statement entered by Cash Scherer MD - 12/29/24 08:14> I was consulted by the ARABELLA, and we discussed the complexity of the problems being addressed. I approve the treatment and management plan for this patient's care in the emergency department, thus performing a substantive portion of the medical decision making. Cash Scherer MD Discharge Plan Disposition Patient Disposition: Home, Self-Care Condition: Good Prescriptions Prescriptions: New ondansetron 4 mg tablet,disintegrating 4 mg PO Q6H PRN (Reason: nausea and vomiting) Qty: 10 0RF No Action aspirin [Adult Aspirin Regimen] 81 mg tablet,delayed release (DR/EC) 81 mg PO DAILY letrozole 2.5 mg tablet 2.5 mg PO DAILY mirtazapine [Remeron] 30 mg tablet 30 mg PO DAILY Qty: 90 3RF rosuvastatin [Crestor] 20 mg tablet 20 mg PO DAILY bupropion HCl 75 mg tablet See Rx Instructions .ROUTE .COMPLEX Qty: 60 9RF Dose Instruction: TAKE 1 TABLET BY MOUTH TWICE A DAY FOR DEPRESSION Rx Instructions: TAKE 1 TABLET BY MOUTH TWICE A DAY FOR DEPRESSION mirtazapine [Remeron] 15 mg tablet 15 mg PO HS Qty: 30 3RF nicotine 21 mg/24 hr patch 24 hour 1 patch transdermal DAILY Qty: 28 5RF losartan 100 mg tablet 100 mg PO DAILY Qty: 90 3RF clonazepam 0.5 mg tablet See Rx Instructions .ROUTE .COMPLEX PRN (Reason: Anxiety) Qty: 90 3RF Rx Instructions: one during the day as needed, two at bedtime as needed for sleep PRN; divalproex 250 mg tablet,delayed release (DR/EC) 250 mg PO BID Qty: 60 2RF megestrol 40 mg tablet 200 mg PO BID 30 Days Qty: 300 1RF ondansetron HCl 4 mg tablet 4 mg PO TID PRN (Reason: nausea and vomiting) Qty: 90 0RF quetiapine 25 mg tablet See Rx Instructions .ROUTE .COMPLEX Qty: 90 0RF Dose Instruction: TAKE 1 TABLET BY MOUTH THREE TIMES DAILY NEEDED FOR ANXIETY AND SLEEP Rx Instructions: TAKE 1 TABLET BY MOUTH THREE TIMES DAILY NEEDED FOR ANXIETY AND SLEEP oxycodone-acetaminophen [Percocet] 7.5-325 mg tablet 1 tab PO Q8H PRN (Reason: pain) Qty: 90 0RF Rx Instructions: pain associated with cancer treatment Referrals Follow up/Referrals: Ferny Flores II, MD [Staff Physician, Gastroenterology] - See instructions Oren Epps MD [Primary Care Provider, Family Practice] - See instructions Activity Restrictions/Add. Instructions Additional Instructions/Restrictions: Please return to the emergency department any worsening signs or symptoms. Please progress your diet as tolerated, please utilize antinausea medication as needed. Please follow-up with PCP and GI physician in the upcoming days/weeks. Please bring a stool sample back to the emergency department so we can send off for further testing. Clinical Impressions Clinical Impression: Nausea vomiting and diarrhea Instructions Patient Instructions: DI for Acute Abdominal Pain, DI for Nausea in Adults Print Language Print Language: Burmese Discharge ED Provider: Cash Scherer Adult HPI General Chief complaint: Abdominal Pain Stated complaint: sent by doctor, jerald. blockage Time Seen by Provider: 12/28/24 13:53 Mode of Arrival: Ambulatory Source of Information: Patient and Medical Record Description of Symptoms (Recalled from ER Triage Doc. by RN): Pt states DR Epps told her to come to the ED has blockage in stomach and needs procedure to release it Mentioned an NG tube History of Present Illness HPI narrative: 54-year-old female presents to the emergency department at the request of her PCP, from PCPs office, with concern over what sounds like a bowel obstruction ., Patient was seen in the emergency department on 12/14/2024 for similar complaint, patient states her symptoms have been going on for greater than 2 weeks at this point, she endorses abdominal pain nausea vomiting diarrhea last bowel movement was this morning, she vaguely describes what sounds like hematochezia states that she has polyps , she had full workup with negative laboratory studies, and negative CT abdomen pelvis showing signs for enteritis. Ruled out bowel obstruction. Patient states her cough is also increased, denies any shortness of breath outside her normal, denies any fever chills admits to generalized weakness, denies any chest pain, denies any hemoptysis, denies any melena, denies any urinary type symptomatology, patient is current everyday smoker, denies any alcohol or drug use, patient has other past medical history consistent with EDIS COPD, history of breast cancer status post bilateral mastectomy, currently on oral chemotherapy, hypertension, cerebral aneurysm status post stent coil, hyperlipidemia. Initial triage vitals are unremarkable. Please note that above description of symptoms, in this electronic medical record under categorization of recalled from ER triage doctor by RN are reflective of an initial nursing assessment, however, is not reflective of my full history and physical exam that was personally taken and clarified. Consequentially, this preceding description of symptoms, which may include the patient's categorized chief complaint in the EMR, do not reflect my personal clinical impression, and the ultimate description of history of present illness and patient stated complaints should be deferred to this section of the note. Unless stated otherwise or congruent with this section of the note, additional signs, symptoms, or incongruence should be interpreted as inaccurate with my clinical impression. Onset (ago): week(s) Related Data Home Medications ?Medication ?Instructions ?Recorded ?Confirmed aspirin 81 mg tablet,delayed 81 mg PO DAILY 06/16/22 1 release (Adult Aspirin Regimen) letrozole 2.5 mg tablet 2.5 mg PO DAILY 07/14/22 rosuvastatin 20 mg tablet (Crestor) 20 mg PO DAILY 12/28/24 Previous Rx's ?Medication ?Instructions ?Recorded bupropion HCl 75 mg tablet See Rx Instructions .Route 03/07/24 .COMPLEX #60 tabs mirtazapine 15 mg tablet (Remeron) 15 mg PO HS #30 tab s 07/06/24 nicotine 21 mg/24 hr daily 1 patch transdermal DAILY # 28 ea 07/20/24 transdermal patch mirtazapine 30 mg tablet (Remeron) 30 mg PO DAILY #90 tabs 08/21/24 clonazepam 0.5 mg tablet See Rx Instructions .Route 0 09/06/24 .COMPLEX PRN Anxiety #90 tabs losartan 100 mg tablet 100 mg PO DAILY #90 tabs 11/23 divalproex 250 mg tablet,delayed 250 mg PO BID #60 tab s 10/02/24 release megestrol 40 mg tablet 200 mg (5 x 40 mg) PO BID 30 days 11/23/24 #300 tabs ondansetron HCl 4 mg tablet 4 mg PO TID PRN nausea and 11/24/24 vomiting #90 tabs quetiapine 25 mg tablet See Rx Instructions .Route 1 .COMPLEX #90 tabs oxycodone-acetaminophen 7.5 mg-325 1 tab PO Q8H PRN pa in #90 tabs 12/18/25 mg tablet (Percocet) ondansetron 4 mg disintegrating 4 mg PO Q6H PRN nausea and 12/28/24 tablet vomiting #10 tabs Allergies Allergy/AdvReac Type Severity Reaction Status Date / Time hydrocodone (From [place]) Allergy Severe Rash Verified 12/28/24 10:57 sulfamethoxazole (From Allergy Severe Blisters/uncontrolled Verified 12/28/24 10:57 Bactrim) bladder trimethoprim (From Bactrim) Allergy Severe Blisters/uncontrolled Verified 12/28/24 10:57 bladder azithromycin Allergy Intermediate Hives Verified 12/28/24 10:57 PFSH PFSH Disclaimer: The information contained in this section may have been updated after the patient was seen, as this information can be updated by other users. Medical History Dorsalgia Breast cancer Emphysema lung COPD (chronic obstructive pulmonary disease) Basilar artery aneurysm Aneurysm Dyspnea Surgical History Hx of total knee replacement Hx of cholecystectomy Hx of tonsillectomy Hx of hysterectomy History of left mastectomy Family History Other Cancer Heart attack Hyperlipidemia Hypertension Stroke Social History Smoking Status: Current every day smoker tobacco type: cigarettes packs per day: 1 second hand exposure: Yes alcohol intake: never substance use type: denies use current occupational status: other Travel in the last 8 weeks?: None household members: friend(s) housing: house current occupational exposures/hazards: No caffeine: Yes Have you lived/traveled outside [place] in past 30 days?: No Contact w/someone who lives/traveled outside [place] past 30 days?: No Exposure to someone with infectious disease in past 14 days?: No Do you have a fever (greater than 100.4 F or 38 C)?: No Have you tested positive for COVID-19?: No Exposed to someone with COVID-19 in past 14 days?: No Do you have a sore throat?: No Do you have a cough?: No Do you have any weakness?: No Do you have any diarrhea?: No Are you experiencing any unusual bleeding?: No Do you have any muscle aches/pain?: No Do you have any abdominal pain?: No Are you experiencing loss of taste or smell?: No Other Medical History Have you received the Flu Vaccine for this season: No Have you received the Pneumonia Vaccine: No ROS Obtained: Yes All systems reviewed & no additional complaints except as documented Physical Exam General General appearance: alert and in no apparent distress Head Head exam: atraumatic and normocephalic Eye Eye exam: Present PERRL and EOMI ENT ENT exam: Present mucous membranes moist Neck Neck exam: Present normal inspection Chest Chest inspection: Present normal inspection and symmetric chest wall rise Respiratory Respiratory exam: Present normal lung sounds bilaterally; Absent respiratory distress Cardiovascular Cardiovascular exam: Present regular rate and normal rhythm Abdominal Exam Abdominal exam: Present soft, distention and tenderness; Absent guarding, rebound or rigidity Abdominal tenderness: Present diffuse and mild Extremities Exam Extremities exam: Present normal inspection Neurological Exam Neurological exam: Present alert and oriented X3 Psychiatric Psychiatric exam: Present normal affect Skin Skin exam: Present warm and dry Medical Decision Making Medical Records Medical records reviewed: Yes I reviewed the patient's medical records. Screening: Per USPSTF and CDC recommendations, given the prevalence of disease in our region, it is our hospital?s policy to screen for HIV and viral Hepatitis for all patients aged 18 and over and those with ongoing risk factors. Edd Inquiry Pt receiving controlled substance: No Edd was queried for this patient: No Vital Signs: 12/28/24 13:28 12/28/24 14:18 Temperature 98.7 F 98.5 F Temperature Source Oral Oral Pulse Rate 69 Pulse Rate [Left Radial] 85 Respiratory Rate 20 18 Blood Pressure 148/97 H Blood Pressure [Right Arm] 156/87 H Blood Pressure Mean [Right Arm] 110 Blood Pressure Source [Right Arm] Automatic Cuff Blood Pressure Position [Right Arm] Sitting 02 Sat by Pulse Oximetry 97 98 Oxygen Delivery Method Room Air Room Air Lab Data Lab results reviewed: Yes I reviewed the patient's lab results. Lab Results 12/28/24 13:40: WBC 7.2, RBC 4.26, Hgb 13.6, Hct 39.9, MCV 93.7, MCH 31.9 H, MCHC 34.1, RDW 14.8, Plt Count 305, MPV 10.0, Neut % (Auto) 52.1, Lymph % (Auto) 36.3, Dale % (Auto) 8.0, Eos % (Auto) 2.6, Baso % (Auto) 0.4, Neut # (Auto) 3.8, Lymph # (Auto) 2.6, Dale # (Auto) 0.6, Eos # (Auto) 0.2, Baso # (Auto) 0.0, Sodium 137, Potassium 3.6, Chloride 106, Carbon Dioxide 24, Anion Gap 10.6, BUN 9, Creatinine 0.70, Estimated Creat Clear 92, Estimated GFR 88, Est GFR ( Amer) 106, Glucose 101 H, Calcium 9.1, Magnesium 1.8, Total Bilirubin 0.2, AST 30, ALT 13, Alkaline Phosphatase 76, Troponin I < 0.01, NT-Pro-B Natriuret Pep 207 H, Total Protein 7.8, Albumin 3.7, Globulin 4.1 H, Albumin/Globulin Ratio 0.9 L, Lipase 110, HCV Ab DEAN w/Rflx PCR Qn Negative, HIV Ag/Ab Combo Qual Negative 12/28/24 14:15: Lactate 0.7 12/28/24 16:04: Urine Color Yellow, Urine Appearance Clear, Urine pH 5.5, Ur Specific [place] <= 1.005, Urine Protein Negative, Urine Glucose (UA) Negative, Urine Ketones Negative, Urine Blood 1+ A, Urine Nitrate Negative, Urine Bilirubin Negative, Urine Urobilinogen 0.2, Ur Leukocyte Esterase Negative, Urine RBC None, Urine WBC None, Ur Squamous Epith Cells Occasional, Urine Bacteria None 12/28/24 13:40 12/28/24 13:40 Orders (Tests/Meds): ED MEDICATIONS Generic Name Dose Route Start Last Admin Trade Name Freq PRN Reason Stop Dose Admin Ondansetron HCl 4 mg 12/28/24 16:42 Ondansetron 4mg/2ml Vial IV 12/28/24 16:43 ONCE ONE Discontinued Medications Generic Name Dose Route Start Last Admin Trade Name Freq PRN Reason Stop Dose Admin Lactated Ringer's 1,000 mls @ 999 mls/hr 12/28/24 14:05 12/28/24 15:30 Lactated Ringer's 1000 Ml Bag IV 12/28/24 15:05 Infused .Q1H1M ONE Infusion Iopamidol 75 ml 12/28/24 14:52 12/28/24 14:53 Iopamidol-370 (76%);100ml Bottle IV 12/28/24 14:53 75 ml ONCE ONE Administration Morphine Sulfate 2 mg 12/28/24 14:22 12/28/24 14:29 Morphine 2mg/Ml Syringe IV 12/28/24 14:23 2 mg ONCE ONE Administration Ondansetron HCl 4 mg 12/28/24 14:05 12/28/24 14:17 Ondansetron 4mg/2ml Vial IV 12/28/24 14:06 4 mg ONCE ONE Administration Sodium Chloride 10 ml 12/28/24 14:52 12/28/24 14:53 Sodium Chloride 0.9% 10ml Syr (Rad Only) IV 12/28/24 14:53 10 ml ONCE ONE Administration ORDERS Category Date Time Status CT abdomen pelvis w con Stat Cat Scan 12/28/24 14:05 Completed XR chest portable Stat Exams 12/28/24 14:04 Completed Complete Blood Count Auto Diff Stat Lab 12/28/24 13:40 Completed Comprehensive Metabolic Panel Stat Lab 12/28/24 13:40 Completed Diarrhea 23 Panel, PCR Stat Lab 12/28/24 14:13 Ordered HIV Combo Routine Lab 12/28/24 13:40 Completed Hepatitis C Ab Qual. W/ RFX Routine Lab 12/28/24 13:40 Completed Lactic Acid Stat Lab 12/28/24 14:15 Completed Lipase Stat Lab 12/28/24 13:40 Completed Magnesium Stat Lab 12/28/24 13:40 Completed NT Pro Brain Natriuretic Pep. Stat Lab 12/28/24 13:40 Completed Troponin I Q3H Lab 12/28/24 17:15 Ordered Troponin I Q3H Lab 12/28/24 20:15 Ordered Troponin I Stat Lab 12/28/24 13:40 Completed Urinalysis and Microscopic Stat Lab 12/28/24 16:04 Completed Medical Decision Narrative: 54-year-old female presents the emergency department at the request of her PCP for abdominal pain nausea vomiting diarrhea for 2 weeks, differential diagnose include but not limited to, ileus, enteritis, gastroenteritis, bowel obstruction, pseudo colonic obstruction, cardiac arrhythmia, electrolyte disturbance, malignancy, constipation among others. I discussed this patient's case with the attending physician Dr. Scherer, I also discussed this patient's case with the attending physician Dr. Ricci Will obtain basic laboratory studies, chest x-ray, CT abdomen pelvis, diarrhea PCR panel, lactic acid level lipase level magnesium level proBNP troponin urinalysis, will give 1 L LR IV and 4 mg IV Zofran for nausea. CBC is unremarkable Of note, I was notified by nursing staff at approximately 2:15 PM that the patient is requesting some pain meds , discussed with patient that we will be given 2 mg of IV morphine, also discussed with patient that this could be contributing to her symptomatology, and would's things such as ileus and bowel obstruction with chronic narcotic use, patient tells me that she takes 3 oxycodone , daily, last dose was around 3 AM this morning . She tells me she takes this for cancer . All risk and benefits of giving narcotic medication were discussed with me at the bedside patient elected to proceed. CMP is notable for normal troponin at less than 0.01 proBNP is mildly elevated at 207, lipase within normal limits otherwise unremarkable CMP No lactic acidosis 1+ hematuria, nitrite negative, no leukocyte esterase Microscopic analysis of the patient's urine is notable for no RBCs no WBCs no bacteria. I reviewed the patient's CT abdomen pelvis with contrast along the corresponding radiologic report, resolving changes related to prior partial small bowel obstruction I reviewed the patient's chest x-ray along with corresponding radiologic report, no acute process. Patient was able to tolerate p.o. intake with crackers and ice, will will give patient distal dose of 4 mg IV Zofran for nausea prior to discharge, will send the patient home with p.o. sublingual Zofran, patient will also have outpatient stool sample supplies, as unfortunately patient is unable to give stool sample here in the emergency department. Patient was recommended to address diet as tolerated. Patient voiced understanding and agreement with current treatment plan/discharge plan. Patient follow-up PCP and GI physician in the upcoming days/weeks. Strict ED return precaution given. Critical Care Critical Care Time Critical Care Time: No
--- NOTE | 2024-12-28 13:57 | PC.NURSE ---
Pt awake alert and oriented Skin pink warm and dry REsp full and easy Speech clear and appropriate ABD distended and firm Report given to Tommy RN IV site without redness or edema
--- NOTE | 2024-12-28 14:04 | XR_ITS ---
FINAL REPORT CLINICAL HISTORY: SOA FINDINGS: SINGLE VIEW CHEST The heart is normal in size. The mediastinum is unremarkable. The lungs are clear. There is no pneumothorax. IMPRESSION: No acute process. Reviewed, Interpreted and Dictated by Guru Rios MD Transcribed by Sherry Rosenthal Authenticated and [facility]
--- NOTE | 2024-12-28 14:05 | CT_ITS ---
FINAL REPORT TECHNIQUE: After the administration of oral and intravenous contrast, axial images were obtained through the abdomen and pelvis by computed tomography. The study was performed with techniques to keep radiation dose as low as reasonably achievable, (ALARA). Individual dose reduction techniques using automated exposure control or adjustment of mA and/or kV according to the patient's size were employed. CLINICAL HISTORY: Abdominal pain, nausea, vomiting, [id number] COMPARISON: 12/14/2024 FINDINGS: Abdomen: The lung bases are clear. The liver parenchyma is homogeneous. There is a lobular cyst in the lateral segment of the left lobe of the liver measures 2.2 x 1.2 cm. The gallbladder is certain he absent. The spleen, pancreas, adrenals and kidneys appear unremarkable. The aorta is normal in caliber. There is no free fluid or adenopathy. Pelvis: The appendix is unremarkable. The previously identified fluid-filled loops of small bowel in the pelvis are again identified but the bowel loops are no longer distended. The distal bowel is relatively decompressed. Findings may be related to some resolving changes related to prior partial small bowel obstruction. The urinary bladder is unremarkable. There is no free fluid or adenopathy. IMPRESSION: Resolving changes related to prior partial small bowel obstruction. Reviewed, Interpreted and Dictated by Guru Rios MD Transcribed by Sherry Rosenthal Authenticated and [facility]
[2024-12-28 14:12] LABS: Albumin Level 3.7 g/dl (3.5-5.0); Chloride 106 mmol/L (98-107); Hematocrit 39.9 % (37.0-47.0); Hemoglobin 13.6 g/dL (12.2-16.2); Immature Granulocytes % 0.6 %; Mean Corpuscular HGB Conc 34.1 g/dL (31.8-35.4); Mean Corpuscular Hemoglobin 31.9 pg (27.0-31.2); Mean Corpuscular Volume 93.7 fl (81-99); Nucleated Red Blood Cells % 0 %; Platelet Count 305 K/mm3 (142-424); Potassium 3.6 mmoL/L (3.5-5.1); Red Blood Count 4.26 M/mm3 (4.20-5.40); Red Cell Distribution Width-SD 51.3 fL; Sodium 137 mmol/L (136-145); White Blood Count 7.2 K/mm3 (4.8-10.8)
[2024-12-28 14:14] LABS: Alanine Aminotransferase 13 U/L (12-78); Anion Gap 10.6 mEq/L (5-15); Aspartate Amino Transferase 30 U/L (14-36); Blood Urea Nitrogen 9 mg/dl (7-17); Carbon Dioxide 24 mmol/L (22.0-30.0); Creatinine Clearance Estimated 92 mL/min (50-200); Creatinine,Serum 0.70 mg/dl (0.52-1.04); Estimated Glomerular Filt Rate 88 ml/min (>60); GFR (African American) 106 ML/MIN (>60)
[2024-12-28 14:15] LABS: Albumin/Globulin Ratio 0.9 (1.1-1.8); Alkaline Phosphatase 76 U/L (38-126); Bilirubin,Total 0.2 mg/dl (0.2-1.3); Calcium 9.1 mg/dl (8.4-10.2); Globulin 4.1 g/dL (1.3-3.2); Glucose 101 mg/dl (74-100); Lipase 110 U/L (23-300); Magnesium 1.8 mg/dl (1.6-2.3); Total Protein,Serum 7.8 g/dl (6.3-8.2)
[2024-12-28] MEDS: LACTATED RINGERS 1000ML 1,000 ML 999 ML IV (14:16)
[2024-12-28] MEDS: ONDANSETRON 4MG/2ML VIAL 4 MG IV ×2 (14:17→16:57)
[2024-12-28 14:18] VITALS: BP 148/97; PULSE 69; RESP 18; TEMP 36.9; O2SAT 98
[2024-12-28 14:24] LABS: NT Pro Brain Natriuretic Pep. 207 pg/mL (0-125)
--- NOTE | 2024-12-28 14:24 | ECG_ITS ---
APPROVED REPORT Exam: Resting ECG HR:75 bpm ECG Measurements Heart Rate 75 AXES WI 141 P 63 QRSd 78 QRS 102 QT 404 T 69 QTc 432 Conclusion SINUS RHYTHM RIGHT AXIS DEVIATION [QRS AXIS > 100] MODERATE ST DEPRESSION [0.05+ mV ST DEPRESSION] ABNORMAL ECG UNCONFIRMED REPORT Normal sinus rhythm. No ST elevation or depression. QTc 432 Electronically signed by : PREETHI WILLARD, 12/29/2024 13:51:36
[2024-12-28] MEDS: MORPHINE 2MG/ML SYRINGE 2 MG IV (14:29)
[2024-12-28 14:37] LABS: Troponin I < 0.01 ng/ml (0.00-0.034)
[2024-12-28] MEDS: IOPAMIDOL-370 (76%);100ML BOTTLE 75 ML IV (14:53)
[2024-12-28] MEDS: SODIUM CHLORIDE 0.9% 10ML SYR (RAD ONLY) 10 ML IV (14:53)
[2024-12-28 16:11] LABS: Hepatitis C Ab Qual. W/ RFX NEGATIVE (Negative)
[2024-12-28 16:11] LABS: Microscopic, Urine URINE MICROSCOPIC (MICROSCOPIC)
[2024-12-28 16:13] LABS: Bilirubin,Urine Negative (Negative); Color,Urine YELLOW (Yellow); Glucose,Urine (UA) Negative (Negative); Ketones,Urine Negative (Negative); Leukocyte Esterase,Urine Negative (Negative); PH,Urine 5.5 (5.0-8.5); Protein,Urine Negative (Negative); Specific Gravity, Urine <= 1.005 (1.005-1.030); Urobilinogen,Urine 0.2 EU/dl (0.2)
[2024-12-28 16:26] LABS: Squamous Epithelial Cell,Urine Occasional #/hpf (0-5)
[2024-12-28 16:46] VITALS: BP 147/87; PULSE 70; RESP 18; TEMP 37; O2SAT 98
== END 2024-12-28 17:02 | disposition home or self-care (01) ==
PROVIDERS: Physician Assistant; Emergency Provider Student in an Organized Health Care Education/Training Program; PCP Family Medicine
DX: R10.84 Generalized abdominal pain (principal); R11.2 Nausea with vomiting, unspecified; R19.7 Diarrhea, unspecified; F17.210 Nicotine dependence, cigarettes, uncomplicated
CPT/HCPCS: 71045; 74177; 80053; 81001; 83605; 83690; 83735; 83880; 84484; 85025; 86803; 87389; 93005; 96361; 96374; 96375; 96376; 99285; J2270; J2405; J7120; Q9967